=== PATIENT | female | born 1960 | race Caucasian/White ===

== ENCOUNTER 2017-10-20 14:05 | Emergency (ER) | payer MEDICARE, MEDICAID ==
[~2017-10-20] VITALS: Ht 160 cm; Wt 99.8 kg
[~2017-10-20 14:05] MED LIST: ALPR0.5T7 PO; ASPI-808 PO; DIGO125T18 PO; DULO60CA58 PO; DULO60CA6 PO; ENAL10TA PO; FAMO20TA5 PO; FLUT9.9S NS; HYDR4TAB49 PO; IBUP-1780 PO; MORP-34 PO; PROM50TA3 PO; VERA120T6 PO; VERA240C4 PO
--- OUTSIDE RECORDS SUMMARY | 2017-10-20 14:11 | XMS REPORT ---
Author CARLTON Washington [facility], [place] eClinicalWorks Address Unknown Phone Unavailable Care Team Providers Care Outdoor Studies Professor Name Role Phone CARLTON AGUILAR CP Unavailable Allergies, Adverse Reactions, Alerts Substance Reaction Event Type Diclofenac Info Not Available Drug Allergy Sulfamethoxazole Info Not Available Drug Allergy Problems Problem Type Condition Code Onset Dates Condition Status Problem History of drug abuse Z87.898 Active Problem Type 2 diabetes mellitus with hyperglycemia E11.65 Active Problem Essential hypertension I10 Active Problem Neuropathy G62.9 Active Assessment Secondary hypertension I15.9 Active Problem Irritable bowel syndrome with both constipation and diarrhea K58.2 Active Assessment Neuropathy G62.9 Active Problem Secondary hypertension I15.9 Active Problem Chronic hepatitis C without hepatic coma B18.2 Active Problem Chronic pain syndrome G89.4 Active Problem Other allergic rhinitis J30.89 Active Problem Atrial fibrillation I48.91 Active Assessment Episodic mood disorder F39 Active Assessment Posttraumatic stress disorder F43.10 Active Assessment Irritable bowel syndrome with both constipation and diarrhea K58.2 Active Assessment Atrial fibrillation I48.91 Active Problem Posttraumatic stress disorder F43.10 Active Problem Episodic mood disorder F39 Active Assessment Chronic hepatitis C without hepatic coma B18.2 Active Problem Chronic pain G89.29 Active Assessment Type 2 diabetes mellitus with hyperglycemia E11.65 Active Problem Marijuana use F12.10 Active Medications Medication Code System Code Instructions Start Date End Date Status Dosage Gabapentin [facility] [address]-29 300 MG Orally Three times a day Apr 09, 2016 1 capsule Flonase ND 0 50 mcg/actuation July 29, 2014 1 sprays by Nasal route 2 times per day in each nostril Gas Relief [facility] [address]-41 80 mg October 29, 2012 PRN Trulicity [facility] [address]-32 0.75 MG/0.5ML Subcutaneous Apr 09, 2016 Jul 08, 2016 0.5 ml Aspirin [facility] [address]-27 325 MG Orally Once a day 1 tablet Enalapril Maleate [facility] [address]-91 10 mg Orally Once a day October 02, 2015 1 tablet Cymbalta [facility] [address]-20 60 mg Orally Once a day August 30, 2015 1 capsule Actos [facility] [address]-77 15 MG Orally Once a day Apr 09, 2016 1 tablet Verapamil HCl CR [facility] 28845514884 240 MG Orally Once a day 1 tablet dicyclomine ND 0 20 mg October 14, 2012 take 1 tablet (20 mg) by oral route 4 times per day Procedures Procedure Coding System Code Date DRUG SCREEN NON TLC DEVICES CPT-4 87190 Apr 09, 2016 ELECTROCARDIOGRAM, TRACING CPT-4 70142 Apr 09, 2016 MICROALBUMIN, SEMIQUANT CPT-4 11869 Apr 09, 2016 Office Visit, Est Pt., Level 4 CPT-4 21507 Apr 09, 2016 [facility] VISIT ESTABLISHED PATIENT CPT-4 G0467 Apr 09, 2016 URINALYSIS, AUTO, W/O SCOPE CPT-4 59909 Apr 09, 2016 Vital Signs Date/Time: Apr 09, 2016 Cardiac Monitoring Heart Rate 78 bpm Weight 181.3 lbs Height 63 in BMI 32.11 Index Blood Pressure Diastolic 72 mmHg Blood Pressure Systolic 108 mmHg Results Name Result Date Reference Range Unit Abnormality Flag URINE DRUG SCREEN (IN HOUSE) ----BAR Negative 20160409 ----PCP Negative 20160409 ----Control + 20160409 ----COCAINE Negative 20160409 ----AMPH Negative 20160409 ----MDMA Negative 20160409 ----MTD Negative 20160409 ----BUP Negative 20160409 ----THC Negative 20160409 ----TCA Negative 20160409 ----OPIATE Negative 20160409 ----Lot # [id number] 20160409 ----BENZO Negative 20160409 ----MAMP Negative 20160409 ----Exp date 20160409 ----OXY Negative 20160409 UA LONG DIP (IN HOUSE) ----NIT negative 20160409 ----Odor none 20160409 ----Color yellow 20160409 ----URO 0.2 20160409 ----CECILE negative 20160409 ----Protein negative 20160409 ----GLU 3+ 20160409 ----pH 5.5 20160409 ----Lot # [id number] 20160409 ----Clarity Clear 20160409 ----FRANSISCO trace 20160409 ----Exp date 20160409 ----BLO Trace-intact 20160409 ----KET negative 20160409 ----SG 1.015 20160409 A1C (IN HOUSE) ----A1C IN HOUSE >14 20160409 4.3 - 5.6 % ----Previous A1c >14 20160409 ----Lot [id number] 20160409 ----Exp date 20160409 MICROALBUMIN, URINE (IN HOUSE) ----CRE 200mg/dl 20160409 ----ALB 30mg/l 20160409 ----Control + 20160409 ----A:C (IN HOUSE) <30mg/g 20160409 ----Clarity Clear 20160409 ----Color Yellow 20160409 ----Lot # [id number] 20160409 ----Exp date 20160409 ----MICROALBUMIN normal 20160409 Summary Purpose eClinicalWorks Submission
--- OUTSIDE RECORDS SUMMARY | 2017-10-20 14:11 | XMS REPORT ---
Author Author ALIYAH SAMPSON [facility] [place] eClinicalWorks Address Unknown Phone Unavailable Care Team Providers Care Auth Specialist Name Role Phone ALIYAH SAMPSON Unavailable Allergies No Known Allergies Problems Problem Type Condition Code Onset Dates Condition Status Problem History of drug abuse Z87.898 Active Problem Type 2 diabetes mellitus with hyperglycemia E11.65 Active Problem Essential hypertension I10 Active Problem Neuropathy G62.9 Active Problem Irritable bowel syndrome with both constipation and diarrhea K58.2 Active Problem Secondary hypertension I15.9 Active Problem Chronic hepatitis C without hepatic coma B18.2 Active Problem Chronic pain syndrome G89.4 Active Problem Other allergic rhinitis J30.89 Active Problem Atrial fibrillation I48.91 Active Assessment Type 2 diabetes mellitus with hyperglycemia E11.65 Active Assessment Essential hypertension I10 Active Problem Posttraumatic stress disorder F43.10 Active Problem Episodic mood disorder F39 Active Assessment Posttraumatic stress disorder F43.10 Active Problem Chronic pain G89.29 Active Assessment Episodic mood disorder F39 Active Problem Marijuana use F12.10 Active Medications No Known Medications Procedures Procedure Coding System Code Date Psychotherapy, patient &/family, 45 minutes, established patient CPT-4 41467 Apr 11, 2016 [facility] VISIT MENTAL HEALTH ESTAB PT CPT-4 G0470 Apr 11, 2016 Results No Known Results Summary Purpose eClinicalWorks Submission
--- OUTSIDE RECORDS SUMMARY | 2017-10-20 14:11 | XMS REPORT ---
Author Author CARLTON AGUILAR [facility] eClinicalWorks Address Unknown Phone Unavailable Care Team Providers Care Package Car Driver Name Role Phone CARLTON AGUILAR CP Unavailable Allergies No Known Allergies Problems Problem [...] J30.89 Active Problem Atrial fibrillation I48.91 Active Problem Posttraumatic stress disorder F43.10 Active Problem Episodic mood disorder F39 Active Problem Chronic pain G89.29 Active Problem Marijuana use F12.10 Active Medications No Known Medications Results No Known Results Summary Purpose eClinicalWorks Submission
--- OUTSIDE RECORDS SUMMARY | 2017-10-20 14:12 | XMS REPORT ---
Author Author ALIYAH SAMPSON [facility] Address [address] [place] [address] Care Team Providers Care Ski Patrol Director Name Role Phone ALIYAH SAMPSON Unavailable PROBLEMS Type Condition ICD9-CM Code YTG70-QT Code Onset Dates Condition Status SNOMED Code Problem Atrial fibrillation I48.91 Active 66554686 Problem Neuropathy G62.9 Active 800178250 Problem Other allergic rhinitis J30.89 Active 91361543 Problem Paroxysmal atrial fibrillation I48.0 Active 787150095 Problem Type 2 diabetes mellitus without complications E11.9 Active 045694752 Problem Tobacco abuse counseling Z71.6 Active 18223641 Problem Sinusitis chronic, ethmoidal J32.2 Active 94571226 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 304591571 Problem Mixed hyperlipidemia E78.2 Active 705956858 Problem Posttraumatic stress disorder F43.10 Active 32056677 Problem Type 2 diabetes mellitus with hyperglycemia E11.65 Active 715057137 Problem Chronic hepatitis C without hepatic coma B18.2 Active 536565827 Problem Episodic mood disorder F39 Active 13261182 Problem Marijuana use F12.10 Active 81317299 Problem Chronic pain G89.29 Active 30882336 Problem Essential hypertension I10 Active 53252346 ALLERGIES No Information ENCOUNTERS Encounter Location Date Diagnosis [place] [id number] [place] [address] 60450- 9106 Aug, Type 2 diabetes mellitus with hyperglycemia E11.65 [place] [address] [place] [address] 55637- 1307 Aug, Pneumonia of right middle lobe due to infectious organism J18.1 ; Peripheral edema R60.9 ; Right upper quadrant abdominal pain R10.11 ; Type 2 diabetes mellitus without complications E11.9 and BMI 40.0-44.9, adult Z68.41 [place] [id number] [place] [address] 82399- 0124 Aug, [facility] [address] [place] [address] [id number] [place] [address] 73125- 2789 Aug, [facility] [address] [place] [id number] [place] [address] 16428- 3587 Aug, [facility] [address] 39388- 2132 Aug, Type 2 diabetes mellitus without complications E11.9 ; Type 2 diabetes mellitus with hyperglycemia E11.65 ; Peripheral edema R60.9 ; Shortness of breath R06.02 ; Paroxysmal atrial fibrillation I48.0 and Pneumonia of right middle lobe due to infectious organism J18.1 [place] [address] [place] [id number] [place] [address] 83109- 3471 Aug, [facility] [address] [id number] [place] [address] 18115 -4482 Jul, Wheezing R06.2 and Acute non-recurrent pansinusitis J01.40 [place] [address] [place] [id number] [place] [address] 99679- 3857 Jul, [place] [address] [place] [id number] [place] [address] 91621- 2872 Jul, [place] [address] [place] [id number] [place] [address] 48632- 3267 May, Type 2 diabetes mellitus with hyperglycemia E11.65 ; Type 2 diabetes mellitus without complications E11.9 ; [facility]CI (current) use of insulin Z79.4 ; Essential hypertension I10 ; Atrial fibrillation I48.91 ; Chronic hepatitis C without hepatic coma B18.2 ; Mixed hyperlipidemia E78.2 ; Episodic mood disorder F39 ; Neuropathy G62.9 ; Acute non-recurrent maxillary sinusitis J01.00 ; Chronic pain G89.29 and Marijuana use F12.10 [place] [address] [place] [id number] [place] [address] 92680- 7132 Apr, Atrial fibrillation I48.91 [place] [address] 37750- 5808 Mar, [place] [address] [place] [id number] [place] [address] 81444- 4721 Feb, Type 2 diabetes mellitus with hyperglycemia E11.65 ; Essential hypertension I10 ; Mixed hyperlipidemia E78.2 ; Atrial fibrillation I48.91 ; Neuropathy G62.9 ; Other allergic rhinitis J30.89 and Non compliance with medical treatment Z91.19 [place] [id number] [place] [address] 57172- 4215 07 Jan, 2017 Episodic mood disorder F39 and Posttraumatic stress disorder F43.10 [place] [id number] [place] [address] 06831- 1861 Jan, [place] [address] [place] [id number] [place] [address] 41933- 9512 Oct, [place] [id number] [place] [address] 34570- 2661 Oct, [place] [address] [place] [id number] [place] [address] 36614- 6550 Oct, Type 2 diabetes mellitus with hyperglycemia E11.65 ; Essential hypertension I10 ; Atrial fibrillation I48.91 ; Episodic mood disorder F39 ; Chronic pain G89.29 ; Neuropathy G62.9 ; Other allergic rhinitis J30.89 and Tobacco abuse counseling Z71.6 [facility] [address] [place] [address] [address] Aug, Acute non-recurrent pansinusitis J01.40 [place] [id number] [place] [address] 11334- 5569 Jul, [place] [id number] [place] [address] 83873- 0954 Jun, [place] [address] [place] [id number] [place] [address] 13311- 6173 Jun, Type 2 diabetes mellitus with hyperglycemia E11.65 ; Episodic mood disorder F39 ; Posttraumatic stress disorder F43.10 ; Essential hypertension I10 ; Atrial fibrillation I48.91 ; Chronic pain G89.29 ; Acute upper respiratory infection, unspecified J06.9 ; Other viral agents as the cause of diseases classified elsewhere B97.89 ; Acute pain of left shoulder M25.512 and Sinusitis chronic, ethmoidal J32.2 [facility] [address] [place] [address] [id number] [place] [address] 73592- 6812 May, Acute intractable tension-type headache G44.201 ; Chronic pain G89.29 ; Essential hypertension I10 ; Atrial fibrillation I48.91 ; Neuropathy G62.9 ; Posttraumatic stress disorder F43.10 ; Episodic mood disorder F39 ; Type 2 diabetes mellitus with hyperglycemia E11.65 ; Other allergic rhinitis J30.89 and Irritable bowel syndrome with both constipation and diarrhea K58.2 [facility] [address] 40975- 8320 Apr, Episodic mood disorder F39 and Posttraumatic stress disorder F43.10 [place] [address] 90940- 4139 Mar, [facility] [address] 34125- 1458 Mar, [place] [address] 25297- 3053 Mar, Chronic hepatitis C without hepatic coma B18.2 [facility] [address] 47494- 9233 Mar, [facility] [address] 96719- 2875 Mar, Episodic mood disorder F39 ; Type 2 diabetes mellitus with hyperglycemia E11.65 ; Posttraumatic stress disorder F43.10 and Essential hypertension I10 [place] [address] 32669- 8213 Mar, [place] [address] 50807- 9700 Mar, [facility] [address] 59830- 7205 Mar, Type 2 diabetes mellitus with hyperglycemia E11.65 ; Chronic hepatitis C without hepatic coma B18.2 ; Posttraumatic stress disorder F43.10 ; Episodic mood disorder F39 ; Atrial fibrillation I48.91 ; Irritable bowel syndrome with both constipation and diarrhea K58.2 ; Secondary hypertension I15.9 and Neuropathy G62.9 [facility] [address] [place] [id number] [place] [address] 20287- 9788 Feb, Episodic mood disorder F39 and Posttraumatic stress disorder F43.10 [facility] [address] [place] [id number] [place] [address] 42505- 8441 Jan, Episodic mood disorder F39 and Posttraumatic stress disorder F43.10 [facility] [address] [place] [id number] [place] [address] 95728- 2470 Nov, Type 2 diabetes mellitus with hyperglycemia E11.65 ; Atrial fibrillation I48.91 ; Other allergic rhinitis J30.89 ; Episodic mood disorder F39 and Essential hypertension I10 [facility] [address] [place] [id number] [place] [address] 75772- 9026 Nov, [facility] [address] [place] [id number] [place] [address] 87036- 1532 Oct, [facility] [address] [place] [address] [id number] [place] [address] 75418- 8369 Oct, [facility] [address] [place] [id number] [place] [address] 78649- 0355 September, Type 2 diabetes mellitus with hyperglycemia E11.65 ; Atrial fibrillation I48.91 and Chronic pain G89.29 [facility] [address] [place] [address] [id number] [place] [address] 58702- 3233 September, Episodic mood disorder F39 and Posttraumatic stress disorder F43.10 [facility] [address] [place] [address] [id number] [place] [address] 67833- 2612 September, [facility] [address] [place] [address] [id number] [place] [address] 50425- 0494 September, [facility] [address] [address] September, [facility] [address] [place] [address] [id number] [place] [address] 29964- 6776 September, [facility] [address] [place] [address] [id number] [place] [address] 14382- 9237 September, [facility] [address] 33260- 1306 Aug, Type 2 diabetes mellitus with hyperglycemia E11.65 and Essential hypertension I10 [facility] [address] [place] [id number] [place] [address] 96410- 8563 Aug, [facility] [address] [place] [id number] [place] [address] 56601- 7405 Aug, [facility] [address] [place] [id number] [place] [address] 69011- 1548 Aug, Allergic rhinitis J30.9 ; Atrial fibrillation I48.91 ; Shortness of breath R06.02 and Essential hypertension I10 [facility] [address] [place] [id number] [place] [address] 73437- 1252 Jul, [facility] [address] [place] [id number] [place] [address] 28546- 0705 10 Jun, 2015 Episodic mood disorder F39 and Posttraumatic stress disorder F43.10 [facility] [address] [place] [id number] [place] [address] 84622- 7455 Jun, [facility] [address] [place] [address] [id number] [place] [address] 24145- 3361 May, Chronic pain G89.29 ; History of drug abuse Z87.898 and Marijuana use F12.10 [facility] [address] [place] [id number] [place] [address] 52477- 3662 May, Episodic mood disorder F39 and Posttraumatic stress disorder F43.10 [facility] [address] [place] [address] [id number] [place] [address] 14327- 6960 May, [facility] [address] [place] [address]- 0928 Apr, Chronic pain G89.29 [facility] [address]36 Apr, Episodic mood disorder F39 and Posttraumatic stress disorder F43.10 [facility] [address] [place] [address] 08496- 3676 Apr, COPD (chronic obstructive pulmonary disease) with acute bronchitis J44.0 [facility] [address] [place] [address] 498311- 5730 Feb, Episodic mood disorder F39 and Posttraumatic stress disorder F43.10 [facility] [address] [place] [address] 83369- 5329 Feb, [facility] [address] [place] [id number] [place] [address] 19044- 1945 Feb, Episodic mood disorder F39 and Posttraumatic stress disorder F43.10 [facility] [address], [place] [address]- 0428 Jan, Routine adult health maintenance V70.0 [facility] [address], [place] [address]- 9923 Jan, Unspecified episodic mood disorder 296.90 and Posttraumatic stress disorder 309.81 [facility] [address], [place] [address]- 9304 Dec, Unspecified episodic mood disorder 296.90 and Posttraumatic stress disorder 309.81 [facility] [address] [place] [address]- 4701 Dec, Unspecified episodic mood disorder 296.90 and Posttraumatic stress disorder 309.81 [facility] [address], [place] [address]- 4897 Oct, Unspecified episodic mood disorder 296.90 and Posttraumatic stress disorder 309.81 [facility] [address] [address] [address] [address]- 0026 September, Unspecified episodic mood disorder 296.90 ; Posttraumatic stress disorder 309.81 ; No condition on [place] V71.09 ; Diabetes 250.00 ; Hypertension 401.9 ; Hepatitis C 070.70 and Degenerative disc disease 722.6 [facility] [address] [place] [address]- 2222 Aug, [facility] [address] [place] [address] [id number] [place] [address] 08392- 1997 Aug, [facility] [address] [place] [address] [id number] [place] [address] 482506- 7688 Jul, [facility] [address] [place] [address] [id number] [place] [address] 31230- 1000 Jul, [facility] [address] [place] [address] [id number] [place] [address] 64090- 3811 16 Jan, 2014 [facility] [address] [place] [address] [id number] [place] [address] 11055- 8891 16 Jan, 2014 [facility] [address] [place] [address]- 9915 Jan, [facility] [id number] [place] [address] 26545- 4089 Oct, [facility] [address] [place] [address]- 1290 Oct, [facility] [address] [place] [address]- 8850 Oct, [facility] [address] [place] [address]- 9315 Oct, [facility] [address] [address] [address]- 5648 18 Oct, 2012 [facility] [address] [place] [address]- 0523 14 Oct, 2012 [facility] [address] [place] [address] [id number] [place] [address] 57661- 7683 Oct, [facility] [address], [place] [address]- 7081 13 Oct, 2012 [facility] [address], [place] [address]- 7526 Oct, [facility] [address], [place] [address]- 5714 Oct, [facility] [address], [place] [address]- 8268 Oct, [facility] [address], [place] [address]- 4746 Oct, [facility] [address], [place] [address]- 1296 Oct, [facility] [address] [place] [address]- 1264 Oct, [facility] [address], [place] [address]- 0335 Oct, [facility] [address], [place] [address]- 2757 Oct, [facility] [address], [place] [address]- 0834 September, [facility] [address], [place] [address]- 7124 Aug, [facility] [address], [place] [address]- 3011 Aug, [facility] [address], [place] [address]- 3378 Aug, IMMUNIZATIONS No Known Immunizations SOCIAL HISTORY Never Assessed REASON FOR VISIT BH F/U PLAN OF CARE Activity Details Follow Up prn Reason:BH F/U VITAL SIGNS MEDICATIONS Unknown Medications RESULTS No Results PROCEDURES Procedure Date Ordered Result Body Site [facility] VISIT MENTAL HEALTH ESTAB PT Jan 30, 2017 Psychotherapy, patient &/family, 45 minutes, established patient Jan 30, 2017 INSTRUCTIONS MEDICATIONS ADMINISTERED No Known Medications MEDICAL (GENERAL) HISTORY Type Description Date Medical History Hypertension Medical History Hep C Medical History Arthritis Medical History Osteoarthritis Medical History Left wrist and Right leg fractures Medical History Chronic back pain Medical History Depression Medical History Anxiety Medical History Endometrial Cancer s/p surgical resection Medical History Irritable bowel syndrome with both constipation and diarrhea Medical History History of drug abuse Medical History A- Fib Surgical History Hysterectomy Surgical History Surgical resection for endometrial cancer
--- OUTSIDE RECORDS SUMMARY | 2017-10-20 14:12 | XMS REPORT ---
Author Author EDWARD MAHER eClinicalWorks Address Unknown Phone Unavailable Care Team Providers Care Print Graphic Designer Name Role Phone EDWARD MAHER CP Unavailable Allergies, Adverse Reactions, Alerts Substance Reaction Event Type Diclofenac Info Not Available Drug Allergy Sulfamethoxazole Info Not Available Drug Allergy Problems Problem Type Condition Code Onset Dates Condition Status Assessment Chronic pain G89.29 Active Problem Episodic mood disorder F39 Active Problem Posttraumatic stress disorder F43.10 Active Assessment Marijuana use F12.10 Active Assessment History of drug abuse Z87.898 Active Problem Chronic pain syndrome G89.4 Active Problem Type 2 diabetes mellitus with hyperglycemia E11.65 Active Problem Chronic hepatitis C without hepatic coma B18.2 Active Problem Marijuana use F12.10 Active Problem Chronic pain G89.29 Active Problem Essential hypertension I10 Active Problem History of drug abuse Z87.898 Active Medications Medication Code System Code Instructions Start Date End Date Status Dosage Cymbalta [facility] [address]-83 60 mg November 03, 2012 take 1 capsule (60 mg) by oral route once daily verapamil NDC 0 120 mg October 14, 2012 take 1 tablet (120 mg) by oral route every 12 hours with food dicyclomine NDC 0 20 mg October 14, 2012 take 1 tablet (20 mg) by oral route 4 times per day Digoxin [facility] [address]-77 125 MCG Orally Once a day 1 tablet Flonase NDC 0 50 mcg/actuation July 29, 2014 1 sprays by Nasal route 2 times per day in each nostril Claritin-D 12 Hour [facility] [address]-70 5-120 mg October 29, 2012 take 1 tablet by oral route 2 times per day PRN Enalapril Maleate [facility] [address]-40 10 mg November 03, 2012 take 1 tablet (10 mg) by oral route once daily promethazine NDC 0 25 mg October 14, 2012 take 1 tablet (25 mg) by oral route every 4-6 hours as needed Gas Relief [facility] [address]-05 80 mg October 29, 2012 PRN ProAir HFA [facility] [address]-79 108 (90 Base) MCG/ACT Inhalation every 4 hrs May 01, 2015 2 puffs as needed Procedures Procedure Coding System Code Date Office Visit, Est Pt., Level 3 CPT-4 70581 Jun 08, 2015 [facility] VISIT ESTABLISHED PATIENT CPT-4 G0467 Jun 08, 2015 Vital Signs Date/Time: Jun 08, 2015 Temperature 97.8 F Weight 198.8 lbs Height 63 in BMI 35.21 Index Blood Pressure Diastolic 88 mmHg Blood Pressure Systolic 146 mmHg Cardiac Monitoring Heart Rate 98 bpm Results No Known Results Summary Purpose eClinicalWorks Submission
--- OUTSIDE RECORDS SUMMARY | 2017-10-20 14:12 | XMS REPORT ---
Author Author CARLTON AGUILAR Organization [facility] Address [address] [place] [address] Care Team Providers Care Mixing Machine Tender Cork Rod Name Role Phone IRIS AGUIALRNETTE Unavailable PROBLEMS Type Condition ICD9-CM Code EVT10-OP Code Onset Dates Condition Status SNOMED Code Problem Other allergic rhinitis J30.89 Active 69585931 Problem Irritable bowel syndrome with both constipation and diarrhea K58.2 Active 23655827 Problem Neuropathy G62.9 Active 798738364 Problem Tobacco abuse counseling Z71.6 Active 22911881 Problem Acute upper respiratory infection, unspecified J06.9 Active 11464341 Problem Sinusitis chronic, ethmoidal J32.2 Active 53546503 Problem Secondary hypertension I15.9 Active 08158987 Problem Other viral agents as the cause of diseases classified elsewhere B97.89 Active 47647129 Problem Acute pain of left shoulder M25.512 Active 593296165 Problem Chronic pain G89.29 Active 28539779 Problem Essential hypertension I10 Active 74295997 Problem Episodic mood disorder F39 Active 97457475 Problem Posttraumatic stress disorder F43.10 Active 86079859 Problem History of drug abuse Z87.898 Active 736189183 Problem Chronic hepatitis C without hepatic coma B18.2 Active 551114740 Problem Chronic pain syndrome G89.4 Active 337803514 Problem Marijuana use F12.10 Active 69629321 Problem Type 2 diabetes mellitus with hyperglycemia E11.65 Active 932572435 Problem Atrial fibrillation I48.91 Active 10443582 ALLERGIES No Information SOCIAL HISTORY Never Assessed PLAN OF CARE VITAL SIGNS MEDICATIONS Medication Instructions Dosage Frequency Start Date End Date Duration Status Enalapril Maleate 10 mg Orally Once a day 1 tablet 24h 30 days Active RESULTS No Results PROCEDURES No Known procedures IMMUNIZATIONS No Known Immunizations MEDICAL (GENERAL) HISTORY Type Description Date Medical History Hypertension Medical History Hep C Medical History Arthritis Medical History Osteoarthritis Medical History Left wrist and Right leg fractures Medical History Chronic back pain Medical History Depression Medical History Anxiety Medical History Endometrial Cancer s/p surgical resection Surgical History Hysterectomy Surgical History Surgical resection for endometrial cancer
--- OUTSIDE RECORDS SUMMARY | 2017-10-20 14:12 | XMS REPORT ---
Author Author RYAN MICHAEL [facility] eClinicalWorks Address Unknown Phone Unavailable Care Team Providers Care Security Auditor Name Role Phone RYAN MICHAEL CP Unavailable Allergies, Adverse Reactions, Alerts Substance Reaction Event Type Diclofenac Info Not Available Drug Allergy Sulfamethoxazole Info Not Available Drug Allergy Problems Problem Type Condition Code Onset Dates Condition Status Problem Hypertension 401.9 Active Problem Anxiety state, unspecified 300.00 Active Problem Diabetes 250.00 Active Problem Allergic rhinitis due to pollen 477.0 Active Assessment Routine adult health maintenance V70.0 Active Problem Chronic hepatitis C without mention of hepatic coma 070.54 Active Problem Other chronic pain 338.29 Active Medications Medication Code System Code Instructions Start Date End Date Status Dosage Enalapril Maleate [facility] [address]-24 10 mg November 03, 2012 take 1 tablet (10 mg) by oral route once daily Cymbalta [facility] [address]-93 60 mg November 03, 2012 take 1 capsule (60 mg) by oral route once daily Alprazolam [facility] [address]-96 0.5 mg October 29, 2012 take 1 tablet by Oral route 2 times per day PRN anxiety Dilaudid [facility] [address]-55 4 mg October 29, 2012 take 1-2 tablet by Oral route every 4-6 hours as needed PRN promethazine NDC 0 25 mg October 14, 2012 take 1 tablet (25 mg) by oral route every 4-6 hours as needed Fluticasone Propionate [facility] [id number] 50 MCG/ACT USE ONE SPRAY IN EACH NOSTRIL TWICE DAILY verapamil NDC 0 120 mg October 14, 2012 take 1 tablet (120 mg) by oral route every 12 hours with food Claritin-D 12 Hour [facility] [address]-95 5-120 mg October 29, 2012 take 1 tablet by oral route 2 times per day PRN morphine NDC 0 30 mg October 29, 2012 take 1 tablet by Oral route every 12 hours as needed dicyclomine NDC 0 20 mg October 14, 2012 take 1 tablet (20 mg) by oral route 4 times per day Procedures Procedure Coding System Code Date Office Visit, Est Pt., Level 4 CPT-4 38190 Feb 10, 2015 [facility] VISIT ESTABLISHED PATIENT CPT-4 G0467 Feb 10, 2015 Vital Signs Date/Time: Feb 10, 2015 Temperature 98.6 F Weight 205.3 lbs Height 63 in BMI 36.36 Index Blood Pressure Diastolic 70 mmHg Blood Pressure Systolic 122 mmHg Cardiac Monitoring Heart Rate 100 bpm Results No Known Results Summary Purpose eClinicalWorks Submission
--- OUTSIDE RECORDS SUMMARY | 2017-10-20 14:12 | XMS REPORT ---
Author CARLTON Washington [facility] eClinicalWorks Address Unknown Phone Unavailable Care Team Providers Care Debeaker Name Role Phone CARLTON AGUILAR CP Unavailable [...] F39 Active Problem Chronic pain G89.29 Active Assessment Chronic hepatitis C without hepatic coma B18.2 Active Problem Marijuana use F12.10 Active Medications No Known Medications Procedures Procedure Coding System Code Date HEP C AB W/REFLEX ([facility] ONLY) CPT-4 39491 Apr 11, 2016 HEP C GENOTYPE ([facility] ONLY) CPT-4 25110 Apr 11, 2016 LAB NOT BILLED BY [facility] CPT-4 NOBLL Apr 11, 2016 VENIPUNCT, ROUTINE* CPT-4 83647 Apr 11, 2016 Results Name Result Date Reference Range Unit Abnormality Flag CMP ----Calcium, Serum 9.1 35211876 8.7-10.2 mg/dL ----Carbon Dioxide, Total 20 [id number] 18-29 mmol/L ----ALT (SGPT) 43 [id number] 0-32 IU/L H ----Creatinine, Serum 0.78 57179439 0.57-1.00 mg/dL ----AST (SGOT) 28 03550921 0-40 IU/L ----eGFR If NonAfricn Am 85 [id number] >59 mL/min/1.73 ----Alkaline Phosphatase, S 122 98445140 39-117 IU/L H ----eGFR If Africn Am 98 [id number] >59 mL/min/1.73 ----Bilirubin, Total 0.3 92327185 0.0-1.2 mg/dL ----BUN/Creatinine Ratio 17 20160411 9-23 ----A/G Ratio 1.1 61427387 1.1-2.5 ----Sodium, Serum 134 90122512 136-144 mmol/L L ----Globulin, Total 3.4 10770323 1.5-4.5 g/dL ----Potassium, Serum 3.9 01487074 3.5-5.2 mmol/L ----Glucose, Serum 291 87921088 65-99 mg/dL H ----Chloride, Serum 96 47877144 97-106 mmol/L L ----Albumin, Serum 3.7 19283746 3.5-5.5 g/dL ----BUN 13 67032287 6-24 mg/dL ----Protein, Total, Serum 7.1 34599553 6.0-8.5 g/dL LIPID PANEL ----LDL Cholesterol Calc 132 07696459 0-99 mg/dL H ----VLDL Cholesterol Mauricio 51 80899525 5-40 mg/dL H ----Cholesterol, Total 223 74833857 100-199 mg/dL H ----HDL Cholesterol 40 04875568 >39 mg/dL ----Triglycerides 255 64880362 0-149 mg/dL H ROUTINE VENIPUNCTURE CBC ----MCHC 32.6 55337550 31.5-35.7 g/dL ----MCH 27.3 17297153 26.6-33.0 pg ----Platelets 338 58672579 150-379 x10E3/uL ----RDW 13.9 44579161 12.3-15.4 % ----Immature Granulocytes 0 16952302 % ----Immature Grans (Abs) 0.0 91111802 0.0-0.1 x10E3/uL ----Lymphs 32 39212687 % ----Monocytes 7 24900999 % ----Neutrophils 60 48909474 % ----Neutrophils (Absolute) 6.8 60506725 1.4-7.0 x10E3/uL ----Hematocrit 45.7 72903722 34.0-46.6 % ----Lymphs (Absolute) 3.6 49632743 0.7-3.1 x10E3/uL H ----MCV 84 20160411 79-97 fL ----RBC 5.46 67551295 3.77-5.28 x10E6/uL H ----Eos 1 20160411 % ----Basos 0 20160411 % ----Hemoglobin 14.9 20160411 11.1-15.9 g/dL ----Baso (Absolute) 0.0 20160411 0.0-0.2 x10E3/uL ----WBC 11.4 74970348 3.4-10.8 x10E3/uL H ----Monocytes(Absolute) 0.8 68841763 0.1-0.9 x10E3/uL ----Eos (Absolute) 0.2 82767779 0.0-0.4 x10E3/uL HEP C GENOTYPE ([facility] ONLY) HEP C AB W/REFLEX ([facility] ONLY) Summary Purpose eClinicalWorks Submission
--- OUTSIDE RECORDS SUMMARY | 2017-10-20 14:12 | XMS REPORT ---
Author Author JEFF CARLTON Organization [facility] Address [address] [place] [address] Care Team Providers Care Litigation Paralegal Name Role Phone CARLTON AGUILAR Unavailable PROBLEMS Type Condition ICD9-CM Code ZMQ17-LI Code Onset Dates Condition Status SNOMED Code Problem Other allergic rhinitis J30.89 Active 93177080 Problem Irritable bowel syndrome with both constipation and diarrhea K58.2 Active 34453582 Problem Neuropathy G62.9 Active 054017942 Problem Tobacco abuse counseling Z71.6 Active 70640265 Problem Acute upper respiratory infection, unspecified J06.9 Active 95623754 Problem Sinusitis chronic, ethmoidal J32.2 Active 47756423 Problem Secondary hypertension I15.9 Active 71879215 Problem Other viral agents as the cause of diseases classified elsewhere B97.89 Active 01621014 Problem Acute pain of left shoulder M25.512 Active 647840863 Problem Chronic pain G89.29 Active 00783650 Problem Essential hypertension I10 Active 61599110 Problem Episodic mood disorder F39 Active 40639076 Problem Posttraumatic stress disorder F43.10 Active 09895734 Problem History of drug abuse Z87.898 Active 105310500 Problem Chronic hepatitis C without hepatic coma B18.2 Active 010231104 Problem Chronic pain syndrome G89.4 Active 063628739 Problem Marijuana use F12.10 Active 69205642 Problem Type 2 diabetes mellitus with hyperglycemia E11.65 Active 283494523 Problem Atrial fibrillation I48.91 Active 57605587 ALLERGIES Substance Reaction Event Type Date Status Diclofenac Unknown Drug Allergy May, Active Sulfamethoxazole Unknown Drug Allergy May, Active SOCIAL HISTORY No smoking Hx information available PLAN OF CARE Activity Details Follow Up 3 Months, prn Reason: VITAL SIGNS Height 63 in 2016-06-17 Weight 188.5 lbs 2016-06-17 Temperature 97.4 degrees Fahrenheit 2016-06-17 Heart Rate 82 bpm 2016-06-17 Respiratory Rate 22 2016-06-17 BMI 33.39 kg/m2 2016-06-17 Blood pressure systolic 122 mmHg 2016-06-17 Blood pressure diastolic 78 mmHg 2016-06-17 MEDICATIONS Medication Instructions Dosage Frequency Start Date End Date Duration Status Cymbalta 60 mg Orally Once a day 1 capsule 24h Aug, 30 day(s) Active Gas Relief 80 mg PRN Oct, Active Verapamil HCl CR 240 MG TAKE ONE TABLET BY MOUTH ONCE DAILY Active Flonase 50 mcg/actuation 1 sprays by Nasal route 2 times per day in each nostril Jul, Active Aspirin 325 MG Orally Once a day 1 tablet 24h Active Lidoderm 5 % Externally Once a day as directed 24h 30 Active Enalapril Maleate 10 MG TAKE ONE TABLET BY MOUTH ONCE DAILY Active Actos 30 MG Orally Once a day 1 tablet 24h Mar, Active Trulicity 0.75 MG/0.5ML Subcutaneous once weekly 0.5 ml Mar, Active RESULTS No Results PROCEDURES Procedure Date Ordered Related Diagnosis Body Site [facility] EST[facility] PATIENT Jun 17, 2016 Office Visit, Est Pt., Level 4 Jun 17, 2016 THER/PROPH/DIAG INJ, SC/IM Jun 17, 2016 PHENERGAN (IM) 25 MG (25 MG/ML) Jun 17, 2016 TORADOL (IM) 60 MG/2ML (UP TO 15 MG) Jun 17, 2016 IMMUNIZATIONS Vaccine Route Administration Date Status PHENERGAN (IM) 25 MG (25 MG/ML) IM Intramuscular Jun 17, 2016 Administered TORADOL (IM) 60 MG/2ML (UP TO 15 MG) IM Intramuscular Jun 17, 2016 Administered
--- OUTSIDE RECORDS SUMMARY | 2017-10-20 14:12 | XMS REPORT ---
Author Author JEFF CARLTON Organization [facility] Address [address] [place] [address] Care Team Providers Care Resolution Manager Name Role Phone CARLTON AGUILAR Unavailable PROBLEMS Type Condition ICD9-CM Code XAR05-AZ Code Onset Dates Condition Status SNOMED Code Problem Other allergic rhinitis J30.89 Active 03935451 Problem Irritable bowel syndrome with both constipation and diarrhea K58.2 Active 36301255 Problem Neuropathy G62.9 Active 879911774 Problem Tobacco abuse counseling Z71.6 Active 69288890 Problem Acute upper respiratory infection, unspecified J06.9 Active 17885585 Problem Sinusitis chronic, ethmoidal J32.2 Active 70804064 Problem Secondary hypertension I15.9 Active 30712748 Problem Other viral agents as the cause of diseases classified elsewhere B97.89 Active 91541298 Problem Acute pain of left shoulder M25.512 Active 223069632 Problem Chronic pain G89.29 Active 24213645 Problem Essential hypertension I10 Active 27686217 Problem Episodic mood disorder F39 Active 50045162 Problem Posttraumatic stress disorder F43.10 Active 53026439 Problem History of drug abuse Z87.898 Active 780400052 Problem Chronic hepatitis C without hepatic coma B18.2 Active 201683915 Problem Chronic pain syndrome G89.4 Active 820561938 Problem Marijuana use F12.10 Active 25625724 Problem Type 2 diabetes mellitus with hyperglycemia E11.65 Active 466861567 Problem Atrial fibrillation I48.91 Active 11012015 ALLERGIES Substance Reaction Event Type Date Status Diclofenac Unknown Drug Allergy Jun, Active Sulfamethoxazole Unknown Drug Allergy Jun, Active SOCIAL HISTORY Never Assessed PLAN OF CARE Activity Details Follow Up 2 Weeks Reason:left shoulder pain VITAL SIGNS Height 63 in 2016-07-18 Weight 188.8 lbs 2016-07-18 Temperature 98.4 degrees Fahrenheit 2016-07-18 Heart Rate 78 bpm 2016-07-18 Respiratory Rate 20 2016-07-18 BMI 33.44 kg/m2 2016-07-18 Blood pressure systolic 117 mmHg 2016-07-18 Blood pressure diastolic 72 mmHg 2016-07-18 MEDICATIONS Medication Instructions Dosage Frequency Start Date End Date Duration Status Shari-D 12 Hour 5-120 MG Orally every 12 hrs prn 1 tablet as needed Jun, Active Test strips Test Strips shayne track as directed Aug, Active Actos 30 MG Orally Once a day 1 tablet 24h Mar, Active Flonase 50 mcg/actuation 1 sprays by Nasal route 2 times per day in each nostril Jul, Active Lidoderm 5 % Externally Once a day 1 patch to skin remove after 12 hours 24h Jun, 30 days Active Enalapril Maleate 10 MG TAKE ONE TABLET BY MOUTH ONCE DAILY 30 Active Trulicity 0.75 MG/0.5ML Subcutaneous once weekly 0.5 ml 28 Active Verapamil HCl CR 240 MG Orally Once a day TAKE ONE TABLET BY MOUTH ONCE DAILY 24h Active Aspirin 325 MG Orally Once a day 1 tablet 24h Active Baclofen 10 mg Orally Three times a day 1 tablet with food or milk 8h Jun, Jul, 30 day(s) Active Cymbalta 60 mg Orally Once a day 1 capsule 24h Aug, 30 day(s) Active Gas Relief 80 mg PRN Oct, Active RESULTS Name Result Date Reference Range A1C (IN HOUSE) 2016-07-18 A1C IN HOUSE 6.9 4.3 - 5.6 % Previous A1c >14 Lot [id number] Exp date 03/2018 PROCEDURES Procedure Date Ordered Result Body Site GLYCATED HEMOGLOBIN TEST Jul 18, 2016 [facility] VISIT ESTABLISHED PATIENT Jul 18, 2016 IMMUNIZATIONS No Known Immunizations MEDICAL (GENERAL) HISTORY [...]
--- OUTSIDE RECORDS SUMMARY | 2017-10-20 14:13 | XMS REPORT ---
Author Author ALIYAH SAMPSON [facility] eClinicalWorks Address Unknown Phone Unavailable Care Team Providers Care Aviation Safety Inspector Name Role Phone ALIYAH SAMPSON Unavailable Allergies No Known Allergies Problems Problem Type Condition Code Onset Dates Condition Status Problem Allergic rhinitis due to pollen 477.0 Active Problem Posttraumatic stress disorder F43.10 Active Problem Diabetes 250.00 Active Problem Episodic mood disorder F39 Active Problem Chronic hepatitis C without mention of hepatic coma 070.54 Active Problem Other chronic pain 338.29 Active Problem Hypertension 401.9 Active Problem Anxiety state, unspecified 300.00 Active Medications No Known Medications Results No Known Results Summary Purpose eClinicalWorks Submission
--- OUTSIDE RECORDS SUMMARY | 2017-10-20 14:13 | XMS REPORT ---
Author Author RYAN MICHAEL [facility] eClinicalWorks Address Unknown Phone Unavailable Care Team Providers Care Cyber Intel Planner Name Role Phone RYAN MICHAEL CP Unavailable Allergies, Adverse Reactions, Alerts Substance Reaction Event Type Diclofenac Info Not Available Drug Allergy Sulfamethoxazole Info Not Available Drug Allergy Problems Problem Type Condition Code Onset Dates Condition Status Assessment Chronic pain G89.29 Active Problem Other chronic pain 338.29 Active Problem Allergic rhinitis due to pollen 477.0 Active Problem Episodic mood disorder F39 Active Problem Posttraumatic stress disorder F43.10 Active Problem Chronic pain G89.29 Active Problem Anxiety state, unspecified 300.00 Active Problem Chronic hepatitis C without mention of hepatic coma 070.54 Active Problem Diabetes 250.00 Active Problem Hypertension 401.9 Active Medications Medication Code System Code Instructions Start Date End Date Status Dosage Cymbalta [facility] [address]-30 60 mg November 03, 2012 take 1 capsule (60 mg) by oral route once daily morphine NDC 0 30 mg October 29, 2012 take 1 tablet by Oral route every 12 hours as needed dicyclomine NDC 0 20 mg October 14, 2012 take 1 tablet (20 mg) by oral route 4 times per day Enalapril Maleate [facility] [address]-33 10 mg November 03, 2012 take 1 tablet (10 mg) by oral route once daily verapamil NDC 0 120 mg October 14, 2012 take 1 tablet (120 mg) by oral route every 12 hours with food Flonase NDC 0 50 mcg/actuation July 29, 2014 1 sprays by Nasal route 2 times per day in each nostril Alprazolam [facility] [address]-57 0.5 mg October 29, 2012 take 1 tablet by Oral route 2 times per day PRN anxiety ProAir HFA [facility] [address]-03 108 (90 Base) MCG/ACT Inhalation every 4 hrs May 01, 2015 2 puffs as needed promethazine NDC 0 25 mg October 14, 2012 take 1 tablet (25 mg) by oral route every 4-6 hours as needed Claritin-D 12 Hour [facility] [address]-43 5-120 mg October 29, 2012 take 1 tablet by oral route 2 times per day PRN Gas Relief [facility] [address]-20 80 mg October 29, 2012 PRN Procedures Procedure Coding System Code Date Office Visit, Est Pt., Level 4 CPT-4 68830 May 08, 2015 [facility] VISIT ESTABLISHED PATIENT CPT-4 G0467 May 08, 2015 Vital Signs Date/Time: May 08, 2015 Temperature 96.7 F Weight 201.1 lbs Height 63 in BMI 35.62 Index Blood Pressure Diastolic 74 mmHg Blood Pressure Systolic 141 mmHg Cardiac Monitoring Heart Rate 100 bpm Results No Known Results Summary Purpose eClinicalWorks Submission
--- OUTSIDE RECORDS SUMMARY | 2017-10-20 14:13 | XMS REPORT ---
Author Author ALIYAH SAMPSON [facility] Address [address] [place] [address] Care Team Providers Care Frame Feeder Name Role Phone ALIYAH SAMPSON Unavailable PROBLEMS Type Condition ICD9-CM Code YMA94-RW Code Onset Dates Condition Status SNOMED Code Problem Chronic pain G89.29 Active 55251685 Problem History of drug abuse Z87.898 Active 294688418 Problem Marijuana use F12.10 Active 05364200 Assessment Episodic mood disorder F39 Jan, Active 06084745410108 Problem Posttraumatic stress disorder F43.10 Active 11320123 Problem Episodic mood disorder F39 Active 51494104 Problem Other allergic rhinitis J30.89 Active 85900660 Problem Atrial fibrillation I48.91 Active 01600706 Problem Type 2 diabetes mellitus with hyperglycemia E11.65 Active 307377489 Problem Essential hypertension I10 Active 86785616 Problem Chronic hepatitis C without hepatic coma B18.2 Active 849001771 Problem Chronic pain syndrome G89.4 Active 661641960 ALLERGIES Unknown Allergies SOCIAL HISTORY No smoking Hx information available PLAN OF CARE VITAL SIGNS MEDICATIONS Unknown Medications RESULTS No Results PROCEDURES Procedure Date Ordered Related Diagnosis Body Site [facility] VISIT MENTAL HEALTH ESTAB PT Feb 21, 2016 Psychotherapy, patient &/family, 45 minutes, established patient Feb 21, 2016 IMMUNIZATIONS No Known Immunizations
--- OUTSIDE RECORDS SUMMARY | 2017-10-20 14:13 | XMS REPORT ---
Author Author CARLTON Ocampo Organization [facility] Address [address] [place] [address] Care Team Providers Care Avionics Supervisor Name Role Phone CARLTON Ocampo Unavailable PROBLEMS Type Condition ICD9-CM Code IPB77-IM Code Onset Dates Condition Status SNOMED Code Problem Atrial fibrillation I48.91 Active 02810919 Problem Neuropathy G62.9 Active 953368218 Problem Other allergic rhinitis J30.89 Active 31881148 Problem Paroxysmal atrial fibrillation I48.0 Active 222938597 Problem Type 2 diabetes mellitus without complications E11.9 Active 586577947 Problem Tobacco abuse counseling Z71.6 Active 63016358 Problem Sinusitis chronic, ethmoidal J32.2 Active 12568601 Problem 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 499704751 Problem Mixed hyperlipidemia E78.2 Active 452459481 Problem Posttraumatic stress disorder F43.10 Active 34499675 Problem Type 2 diabetes mellitus with hyperglycemia E11.65 Active 849732027 Problem Chronic hepatitis C without hepatic coma B18.2 Active 098088449 Problem Episodic mood disorder F39 Active 56266948 Problem Marijuana use F12.10 Active 90636065 Problem Chronic pain G89.29 Active 56805929 Problem Essential hypertension I10 Active 72853916 ALLERGIES No Information ENCOUNTERS Encounter Location Date Diagnosis [place] [id number] [place] [address] 12305- 2041 Aug, Type 2 diabetes mellitus with hyperglycemia E11.65 [place] [id number] [place] [address] 78248- 2769 Aug, Pneumonia of right middle lobe due to infectious organism J18.1 ; Peripheral edema R60.9 ; Right upper quadrant abdominal pain R10.11 ; Type 2 diabetes mellitus without complications E11.9 and BMI 40.0-44.9, adult Z68.41 [place] [address] [place] [id number] [address] Aug, [facility] [id number] [place] [address] 69703- 5593 Aug, [facility] [id number] [place] [address] 78251- 9265 Aug, [place] [address] [address] [id number] [place] [address] 29287- 2306 Aug, Type 2 diabetes mellitus without complications E11.9 ; Type 2 diabetes mellitus with hyperglycemia E11.65 ; Peripheral edema R60.9 ; Shortness of breath R06.02 ; Paroxysmal atrial fibrillation I48.0 and Pneumonia of right middle lobe due to infectious organism J18.1 [place] [id number] [place] [address] 68371- 8288 Aug, [facility] [id number] [place] [address] 41315 -8244 Jul, Wheezing R06.2 and Acute non-recurrent pansinusitis J01.40 [place] [address] [id number] [place] [address] 16165- 0487 Jul, [place] [address] [address] [id number] [place] [address] 17128- 3686 Jul, [place] [id number] [place] [address] 30819- 4684 May, Type 2 diabetes mellitus with hyperglycemia E11.65 ; Type 2 diabetes mellitus without complications E11.9 ; 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 ; Essential hypertension I10 ; Atrial fibrillation I48.91 ; Chronic hepatitis C without hepatic coma B18.2 ; Mixed hyperlipidemia E78.2 ; Episodic mood disorder F39 ; Neuropathy G62.9 ; Acute non-recurrent maxillary sinusitis J01.00 ; Chronic pain G89.29 and Marijuana use F12.10 [facility] [id number] [place] [address] 20171- 6427 Apr, Atrial fibrillation I48.91 [place] [address] [id number] [place] [address] 62838- 5141 Mar, [place] [id number] [place] [address] 69142- 5316 Feb, Type 2 diabetes mellitus with hyperglycemia E11.65 ; Essential hypertension I10 ; Mixed hyperlipidemia E78.2 ; Atrial fibrillation I48.91 ; Neuropathy G62.9 ; Other allergic rhinitis J30.89 and Non compliance with medical treatment Z91.19 [place] [id number] [place] [address] 42859- 4750 07 Jan, 2017 Episodic mood disorder F39 and Posttraumatic stress disorder F43.[address] 22522- 8994 05 Jan, 2017 [place] [id number] [place] [address] 17629- 1867 12 Oct, 2016 [place] [id number] [place] [address] 02570- 8160 Oct, [place] [id number] [place] [address] 34011- 5189 08 Oct, 2016 Type 2 diabetes mellitus with hyperglycemia E11.65 ; Essential hypertension I10 ; Atrial fibrillation I48.91 ; Episodic mood disorder F39 ; Chronic pain G89.29 ; Neuropathy G62.9 ; Other allergic rhinitis J30.89 and Tobacco abuse counseling Z71.6 [facility] [id number] [place] [address] 28235 -4048 14 Aug, 2016 Acute non-recurrent pansinusitis J01.40 [place] [id number] [place] [address] 00016- 3678 Jul, [place] [id number] [place] [address] 65146- 8847 Jun, [place] [id number] [place] [address] 01072- 1032 Jun, Type 2 diabetes mellitus with hyperglycemia E11.65 ; Episodic mood disorder F39 ; Posttraumatic stress disorder F43.10 ; Essential hypertension I10 ; Atrial fibrillation I48.91 ; Chronic pain G89.29 ; Acute upper respiratory infection, unspecified J06.9 ; Other viral agents as the cause of diseases classified elsewhere B97.89 ; Acute pain of left shoulder M25.512 and Sinusitis chronic, ethmoidal J32.2 [facility] [id number] [place] [address] 54031- 0359 May, Acute intractable tension-type headache G44.201 ; Chronic pain G89.29 ; Essential hypertension I10 ; Atrial fibrillation I48.91 ; Neuropathy G62.9 ; Posttraumatic stress disorder F43.10 ; Episodic mood disorder F39 ; Type 2 diabetes mellitus with hyperglycemia E11.65 ; Other allergic rhinitis J30.89 and Irritable bowel syndrome with both constipation and diarrhea K58.2 [facility] [id number] [place] [address] 31068- 1683 Apr, Episodic mood disorder F39 and Posttraumatic stress disorder F43.10 [place] [id number] 69853- 1308 Mar, [facility] [address] 95565- 6318 Mar, [place] [address] [place] [id number] [place] [address] 44888- 8437 Mar, Chronic hepatitis C without hepatic coma B18.2 [facility] [address] [address] [id number] [place] [address] 24749- 2319 Mar, [facility] [address] 47617- 2726 Mar, Episodic mood disorder F39 ; Type 2 diabetes mellitus with hyperglycemia E11.65 ; Posttraumatic stress disorder F43.10 and Essential hypertension I10 [facility] [address] 37341- 3600 Mar, [facility] [address] 62392- 7300 Mar, [facility] [address] [place] [address] [address] 1522 15 Mar, 2016 Type 2 diabetes mellitus with hyperglycemia E11.65 ; Chronic hepatitis C without hepatic coma B18.2 ; Posttraumatic stress disorder F43.10 ; Episodic mood disorder F39 ; Atrial fibrillation I48.91 ; Irritable bowel syndrome with both constipation and diarrhea K58.2 ; Secondary hypertension I15.9 and Neuropathy G62.9 [facility] [address] [id number] [place] [address] 01476- 3393 Feb, Episodic mood disorder F39 and Posttraumatic stress disorder F43.10 [facility] [address] [id number] [place] [address] 43384- 1577 Jan, Episodic mood disorder F39 and Posttraumatic stress disorder F43.10 [facility] [address] [id number] [place] [address] 17261- 1351 Nov, Type 2 diabetes mellitus with hyperglycemia E11.65 ; Atrial fibrillation I48.91 ; Other allergic rhinitis J30.89 ; Episodic mood disorder F39 and Essential hypertension I10 [facility] [address] [id number] [place] [address] 86234- 9810 Nov, [facility] [id number] [place] [address] 17360- 0895 Oct, [facility] [address] [id number] [place] [address] 42900- 8493 Oct, [facility] [id number] [place] [address] 75974- 5584 September, Type 2 diabetes mellitus with hyperglycemia E11.65 ; Atrial fibrillation I48.91 and Chronic pain G89.29 [facility] [id number] [place] [address] 85216- 2851 September, Episodic mood disorder F39 and Posttraumatic stress disorder F43.10 [facility] [id number] [place] [address] 82547- 1415 September, [facility] [id number] [place] [address] 85994- 4376 September, [facility] [id number] [place] [address] 68392 -3708 September, [facility] [address] [id number] [place] [address] 02478- 9389 September, [facility] [id number] [place] [address] 43383- 4295 September, [facility] [address] 29027- 9421 Aug, Type 2 diabetes mellitus with hyperglycemia E11.65 and Essential hypertension I10 [facility] [address] 85054- 3255 Aug, [facility] [address] [id number] [place] [address] 17529- 8644 Aug, [facility] [address] 03270- 8620 Aug, Allergic rhinitis J30.9 ; Atrial fibrillation I48.91 ; Shortness of breath R06.02 and Essential hypertension I10 [facility] [address] [id number] [place] [address] 43819- 4687 Jul, [facility] [address] [id number] [place] [address] 31977- 4086 10 Jun, 2015 Episodic mood disorder F39 and Posttraumatic stress disorder F43.10 [facility] [address] [id number] [place] [address] 41994- 4203 Jun, [facility] [address] [id number] [place] [address] 24859- 0898 May, Chronic pain G89.29 ; History of drug abuse Z87.898 and Marijuana use F12.10 [facility] [address] [id number] [place] [address] 72963- 9347 May, Episodic mood disorder F39 and Posttraumatic stress disorder F43.10 [facility] [address] [id number] [place] [address] 06030- 7348 May, [facility] [address] [address]- 6855 Apr, Chronic pain G89.29 [facility] [address] 0719 Apr, Episodic mood disorder F39 and Posttraumatic stress disorder F43.10 [facility] [address] [place] [address] 81467- 9726 Apr, COPD (chronic obstructive pulmonary disease) with acute bronchitis J44.0 [facility] [address] [place] [address] 015374- 5152 Feb, Episodic mood disorder F39 and Posttraumatic stress disorder F43.10 [facility] [address] [place] [address] 42150- 5410 Feb, [facility] [address] [id number] [place] [address] 02639- 9072 Feb, Episodic mood disorder F39 and Posttraumatic stress disorder F43.10 [facility] [id number] [place] [address] 89318- 6123 Jan, Routine adult health maintenance V70.0 [facility] [address] [address]- 4445 Jan, Unspecified episodic mood disorder 296.90 and Posttraumatic stress disorder 309.81 [facility] [address] [place] [address] 25170- 4246 Dec, Unspecified episodic mood disorder 296.90 and Posttraumatic stress disorder 309.81 [facility] [address] [place] [address] 38020- 3861 Dec, Unspecified episodic mood disorder 296.90 and Posttraumatic stress disorder 309.81 [facility] [address] [address]- 1900 Oct, Unspecified episodic mood disorder 296.90 and Posttraumatic stress disorder 309.81 [facility] [address] [address]- 3953 September, Unspecified episodic mood disorder 296.90 ; Posttraumatic stress disorder 309.81 ; No condition on Zeigler II V71.09 ; Diabetes 250.00 ; Hypertension 401.9 ; Hepatitis C 070.70 and Degenerative disc disease 722.6 [facility] [address] [address]- 2912 Aug, [facility] [address] [address]- 7933 Aug, [facility] [address] [address]- 3785 Jul, [facility] [address] [address]- 4118 Jul, [facility] [address] [address]- 3091 16 Jan, 2014 [facility] [address] [address]- 3906 16 Jan, 2014 [facility] [address] [address]- 2045 Jan, [facility] [address] [address]- 2749 Oct, [facility] [address] [address]- 4694 Oct, [facility] [address] [address]- 7476 Oct, [facility] [address] [address]- 6313 19 Oct, 2012 [facility] [address] [address]- 7205 18 Oct, 2012 [facility] [address] [address]- 7186 14 Oct, 2012 [facility] [address] [address]- 1985 13 Oct, 2012 [facility] [address] [address]- 3856 13 Oct, 2012 [facility] [address] [address]- 7929 Oct, [facility] [address] [address]- 8298 Oct, [facility] [address] [address]- 7540 Oct, [facility] [address] [place] [address] 61701- 1342 Oct, [facility] [address] [address]- 0869 Oct, [facility] [address] [address]- 0342 Oct, [facility] [address] [address]- 8929 Oct, [facility] [address] [address]- 0088 Oct, [facility] [address] [address]- 0339 September, [facility] [address] [address]- 9561 Aug, [facility] [address] [id number] [address]- 7303 Aug, [facility] [address] [address]- 1808 Aug, IMMUNIZATIONS No Known Immunizations SOCIAL HISTORY Never Assessed REASON FOR VISIT Trulicity refill PLAN OF CARE VITAL SIGNS MEDICATIONS Medication Instructions Dosage Frequency Start Date End Date Duration Status Trulicity 0.75 MG/0.5ML INJECT 0.5 MLS SUBCUTANEOUSLY ONCE WEEKLY 28 Active RESULTS No Results PROCEDURES No Known procedures INSTRUCTIONS MEDICATIONS ADMINISTERED No Known Medications MEDICAL [...]
--- OUTSIDE RECORDS SUMMARY | 2017-10-20 14:13 | XMS REPORT ---
Author Author JEFF CARLTON Organization [facility] Address [address] [place] [address] Care Team Providers Care Multi Purpose Machine Operator Name Role Phone CARLTON AGUILAR Unavailable PROBLEMS Type Condition ICD9-CM Code NRI80-LS Code Onset Dates Condition Status SNOMED Code Problem Other allergic rhinitis J30.89 Active 38676762 Problem Irritable bowel syndrome with both constipation and diarrhea K58.2 Active 68089994 Problem Neuropathy G62.9 Active 690853281 Problem Tobacco abuse counseling Z71.6 Active 66557916 Problem Acute upper respiratory infection, unspecified J06.9 Active 29225422 Problem Sinusitis chronic, ethmoidal J32.2 Active 31116463 Problem Secondary hypertension I15.9 Active 67969572 Problem Other viral agents as the cause of diseases classified elsewhere B97.89 Active 18391411 Problem Acute pain of left shoulder M25.512 Active 417019419 Problem Chronic pain G89.29 Active 38714347 Problem Essential hypertension I10 Active 05586978 Problem Episodic mood disorder F39 Active 86868515 Problem Posttraumatic stress disorder F43.10 Active 25295208 Problem History of drug abuse Z87.898 Active 579082859 Problem Chronic hepatitis C without hepatic coma B18.2 Active 687245391 Problem Chronic pain syndrome G89.4 Active 970714265 Problem Marijuana use F12.10 Active 90208290 Problem Type 2 diabetes mellitus with hyperglycemia E11.65 Active 749889180 Problem Atrial fibrillation I48.91 Active 70649170 ALLERGIES No Information SOCIAL HISTORY Never Assessed PLAN OF CARE VITAL SIGNS MEDICATIONS Unknown Medications RESULTS No Results PROCEDURES No Known procedures [...]
--- OUTSIDE RECORDS SUMMARY | 2017-10-20 14:13 | XMS REPORT ---
Author Author ALIYAH SAMPSON Organization [employer] Address Unknown Phone Unavailable Care Team Providers Care Putty Mixer And Applier Name Role Phone ALIYAH SAMPSON Unavailable Allergies No Known Allergies Problems Problem Type Condition Code Onset Dates Condition Status Problem Other chronic pain 338.29 Active Problem Allergic rhinitis due to pollen 477.0 Active Problem Episodic mood disorder F39 Active Problem Posttraumatic stress disorder F43.10 Active Problem Chronic pain G89.29 Active Problem Anxiety state, unspecified 300.00 Active Problem Chronic hepatitis C without mention of hepatic coma 070.54 Active Problem Diabetes 250.00 Active Problem Hypertension 401.9 Active Medications No Known Medications Results No Known Results Summary Purpose [employer] Submission
--- OUTSIDE RECORDS SUMMARY | 2017-10-20 14:13 | XMS REPORT ---
Author Author CARLTON AGUILAR [facility] [employer] Address Unknown Phone Unavailable Care Team Providers Care Delivery Of Shopping News Name Role Phone CARLTON AGUILAR CP Unavailable [...]
--- OUTSIDE RECORDS SUMMARY | 2017-10-20 14:14 | XMS REPORT ---
Author Author CARLTON AGUILAR [facility] [employer] Address Unknown Phone Unavailable Care Team Providers Care Securities Vault Supervisor Name Role Phone CARLTON AGUILAR CP Unavailable [...] Instructions Start Date End Date Status Dosage Trulicity [facility] [id number] 0.75 MG/0.5ML Subcutaneous once weekly Apr 09, 2016 0.5 ml Results No Known Results Summary Purpose [employer] Submission
--- OUTSIDE RECORDS SUMMARY | 2017-10-20 14:14 | XMS REPORT ---
Author Author ALIYAH SAMPSON [facility] [employer] Address Unknown Phone Unavailable Care Team Providers Care Agriculture Intern Name Role Phone ALIYAH SAMPSON Unavailable Allergies No Known Allergies Problems Problem Type Condition Code Onset Dates Condition Status Problem Episodic mood disorder F39 Active Problem Marijuana use F12.10 Active Problem Chronic pain G89.29 Active Problem Atrial fibrillation I48.91 Active Problem Chronic hepatitis C without hepatic coma B18.2 Active Problem Other allergic rhinitis J30.89 Active Problem Essential hypertension I10 Active Problem History of drug abuse Z87.898 Active Problem Chronic pain syndrome G89.4 Active Problem Type 2 diabetes mellitus with hyperglycemia E11.65 Active Assessment Posttraumatic stress disorder F43.10 Active Assessment Episodic mood disorder F39 Active Problem Posttraumatic stress disorder F43.10 Active Medications No Known Medications Procedures Procedure Coding System Code Date Psychotherapy, patient &/family, 30 minutes, established patient CPT-4 28759 Mar 13, 2016 [facility] VISIT MENTAL HEALTH ESTAB PT CPT-4 G0470 Mar 13, 2016 Results No Known Results Summary Purpose [employer] Submission
--- OUTSIDE RECORDS SUMMARY | 2017-10-20 14:14 | XMS REPORT ---
Author Author ALIYAH SAMPSON [facility] [employer] Address Unknown Phone Unavailable Care Team Providers Care Sanitation Technician Name Role Phone ALIYHA SAMPSON Unavailable Allergies No Known Allergies Problems Problem Type Condition Code Onset Dates Condition Status Assessment Posttraumatic stress disorder F43.10 Active Problem Allergic rhinitis due to pollen 477.0 Active Assessment Episodic mood disorder F39 Active Problem Posttraumatic stress disorder F43.10 Active Problem Diabetes 250.00 Active Problem Episodic mood disorder F39 Active Problem Chronic hepatitis C without mention of hepatic coma 070.54 Active Problem Other chronic pain 338.29 Active Problem Hypertension 401.9 Active Problem Anxiety state, unspecified 300.00 Active Medications No Known Medications Procedures Procedure Coding System Code Date Psychotherapy, patient &/family, 45 minutes, established patient CPT-4 86612 Feb 27, 2015 [facility] VISIT MENTAL HEALTH ESTAB PT CPT-4 G0470 Feb 27, 2015 Results No Known Results Summary Purpose [employer] Submission
--- OUTSIDE RECORDS SUMMARY | 2017-10-20 14:14 | XMS REPORT ---
Author Author EDWARD MAHER [employer] Address Unknown Phone Unavailable Care Team Providers Care Durable Medical Equipment Repairer Name Role Phone EDWARD MAHER Unavailable Allergies No Known Allergies Problems Problem Type Condition Code Onset Dates Condition Status Problem Posttraumatic stress disorder F43.10 Active Problem Chronic pain G89.29 Active Problem Episodic mood disorder F39 Active Problem Chronic hepatitis C without hepatic coma B18.2 Active Problem Chronic pain syndrome G89.4 Active Problem Atrial fibrillation I48.91 Active Problem History of drug abuse Z87.898 Active Problem Marijuana use F12.10 Active Problem Type 2 diabetes mellitus with hyperglycemia E11.65 Active Problem Essential hypertension I10 Active Medications Medication Code System Code Instructions Start Date End Date Status Dosage Cymbalta [facility] [address]-78 60 mg Orally Once a day August 30, 2015 1 capsule Results No Known Results Summary Purpose [employer] Submission
--- OUTSIDE RECORDS SUMMARY | 2017-10-20 14:14 | XMS REPORT ---
Author Author ALIYAH SAMPSON Organization [employer] Address Unknown Phone Unavailable Care Team Providers Care Care Management Specialist Name Role Phone ALIYAH SAMPSON Unavailable Allergies No Known Allergies Problems Problem Type Condition ICD-9 Code Onset Dates Condition Status Assessment Posttraumatic stress disorder 309.81 Active Problem Hypertension 401.9 Active Problem Anxiety state, unspecified 300.00 Active Problem Diabetes 250.00 Active Problem Allergic rhinitis due to pollen 477.0 Active Assessment Unspecified episodic mood disorder 296.90 Active Problem Chronic hepatitis C without mention of hepatic coma 070.54 Active Problem Other chronic pain 338.29 Active Medications No Known Medications Procedures Procedure Coding System Code Date Psychotherapy, patient &/family, 45 minutes, established patient CPT-4 85954 Jan 17, 2015 Results No Known Results Summary Purpose [employer] Submission
--- OUTSIDE RECORDS SUMMARY | 2017-10-20 14:14 | XMS REPORT ---
Author Author ALIYAH SAMPSON Organization [employer] Address Unknown Phone Unavailable Care Team Providers Care Act English Tutor Name Role Phone ALIYAH SAMPSON Unavailable Allergies [...] patient &/family, 45 minutes, established patient CPT-4 31012 Feb 10, 2015 [facility] M[facility] HEALTH ESTAB PT CPT-4 G0470 Feb 10, 2015 Results No Known Results Summary Purpose [employer] Submission
--- OUTSIDE RECORDS SUMMARY | 2017-10-20 14:14 | XMS REPORT ---
Author Author ALIYAH SAMPSON [facility] [place] eClinicalWorks Address Unknown Phone Unavailable Care Team Providers Care Engineer Station Mainline Name Role Phone ALIYAH SAMPSON Unavailable Allergies No Known Allergies Problems Problem Type Condition Code Onset Dates Condition Status Assessment Episodic mood disorder F39 Active Problem Other chronic pain 338.29 Active Problem Allergic rhinitis due to pollen 477.0 Active Assessment Posttraumatic stress disorder F43.10 Active Problem Episodic mood disorder F39 Active Problem Posttraumatic stress disorder F43.10 Active Problem Chronic pain G89.29 Active Problem Anxiety state, unspecified 300.00 Active Problem Chronic hepatitis C without mention of hepatic coma 070.54 Active Problem Diabetes 250.00 Active Problem Hypertension 401.9 Active Medications No Known Medications Procedures Procedure Coding System Code Date Psychotherapy, patient &/family, 30 minutes, established patient CPT-4 62926 May 31, 2015 [facility] VISIT MENTAL HEALTH ESTAB PT CPT-4 G0470 May 31, 2015 Results No Known Results Summary Purpose eClinicalWorks Submission
--- OUTSIDE RECORDS SUMMARY | 2017-10-20 14:14 | XMS REPORT ---
Author EDWARD Frederick eClinicalWorks Address Unknown Phone Unavailable Care Team Providers Care Motorcycle Engine Assembler Name Role Phone EDWARD MAHER Unavailable Allergies [...] Start Date End Date Status Dosage Cymbalta [facility] [address]-72 60 mg Orally Once a day August 30, 2015 1 capsule Xarelto [facility] [address]-88 20 MG Orally Once a day 1 tablet with food Enalapril Maleate [facility] [address]-18 10 mg November 03, 2012 take 1 tablet (10 mg) by oral route once daily promethazine NDC 0 25 mg October 14, 2012 take 1 tablet (25 mg) by oral route every 4-6 hours as needed Test strips NDC 0 Test Strips fasting & 2 hours after each meal August 30, 2015 shayne track as directed Gas Relief [facility] [address]-55 80 mg October 29, 2012 PRN Toprol XL [facility] [address]-15 25 MG Orally Once a day 1 tablet dicyclomine NDC 0 20 mg October 14, 2012 take 1 tablet (20 mg) by oral route 4 times per day Flonase NDC 0 50 mcg/actuation July 29, 2014 1 sprays by Nasal route 2 times per day in each nostril Verapamil HCl CR [facility] [address]-70 240 MG Orally Once a day August 29, 2015 1 tablet ProAir HFA [facility] [address]-38 108 (90 Base) MCG/ACT Inhalation every 4 hrs May 01, 2015 2 puffs as needed Results No Known Results Summary Purpose eClinicalWorks Submission
--- OUTSIDE RECORDS SUMMARY | 2017-10-20 14:14 | XMS REPORT ---
Author Author ALIYAH SAMPSON [facility] eClinicalWorks Address Unknown Phone Unavailable Care Team Providers Care Door Clamper Name Role Phone ALIYAH SMAPSON Unavailable Allergies No Known Allergies Problems Problem [...] patient &/family, 45 minutes, established patient CPT-4 02698 May 02, 2015 [facility] VISIT MENTAL HEALTH ESTAB PT CPT-4 G0470 May 02, 2015 Results No Known Results Summary Purpose eClinicalWorks Submission
--- OUTSIDE RECORDS SUMMARY | 2017-10-20 14:14 | XMS REPORT ---
Author Author EDWARD MAHER eClinicalWorks Address Unknown Phone Unavailable Care Team Providers Care Senior Accountant Name Role Phone EDWARD MAHER CP Unavailable [...] diabetes mellitus with hyperglycemia E11.65 Active Assessment Other allergic rhinitis J30.89 Active Assessment Atrial fibrillation I48.91 Active Assessment Essential hypertension I10 Active Assessment Type 2 diabetes mellitus with hyperglycemia E11.65 Active Assessment Episodic mood disorder F39 Active Problem Posttraumatic stress disorder F43.10 Active Medications Medication Code System Code Instructions Start Date End Date Status Dosage Verapamil HCl CR [facility] 48306088684 240 MG Orally Once a day 1 tablet Enalapril Maleate [facility] [address]-23 10 mg Orally Once a day October 02, 2015 1 tablet Aspirin [facility] [address]-88 325 MG Orally Once a day 1 tablet Cymbalta [facility] [address]-45 60 mg Orally Once a day August 30, 2015 1 capsule Test strips ND 0 Test Strips fasting & 2 hours after each meal August 30, 2015 shayne track as directed Gas Relief [facility] [address]-07 80 mg October 29, 2012 PRN dicyclomine NDC 0 20 mg October 14, 2012 take 1 tablet (20 mg) by oral route 4 times per day Flonase [facility] [address]-27 50 mcg/actuation July 29, 2014 1 sprays by Nasal route 2 times per day in each nostril Procedures Procedure Coding System Code Date Office Visit, Est Pt., Level 3 CPT-4 07403 December 19, 2015 [facility] VISIT ESTABLISHED PATIENT CPT-4 G0467 December 19, 2015 Vital Signs Date/Time: December 19, 2015 Cardiac Monitoring Heart Rate 94 bpm Weight 186.5 lbs Height 63 in Blood Pressure Diastolic 77 mmHg Blood Pressure Systolic 135 mmHg Results No Known Results Summary Purpose eClinicalWorks Submission
--- OUTSIDE RECORDS SUMMARY | 2017-10-20 14:14 | XMS REPORT ---
Author Author ALIYAH SAMPSON [facility] eClinicalWorks Address Unknown Phone Unavailable Care Team Providers Care Instructional Technology Coordinator Name Role Phone ALIYAH SAMPSON Unavailable Allergies [...] patient &/family, 45 minutes, established patient CPT-4 35043 Mar 23, 2015 [facility] VISIT MENTAL HEALTH ESTAB PT CPT-4 G0470 Mar 23, 2015 Results No Known Results Summary Purpose eClinicalWorks Submission
--- OUTSIDE RECORDS SUMMARY | 2017-10-20 14:15 | XMS REPORT ---
Author Author CARLTON AGUILAR [facility] eClinicalWorks Address Unknown Phone Unavailable Care Team Providers Care Graphic Designer Name Role Phone CARLTON AGUILAR CP Unavailable [...] Start Date End Date Status Dosage Gabapentin [facility] [address]-75 300 MG Orally Three times a day Apr 11, 2016 1 capsule Lidoderm [facility] [address]-34 5 % Externally Once a day Apr 11, 2016 as directed Results No Known Results Summary Purpose eClinicalWorks Submission
--- OUTSIDE RECORDS SUMMARY | 2017-10-20 14:15 | XMS REPORT ---
Author Author CARLTON AGUILAR [facility] eClinicalWorks Address Unknown Phone Unavailable Care Team Providers Care Residential Specialist Name Role Phone CARLTON AGUILAR CP Unavailable [...] Instructions Start Date End Date Status Dosage [facility] [address]-98 10 mg Orally Once a day Apr 17, 2016 1 tablet Results No Known Results Summary Purpose eClinicalWorks Submission
--- OUTSIDE RECORDS SUMMARY | 2017-10-20 14:15 | XMS REPORT ---
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 786850700 Problem Sinusitis chronic, ethmoidal J32.2 Active 91930659 Problem Neuropathy G62.9 Active 105092034 Problem Mixed hyperlipidemia E78.2 Active 879840102 Problem Tobacco abuse counseling Z71.6 Active 16245441 Problem Chronic pain G89.29 Active 40947526 Problem Essential hypertension I10 Active 86643505 Problem Episodic mood disorder F39 Active 55362824 Problem Type 2 diabetes mellitus with hyperglycemia E11.65 Active 657032286 Problem Posttraumatic stress disorder F43.10 Active 08171537 Problem Chronic hepatitis C without hepatic coma B18.2 Active 579064005 ALLERGIES No Information ENCOUNTERS Encounter Location Date Diagnosis [facility] [id number] [address] Aug, [facility] [id number], [place] [address] Jul, [facility] [id number] [place] [address]4768- 7433 Jul, [facility] [id number] [place] [address]36- 6168 May, Type 2 diabetes mellitus with hyperglycemia E11.65 ; Type 2 diabetes mellitus without complications E11.9 ; jail (current) use of insulin Z79.4 ; Essential hypertension I10 ; Atrial fibrillation I48.91 ; Chronic hepatitis C without hepatic coma B18.2 ; Mixed hyperlipidemia E78.2 ; Episodic mood disorder F39 ; Neuropathy G62.9 ; Acute non-recurrent maxillary sinusitis J01.00 ; Chronic pain G89.29 and Marijuana use F12.10 [address] [place] [id number] [place] [address]01- 7623 Apr, Atrial fibrillation I48.91 [place] [address] [address] Mar, [address] [address] 13 Feb, 2017 Type 2 diabetes mellitus with hyperglycemia E11.65 ; Essential hypertension I10 ; Mixed hyperlipidemia E78.2 ; Atrial fibrillation I48.91 ; Neuropathy G62.9 ; Other allergic rhinitis J30.89 and Non compliance with medical treatment Z91.19 [place] [address] [address]- [address] 07 Jan, 2017 Episodic mood disorder F39 and Posttraumatic stress disorder F43.[address] [address]- [address] 05 Jan, 2017 [place] [place] [id number] [place] [address] 70307- 5878 12 Oct, [id number] [place] [address] 35487- 9737 08 Oct, 2016 [place] [id number] [place] [address] 66405- 2103 08 Oct, 2016 Type 2 diabetes mellitus with hyperglycemia E11.65 ; Essential hypertension I10 ; Atrial fibrillation I48.91 ; Episodic mood disorder F39 ; Chronic pain G89.29 ; Neuropathy G62.9 ; Other allergic rhinitis J30.89 and Tobacco abuse counseling Z71.6 [facility] [id number] [place] [address]1441 -[address]793 14 Aug, 2016 Acute non-recurrent pansinusitis J01.40 [facility] [address], [place] [address] Jul, [facility] [address] [place] [address] 29154- 7836 Jun, [facility] [address] [place] [address] 62529- 5806 Jun, Type 2 diabetes mellitus with hyperglycemia E11.65 ; Episodic mood disorder F39 ; Posttraumatic stress disorder F43.10 ; Essential hypertension I10 ; Atrial fibrillation I48.91 ; Chronic pain G89.29 ; Acute upper respiratory infection, unspecified J06.9 ; Other viral agents as the cause of diseases classified elsewhere B97.89 ; Acute pain of left shoulder M25.512 and Sinusitis chronic, ethmoidal J32.2 [place] [address] [place] [address] 92191- 9902 May, Acute intractable tension-type headache G44.201 ; Chronic pain G89.29 ; Essential hypertension I10 ; Atrial fibrillation I48.91 ; Neuropathy G62.9 ; Posttraumatic stress disorder F43.10 ; Episodic mood disorder F39 ; Type 2 diabetes mellitus with hyperglycemia E11.65 ; Other allergic rhinitis J30.89 and Irritable bowel syndrome with both constipation and diarrhea K58.2 [facility] [address], [place] [address] Apr, Episodic mood disorder F39 and Posttraumatic stress disorder F43.10 [place] [address] [place] [address]15- 0826 Mar, [place] [id number] [place] [address] 18784- 3944 Mar, [place] [id number] [place] [address] 68880- 8552 Mar, Chronic hepatitis C without hepatic coma B18.2 [facility] [address] [place] [address] 35430- 8314 Mar, [address] [address] [address] Mar, Episodic mood disorder F39 ; Posttraumatic stress disorder F43.10 ; Essential hypertension I10 and Type 2 diabetes mellitus with hyperglycemia E11.65 [facility] [address] [place] [address] 69644- 7677 Mar, [facility] [id number] [place] [address] 92089- 2179 Mar, [facility] [id number] [place] [address] 30919- 9946 Mar, Type 2 diabetes mellitus with hyperglycemia E11.65 ; Chronic hepatitis C without hepatic coma B18.2 ; Posttraumatic stress disorder F43.10 ; Episodic mood disorder F39 ; Atrial fibrillation I48.91 ; Irritable bowel syndrome with both constipation and diarrhea K58.2 ; Secondary hypertension I15.9 and Neuropathy G62.9 [facility] [place] [id number] [place] [address] 69253- 7506 Feb, Episodic mood disorder F39 and Posttraumatic stress disorder F43.10 [place] [address] [place] [address] 47307- 3731 Jan, Episodic mood disorder F39 and Posttraumatic stress disorder F43.10 [facility] [address] [place] [address] 85090- 3356 Nov, Type 2 diabetes mellitus with hyperglycemia E11.65 ; Atrial fibrillation I48.91 ; Other allergic rhinitis J30.89 ; Episodic mood disorder F39 and Essential hypertension I10 [facility] [address], [place] [address] Nov, [facility] [id number] [place] [address] 90470- 2872 Oct, [facility] [id number] [place] [address] 36715- 0553 Oct, [facility] [address] [place] [address] 00595- 9477 September, Type 2 diabetes mellitus with hyperglycemia E11.65 ; Atrial fibrillation I48.91 and Chronic pain G89.29 [facility] [address], [place] [address] September, Episodic mood disorder F39 and Posttraumatic stress disorder F43.10 [facility] [id number], [place] [address] September, [facility] [id number] [place] [address] 92186- 5627 September, [facility] [address], [place] [address] September, [facility] [id number] [place] [address] 80862- 5460 September, [facility] [id number] [place] [address] 41465- 5025 September, [facility] [id number] [place] [address] 03978- 3797 Aug, Type 2 diabetes mellitus with hyperglycemia E11.65 and Essential hypertension I10 [facility] [id number] [place] [address] 07538- 2312 Aug, [facility] [id number] [place] [address] 49740- 9225 Aug, [facility] [id number] [place] [address] 57959- 2186 Aug, Allergic rhinitis J30.9 ; Atrial fibrillation I48.91 ; Shortness of breath R06.02 and Essential hypertension I10 [facility] [address] [place] [address] 59512- 8601 Jul, [facility] [id number] [place] [address] 40599- 8330 Jun, Episodic mood disorder F39 and Posttraumatic stress disorder F43.10 [facility] [id number] [place] [address] 18714- 4021 Jun, [facility] [address], [place] [address]- 8534 May, Chronic pain G89.29 ; History of drug abuse Z87.898 and Marijuana use F12.10 [facility] [address], [place] [address]- 6436 May, Episodic mood disorder F39 and Posttraumatic stress disorder F43.10 [facility] [id number] [place] [address] 58296- 1598 May, [facility] [id number] [place] [address] 27294- 2978 Apr, Chronic pain G89.29 [facility] [id number] [place] [address] 35069- 2246 Apr, Episodic mood disorder F39 and Posttraumatic stress disorder F43.10 [facility] [id number] [place] [address] 74423- 7992 Apr, COPD (chronic obstructive pulmonary disease) with acute bronchitis J44.0 [facility] [id number] [place] [address] 61688- 9959 Feb, Episodic mood disorder F39 and Posttraumatic stress disorder F43.10 [facility] [id number] [place] [address] 58927- 0795 Feb, [facility] [id number] [place] [address] 33577- 4532 Feb, Episodic mood disorder F39 and Posttraumatic stress disorder F43.10 [facility] [address] [place] [address] 89688- 0494 Jan, Routine adult health maintenance V70.0 [facility] [address] [place] [address] 53960- 1432 Jan, Unspecified episodic mood disorder 296.90 and Posttraumatic stress disorder 309.81 [facility] [id number] [place] [address] 91565- 3358 Dec, Unspecified episodic mood disorder 296.90 and Posttraumatic stress disorder 309.81 [facility] [address] [place] [address] 752050- 2047 Dec, Unspecified episodic mood disorder 296.90 and Posttraumatic stress disorder 309.81 [facility] [address] Oct, Unspecified episodic mood disorder 296.90 and Posttraumatic stress disorder 309.81 [facility] [id number] [place] [address] 748693- 0393 September, Unspecified episodic mood disorder 296.90 ; Posttraumatic stress disorder 309.81 ; No condition on [place] II V71.09 ; Diabetes 250.00 ; Hypertension 401.9 ; Hepatitis C 070.70 and Degenerative disc disease 722.6 [facility] [address], [place] [address]- 4540 Aug, [facility] [id number] [place] [address] 88574- 6702 Aug, [facility] [id number] [place] [address] 37663- 4763 Jul, [facility] [id number] [place] [address] 06054- 0743 Jul, [facility] [address], [place] [address]- 2706 Jan, [facility] [id number] [place] [address] 98199- 7300 Jan, [facility] [address] [address] Jan, [facility] [id number] [place] [address] 83616931- 1552 Oct, [facility] [address] 6143 Oct, [facility] [id number] [place] [address]- 1180 21 Oct, 2012 [facility] [place] [facility] [address] [id number] [place] [address]- 8005 19 Oct, 2012 [facility] [place] [facility] [address] [id number] [place] [address]- 3219 18 Oct, 2012 [facility] [place] [facility] [address] [id number] [place] [address]- 1127 14 Oct, 2012 [facility] [place] [facility] [address] [id number] [place] [address]- 9024 13 Oct, 2012 [facility] [place] [facility] [address] [id number] [place] [address]- 6075 13 Oct, 2012 [facility] [place] [facility] [address] [id number] [place] [address]- 7568 12 Oct, 2012 [facility] [place] [facility] [address] [id number] [place] [address]- 4429 12 Oct, 2012 [facility] [place] [facility] [address] [id number] [place] [address]- 8951 11 Oct, 2012 [facility] [place] [facility] [address] [id number] [place] [address]- 9771 11 Oct, 2012 [facility] [place] [facility] [address] [id number] [place] [address]- 2413 Oct, [facility] [place] [facility] [address] [id number] [place] [address]- 6445 11 Oct, 2012 [facility] [place] [facility] [address] [id number] [place] [address]- 0380 2012 [facility] [place] [facility] [address] [id number] [place] [address]- 2898 06 Oct, 2012 [facility] [place] [facility] [address] [id number] [place] [address]- 4720 September, [facility] [place] [facility] [address] [id number] [place] [address]- 3454 Aug, [facility] [address] [facility] [id number] [place] [address]- 4564 Aug, [facility] [address] [facility] [id number] [address]- 6[address] Aug, IMMUNIZATIONS No Known Immunizations SOCIAL HISTORY Never Assessed REASON FOR VISIT Trulicity note PLAN OF CARE VITAL SIGNS MEDICATIONS Unknown [...] diarrhea Medical History History of drug abuse Surgical History Hysterectomy Surgical History Surgical resection for endometrial cancer
--- OUTSIDE RECORDS SUMMARY | 2017-10-20 14:15 | XMS REPORT ---
Author CARLTON Washington [facility], [place] eClinicalWorks Address Unknown Phone Unavailable Care Team Providers Care Environmental Officer Name Role Phone CARLTON AGUILAR CP Unavailable Allergies, Adverse Reactions, Alerts Substance Reaction Event Type Diclofenac Info Not Available Drug Allergy Sulfamethoxazole Info Not Available Drug Allergy Problems Problem Type Condition Code Onset Dates Condition Status Problem Allergic rhinitis due to pollen 477.0 Active Assessment COPD (chronic obstructive pulmonary disease) with acute bronchitis J44.0 Active Problem Posttraumatic stress disorder F43.10 Active Problem Diabetes 250.00 Active Problem Episodic mood disorder F39 Active Problem Chronic hepatitis C without mention of hepatic coma 070.54 Active Problem Other chronic pain 338.29 Active Problem Hypertension 401.9 Active Problem Anxiety state, unspecified 300.00 Active Medications Medication Code System Code Instructions Start Date End Date Status Dosage Diflucan [facility] [address]-69 100 MG Orally May 01, 2015 May 08, 2015 1 tablet Doxycycline Hyclate [facility] [address]-31 100 MG Orally every 12 hrs May 01, 2015 May 11, 2015 1 capsule Enalapril Maleate [facility] [address]-46 10 mg November 03, 2012 take 1 tablet (10 mg) by oral route once daily Claritin-D 12 Hour [facility] [address]-88 5-120 mg October 29, 2012 take 1 tablet by oral route 2 times per day PRN Potassium Chloride [facility] [address]-69 10 mEq October 14, 2012 take 1 capsule by Oral route with food 1 time per day dicyclomine NDC 0 20 mg October 14, 2012 take 1 tablet (20 mg) by oral route 4 times per day ProAir HFA [facility] [address]-33 108 (90 Base) MCG/ACT Inhalation every 4 hrs May 01, 2015 2 puffs as needed Flonase NDC 0 50 mcg/actuation July 29, 2014 1 sprays by Nasal route 2 times per day in each nostril Cymbalta [facility] [address]-58 60 mg November 03, 2012 take 1 capsule (60 mg) by oral route once daily Gas Relief [facility] [address]-40 80 mg October 29, 2012 PRN verapamil NDC 0 120 mg October 14, 2012 take 1 tablet (120 mg) by oral route every 12 hours with food Dilaudid [facility] [address]-62 4 mg October 29, 2012 take 1-2 tablet by Oral route every 4-6 hours as needed PRN Mucinex [facility] [address]-52 600 MG Orally every 12 hrs May 01, 2015 1 tablet as needed Fluticasone Propionate [facility] 25785269079 50 MCG/ACT USE ONE SPRAY IN EACH NOSTRIL TWICE DAILY promethazine NDC 0 25 mg October 14, 2012 take 1 tablet (25 mg) by oral route every 4-6 hours as needed morphine NDC 0 30 mg October 29, 2012 take 1 tablet by Oral route every 12 hours as needed Alprazolam [facility] [address]-15 0.5 mg October 29, 2012 take 1 tablet by Oral route 2 times per day PRN anxiety Procedures Procedure Coding System Code Date Office Visit, New Pt., Level 4 CPT-4 46855 May 01, 2015 DEXAMETHASONE 4MG/ML (PER 1 MG) CPT-4 J1100 May 01, 2015 [facility] VISIT NEW PATIENT CPT-4 G0466 May 01, 2015 DEPO MEDROL 40 MG/ML CPT-4 J1030 May 01, 2015 THER/PROPH/DIAG INJ, SC/IM CPT-4 02761 May 01, 2015 Vital Signs Date/Time: May 01, 2015 Temperature 98.2 F Weight 205.0 lbs Height 63 in BMI 36.31 Index Blood Pressure Diastolic 86 mmHg Blood Pressure Systolic 124 mmHg Cardiac Monitoring Heart Rate 124 bpm Results No Known Results Summary Purpose eClinicalWorks Submission
[2017-10-20] MEDS ORDERED: fentaNYL INJECTION 100 MCG/2 ML AMP IVP ONE (14:30)
[2017-10-20] MEDS ORDERED: ONDANSETRON 4 MG/2 ML (SDV) Z0FRAN IVP ONE (14:30)
--- NOTE | 2017-10-20 14:34 | ED Respiratory ---
General Chief Complaint: Respiratory Problems Stated Complaint: SOB Source: patient, family Exam Limitations: no limitations History of Present Illness Date Seen by Provider: October 20, 2017 Time Seen by Provider: 14:16 Initial Comments The patient presents to the ER by Timothy zamarripa with a chief complaint that she's been having shortness of breath and cough for the past 6 months. She has been to urgent care and her primary care office several times for this and has been diagnosed with bronchitis and pneumonia several weeks ago. She is been on 2 different courses of azithromycin and Keflex. She says after she took the antibiotics and got better but then she started having a lot of swelling a few weeks ago and went to her microwave radio technician Dr. Martel and he ordered an echocardiogram outpatient which she did not go to because she did not feel well and was started on Lasix. She is not having any chest pain but she is having some pain in her right upper quadrant that is intermittent, sharp, radiates to her back and associated with swelling in her abdomen as well as bilateral legs. Her daughter says her right leg was swollen worse than her left leg a couple days ago. She says she's been taking the Lasix and some days it works and some days it does not last day or so it has not produced much urine. She's having nausea, pain but no fevers or chills. She smokes cigarettes but says she has no history of asthma or COPD that she knows of. She has not taken anything today for her pain. She uses Eliquis. She is having orthopnea. No history of obstructive sleep apnea, oxygen or CPAP use. Allergies and Home Medications Allergies Coded Allergies: Sulfa (Sulfonamide Antibiotics) (Verified Allergy, Unknown, 05/12/15) Home Medications Alprazolam 0.5 Mg Tablet, 0.5 MG PO TID PRN for ANXIETY, (Reported) Aspirin 325 Mg Tablet, 325 MG PO DAILY Prescribed by: TIN GUADARRAMA on 05/13/15 1301 Digoxin 125 Mcg Tablet, 0.125 MG PO DAILY Prescribed by: TIN GUADARRAMA on 05/13/15 1301 Duloxetine HCl 60 Mg Capsule., 60 MG PO DAILY, (Reported) Duloxetine HCl 60 Mg Capsule.dr, 60 MG PO DAILY, (Reported) Enalapril Maleate 10 Mg Tablet, 10 MG PO DAILY, (Reported) Famotidine 20 Mg Tablet, 20 MG PO DAILY Prescribed by: TIN GUADARRAMA on 05/13/15 1301 Fluticasone Propionate 9.9 Ml [place].susp, 9.9 ML NS DAILY, (Reported) Ibuprofen 800 Mg Tablet, 800 MG PO Q6H PRN for PAIN, (Reported) Promethazine HCl 50 Mg Tablet, 25 MG PO Q6H, (Reported) patient states she takes this medication PRN Verapamil HCl 240 Mg Cap24h.pel, 240 MG PO DAILY Prescribed by: TIN GUADARRAMA on 05/13/15 1301 Patient Home Medication List Home Medication List Reviewed: Yes Review of Systems Constitutional: No chills, No diaphoresis EENTM: No ear discharge, No hearing loss Respiratory: cough, dyspnea on exertion, phlegm (occasional), short of breath, wheezing Cardiovascular: No chest pain; edema; No palpitations, No syncope Gastrointestinal: abdominal pain (RUQ); No constipation, No diarrhea; nausea; No vomiting Genitourinary: No discharge, No dysuria : No Musculoskeletal: No back pain; joint pain (chronic hip pain) Skin: No pruritus, No rash Past Fkeeayr-Mzcrww-Lpwdrw Hx Patient Social History Alcohol Use: Denies Use Recreational Drug Use: No Smoking Status: Current Everyday Smoker Immunizations Up To Date Tetanus Booster (TDap): Less than 5yrs Past Medical History Surgeries: Yes Hysterectomy, Oophorectomy Respiratory: No Cardiac: Yes Hypertension Neurological: No Reproductive Disorders: No 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 Sexually Transmitted Disease: No HIV/AIDS: No Gastrointestinal: Yes (HEPATITIS C) Musculoskeletal: Yes Chronic Back Pain Endocrine: Yes ("DIET CONTROLLED" ) Diabetes, Non-Insulin dep Cataract Hearing Impairment: Denies Cancer: Yes Cervical, Uterine Psychosocial: Yes Anxiety, PTSD Integumentary: No Blood Disorders: No Adverse Reaction/Blood Tranf: No Family Medical History Other Conditions/Hx Physical Exam Vital Signs Vital Signs - First Documented 10/20/17 14:09 Temp 98.0 Pulse 98 Resp 18 B/P (MAP) 134/90 (105) Pulse Ox 98 O2 Delivery Room Air Capillary Refill : General Appearance: mild distress, obese Eyes: Bilateral Eye Normal Inspection, Bilateral Eye PERRL, Bilateral Eye EOMI HEENT: PERRL/EOMI, normal ENT inspection, pharynx normal Neck: non-tender, full range of motion, supple, normal inspection Respiratory: chest non-tender, no respiratory distress, no accessory muscle use , decreased breath sounds, wheezing (faint bilateral) Cardiovascular: normal peripheral pulses, regular rate, rhythm, no JVD, other ( 1+ pitting edema bilateral lower extremities and mild edema in the abdominal wall) Gastrointestinal: normal bowel sounds, non tender, soft Extremities: non-tender, normal inspection, normal capillary refill Neurologic/Psychiatric: alert, normal mood/affect, oriented x 3, other (Anxious ) Skin: warm/dry, ecchymosis (various states of healing) Progress/Results/Core Measures Suspected Sepsis SIRS Temperature: Pulse: Respiratory Rate: Laboratory Tests 10/20/17 14:39: White Blood Count 8.7 Blood Pressure / Mean: Laboratory Tests 10/20/17 14:39: Creatinine 0.80, Platelet Count 242, Total Bilirubin 0.8 Results/Orders Lab Results Laboratory Tests Test 10/20/17 14:39 10/20/17 14:47 10/20/17 15:44 10/20/17 16:13 Range/Units White Blood Count 8.7 4.3-11.0 10^3/uL Red Blood Count 4.44 4.35-5.85 10^6/uL Hemoglobin 10.9 L 11.5-16.0 G/DL Hematocrit 34 L 35-52 % Mean Corpuscular Volume 76 L 80-99 FL Mean Corpuscular Hemoglobin 25 25-34 PG Mean Corpuscular Hemoglobin Concent 32 32-36 G/DL Red Cell Distribution Width 16.1 H 10.0-14.5 % Platelet Count 242 130-400 10^3/uL Mean Platelet Volume 10.7 H 7.4-10.4 FL Neutrophils (%) (Auto) 71 42-75 % Lymphocytes (%) (Auto) 17 12-44 % Monocytes (%) (Auto) 9 0-12 % Eosinophils (%) (Auto) 2 0-10 % Basophils (%) (Auto) 1 0-10 % Neutrophils # (Auto) 6.2 1.8-7.8 X 10^3 Lymphocytes # (Auto) 1.5 1.0-4.0 X 10^3 Monocytes # (Auto) 0.8 0.0-1.0 X 10^3 Eosinophils # (Auto) 0.2 0.0-0.3 10^3/uL Basophils # (Auto) 0.1 0.0-0.1 10^3/uL Sodium Level 135 135-145 MMOL/L Potassium Level 4.7 3.6-5.0 MMOL/L Chloride Level 104 98-107 MMOL/L Carbon Dioxide Level 18 L 21-32 MMOL/L Anion Gap 13 5-14 MMOL/L Blood Urea Nitrogen 17 7-18 MG/DL Creatinine 0.80 0.60-1.30 MG/DL Estimat Glomerular Filtration Rate > 60 BUN/Creatinine Ratio 21 Glucose Level 200 H 70-105 MG/DL Calcium Level 8.5 8.5-10.1 MG/DL Magnesium Level 2.3 1.8-2.4 MG/DL Total Bilirubin 0.8 0.1-1.0 MG/DL Aspartate Amino Transf (AST/SGOT) 40 H 5-34 U/L Alanine Aminotransferase (ALT/SGPT) 27 0-55 U/L Alkaline Phosphatase 141 H 40-136 U/L Troponin I < 0.30 <0.30 NG/ML C-Reactive Protein High Sensitivity 0.14 0.00-0.50 MG/DL B-Type Natriuretic Peptide 441.1 H <100.0 PG/ML Total Protein 7.6 6.4-8.2 GM/DL Albumin 3.5 3.2-4.5 GM/DL Lipase 11 8-78 U/L Glucometer 200 H 70-110 MG/DL Urine Color YELLOW Urine Clarity SLIGHTLY CLOUDY Urine pH 5 5-9 Urine Specific [place] 1.020 1.016-1.022 Urine Protein 2+ H NEGATIVE Urine Glucose (UA) NEGATIVE NEGATIVE Urine Ketones NEGATIVE NEGATIVE Urine Nitrite NEGATIVE NEGATIVE Urine Bilirubin NEGATIVE NEGATIVE Urine Urobilinogen NORMAL NORMAL MG/DL Urine Leukocyte Esterase 3+ H NEGATIVE Urine RBC (Auto) 2+ H NEGATIVE Urine RBC 5-10 H /HPF Urine WBC 25-50 H /HPF Urine Squamous Epithelial Cells 2-5 /HPF Urine Crystals NONE /LPF Urine Bacteria NEGATIVE /HPF Urine Casts NONE /LPF Urine Mucus NEGATIVE /LPF Urine Trichomonas FEW H /HPF Urine Culture Indicated YES D-Dimer 1.95 H 0.00-0.49 UG/ML My Orders Orders - LUIS CREWS BNP (10/20/17 14:23) Cbc With Automated Diff (10/20/17 14:23) Comprehensive Metabolic Panel (10/20/17 14:23) Hs C Reactive Protein (10/20/17 14:23) Fibrin Degradation Products (10/20/17 14:23) Lipase (10/20/17 14:23) Magnesium (10/20/17 14:23) Troponin I (10/20/17 14:23) Ua Culture If Indicated (10/20/17 14:23) Chest Pa/Lat (2 View) (10/20/17 14:23) Iv Heplock-Insert (Order) (10/20/17 14:23) Fentanyl Injection (Sublimaze Injection (10/20/17 14:30) Ondansetron Injection (Zofran Injectio (10/20/17 14:30) Accucheck Stat ONCE (10/20/17 14:38) Urine Culture (10/20/17 15:44) Metronidazole Tablet (Flagyl Tablet) (10/20/17 16:45) Ceftriaxone Injection (Rocephin Injectio (10/20/17 16:45) General/Regular (10/21/17 Dinner) Medications Given in ED Current Medications Medications Dose Ordered Sig/Gordon Route Start Time Stop Time Status Last Admin Dose Admin Fentanyl Citrate 50 mcg ONCE ONCE IVP 10/20/17 14:30 10/20/17 14:31 DC 10/20/17 14:48 50 MCG Ondansetron HCl 4 mg ONCE ONCE IVP 10/20/17 14:30 10/20/17 14:31 DC 10/20/17 14:47 4 MG Vital Signs/I&O 10/20/17 14:09 Temp 98.0 Pulse 98 Resp 18 B/P (MAP) 134/90 (105) Pulse Ox 98 O2 Delivery Room Air Capillary Refill : Progress Note : Time: 16:56 Progress Note We'll give HER-2 grams of Flagyl to treat her Trichomonas. We'll also give her a gram of Rocephin to start on her UTI and then have her follow-up outpatient with Juany. She is feeling much better. She relates to me now that she actually does not take her Lasix every day and Paxil he takes it when she feels that she needs it but she's not sure what reason it is that she needs it. We have related to her that her shortness of breath, orthopnea, swelling in her belly and legs are all related. She is agreed to take her Lasix when she gets home and call her microwave radio technician to follow up tomorrow. She also has agreed to reschedule her echocardiogram at her earliest convenience. I think she would be reasonable to try an outpatient treatment solution for her symptoms. Departure Impression Primary Impression: UTI (urinary tract infection) Qualified Codes: N30.01 - Acute cystitis with hematuria Additional Impressions: Trichomonal infection Edema Qualified Codes: R60.1 - Generalized edema Disposition: HOME, SELF-CARE Condition: Improved Departure-Patient Inst. Decision time for Depature: 16:59 Referrals: [facility] (PCP) Primary Care Physician JEFF WATKINS APRN (Family) Primary Care Physician Patient Instructions: Acute Cystitis (DC) Add. Discharge Instructions: wet end supervisor your Keflex and start taking one capsule twice a day starting tomorrow until complete. Continue to use your Lasix 40 mg daily in the morning. Tomorrow morning please call Dr. Martel and requests an appointment to reevaluate after you get your echocardiogram rescheduled and done. If you have worsening shortness of breath or chest pain then you should return to the nearest ER. Take a capsule of your potassium chloride every day as well. All discharge instructions reviewed with patient and/or family. Voiced understanding. Scripts Furosemide (Lasix) 40 Mg Tablet 40 MG PO DAILY for 14 Days, #14 TAB 0 Refills Prov: LUIS CREWS 10/20/17 Cephalexin (Cephalexin) 500 Mg Tablet 500 MG PO BID for 7 Days, #14 TAB 0 Refills Prov: LUIS CREWS 10/20/17 Copy Copies To 1: MOUNA CARPENTER DO LUIS CREWS October 20, 2017 14:34
[2017-10-20] MEDS ORDERED: DULA0.75 (14:40)
[2017-10-20] MEDS ORDERED: ALBU18HF2 (14:40)
[2017-10-20] MEDS ORDERED: METO-387 (14:40)
[2017-10-20] MEDS ORDERED: FURO40TA4 (14:40)
[2017-10-20 14:47] LABS: BASOPHILS # (AUTO) 0.1 10^3/uL (0.0-0.1); BASOPHILS % (AUTO) 1 % (0-10); EOSINOPHILS # (AUTO) 0.2 10^3/uL (0.0-0.3); EOSINOPHILS % (AUTO) 2 % (0-10); HEMATOCRIT 34 % (35-52); HEMOGLOBIN 10.9 G/DL (11.5-16.0); LYMPHOCYTES # (AUTO) 1.5 X 10^3 (1.0-4.0); LYMPHOCYTES % (AUTO) 17 % (12-44); MEAN CORPUSCULAR HEMOGLOBIN 25 PG (25-34); MEAN CORPUSCULAR HGB CONC 32 G/DL (32-36); MEAN CORPUSCULAR VOLUME 76 FL (80-99); MEAN PLATELET VOLUME 10.7 FL (7.4-10.4); MONOCYTES # (AUTO) 0.8 X 10^3 (0.0-1.0); MONOCYTES % (AUTO) 9 % (0-12); NEUTROPHILS # (AUTO) 6.2 X 10^3 (1.8-7.8); NEUTROPHILS % (AUTO) 71 % (42-75); PLATELET COUNT 242 10^3/uL (130-400); RED BLOOD COUNT 4.44 10^6/uL (4.35-5.85); RED CELL DISTRIBUTION WIDTH 16.1 % (10.0-14.5); WHITE BLOOD COUNT 8.7 10^3/uL (4.3-11.0)
[2017-10-20 15:12] LABS: ALANINE AMINOTRANSFERASE 27 U/L (0-55); ALBUMIN 3.5 GM/DL (3.2-4.5); ALKALINE PHOSPHATASE 141 U/L (40-136); BILIRUBIN,TOTAL 0.8 MG/DL (0.1-1.0); BUN/CREATININE RATIO 21; CALCIUM 8.5 MG/DL (8.5-10.1); CARBON DIOXIDE 18 MMOL/L (21-32); CHLORIDE 104 MMOL/L (98-107); GFR ESTIMATED > 60; GLUCOSE 200 MG/DL (70-105); LIPASE 11 U/L (8-78); MAGNESIUM 2.3 MG/DL (1.8-2.4); POTASSIUM 4.7 MMOL/L (3.6-5.0); SODIUM 135 MMOL/L (135-145); TOTAL PROTEIN 7.6 GM/DL (6.4-8.2)
--- NOTE | 2017-10-20 15:20 | Diagnostic Imaging Report ---
EXAM: PA and lateral chest at 3:19 p.m. INDICATION: Shortness of breath COMPARISON: There are no prior studies available for comparison. FINDINGS: The heart is enlarged. The lungs are clear. There is no evidence for failure, pneumonia or for a significant sizable pleural effusion. There is slight blunting of the costophrenic angle on the right however. This may be secondary to pleural thickening as opposed to a small effusion. If previous exams are available they would helpful for comparison. The mediastinum is not widened. The osseous structures are intact. IMPRESSION: The blunting of the right costophrenic angle may be secondary to pleural thickening as opposed to a small effusion. If previous studies are available, they would be helpful for comparison. There is cardiomegaly. There is no acute cardiopulmonary abnormality noted otherwise. Dictated by: Dictated on workstation # [id number]
[2017-10-20 15:50] LABS: BILIRUBIN,URINE NEGATIVE (NEGATIVE); CLARITY,URINE SLIGHTLY CLOUDY; COLOR,URINE YELLOW; GLUCOSE, URINE (UA) NEGATIVE (NEGATIVE); KETONES,URINE NEGATIVE (NEGATIVE); LEUKOCYTE ESTERASE ,URINE 3+ (NEGATIVE); NITRITE,URINE NEGATIVE (NEGATIVE); PH,URINE 5 (5-9); PROTEIN,URINE 2+ (NEGATIVE); UROBILINOGEN,URINE NORMAL (NORMAL)
[2017-10-20 16:18] LABS: BACTERIA,URINE NEGATIVE /HPF; TRICHOMONAS,URINE FEW /HPF; WBC,URINE 25-50 /HPF
[2017-10-20] MEDS ORDERED: cefTRIAXone INJECTION 1,000 MG in NS (IVPB) 50 ML IV ONE (16:45)
[2017-10-20] MEDS ORDERED: metroNIDAZOLE 500 MG (FLAGYL) TAB PO ONE (16:45)
[2017-10-20] MEDS ORDERED: CEPH500T PO (17:01)
[2017-10-20] MEDS ORDERED: FURO-124 PO (17:01)
[2017-10-20 17:45] VITALS: BP 120/91
== END 2017-10-20 17:49 | disposition home or self-care (01) ==
LOC: EDUNIT# 14:05 → ER 14:08
DX: N39.0 Urinary tract infection, site not specified (principal); A59.9 Trichomoniasis, unspecified; R60.0 Localized edema; I10 Essential (primary) hypertension; B19.20 Unspecified viral hepatitis C without hepatic coma; E11.9 Type 2 diabetes mellitus without complications; F41.9 Anxiety disorder, unspecified; F43.10 Post-traumatic stress disorder, unspecified; F17.210 Nicotine dependence, cigarettes, uncomplicated; Z79.01 Long term (current) use of anticoagulants; Z85.42 Personal history of malignant neoplasm of other parts of uterus; Z85.41 Personal history of malignant neoplasm of cervix uteri; Z90.710 Acquired absence of both cervix and uterus; Z88.2 Allergy status to sulfonamides; Z79.82 Long term (current) use of aspirin; Z79.51 Long term (current) use of inhaled steroids; Z87.01 Personal history of pneumonia (recurrent)
CPT/HCPCS: 36415; 71046; 80053; 81000; 82962; 83690; 83735; 83880; 84484; 85025; 85379; 86141; 87088; 96365; 96375

== ENCOUNTER 2017-11-03 12:08 | Emergency (ER) | payer MEDICARE, MEDICAID ==
[~2017-11-03] VITALS: Ht 160 cm; Wt 99.8 kg
[~2017-11-03 12:08] MED LIST changes: +ALBU18HF2; +CEPH500T PO; +DULA0.75; +FURO-124 PO; +FURO40TA4; +METO-387
[2017-11-03 13:09] LABS: BILIRUBIN,URINE NEGATIVE (NEGATIVE); CLARITY,URINE CLEAR; COLOR,URINE YELLOW; GLUCOSE, URINE (UA) NEGATIVE (NEGATIVE); KETONES,URINE NEGATIVE (NEGATIVE); LEUKOCYTE ESTERASE ,URINE NEGATIVE (NEGATIVE); NITRITE,URINE NEGATIVE (NEGATIVE); PH,URINE 6.5 (5-9); PROTEIN,URINE NEGATIVE (NEGATIVE); UROBILINOGEN,URINE NORMAL (NORMAL)
[2017-11-03 13:11] LABS: BASOPHILS # (AUTO) 0.1 10^3/uL (0.0-0.1); BASOPHILS % (AUTO) 2 % (0-10); EOSINOPHILS # (AUTO) 0.2 10^3/uL (0.0-0.3); EOSINOPHILS % (AUTO) 3 % (0-10); HEMATOCRIT 37 % (35-52); HEMOGLOBIN 11.7 G/DL (11.5-16.0); LYMPHOCYTES # (AUTO) 1.8 X 10^3 (1.0-4.0); LYMPHOCYTES % (AUTO) 22 % (12-44); MEAN CORPUSCULAR HEMOGLOBIN 24 PG (25-34); MEAN CORPUSCULAR HGB CONC 32 G/DL (32-36); MEAN CORPUSCULAR VOLUME 74 FL (80-99); MEAN PLATELET VOLUME 10.7 FL (7.4-10.4); MONOCYTES # (AUTO) 1.2 X 10^3 (0.0-1.0); MONOCYTES % (AUTO) 14 % (0-12); NEUTROPHILS # (AUTO) 4.9 X 10^3 (1.8-7.8); NEUTROPHILS % (AUTO) 59 % (42-75); PLATELET COUNT 292 10^3/uL (130-400); RED BLOOD COUNT 4.94 10^6/uL (4.35-5.85); RED CELL DISTRIBUTION WIDTH 16.1 % (10.0-14.5); WHITE BLOOD COUNT 8.2 10^3/uL (4.3-11.0)
[2017-11-03 13:16] LABS: BACTERIA,URINE NEGATIVE /HPF; SQUAMOUS EPITHELIAL CELL,UR RARE /HPF
[2017-11-03 13:27] LABS: ALANINE AMINOTRANSFERASE 23 U/L (0-55); ALBUMIN 3.4 GM/DL (3.2-4.5); ALKALINE PHOSPHATASE 167 U/L (40-136); BILIRUBIN,TOTAL 0.5 MG/DL (0.1-1.0); BUN/CREATININE RATIO 31; CALCIUM 8.6 MG/DL (8.5-10.1); CARBON DIOXIDE 20 MMOL/L (21-32); CHLORIDE 103 MMOL/L (98-107); CREATININE SERUM 0.78 MG/DL (0.60-1.30); GFR ESTIMATED > 60; GLUCOSE 172 MG/DL (70-105); POTASSIUM 4.6 MMOL/L (3.6-5.0); SODIUM 133 MMOL/L (135-145); TOTAL PROTEIN 7.4 GM/DL (6.4-8.2)
--- NOTE | 2017-11-03 13:31 | ED Abdominal Pain ---
General Chief Complaint: Abdominal/GI Problems Stated Complaint: ABD SWELLING,PAIN Nursing Triage Note: PT CO OF ABD PAIN AND SWELLING FOR WEEKS, PT ALSO HAS PAIN IN R UPPER ABD. PT HAS SWELLING OF FEET BILATERALLY Sepsis Screen: No Definite Risk Source of Information: Patient Exam Limitations: No Limitations History of Present Illness Date Seen by Provider: Nov 03, 2017 Time Seen by Provider: 13:26 Initial Comments to ER with reports of abdominal pain right sided keeps her from sleeping. She's had swelling in her feet despite the use of Lasix She denies any shortness of breath but states that she cannot take a deep breath due to the pain in the right upper abdomen. She reports that she does have hepatitis C. She had an appointment with her doctor earlier last week but she missed it because the care van could not pick her up and her daughter was unable to drive her to the appointment.. Timing/Duration: 1-2 Days Severity/Quality: Moderate Location: RUQ Radiation: No Radiation Activities at Onset: None Allergies and Home Medications Allergies Coded Allergies: Sulfa (Sulfonamide Antibiotics) (Verified Allergy, Unknown, 05/12/15) Home Medications Alprazolam 0.5 Mg Tablet, 0.5 MG PO TID PRN for ANXIETY, (Reported) Aspirin 325 Mg Tablet, 325 MG PO DAILY Prescribed by: TIN GUADARRAMA on 05/13/15 1301 Cephalexin 500 Mg Tablet, 500 MG PO BID Prescribed by: LUIS CREWS on 10/20/17 170 Cephalexin 500 Mg Capsule, 500 MG PO TID Prescribed by: GI MARTINEZ on 11/03/17 1515 Digoxin 125 Mcg Tablet, 0.125 MG PO DAILY Prescribed by: TIN GUADARRAMA on 05/13/15 130 Duloxetine HCl 60 Mg Capsule.dr, 60 MG PO DAILY, (Reported) Duloxetine HCl 60 Mg Capsule.dr, 60 MG PO DAILY, (Reported) Enalapril Maleate 10 Mg Tablet, 10 MG PO DAILY, (Reported) Famotidine 20 Mg Tablet, 20 MG PO DAILY Prescribed by: TIN GUADARRAMA on 05/13/15 1301 Fluticasone Propionate 9.9 Ml [place].susp, 9.9 ML NS DAILY, (Reported) Furosemide 40 Mg Tablet, 40 MG PO DAILY Prescribed by: LUIS CREWS on 10/20/17 170 Ibuprofen 800 Mg Tablet, 800 MG PO Q6H PRN for PAIN, (Reported) Promethazine HCl 50 Mg Tablet, 25 MG PO Q6H, (Reported) patient states she takes this medication PRN Spironolactone 25 Mg Tablet, 25 MG PO DAILY Prescribed by: GI MARTINEZ on 11/03/17 1455 Verapamil HCl 240 Mg Cap24h.pel, 240 MG PO DAILY Prescribed by: TIN GUADARRAMA on 05/13/15 1301 Patient Home Medication List Home Medication List Reviewed: Yes Review of Systems Constitutional: see HPI EENTM: No Symptoms Reported Respiratory: No Symptoms Reported Cardiovascular: No Symptoms Reported Gastrointestinal: See HPI, Abdominal Pain Genitourinary: No Symptoms Reported Musculoskeletal: no symptoms reported Skin: no symptoms reported Psychiatric/Neurological: No Symptoms Reported Endocrine: No Symptoms Reported Past Ypfxepd-Sewajy-Oclmcl Hx Patient Social History Alcohol Use: Denies Use Recreational Drug Use: No Smoking Status: Current Everyday Smoker Type Used: Cigarettes Recent Foreign Travel: No Contact w/Someone Who Travel: No Recent Infectious Disease Expo: No Recent Hopitalizations: No Physical Abuse: No Sexual Abuse: No Immunizations Up To Date Tetanus Booster (TDap): Less than 5yrs Past Medical History Surgeries: Yes Hysterectomy, Oophorectomy Respiratory: No Cardiac: Yes Hypertension Neurological: No 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 Sexually Transmitted Disease: No HIV/AIDS: No Gastrointestinal: Yes (HEPATITIS C) Musculoskeletal: Yes Chronic Back Pain Endocrine: Yes ("DIET CONTROLLED" ) Diabetes, Non-Insulin dep Cataract Hearing Impairment: Denies Cancer: Yes Cervical, Uterine Psychosocial: Yes Anxiety, PTSD Nursing Suicide Risk Score: 0 Integumentary: No Blood Disorders: No Adverse Reaction/Blood Tranf: No Family Medical History Other Conditions/Hx Physical Exam Vital Signs Vital Signs - First Documented 11/03/17 12:45 Temp 97.5 Pulse 106 Resp 18 B/P (MAP) 147/82 (103) Pulse Ox 95 Capillary Refill : Less Than 3 Seconds General Appearance: WD/WN, no apparent distress HEENT: PERRL/EOMI, normal ENT inspection Neck: non-tender, full range of motion Respiratory: no respiratory distress, no accessory muscle use Cardiovascular: regular rate, rhythm, no murmur Gastrointestinal: normal bowel sounds, soft, hepatomegaly Extremities: normal range of motion, non-tender Neurologic/Psychiatric: alert, normal mood/affect, oriented x 3 Skin: normal color, warm/dry Progress/Results/Core Measures Results/Orders Lab Results Laboratory Tests Test 11/03/17 12:50 Range/Units White Blood Count 8.2 4.3-11.0 10^3/uL Red Blood Count 4.94 4.35-5.85 10^6/uL Hemoglobin 11.7 11.5-16.0 G/DL Hematocrit 37 35-52 % Mean Corpuscular Volume 74 L 80-99 FL Mean Corpuscular Hemoglobin 24 L 25-34 PG Mean Corpuscular Hemoglobin Concent 32 32-36 G/DL Red Cell Distribution Width 16.1 H 10.0-14.5 % Platelet Count 292 130-400 10^3/uL Mean Platelet Volume 10.7 H 7.4-10.4 FL Neutrophils (%) (Auto) 59 42-75 % Lymphocytes (%) (Auto) 22 12-44 % Monocytes (%) (Auto) 14 H 0-12 % Eosinophils (%) (Auto) 3 0-10 % Basophils (%) (Auto) 2 0-10 % Neutrophils # (Auto) 4.9 1.8-7.8 X 10^3 Lymphocytes # (Auto) 1.8 1.0-4.0 X 10^3 Monocytes # (Auto) 1.2 H 0.0-1.0 X 10^3 Eosinophils # (Auto) 0.2 0.0-0.3 10^3/uL Basophils # (Auto) 0.1 0.0-0.1 10^3/uL Prothrombin Time 13.6 12.2-14.7 SEC INR Comment 1.0 0.8-1.4 Activated Partial Thromboplast Time 30 24-35 SEC Urine Color YELLOW Urine Clarity CLEAR Urine pH 6.5 5-9 Urine Specific [place] 1.010 L 1.016-1.022 Urine Protein NEGATIVE NEGATIVE Urine Glucose (UA) NEGATIVE NEGATIVE Urine Ketones NEGATIVE NEGATIVE Urine Nitrite NEGATIVE NEGATIVE Urine Bilirubin NEGATIVE NEGATIVE Urine Urobilinogen NORMAL NORMAL MG/DL Urine Leukocyte Esterase NEGATIVE NEGATIVE Urine RBC (Auto) NEGATIVE NEGATIVE Urine RBC NONE /HPF Urine WBC NONE /HPF Urine Squamous Epithelial Cells RARE /HPF Urine Crystals NONE /LPF Urine Bacteria NEGATIVE /HPF Urine Casts NONE /LPF Urine Mucus NEGATIVE /LPF Urine Culture Indicated NO Sodium Level 133 L 135-145 MMOL/L Potassium Level 4.6 3.6-5.0 MMOL/L Chloride Level 103 98-107 MMOL/L Carbon Dioxide Level 20 L 21-32 MMOL/L Anion Gap 10 5-14 MMOL/L Blood Urea Nitrogen 24 H 7-18 MG/DL Creatinine 0.78 0.60-1.30 MG/DL Estimat Glomerular Filtration Rate > 60 BUN/Creatinine Ratio 31 Glucose Level 172 H 70-105 MG/DL Calcium Level 8.6 8.5-10.1 MG/DL Total Bilirubin 0.5 0.1-1.0 MG/DL Aspartate Amino Transf (AST/SGOT) 33 5-34 U/L Alanine Aminotransferase (ALT/SGPT) 23 0-55 U/L Alkaline Phosphatase 167 H 40-136 U/L Total Protein 7.4 6.4-8.2 GM/DL Albumin 3.4 3.2-4.5 GM/DL My Orders Orders - GI MARTINEZ FITNESS AND WELLNESS COORDINATOR Cbc With Automated Diff (11/03/17 13:04) Comprehensive Metabolic Panel (11/03/17 13:04) Protime With Inr (11/03/17 13:04) Partial Thromboplastin Time (11/03/17 13:04) Ua Culture If Indicated (11/03/17 13:04) Chest Pa/Lat (2 View) (11/03/17 13:04) Ct Abdomen/Pelvis W (11/03/17 13:04) Iohexol Injection (Omnipaque 350 Mg/Ml 1 (11/03/17 14:00) Ns (Ivpb) (Sodium Chloride 0.9%) (11/03/17 14:00) Pharmacy Communication (Pharmacy Communi (11/03/17 13:46) Medications Given in ED Current Medications Medications Dose Ordered Sig/Gordon Route Start Time Stop Time Status Last Admin Dose Admin Iohexol 100 ml ONCE ONCE IV 11/03/17 14:00 11/03/17 14:01 DC 11/03/17 13:55 100 ML Sodium Chloride 250 ml ONCE ONCE IV 11/03/17 14:00 11/03/17 14:01 DC 11/03/17 13:55 80 ML Vital Signs/I&O 11/03/17 12:45 Temp 97.5 Pulse 106 Resp 18 B/P (MAP) 147/82 (103) Pulse Ox 95 Blood Pressure Mean: 103 Diagnostic Imaging Diagonstic Imaging: CT Comments NAME: REYNALDO PRAKASH [facility] REC#: [id number] PT STATUS: REG ER : 1960 PHYSICIAN: GI MARTINEZ APRN ADMIT DATE: 11/03/17/ER Draft Date of Exam:11/03/17 CT ABDOMEN/PELVIS W PROCEDURE: CT abdomen and pelvis with contrast. TECHNIQUE: Multiple contiguous axial images were obtained through the abdomen and pelvis after administration of intravenous contrast. INDICATION: Abdominal pain and swelling. Comparison is made with prior CT from 05/12/2015. Imaging to lung bases does show small right pleural effusion, new since prior CT. No discrete liver mass is identified. Gallbladder is unremarkable. The pancreas and spleen are unremarkable. No adrenal mass is identified. The kidneys are unremarkable. Aorta is calcified but nonaneurysmal. The small and large bowel loops are normal caliber. No obstruction is seen. There is no ascites. There is edema throughout the subcutaneous tissues of the abdominal wall suggestive of anasarca. The bladder is decompressed. Small lymph nodes in the central retroperitoneum as well as the iliac and inguinal regions are noted. No definite pathologically enlarged nodes are seen. IMPRESSION: 1. Right pleural effusion. 2. Diffuse abdominal wall subcutaneous edema suggestive of anasarca. 3. No acute feature in the abdomen or pelvis is identified. Dictated on workstation # [id number] Dict: 11/03/17 1435 Trans: 11/03/17 1445 [facility] [id number] Interpreted by: LEON JUARES MD Electronically signed by: Departure Impression Primary Impression: History of hepatitis C Additional Impressions: Pleural effusion, right Edema Disposition: 01 HOME, SELF-CARE Condition: Stable Departure-Patient Inst. Decision time for Depature: 14:53 Referrals: [facility] (PCP) Primary Care Physician JEFF WATKINS APRN (Family) Primary Care Physician Patient Instructions: No Instuctions Given Add. Discharge Instructions: 1. All of the swelling is likely an effect of your hepatitis C. This will get worse over time if not managed appropriately.All discharge instructions reviewed with patient and/or family. Voiced understanding. Scripts Cephalexin (Keflex) 500 Mg Capsule 500 MG PO TID, #15 CAP . Prov: GI MARTINEZ APRN 11/03/17 Spironolactone (Aldactone) 25 Mg Tablet 25 MG PO DAILY, #7 TAB . Prov: GI MARTINEZ APRN 11/03/17 GI MARTINEZ APRN Nov 03, 2017 13:31
[2017-11-03 13:37] LABS: PROTHROMBIN TIME PATIENT 13.6 SEC (12.2-14.7)
[2017-11-03] MEDS ORDERED: IOHEXOL 350 MG/ML 100 ML (OMNIPAQUE 350) VIAL IV ONE (14:00)
[2017-11-03] MEDS ORDERED: NS 250 ML (IVPB) BAG IV ONE (14:00)
--- NOTE | 2017-11-03 14:41 | Diagnostic Imaging Report ---
INDICATION: Orthopnea. EXAMINATION: PA and lateral chest. FINDINGS: The heart is mildly enlarged. The pulmonary vascularity is at the upper limits of normal. The lungs are clear. There are no effusions or pneumothoraces. IMPRESSION: Cardiomegaly without evidence of pulmonary venous hypertension. Dictated by: Dictated on workstation # [id number]
--- NOTE | 2017-11-03 14:45 | Diagnostic Imaging Report ---
PROCEDURE: CT abdomen and pelvis with contrast. TECHNIQUE: Multiple contiguous axial images were obtained through the abdomen and pelvis after administration of intravenous contrast. INDICATION: Abdominal pain and swelling. Comparison is made with prior CT from 05/12/2015. Imaging to lung bases does show small right pleural effusion, new since prior CT. No discrete liver mass is identified. Gallbladder is unremarkable. The pancreas and spleen are unremarkable. No adrenal mass is identified. The kidneys are unremarkable. Aorta is calcified but nonaneurysmal. The small and large bowel loops are normal caliber. No obstruction is seen. There is no ascites. There is edema throughout the subcutaneous tissues of the abdominal wall suggestive of anasarca. The bladder is decompressed. Small lymph nodes in the central retroperitoneum as well as the iliac and inguinal regions are noted. No definite pathologically enlarged nodes are seen. IMPRESSION: 1. Right pleural effusion. 2. Diffuse abdominal wall subcutaneous edema suggestive of anasarca. 3. No acute feature in the abdomen or pelvis is identified. Dictated by: Dictated on workstation # [id number]
[2017-11-03] MEDS ORDERED: SPIR25TA PO ×2 (14:55→15:16)
[2017-11-03] MEDS ORDERED: CEPH-507 PO ×2 (15:15→15:16)
[2017-11-03 15:37] VITALS: BP 139/82
== END 2017-11-03 15:37 | disposition home or self-care (01) ==
LOC: EDUNIT# 12:08 → ER 12:10
DX: J90 Pleural effusion, not elsewhere classified (principal); R60.0 Localized edema; I10 Essential (primary) hypertension; B19.20 Unspecified viral hepatitis C without hepatic coma; E11.9 Type 2 diabetes mellitus without complications; F41.9 Anxiety disorder, unspecified; F43.10 Post-traumatic stress disorder, unspecified; F17.210 Nicotine dependence, cigarettes, uncomplicated; Z88.2 Allergy status to sulfonamides; Z85.41 Personal history of malignant neoplasm of cervix uteri; Z85.42 Personal history of malignant neoplasm of other parts of uterus; Z90.710 Acquired absence of both cervix and uterus; Z79.82 Long term (current) use of aspirin; Z79.51 Long term (current) use of inhaled steroids
CPT/HCPCS: 36415; 71046; 74177; 80053; 81000; 85025; 85610; 85730

== ENCOUNTER 2018-06-09 12:16 | Emergency (ER) | payer MEDICARE, MEDICAID ==
[~2018-06-09] VITALS: Ht 160 cm; Wt 90.7 kg
[~2018-06-09 12:16] MED LIST changes: +CEPH-507 PO; +SPIR25TA PO
--- NOTE | 2018-06-09 12:29 | ED Neurological Problem ---
General Stated Complaint: POSS STROKE Source: patient, EMS, old records Exam Limitations: clinical condition History of Present Illness Date Seen by Provider: Jun 09, 2018 Time Seen by Provider: 12:13 Initial Comments Patient resists ER by EMS with chief complaint that she has acute loss of ability to talk and respond according to her friend who is with her last known well time at 1040. She has a known history of diabetes, atrial fibrillation not on blood thinners. She does take aspirin. Unknown if she takes her medications. She has hypertension. No recent illness reported. Patient was able to talk her eyes were rolled her left and fixed according to EMS. She does follow some commands and was set up or squeeze hands but her right arm has no movement and her right leg has minimal movement. Allergies and Home Medications Allergies Coded Allergies: Sulfa (Sulfonamide Antibiotics) (Verified Allergy, Unknown, 05/12/15) Home Medications Alprazolam 0.5 Mg Tablet, 0.5 MG PO TID PRN for ANXIETY, (Reported) Aspirin 325 Mg Tablet, 325 MG PO DAILY Prescribed by: TIN GUADARRAMA on 05/13/15 1301 Cephalexin 500 Mg Tablet, 500 MG PO BID Prescribed by: OLIVERIO VINCENT on 10/20/17 1701 Cephalexin 500 Mg Capsule, 500 MG PO TID . Prescribed by: GI MARTINEZ on 11/03/17 151 Digoxin 125 Mcg Tablet, 0.125 MG PO DAILY Prescribed by: TIN GUADARRAMA on 05/13/15 1301 Duloxetine HCl 60 Mg Capsule.dr, 60 MG PO DAILY, (Reported) Duloxetine HCl 60 Mg Capsule.dr, 60 MG PO DAILY, (Reported) Enalapril Maleate 10 Mg Tablet, 10 MG PO DAILY, (Reported) Famotidine 20 Mg Tablet, 20 MG PO DAILY Prescribed by: TIN GUADARRAMA on 05/13/15 1301 Fluticasone Propionate 9.9 Ml Edmond[place].susp, 9.9 ML NS DAILY, (Reported) Furosemide 40 Mg Tablet, 40 MG PO DAILY Prescribed by: OLIVERIO VINCENT on 10/20/17 1701 Ibuprofen 800 Mg Tablet, 800 MG PO Q6H PRN for PAIN, (Reported) Promethazine HCl 50 Mg Tablet, 25 MG PO Q6H, (Reported) patient states she takes this medication PRN Spironolactone 25 Mg Tablet, 25 MG PO DAILY . Prescribed by: GI MARTINEZ on 11/03/17 1516 Verapamil HCl 240 Mg Cap24h.pel, 240 MG PO DAILY Prescribed by: TIN GUADARRAMA on 05/13/15 1301 Patient Home Medication List Home Medication List Reviewed: Yes Review of Systems Review of Systems Constitutional: see HPI (unable to obtain a meaningful review of systems second of the patient's aphasic) Past Nckcokg-Nfxoxt-Nbpube Hx Patient Social History Smoking Status: Current Everyday Smoker Type Used: Cigarettes Recent Hopitalizations: No Immunizations Up To Date Tetanus Booster (TDap): Less than 5yrs Past Medical History Surgeries: Yes Hysterectomy, Oophorectomy Respiratory: No Cardiac: Yes Hypertension Neurological: No Reproductive Disorders: No 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 Sexually Transmitted Disease: No HIV/AIDS: No Gastrointestinal: Yes (HEPATITIS C) Musculoskeletal: Yes Chronic Back Pain Endocrine: Yes ("DIET CONTROLLED" ) Diabetes, Non-Insulin dep Cataract Hearing Impairment: Denies Cancer: Yes Cervical, Uterine Psychosocial: Yes Anxiety, PTSD Integumentary: No Blood Disorders: No Adverse Reaction/Blood Tranf: No Family Medical History Other Conditions/Hx Physical Exam Vital Signs Vital Signs - First Documented 06/09/18 06/09/18 12:16 12:31 Temp 97.9 Pulse 64 Resp 20 B/P (MAP) 115/78 (90) Pulse Ox 96 O2 Delivery Nasal Cannula O2 Flow Rate 2.00 FiO2 98 Capillary Refill : Height, Weight, BMI Height: 5'3.00" Weight: 220lbs. 8.0oz. 99.660028ax; BMI Method:Stated General Appearance: WD/WN, moderate distress HEENT: PERRL/EOMI, normal ENT inspection, TMs normal, pharynx normal Respiratory: chest non-tender, lungs clear, normal breath sounds, no respiratory distress, no accessory muscle use Cardiovascular: normal peripheral pulses, regular rate, rhythm Gastrointestinal: normal bowel sounds, non tender, soft Extremities: normal range of motion, non-tender, normal inspection, normal capillary refill Neurologic/Psychiatric: other (GCS 10 points. Right arm flaccid paralysis with no sensation right legand sensation and only minor movement against gravity.) Crainal Nerves: normal hearing; No normal speech; PERRL, other (leftward gaze deviation.) Coordination/Gait: No normal finger to nose, No normal gait Motor/Sensory: sensory deficit (right upper lower extremity) Skin: normal color, warm/dry Stroke Onset of Symptoms Date of Onset of Symptoms: Jun 09, 2018 Time of Symptom Onset: 10:40 Onset of Symptoms: Yes Symptoms onset unknown: No NIH Stroke Scale Assessment Select: Initial Level of Consciousness: 1=Aroused by mild stimuli (1), Level of Consciousness-Questions: 2=Answer neither question (2), LOC Commands: 2= Performs neither task (2), Gaze: Forced Deviation (2), Visual Morales: 3= Bilateral Hemianopia (3), Facial Movement (Facial Paresis): 3=Complete paralysis (3), Motor Function-Arms Right: 4=No movement (4), Motor Function- Arms Left: 0=No drift (0), Motor Function-Legs Right: 3=No effort/gravity (3), Motor Function-Legs Left: 0=No drift (0), Limb Ataxia: 2=Present in two limbs (2 ), Sensory: 2=Severe to total loss (2), Best Language: 3=Mute (3), Dysarthria: 3 =Intubated/Physical cronin (3), Extinction & Inattention: 2= ProfoundHemiInattention (2), Total: 32 Stroke Thrombolytic Exclusion Age 18 or Over: Yes Acute intenal hemorrhage: No History of CVA: No Uncontrolled Coagulation Defec: No Intracranial Hemorrhage: No Severe Hypertension: No GI or Bleed: No Subarachnoid Hemorrhage: No Intracranial Neoplasm/Aneurysm: No Oral Anticoagulants: No Surgery or Trauma: No Puncture of Non-Compressible V: No Recent CPR: No Diabetic Hemorrhagic Retinopat: No Organ Biopsy: No Recent Obstetric Delivery: No Glucose: No (240) Significant Hepatic Dysfunctio: No NIH Stoke Scale >22: Yes Bacterial Endocarditis: No Pericarditis: No Improving Symptoms: No Platelets: No (303) TPA Contraindication: No IV - TPa Received IV - TPa Procedure Performed?: Yes Progress/Results/Core Measures Results/Orders Lab Results Laboratory Tests Test 06/09/18 12:29 06/09/18 12:32 06/09/18 13:10 Range/Units Glucometer 233 H 70-110 MG/DL White Blood Count 13.0 H 4.3-11.0 10^3/uL Red Blood Count 6.09 H 4.35-5.85 10^6/uL Hemoglobin 15.0 11.5-16.0 G/DL Hematocrit 47 35-52 % Mean Corpuscular Volume 76 L 80-99 FL Mean Corpuscular Hemoglobin 25 25-34 PG Mean Corpuscular Hemoglobin Concent 32 32-36 G/DL Red Cell Distribution Width 17.4 H 10.0-14.5 % Platelet Count 303 130-400 10^3/uL Mean Platelet Volume 10.8 H 7.4-10.4 FL Neutrophils (%) (Auto) 77 H 42-75 % Lymphocytes (%) (Auto) 13 12-44 % Monocytes (%) (Auto) 7 0-12 % Eosinophils (%) (Auto) 2 0-10 % Basophils (%) (Auto) 1 0-10 % Neutrophils # (Auto) 9.9 H 1.8-7.8 X 10^3 Lymphocytes # (Auto) 1.7 1.0-4.0 X 10^3 Monocytes # (Auto) 0.9 0.0-1.0 X 10^3 Eosinophils # (Auto) 0.3 0.0-0.3 10^3/uL Basophils # (Auto) 0.1 0.0-0.1 10^3/uL Prothrombin Time 12.9 12.2-14.7 SEC INR Comment 1.0 0.8-1.4 Activated Partial Thromboplast Time 28 24-35 SEC D-Dimer 0.61 H 0.00-0.49 UG/ML Sodium Level 135 135-145 MMOL/L Potassium Level 4.9 3.6-5.0 MMOL/L Chloride Level 101 98-107 MMOL/L Carbon Dioxide Level 22 21-32 MMOL/L Anion Gap 12 5-14 MMOL/L Blood Urea Nitrogen 28 H 7-18 MG/DL Creatinine 1.10 0.60-1.30 MG/DL Estimat Glomerular Filtration Rate 51 BUN/Creatinine Ratio 25 Glucose Level 226 H 70-105 MG/DL Calcium Level 9.8 8.5-10.1 MG/DL Corrected Calcium 10.0 8.5-10.1 MG/DL Total Bilirubin 0.5 0.1-1.0 MG/DL Aspartate Amino Transf (AST/SGOT) 39 H 5-34 U/L Alanine Aminotransferase (ALT/SGPT) 39 0-55 U/L Alkaline Phosphatase 149 H 40-136 U/L Troponin I < 0.028 <0.028 NG/ML Total Protein 8.4 H 6.4-8.2 GM/DL Albumin 3.7 3.2-4.5 GM/DL Urine Color YELLOW Urine Clarity CLEAR Urine pH 5 5-9 Urine Specific [place] 1.030 H 1.016-1.022 Urine Protein 2+ H NEGATIVE Urine Glucose (UA) 1+ H NEGATIVE Urine Ketones 1+ H NEGATIVE Urine Nitrite NEGATIVE NEGATIVE Urine Bilirubin NEGATIVE NEGATIVE Urine Urobilinogen 1 NORMAL MG/DL Urine Leukocyte Esterase 1+ H NEGATIVE Urine RBC (Auto) NEGATIVE NEGATIVE Urine RBC RARE /HPF Urine WBC 2-5 /HPF Urine Squamous Epithelial Cells 2-5 /HPF Urine Crystals PRESENT H /LPF Urine Amorphous Sediment RARE MARGO URATES H /LPF Urine Bacteria TRACE /HPF Urine Casts PRESENT /LPF Urine Hyaline Casts 5-10 H /LPF Urine Mucus SMALL H /LPF Urine Culture Indicated YES My Orders Orders - OLIVERIO VINCENT Ct Head Wo-R/O Stroke (06/09/18 12:21) Code/Resuscitation (06/09/18 12:30) Cbc With Automated Diff (06/09/18 12:30) Protime With Inr (06/09/18 12:30) Partial Thromboplastin Time (06/09/18 12:30) Comprehensive Metabolic Panel (06/09/18 12:30) Fibrin Degradation Products (06/09/18 12:30) Troponin I (06/09/18 12:30) Ua Culture If Indicated (06/09/18 12:30) Chest 1 View, Ap/Pa Only (06/09/18 12:30) Catheter(Urinary) Insert & Ass 03,15 (06/09/18 12:30) Ekg Tracing (06/09/18 12:30) Accucheck Stat ONCE (06/09/18 12:30) Saline Lock/Iv-Start (06/09/18 12:30) Saline Lock/Iv-Start (06/09/18 12:30) Vital Signs Stroke Patient Q15M (06/09/18 12:30) O2 (06/09/18 12:30) Intake & Output 06,14,22 (06/09/18 12:30) Monitor-Rhythm Ecg Trace Only (06/09/18 12:30) Dysphagia Screening Tool (06/09/18 12:30) Post Thrombolytic Adminstratio (06/09/18 12:30) Alteplase (Activase) (Activase Injection (06/09/18 13:00) Post Thrombolytic Adminstratio (06/09/18 12:56) Alteplase (Activase) (Activase Injection (06/09/18 12:56) Urine Culture (06/09/18 13:10) Medications Given in ED Current Medications Medications Dose Ordered Sig/Gordon Route Start Time Stop Time Status Last Admin Dose Admin Alteplase, Recombinant 81.63 mg ONCE ONCE IV 06/09/18 13:00 06/09/18 13:01 DC 06/09/18 13:13 81.63 MG Vital Signs/I&O 06/09/18 06/09/18 06/09/18 12:16 12:31 15:08 Temp 97.9 Pulse 64 70 Resp 20 20 B/P (MAP) 115/78 (90) 110/70 (83) Pulse Ox 96 98 99 O2 Delivery Nasal Cannula Nasal Cannula Room Air O2 Flow Rate 2.00 2.00 FiO2 98 Progress Progress Note #1: Time: 12:47 Progress Note Spoke to the pharmacy [facility] for the patient has her meds filled and patient did fill a 90 day supply of Eliquis in November of nothing since. They are no blood thinners including the medicines that were brought from her home by EMS. Her current list of medications on the computer do not include a blood thinner, just aspirin. Progress Note #2: Time: 14:03 Progress Note Patient is still a phasic however she opens her eyes a little better and is able to move her right leg a little better has good sensation now. She still cannot move or feel her right upper extremity. She has a little less facial droop on the right and does not have a leftward gaze deviation anymore. Following commands. NIH 18 points. Initial ECG Impression Date: Jun 09, 2018 Initial ECG Impression Time: 12:31 Initial ECG Rate: 70 Initial ECG Rhythm: A Fib/Flutter Initial ECG Intervals: QT (475) Initial ECG Impression: Atrial Fibrillation Comment Atrial fibrillation without ST elevation or depression. Diagnostic Imaging Diagonstic Imaging: CT (noncontrast) Plain Films/CT/US/NM/MRI: head Comments No acute intracranial hemorrhage, mass effect, tumor, fracture. [facility] [place] [place] NAME: REYNALDO PRAKASH [facility] REC#: [id number] PT STATUS: REG ER : 1960 PHYSICIAN: OLIVERIO VINCENT MD ADMIT DATE: 06/09/18/ER Draft Date of Exam:06/09/18 CT HEAD WO-R/O STROKE CLINICAL INDICATION: Concern for stroke. Patient unresponsive. EXAMINATION: Axial CT scan of the brain performed without IV contrast. COMPARISON: None. FINDINGS: There is a grossly 10 mm area of low-attenuation involving the right frontal lobe centrum semiovale region seen on series 2, image 23 which is of unknown age. There is small area of chronic cerebral infarct involving the right parietal lobe. There is focal area of low-attenuation involving the right frontal lobe which appears chronic and may be related to chronic ischemic infarcts. There are small areas of low-attenuation involving the left frontal lobe periventricular region also suspected to be related to chronic ischemic changes. The brain parenchymal volume appears appropriate for patient's age. There is no intracranial hemorrhage, brain herniation, or midline shift. There is no hydrocephalus. Basal cisterns are unremarkable. The extracranial soft tissue, skull, and orbits are unremarkable. Paranasal sinuses and mastoid air cells are unremarkable. IMPRESSION: 1: There is a 10 mm area of low attenuation involving the right frontal lobe centrum semiovale region. This may represent a small area of infarct of unknown age. MRI of the brain is suggested for further evaluation. 2: Small areas of chronic cerebral infarct involving the right parietal lobe, right frontal lobe, and left frontal lobe periventricular regions. 3: The remainder of the brain parenchyma shows no other significant abnormality. Results of this report are discussed with Dr. Oliverio Vincent via the telephone on 06/09/2018 at 1300 hrs. Dictated on workstation # [id number] Dict: 06/09/18 1247 Trans: 06/09/18 1315 [facility] [id number] Interpreted by: HEATHER KAPADIA MD Electronically signed by: Reviewed: Reviewed by Me Diagonstic Imaging: Xray Plain Films/CT/US/NM/MRI: chest (1v) Comments [facility] [place] [place] NAME: REYNALDO PRAKASH [facility] REC#: [id number] PT STATUS: REG ER : 1960 PHYSICIAN: OLIVERIO VINCENT MD ADMIT DATE: 06/09/18/ER Draft Date of Exam:06/09/18 CHEST 1 VIEW, AP/PA ONLY INDICATION: Right-sided weakness and confusion. Frontal chest obtained at 1:16 p.m. is compared to 11/03/2017. FINDINGS: There is cardiomegaly. There is mild central vascular prominence. There is no focal infiltrate, pneumothorax, or pleural fluid. IMPRESSION: Cardiomegaly with no acute process in the chest. Dictated on workstation # [id number] Dict: 06/09/18 1322 Trans: 06/09/18 1325 [id number] Interpreted by: ALON CALDERON MD Electronically signed by: Reviewed: Reviewed by Me Consults : Consults Notes Dr Springer: Stroke neurologist at [facility] recommends we give TPA and then send immediately to [facility]. Departure Impression Primary Impression: Cerebrovascular accident due to cerebral artery occlusion Disposition: XFER SHT-TRM HOSP Condition: Critical Transfer Time Spoke to Accepting Phy: 12:45 Transfer Progress Notes Discussed the case with Dr. Springer, [facility] stroke neurologist on-call. She recommended TPA and then send the patient directly to and gave us ED [place] Stroke [facility] if we send by ground or [facility] 2nd Floor, [place] elevator if we send by air. [employer] has declined to fly to [place] because of weather. [employer] helicopter has declined to fly to [place] because of weather. Fixed wing from [place] will take the patient to . Transfer Time: 15:08 Transfer Facility: [facility] Departure-Patient Inst. Referrals: [facility] (PCP/Family) Primary Care Physician Copy Copies To 1: MOUNA CRAPENTER TITUS J Jun 09, 2018 12:29
[2018-06-09 12:38] LABS: BASOPHILS # (AUTO) 0.1 10^3/uL (0.0-0.1); BASOPHILS % (AUTO) 1 % (0-10); EOSINOPHILS # (AUTO) 0.3 10^3/uL (0.0-0.3); EOSINOPHILS % (AUTO) 2 % (0-10); HEMATOCRIT 47 % (35-52); LYMPHOCYTES # (AUTO) 1.7 X 10^3 (1.0-4.0); LYMPHOCYTES % (AUTO) 13 % (12-44); MEAN CORPUSCULAR HEMOGLOBIN 25 PG (25-34); MEAN CORPUSCULAR HGB CONC 32 G/DL (32-36); MEAN CORPUSCULAR VOLUME 76 FL (80-99); MEAN PLATELET VOLUME 10.8 FL (7.4-10.4); MONOCYTES # (AUTO) 0.9 X 10^3 (0.0-1.0); MONOCYTES % (AUTO) 7 % (0-12); NEUTROPHILS # (AUTO) 9.9 X 10^3 (1.8-7.8); NEUTROPHILS % (AUTO) 77 % (42-75); PLATELET COUNT 303 10^3/uL (130-400); RED BLOOD COUNT 6.09 10^6/uL (4.35-5.85); RED CELL DISTRIBUTION WIDTH 17.4 % (10.0-14.5)
[2018-06-09 12:53] LABS: FIBRIN DEGRADATION PRODUCTS 0.61 UG/ML (0.00-0.49); PROTHROMBIN TIME PATIENT 12.9 SEC (12.2-14.7)
[2018-06-09] MEDS ORDERED: ALTEPLASE 100 MG/VIAL (ACTIVASE) IV ONE ×2 (12:56→13:00)
[2018-06-09 12:58] LABS: ALANINE AMINOTRANSFERASE 39 U/L (0-55); ALBUMIN 3.7 GM/DL (3.2-4.5); ALKALINE PHOSPHATASE 149 U/L (40-136); BILIRUBIN,TOTAL 0.5 MG/DL (0.1-1.0); BUN/CREATININE RATIO 25; CALCIUM 9.8 MG/DL (8.5-10.1); CARBON DIOXIDE 22 MMOL/L (21-32); CHLORIDE 101 MMOL/L (98-107); GFR ESTIMATED 51; GLUCOSE 226 MG/DL (70-105); POTASSIUM 4.9 MMOL/L (3.6-5.0); SODIUM 135 MMOL/L (135-145); TOTAL PROTEIN 8.4 GM/DL (6.4-8.2)
--- NOTE | 2018-06-09 13:15 | Diagnostic Imaging Report ---
CLINICAL INDICATION: Concern for stroke. Patient unresponsive. EXAMINATION: Axial CT scan of the brain performed without IV contrast. COMPARISON: None. FINDINGS: There is a grossly 10 mm area of low-attenuation involving the right frontal lobe centrum semiovale region seen on series 2, image 23 which is of unknown age. There is small area of chronic cerebral infarct involving the right parietal lobe. There is focal area of low-attenuation involving the right frontal lobe which appears chronic and may be related to chronic ischemic infarcts. There are small areas of low-attenuation involving the left frontal lobe periventricular region also suspected to be related to chronic ischemic changes. The brain parenchymal volume appears appropriate for patient's age. There is no intracranial hemorrhage, brain herniation, or midline shift. There is no hydrocephalus. Basal cisterns are unremarkable. The extracranial soft tissue, skull, and orbits are unremarkable. Paranasal sinuses and mastoid air cells are unremarkable. IMPRESSION: 1: There is a 10 mm area of low attenuation involving the right frontal lobe centrum semiovale region. This may represent a small area of infarct of unknown age. MRI of the brain is suggested for further evaluation. 2: Small areas of chronic cerebral infarct involving the right parietal lobe, right frontal lobe, and left frontal lobe periventricular regions. 3: The remainder of the brain parenchyma shows no other significant abnormality. Results of this report are discussed with Dr. Oliverio Vincent via the telephone on 06/09/2018 at 1300 hrs. Dictated by: Dictated on workstation # [id number]
[2018-06-09 13:18] LABS: BILIRUBIN,URINE NEGATIVE (NEGATIVE); CLARITY,URINE CLEAR; COLOR,URINE YELLOW; GLUCOSE, URINE (UA) 1+ (NEGATIVE); KETONES,URINE 1+ (NEGATIVE); LEUKOCYTE ESTERASE ,URINE 1+ (NEGATIVE); NITRITE,URINE NEGATIVE (NEGATIVE); PH,URINE 5 (5-9); PROTEIN,URINE 2+ (NEGATIVE); UROBILINOGEN,URINE 1 MG/DL (NORMAL)
--- OUTSIDE RECORDS SUMMARY | 2018-06-09 13:21 | XMS REPORT ---
Author Author KANDICE GRAMAJO [facility] Address [address] [place] [address] Care Team Providers Care Statistical Financial Analyst Name Role Phone KANDICE GRAMAJO Unavailable PROBLEMS Type Condition ICD9-CM Code GMM13-CQ Code Onset Dates Condition Status SNOMED Code Problem Sinusitis chronic, ethmoidal J32.2 Active 61118572 Problem Mixed hyperlipidemia E78.2 Active 632637419 Problem Tobacco abuse counseling Z71.6 Active 77051569 Problem Bladder spasms N32.89 Active 354383342 Problem Abnormal CBC R79.89 Active 508014633 Problem Other ascites R18.8 Active 555740854 Problem Type 2 diabetes mellitus without complications E11.9 Active 187334357 Problem long-term (current) use of insulin Z79.4 Active 669364420 Problem Chronic obstructive pulmonary disease with acute exacerbation J44.1 Active 783930538 Problem Paroxysmal atrial fibrillation I48.0 Active 909115442 Problem Chronic pain G89.29 Active 81882976 Problem Essential hypertension I10 Active 58406365 Problem Posttraumatic stress disorder F43.10 Active 82671571 Problem Episodic mood disorder F39 Active 25790894 Problem Type 2 diabetes mellitus with hyperglycemia E11.65 Active 277981853 Problem Atrial fibrillation I48.91 Active 48410976 Problem Chronic hepatitis C without hepatic coma B18.2 Active 213659085 Problem Other allergic rhinitis J30.89 Active 04382795 Problem Marijuana use F12.10 Active 49882217 Problem Neuropathy G62.9 Active 852348102 ALLERGIES Substance Reaction Event Type Date Status Diclofenac Unknown Drug Allergy Apr, Active MetFORMIN HCl ER diarrhea Drug Allergy Apr, Active Sulfamethoxazole-Trimethoprim Unknown Drug Allergy Apr, Active statins- patient declines to take Unknown Non Drug Allergy Apr, Active ENCOUNTERS Encounter Location Date Diagnosis [facility] [address] [place] [address] Apr, Wheezing R06.2 [facility] [id number] [place] [address] 86625- 7144 Apr, [facility] [id number] [place] [address] 50628 -1701 Apr, Acute recurrent frontal sinusitis J01.11 ; Upper respiratory tract infection, unspecified type J06.9 ; Wheezing R06.2 and Chronic obstructive pulmonary disease with acute exacerbation J44.1 [place] [address] 8[address]36- 1107 Mar, [place] [id number] [place] [address] 61638- 0329 Mar, [place] [address] 96912- 7942 Mar, [place] [address] 16356- 3340 Mar, Other allergic rhinitis J30.89 [facility] [id number] [place] [address] 77073- 3593 Mar, [place] [address] 75251- 3926 Feb, [facility] [id number] [place] [address] 65481- 1178 Dec, Essential hypertension I10 ; BMI 40.0-44.9, adult Z68.41 ; Bladder spasms N32.89 ; Right flank pain R10.9 and Chronic pain G89.29 [facility] [id number] [place] [address] 40490 -2931 Dec, Acute frontal sinusitis, recurrence not specified J01.10 and Headache above the eye region R51 [place] [id number] [place] [address] 17926- 1554 Nov, Abnormal CBC R79.89 [place] [id number] [place] [address] 94000- 5049 Nov, Type 2 diabetes mellitus with hyperglycemia E11.65 and Chronic hepatitis C without hepatic coma B18.2 [facility] [id number] [place] [address] 20015- 2570 27 Oct, 2017 Type 2 diabetes mellitus with hyperglycemia E11.65 [facility] [id number] [place] [address] 18556- 2666 15 Oct, 2017 Type 2 diabetes mellitus with hyperglycemia E11.65 ; Decreased breath sounds at right lung base R09.89 ; Essential hypertension I10 ; Atrial fibrillation I48.91 ; Chronic hepatitis C without hepatic coma B18.2 ; Peripheral edema R60.9 ; Other ascites R18.8 and Chronic obstructive pulmonary disease with acute exacerbation J44.1 [place] [id number] [place] [address] 03986- 2466 14 Oct, 2017 [place] [id number] [place] [address] 31597- 4058 Oct, [place] [id number] [place] [address] 44257- 5243 September, [place] [id number] [place] [address] 25117- 4350 Aug, Type 2 diabetes mellitus without complications E11.9 [place] [id number] [place] [address] 56415- 8816 Aug, Type 2 diabetes mellitus with hyperglycemia E11.65 [place] [id number] [place] [address] 06045- 0403 16 Aug, 2017 Pneumonia of right middle lobe due to infectious organism J18.1 ; Peripheral edema R60.9 ; Right upper quadrant abdominal pain R10.11 ; Type 2 diabetes mellitus without complications E11.9 and BMI 40.0-44.9, adult Z68.41 [place] [id number] [place] [address] 71634- 9099 Aug, [place] [id number] [place] [address] 42481- 5781 Aug, [place] [address] [place] [address] [place] [address] 82[address] Aug, [facility] [id number] [place] [address] 34439- 3797 Aug, Type 2 diabetes mellitus without complications E11.9 ; Type 2 diabetes mellitus with hyperglycemia E11.65 ; Peripheral edema R60.9 ; Shortness of breath R06.02 ; Paroxysmal atrial fibrillation I48.0 and Pneumonia of right middle lobe due to infectious organism J18.1 [place] [id number] [place] [address] 88461- 7006 Aug, [facility] [id number] [place] [address] 83660 -2279 Jul, Wheezing R06.2 and Acute non-recurrent pansinusitis J01.40 [place] [id number] [place] [address] 92193- 1221 Jul, [place] [id number] [place] [address] 73606- 3040 Jul, [place] [id number] [place] [address] 80685- 9894 May, Type 2 diabetes mellitus with hyperglycemia E11.65 ; Type 2 diabetes mellitus without complications E11.9 ; long-term (current) use of insulin Z79.4 ; Essential hypertension I10 ; Atrial fibrillation I48.91 ; Chronic hepatitis C without hepatic coma B18.2 ; Mixed hyperlipidemia E78.2 ; Episodic mood disorder F39 ; Neuropathy G62.9 ; Acute non-recurrent maxillary sinusitis J01.00 ; Chronic pain G89.29 and Marijuana use F12.10 [place] [id number] [place] [address] 59722- 2133 Apr, Atrial fibrillation I48.91 [place] [address] 47741- 3590 Mar, [place] [id number] [place] [address] 57998- 7293 Feb, Type 2 diabetes mellitus with hyperglycemia E11.65 ; Essential hypertension I10 ; Mixed hyperlipidemia E78.2 ; Atrial fibrillation I48.91 ; Neuropathy G62.9 ; Other allergic rhinitis J30.89 and Non compliance with medical treatment Z91.19 [place] [id number] [place] [address] 48795- 7209 Jan, Episodic mood disorder F39 and Posttraumatic stress disorder F43.[address] 17956- 4472 Jan, [place] [address] 89056- 1801 Oct, [address] 80069- 5442 Oct, [address] 35243- 6876 Oct, Type 2 diabetes mellitus with hyperglycemia E11.65 ; Essential hypertension I10 ; Atrial fibrillation I48.91 ; Episodic mood disorder F39 ; Chronic pain G89.29 ; Neuropathy G62.9 ; Other allergic rhinitis J30.89 and Tobacco abuse counseling Z71.6 [facility] [address] [place] [id number] [place] [address] 10667 -4453 Aug, Acute non-recurrent pansinusitis J01.40 [place] [id number] [place] [address] 49701- 7113 Jul, [place] [id number] [place] [address] 76904- 5769 Jun, [place] [id number] [place] [address] 79054- 2788 Jun, Type 2 diabetes mellitus with hyperglycemia E11.65 ; Episodic mood disorder F39 ; Posttraumatic stress disorder F43.10 ; Essential hypertension I10 ; Atrial fibrillation I48.91 ; Chronic pain G89.29 ; Acute upper respiratory infection, unspecified J06.9 ; Other viral agents as the cause of diseases classified elsewhere B97.89 ; Acute pain of left shoulder M25.512 and Sinusitis chronic, ethmoidal J32.2 [facility] [address] [address] 4914 May, Acute intractable tension-type headache G44.201 ; Chronic pain G89.29 ; Essential hypertension I10 ; Atrial fibrillation I48.91 ; Neuropathy G62.9 ; Posttraumatic stress disorder F43.10 ; Episodic mood disorder F39 ; Type 2 diabetes mellitus with hyperglycemia E11.65 ; Other allergic rhinitis J30.89 and Irritable bowel syndrome with both constipation and diarrhea K58.2 [facility] [id number] [place] [address] 98405- 8920 Apr, Episodic mood disorder F39 and Posttraumatic stress disorder F43.10 [facility] [id number] [place] [address] 60374- 0129 Mar, [facility] [id number] [place] [address] 73586- 6156 Mar, [facility] [id number] [place] [address] 40376- 1254 Mar, Chronic hepatitis C without hepatic coma B18.2 [facility] [id number] [place] [address] 28355- 8592 Mar, [facility] [id number] [place] [address] 31182- 6886 Mar, Episodic mood disorder F39 ; Posttraumatic stress disorder F43.10 ; Essential hypertension I10 and Type 2 diabetes mellitus with hyperglycemia E11.65 [facility] [id number] [place] [address] 45958- 1120 Mar, [facility] [id number] [place] [address] 90323- 2827 Mar, [facility] [id number] [place] [address] 94219- 0343 Mar, Type 2 diabetes mellitus with hyperglycemia E11.65 ; Chronic hepatitis C without hepatic coma B18.2 ; Posttraumatic stress disorder F43.10 ; Episodic mood disorder F39 ; Atrial fibrillation I48.91 ; Irritable bowel syndrome with both constipation and diarrhea K58.2 ; Secondary hypertension I15.9 and Neuropathy G62.9 [facility] [id number] [place] [address] 82465- 0005 Feb, Episodic mood disorder F39 and Posttraumatic stress disorder F43.10 [facility] [id number] [place] [address] 14400- 8250 Jan, Episodic mood disorder F39 and Posttraumatic stress disorder F43.10 [facility] [id number] [place] [address] 94823- 6394 Nov, Type 2 diabetes mellitus with hyperglycemia E11.65 ; Atrial fibrillation I48.91 ; Other allergic rhinitis J30.89 ; Episodic mood disorder F39 and Essential hypertension I10 [facility] [id number] [place] [address] 67448- 6374 Nov, [facility] [id number] [place] [address] 36250- 8855 Oct, [facility] [id number] [place] [address] 31406- 0550 Oct, [facility] [id number] [place] [address] 97674- 7863 September, Type 2 diabetes mellitus with hyperglycemia E11.65 ; Atrial fibrillation I48.91 and Chronic pain G89.29 [facility] [id number] [place] [address] 90144- 2807 September, Episodic mood disorder F39 and Posttraumatic stress disorder F43.10 [facility] [id number] [place] [address] 74329- 1726 September, [facility] [id number] [place] [address] 29004- 7178 September, [facility] [address] [address]686 September, [facility] [id number] [place] [address] 38664- 5398 September, [facility] [id number] [place] [address] 38015- 5177 September, [facility] [id number] [place] [address] 56505- 1595 Aug, Type 2 diabetes mellitus with hyperglycemia E11.65 and Essential hypertension I10 [facility] [id number] [place] [address] 97919- 4550 Aug, [facility] [id number] [place] [address] 19804- 7614 Aug, [facility] [id number] [place] [address] 46967- 4938 Aug, Allergic rhinitis J30.9 ; Atrial fibrillation I48.91 ; Shortness of breath R06.02 and Essential hypertension I10 [place] [id number] [place] [address] 58007- 4374 Jul, [facility] [id number] [place] [address] 96320- 4633 Jun, Episodic mood disorder F39 and Posttraumatic stress disorder F43.10 [place] [id number] [place] [address] 02484- 5987 Jun, [facility] [id number] [place] [address] 86719- 4189 May, Chronic pain G89.29 ; History of drug abuse Z87.898 and Marijuana use F12.10 [facility] [id number] [place] [address] 72351- 6039 May, Episodic mood disorder F39 and Posttraumatic stress disorder F43.10 [facility] [id number] [place] [address] 05764- 7629 May, [facility] [id number] [place] [address] 80339- 1826 Apr, Chronic pain G89.29 [place] [address] [place] [address]- 9943 Apr, Episodic mood disorder F39 and Posttraumatic stress disorder F43.10 [facility] [address] [place] [address] 320067- 3072 Apr, COPD (chronic obstructive pulmonary disease) with acute bronchitis J44.0 [facility] [address] [place] [address] 13872- 4846 Feb, Episodic mood disorder F39 and Posttraumatic stress disorder F43.10 [facility] [id number] [place] [address] 437960- 8912 Feb, [place] [id number] [place] [address] 886116- 9112 Feb, Episodic mood disorder F39 and Posttraumatic stress disorder F43.10 [facility] [address] [place] [address]- 2498 Jan, Routine adult health maintenance V70.0 [facility] [id number] [place] [address] 10003- 1854 Jan, Unspecified episodic mood disorder 296.90 and Posttraumatic stress disorder 309.81 [facility] [address] [place] [address] 78989- 1203 Dec, Unspecified episodic mood disorder 296.90 and Posttraumatic stress disorder 309.81 [place] [address] [place] [address] 66526- 2684 Dec, Unspecified episodic mood disorder 296.90 and Posttraumatic stress disorder 309.81 [facility] [address] [place] [address] 89996- 5904 Oct, Unspecified episodic mood disorder 296.90 and Posttraumatic stress disorder 309.81 [facility] [address] 2754 September, Unspecified episodic mood disorder 296.90 ; Posttraumatic stress disorder 309.81 ; No condition on Christiana II V71.09 ; Diabetes 250.00 ; Hypertension 401.9 ; Hepatitis C 070.70 and Degenerative disc disease 722.6 [facility] [address] [id number] [place] [address]- 3793 14 Aug, 2014 [facility] [address] [id number], [place] [address]- 6343 13 Aug, 2014 [facility] [address] [facility] [id number], [place] [address]- 7980 Jul, 2014 [facility] [address] [id number], [place] [address]- 3525 Jul, 2014 [facility] [address] [id number] [place] [address]- 2958 16 Jan, 2014 [facility] [address] [facility] [id number], [place] [address]- 6415 16 Jan, 2014 [facility] [address] [facility] [id number], [place] [address]- 5307 03 Jan, 2013 [facility] [address] [id number], [place] [address]- 0970 27 Oct, 2012 [facility] [address] [facility] [id number], [place] [address]- 7945 25 Oct, 2012 [facility] [address] [facility] [id number], [place] [address]- 4735 21 Oct, 2012 [facility] [id number] [address]- 0098 19 Oct, 2012 [facility] [place] [facility] [address] [facility] [id number], [place] [address]- 3880 18 Oct, 2012 [facility] [place] [facility] [address] [facility] [id number], [place] [address]- 0236 14 Oct, 2012 [facility] [place] [facility] [address] [facility] [id number], [place] [address]- 2827 13 Oct, 2012 [facility] [place] [facility] [address] [facility] [id number], [place] [address]- 7625 13 Oct, 2012 [facility] [address], [place] [address]- 2922 Oct, [facility] [address], [place] [address]- 8245 Oct, [facility] [address], [place] [address]- 8294 Oct, [facility] [address], [place] [address]- 8457 Oct, [facility] [address], [place] [address]- 1164 Oct, [facility] [address], [place] [address]- 4851 Oct, [facility] [address], [place] [address]- 1893 Oct, [facility] [address], [place] [address]- 6646 Oct, [facility] [address] [place] [address]- 8091 September, [facility] [address], [place] [address]- 9691 Aug, [facility] [address], [place] [address]- 4575 Aug, [facility] [id number] [address]- 2084 Aug, IMMUNIZATIONS No Known Immunizations SOCIAL HISTORY Never Assessed REASON FOR VISIT Congestion, cough, sinus c/o started 4-5 days ago [facility] PLAN OF CARE Activity Details Follow Up as needed or reg fu with pcp Reason: VITAL SIGNS Height 63 in 2018-05-10 Weight 225.0 lbs 2018-05-10 Temperature 97.8 degrees Fahrenheit 2018-05-10 Heart Rate 80 bpm 2018-05-10 Respiratory Rate 22 2018-05-10 Oximetry 94 % 2018-05-10 BMI 39.85 kg/m2 2018-05-10 Blood pressure systolic 120 mmHg 2018-05-10 Blood pressure diastolic 66 mmHg 2018-05-10 MEDICATIONS Medication Instructions Dosage Frequency Start Date End Date Duration Status Guaifenesin 400 mg Orally every 4 hrs 0.5 tablet as needed 4h Apr, 10 days Active Verapamil HCl ER 240 MG TAKE ONE TABLET BY MOUTH ONCE DAILY 30 days Active Ventolin HFA 108 (90 Base) MCG/ACT Inhalation every 6 hrs 2 puffs as needed 6h Jul, 30 days Active Eliquis 5 MG 90 Active Flonase 50 mcg/act Nasally 2 times a day 1 sprays by Nasal route 2 times per day in each nostril 12h Jul, Active Cymbalta 60 MG TAKE ONE CAPSULE BY MOUTH ONCE DAILY 30 days Active Lidocaine 5 % APPLY ONE (1) PATCH TOPICALLY TO SKIN ONCE DAILY DIRECTED 22 Active Gas Relief 80 mg PRN Oct, Active Trulicity 0.75 MG/0.5ML INJECT 0.5 MLS SUBCUTANEOUSLY EVERY WEEK 28 Active Pioglitazone HCl 30 MG TAKE ONE (1) TABLET BY MOUTH ONCE DAILY 30 days Active ProAir HFA 108 (90 Base) MCG/ACT Inhalation every 4 hrs 2 puffs as needed 4h Apr, 7 days Active Ibuprofen 800 MG Orally Three times a day 1 tablet with food or milk as needed 8h Active Glucocard Expression Test - In Vitro 2 times a day as directed 12h Aug, 50 days Active Albuterol Sulfate (2.5 MG/3ML) 0.083% Inhalation every 4 hours as needed 3 ml as needed Apr, 10 days Active Enalapril Maleate 10 MG TAKE ONE (1) TABLET BY MOUTH ONCE DAILY 30 days Active Augmentin 875-125 MG Orally every 12 hrs 1 tablet 12h Apr, 10 day(s) Active Metoprolol Succinate ER 25 MG 1 tablet 24h 30 days Active RESULTS No Results PROCEDURES Procedure Date Ordered Result Body Site [facility] VISIT ESTABLISHED PATIENT May 10, 2018 INSTRUCTIONS MEDICATIONS ADMINISTERED No Known Medications MEDICAL [...]
--- OUTSIDE RECORDS SUMMARY | 2018-06-09 13:23 | XMS REPORT ---
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 Role Phone KANDICE GRAMAJO Unavailable PROBLEMS Type Condition ICD9-CM Code CNV37-RK Code Onset Dates Condition Status SNOMED Code Problem Sinusitis chronic, ethmoidal J32.2 Active 63540673 Problem Mixed hyperlipidemia E78.2 Active 791172811 Problem Tobacco abuse counseling Z71.6 Active 85425843 Problem Bladder spasms N32.89 Active 359951462 Problem Abnormal CBC R79.89 Active 036156357 Problem Other ascites R18.8 Active 989704860 Problem Type 2 diabetes mellitus without complications E11.9 Active 196737711 Problem [facility] (current) use of insulin Z79.4 Active 474740414 Problem Chronic obstructive pulmonary disease with acute exacerbation J44.1 Active 850281310 Problem Paroxysmal atrial fibrillation I48.0 Active 333838434 Problem Chronic pain G89.29 Active 25838108 Problem Essential hypertension I10 Active 00296347 Problem Posttraumatic stress disorder F43.10 Active 20002615 Problem Episodic mood disorder F39 Active 07503329 Problem Type 2 diabetes mellitus with hyperglycemia E11.65 Active 493224261 Problem Atrial fibrillation I48.91 Active 63253895 Problem Chronic hepatitis C without hepatic coma B18.2 Active 675665521 Problem Other allergic rhinitis J30.89 Active 35875986 Problem Marijuana use F12.10 Active 69328476 Problem Neuropathy G62.9 Active [id number] ALLERGIES No Information ENCOUNTERS Encounter Location Date Diagnosis [facility] [address] [facility] [id number] [address] Apr, [facility] [address] [place] [address] Apr, Wheezing R06.2 [facility] [address] [facility] [id number] [address] Apr, [facility] [address] [place] [id number] [place] [address]37 Apr, Acute recurrent frontal sinusitis J01.11 ; Upper respiratory tract infection, unspecified type J06.9 ; Wheezing R06.2 and Chronic obstructive pulmonary disease with acute exacerbation J44.1 [facility] [address] [address] Mar, [facility] [address] [address] Mar, [place] [address] [address] 8[address] Mar, [facility] [address] [address]- 4723 Mar, Other allergic rhinitis J30.89 [place] [address] [address]- 9556 Mar, [facility] [address] [place] [id number] [place] [address] 29134- 7518 Feb, [facility] [address] [address] Dec, Essential hypertension I10 ; BMI 40.0-44.9, adult Z68.41 ; Bladder spasms N32.89 ; Right flank pain R10.9 and Chronic pain G89.29 [facility] [id number] [place] [address]114 [address]2070 Dec, Acute frontal sinusitis, recurrence not specified J01.10 and Headache above the eye region R51 [place] [address] [address]- 8[address] Nov, Abnormal CBC R79.89 [place] [address] [place] [id number] [place] [address] 34847- 5249 Nov, Type 2 diabetes mellitus with hyperglycemia E11.65 and Chronic hepatitis C without hepatic coma B18.2 [place] [address] [address] 27 Oct, 2017 Type 2 diabetes mellitus with hyperglycemia E11.65 [place] [address] [place] [id number] [place] [address] 73773- 9553 15 Oct, 2017 Type 2 diabetes mellitus with hyperglycemia E11.65 ; Decreased breath sounds at right lung base R09.89 ; Essential hypertension I10 ; Atrial fibrillation I48.91 ; Chronic hepatitis C without hepatic coma B18.2 ; Peripheral edema R60.9 ; Other ascites R18.8 and Chronic obstructive pulmonary disease with acute exacerbation J44.1 [place] [address] [place] [id number] [place] [address] 53727- 9402 14 Oct, 2017 [place] [address] [place] [id number] [place] [address] 08181- 6179 Oct, [place] [address] [place] [id number] [place] [address] 09096- 5843 September, [place] [address] [place] [id number] [place] [address] 10510- 4373 Aug, Type 2 diabetes mellitus without complications E11.9 [place] [address] [place] [id number] [place] [address] 08798- 4560 Aug, Type 2 diabetes mellitus with hyperglycemia E11.65 [place] [address] [address] 6[address] 16 Aug, 2017 Pneumonia of right middle lobe due to infectious organism J18.1 ; Peripheral edema R60.9 ; Right upper quadrant abdominal pain R10.11 ; Type 2 diabetes mellitus without complications E11.9 and BMI 40.0-44.9, adult Z68.41 [place] [address] [place] [id number] [place] [address] 75690- 6765 Aug, [place] [address] [place] [id number] [place] [address] 08119- 1747 Aug, [place] [address] [place] [id number] [place] [address] 73502- 8233 Aug, [place] [address] [place] [address] 43912- 1357 Aug, Type 2 diabetes mellitus without complications E11.9 ; Type 2 diabetes mellitus with hyperglycemia E11.65 ; Peripheral edema R60.9 ; Shortness of breath R06.02 ; Paroxysmal atrial fibrillation I48.0 and Pneumonia of right middle lobe due to infectious organism J18.1 [place] [address] [place] [id number] [place] [address] 66366- 0003 Aug, [facility] [id number] [place] [address] 96331 -8006 Jul, Wheezing R06.2 and Acute non-recurrent pansinusitis J01.40 [place] [address] [place] [id number] [place] [address] 20502- 4371 Jul, [place] [address] 68538- 7519 Jul, [place] [address] [place] [id number] [place] [address] 81177- 2727 May, Type 2 diabetes mellitus with hyperglycemia E11.65 ; Type 2 diabetes mellitus without complications E11.9 ; [facility] (current) use of insulin Z79.4 ; Essential hypertension I10 ; Atrial fibrillation I48.91 ; Chronic hepatitis C without hepatic coma B18.2 ; Mixed hyperlipidemia E78.2 ; Episodic mood disorder F39 ; Neuropathy G62.9 ; Acute non-recurrent maxillary sinusitis J01.00 ; Chronic pain G89.29 and Marijuana use F12.10 [place] [address] [place] [id number] [place] [address] 65900- 6120 Apr, Atrial fibrillation I48.[address] [address]50- 8466 Mar, [place] [address] [place] [id number] [place] [address] 38730- 6956 Feb, Type 2 diabetes mellitus with hyperglycemia E11.65 ; Essential hypertension I10 ; Mixed hyperlipidemia E78.2 ; Atrial fibrillation I48.91 ; Neuropathy G62.9 ; Other allergic rhinitis J30.89 and Non compliance with medical treatment Z91.19 [address] [place] [address] 30498- 6976 07 Jan, 2017 Episodic mood disorder F39 and Posttraumatic stress disorder F43.10 [place] [address] [place] [id number] [place] [address] 01893- 3734 05 Jan, [address] [place] [id number] [place] [address] 19479- 3443 Oct, [place] [id number] [place] [address] 35182- 0782 Oct, [place] [id number] [place] [address] 15163- 1738 Oct, Type 2 diabetes mellitus with hyperglycemia E11.65 ; Essential hypertension I10 ; Atrial fibrillation I48.91 ; Episodic mood disorder F39 ; Chronic pain G89.29 ; Neuropathy G62.9 ; Other allergic rhinitis J30.89 and Tobacco abuse counseling Z71.6 [facility] [address] [place], [place] [id number] [place] [address] 45630 -8975 Aug, Acute non-recurrent pansinusitis J01.40 [place] [id number] [place] [address] 93191- 3953 Jul, [place] [id number] [place] [address] 52798- 1914 Jun, [place] [id number] [place] [address] 42643- 3423 Jun, Type 2 diabetes mellitus with hyperglycemia E11.65 ; Episodic mood disorder F39 ; Posttraumatic stress disorder F43.10 ; Essential hypertension I10 ; Atrial fibrillation I48.91 ; Chronic pain G89.29 ; Acute upper respiratory infection, unspecified J06.9 ; Other viral agents as the cause of diseases classified elsewhere B97.89 ; Acute pain of left shoulder M25.512 and Sinusitis chronic, ethmoidal J32.2 [place] [id number] [place] [address] 37534- 2872 May, Acute intractable tension-type headache G44.201 ; Chronic pain G89.29 ; Essential hypertension I10 ; Atrial fibrillation I48.91 ; Neuropathy G62.9 ; Posttraumatic stress disorder F43.10 ; Episodic mood disorder F39 ; Type 2 diabetes mellitus with hyperglycemia E11.65 ; Other allergic rhinitis J30.89 and Irritable bowel syndrome with both constipation and diarrhea K58.2 [facility] [address] [address] [id number] [place] [address] 65722- 3670 Apr, Episodic mood disorder F39 and Posttraumatic stress disorder F43.10 [facility] [address] [place] [id number] [place] [address] 03065- 7217 Mar, [facility] [id number] [place] [address] 91464- 3875 Mar, [facility] [address] [id number] [place] [address] 92326- 6236 Mar, Chronic hepatitis C without hepatic coma B18.2 [facility] [address] [id number] [place] [address] 15047- 2386 Mar, [facility] [address] [place] [address] [id number] [place] [address] 33160- 0147 Mar, Episodic mood disorder F39 ; Posttraumatic stress disorder F43.10 ; Essential hypertension I10 and Type 2 diabetes mellitus with hyperglycemia E11.65 [facility] [address] [place] [address] 79937- 6158 Mar, [facility] [address] [place] [address] 22331- 2989 Mar, [facility] [address] [place] [address] 91397- 3571 Mar, Type 2 diabetes mellitus with hyperglycemia E11.65 ; Chronic hepatitis C without hepatic coma B18.2 ; Posttraumatic stress disorder F43.10 ; Episodic mood disorder F39 ; Atrial fibrillation I48.91 ; Irritable bowel syndrome with both constipation and diarrhea K58.2 ; Secondary hypertension I15.9 and Neuropathy G62.9 [facility] [address] [place] [id number] [address]- 7490 Feb, Episodic mood disorder F39 and Posttraumatic stress disorder F43.10 [facility] [address] [place] [id number] [place] [address] 28221- 7829 Jan, Episodic mood disorder F39 and Posttraumatic stress disorder F43.10 [facility] [address] [place] [id number] [place] [address] 88315- 6065 Nov, Type 2 diabetes mellitus with hyperglycemia E11.65 ; Atrial fibrillation I48.91 ; Other allergic rhinitis J30.89 ; Episodic mood disorder F39 and Essential hypertension I10 [facility] [address] [place] [id number] [place] [address] 00713- 5157 Nov, [facility] [address] [place] [id number] [place] [address] 26565- 3983 Oct, [facility] [address] [place] [id number] [place] [address] 50912- 3140 Oct, [facility] [address] [place] [id number] [place] [address] 94106- 8767 September, Type 2 diabetes mellitus with hyperglycemia E11.65 ; Atrial fibrillation I48.91 and Chronic pain G89.29 [facility] [address] [place] [id number] [place] [address] 01809- 6478 September, Episodic mood disorder F39 and Posttraumatic stress disorder F43.10 [facility] [address] [place] [id number] [place] [address] 13058- 5722 September, [facility] [address] [place] [id number] [place] [address] 33869- 3873 September, [facility] [address] [address] [id number] [place] [address] 33781 -6303 September, [facility] [address] [place] [address] [id number] [place] [address] 87236- 7140 September, [facility] [address] [address] [id number] [place] [address] 16699- 9920 September, [facility] [address] [place] [address] [id number] [place] [address] 23592- 5767 Aug, Type 2 diabetes mellitus with hyperglycemia E11.65 and Essential hypertension I10 [facility] [address] [place] [id number] [place] [address] 78205- 3728 Aug, [facility] [address] 25195- 6459 Aug, [facility] [address] [place] [id number] [place] [address] 03040- 2952 Aug, Allergic rhinitis J30.9 ; Atrial fibrillation I48.91 ; Shortness of breath R06.02 and Essential hypertension I10 [place] [address] [place] [id number] [place] [address] 12327- 4870 Jul, [place] [address] 51722- 6635 Jun, Episodic mood disorder F39 and Posttraumatic stress disorder F43.10 [place] [address] [place] [id number] [place] [address] 15525- 5322 Jun, [place] [address] [place] [id number] [place] [address] 67782- 5773 May, Chronic pain G89.29 ; History of drug abuse Z87.898 and Marijuana use F12.10 [place] [address] [place] [id number] [place] [address] 59885- 3889 May, Episodic mood disorder F39 and Posttraumatic stress disorder F43.10 [place] [address] [place] [id number] [place] [address] 10386- 8909 May, [place] [address] [place] [id number] [place] [address] 28516- 5021 Apr, Chronic pain G89.29 [place] [address] [place] [id number] [place] [address] 31358- 3267 Apr, Episodic mood disorder F39 and Posttraumatic stress disorder F43.10 [facility] [address] [address]- 2242 Apr, COPD (chronic obstructive pulmonary disease) with acute bronchitis J44.0 [facility] [address] [place] [address] 19549647- 3828 Feb, Episodic mood disorder F39 and Posttraumatic stress disorder F43.10 [facility] [address] [place] [id number] [place] [address] 55018- 3015 Feb, [place] [address] [place] [id number] [place] [address] 77348- 9459 Feb, Episodic mood disorder F39 and Posttraumatic stress disorder F43.10 [place] [address] [place] [id number] [place] [address] 08743- 5758 Jan, Routine adult health maintenance V70.0 [place] [address] [place] [id number] [place] [address] 68099- 4884 Jan, Unspecified episodic mood disorder 296.90 and Posttraumatic stress disorder 309.81 [place] [address] [place] [id number] [place] [address] 29111- 7535 Dec, Unspecified episodic mood disorder 296.90 and Posttraumatic stress disorder 309.81 [place] [address] [place] [id number] [place] [address] 09226- 5707 Dec, Unspecified episodic mood disorder 296.90 and Posttraumatic stress disorder 309.81 [facility] [address] [place] [address] 17918- 6573 Oct, Unspecified episodic mood disorder 296.90 and Posttraumatic stress disorder 309.81 [place] [address] [place] [id number] [place] [address] 62687418- 3031 September, Unspecified episodic mood disorder 296.90 ; Posttraumatic stress disorder 309.81 ; No condition on [place] II V71.09 ; Diabetes 250.00 ; Hypertension 401.9 ; Hepatitis C 070.70 and Degenerative disc disease 722.6 [place] [address] [place] [id number] [place] [address]- 6670 14 Aug, 2014 [facility] [place] [facility] [address] [id number] [place] [address]- 8393 13 Aug, 2014 [facility] [place] [facility] [address] [id number] [place] [address]- 8154 06 Jul, 2014 [facility] [place] [facility] [address] [id number] [place] [address]- 4121 06 Jul, 2014 [facility] [place] [facility] [address] [id number] [place] [address]- 1313 16 Jan, 2014 [facility] [place] [facility] [address] [id number] [place] [address]- 2910 16 Jan, 2014 [facility] [place] [facility] [address] [id number] [place] [address]- 2898 03 Jan, 2013 [facility] [place] [facility] [address] [id number] [place] [address]- 0600 27 Oct, 2012 [facility] [place] [facility] [address] [id number] [place] [address]- 9896 25 Oct, 2012 [facility] [place] [facility] [address] [id number] [place] [address]- 8405 21 Oct, 2012 [facility] [place] [facility] [address] [facility] [id number] [place] [address]- 2967 19 Oct, 2012 [facility] [place] [facility] [address] [id number] [place] [address]- 1824 18 Oct, 2012 [facility] [place] [facility] [address] [id number] [place] [address]- 3846 14 Oct, 2012 [facility] [place] [facility] [address] [id number] [place] [address]- 3622 13 Oct, 2012 [facility] [place] [facility] [address] [id number] [place] [address]- 7443 13 Oct, 2012 [facility] [place] [facility] [address] [id number] [place] [address]- 1772 Oct, [facility] [address] [place] [id number] [address]- 5805 Oct, [facility] [address] [address]- 1019 Oct, [facility] [address] [address]- 1594 Oct, [facility] [address] [place] [address] 69407- 1278 Oct, [facility] [address] [address]- 8113 Oct, [facility] [address] [place] [address] 69850- 9914 Oct, [facility] [address] [place] [address] 98011- 1855 Oct, [facility] [address] [place] [address] 27978- 7988 September, [facility] [address] [address]- 5705 Aug, [facility] [address] [address]- 9789 Aug, [facility] [address] [address]- 6385 Aug, IMMUNIZATIONS No Known Immunizations SOCIAL HISTORY Never Assessed REASON FOR VISIT Medication refill request PLAN OF CARE VITAL SIGNS MEDICATIONS Medication Instructions Dosage Frequency Start Date End Date Duration Status Full Kit Nebulizer Set & Tubing by inhalation route every 4-6 hours as needed as directed Apr, lifetime Active Albuterol Sulfate (2.5 MG/3ML) 0.083% Inhalation every 4 hrs 3 ml as needed 4h Apr, 10 days Active ProAir HFA 108 (90 Base) MCG/ACT Inhalation every 4 hrs 2 puffs as needed 4h Apr, 7 days Active RESULTS No Results PROCEDURES No [...]
--- OUTSIDE RECORDS SUMMARY | 2018-06-09 13:23 | XMS REPORT ---
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 Name Role Phone PAULINE MOUNA Unavailable PROBLEMS Type Condition ICD9-CM Code WNN43-QT Code Onset Dates Condition Status SNOMED Code Problem Sinusitis chronic, ethmoidal J32.2 Active 52197100 Problem Mixed hyperlipidemia E78.2 Active 466322197 Problem Tobacco abuse counseling Z71.6 Active 11959845 Problem Bladder spasms N32.89 Active 731654270 Problem Abnormal CBC R79.89 Active 949321359 Problem Other ascites R18.8 Active 660742012 Problem Type 2 diabetes mellitus without complications E11.9 Active 285397615 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 Active 269281620 Problem Chronic obstructive pulmonary disease with acute exacerbation J44.1 Active 114503384 Problem Paroxysmal atrial fibrillation I48.0 Active 464544595 Problem Chronic pain G89.29 Active 56484275 Problem Essential hypertension I10 Active 06004220 Problem Posttraumatic stress disorder F43.10 Active 57678002 Problem Episodic mood disorder F39 Active 64337501 Problem Type 2 diabetes mellitus with hyperglycemia E11.65 Active 688810570 Problem Atrial fibrillation I48.91 Active 35674817 Problem Chronic hepatitis C without hepatic coma B18.2 Active 794037994 Problem Other allergic rhinitis J30.89 Active 59944314 Problem Marijuana use F12.10 Active 80126582 Problem Neuropathy G62.9 Active 086244277 ALLERGIES No Information ENCOUNTERS Encounter Location Date Diagnosis [facility] [address] [facility] [id number] [address] Apr, [facility] [address] [place] [address] Apr, Wheezing R06.2 [facility] [address] [facility] [id number], [place] [address] Apr, [facility] [id number] [place] [address] 29346 -7787 Apr, Acute recurrent frontal sinusitis J01.11 ; Upper respiratory tract infection, unspecified type J06.9 ; Wheezing R06.2 and Chronic obstructive pulmonary disease with acute exacerbation J44.1 [facility] [id number] [place] [address] 12050- 4406 Mar, [facility] [id number] [place] [address] 51699- 8645 Mar, [facility] [id number] [place] [address] 55950- 8756 Mar, [facility] [id number] [place] [address] 14320- 0195 Mar, Other allergic rhinitis J30.89 [place] [address] 34897- 0441 Mar, [facility] [id number] [place] [address] 20045- 4141 Feb, [facility] [id number] [place] [address] 84932- 4555 Dec, Essential hypertension I10 ; BMI 40.0-44.9, adult Z68.41 ; Bladder spasms N32.89 ; Right flank pain R10.9 and Chronic pain G89.29 [facility] [id number] [place] [address] 60731 -6491 Dec, Acute frontal sinusitis, recurrence not specified J01.10 and Headache above the eye region R51 [place] [id number] [place] [address] 51330- 1582 Nov, Abnormal CBC R79.89 [facility] [id number] [place] [address] 60556- 7133 Nov, Type 2 diabetes mellitus with hyperglycemia E11.65 and Chronic hepatitis C without hepatic coma B18.2 [place] [id number] [place] [address] 31852- 6410 27 Oct, 2017 Type 2 diabetes mellitus with hyperglycemia E11.65 [place] [address] 02504- 3274 15 Oct, 2017 Type 2 diabetes mellitus with hyperglycemia E11.65 ; Decreased breath sounds at right lung base R09.89 ; Essential hypertension I10 ; Atrial fibrillation I48.91 ; Chronic hepatitis C without hepatic coma B18.2 ; Peripheral edema R60.9 ; Other ascites R18.8 and Chronic obstructive pulmonary disease with acute exacerbation J44.1 [place] [id number] [place] [address] 44099- 9054 Oct, [place] [address] 40689- 4069 Oct, [place] [address] 26875- 8851 September, [place] [address] 11750- 4641 Aug, Type 2 diabetes mellitus without complications E11.9 [place] [id number] [place] [address] 44258- 6325 Aug, Type 2 diabetes mellitus with hyperglycemia E11.65 [place] [id number] [place] [address] 63686- 5495 16 Aug, 2017 Pneumonia of right middle lobe due to infectious organism J18.1 ; Peripheral edema R60.9 ; Right upper quadrant abdominal pain R10.11 ; Type 2 diabetes mellitus without complications E11.9 and BMI 40.0-44.9, adult Z68.41 [place] [id number] [place] [address] 02186- 7996 Aug, [place] [address] 90743- 2970 Aug, [place] [id number] [place] [address] 61223- 1816 Aug, [place] [id number] [place] [address] 27916- 6976 Aug, Type 2 diabetes mellitus without complications E11.9 ; Type 2 diabetes mellitus with hyperglycemia E11.65 ; Peripheral edema R60.9 ; Shortness of breath R06.02 ; Paroxysmal atrial fibrillation I48.0 and Pneumonia of right middle lobe due to infectious organism J18.1 [place] [id number] [place] [address] 96638- 4366 Aug, [facility] [id number] [place] [address] 86731 -3989 Jul, Wheezing R06.2 and Acute non-recurrent pansinusitis J01.[address] 91194- 3723 Jul, [place] [address] 02398- 1586 Jul, [place] [id number] [place] [address] 62317- 8861 May, Type 2 diabetes mellitus with hyperglycemia E11.65 ; Type 2 diabetes mellitus without complications E11.9 ; 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 ; Essential hypertension I10 ; Atrial fibrillation I48.91 ; Chronic hepatitis C without hepatic coma B18.2 ; Mixed hyperlipidemia E78.2 ; Episodic mood disorder F39 ; Neuropathy G62.9 ; Acute non-recurrent maxillary sinusitis J01.00 ; Chronic pain G89.29 and Marijuana use F12.10 [place] [id number] [place] [address] 08038- 5688 Apr, Atrial fibrillation I48.[address] 58466- 2053 Mar, [address] 43876- 9169 Feb, Type 2 diabetes mellitus with hyperglycemia E11.65 ; Essential hypertension I10 ; Mixed hyperlipidemia E78.2 ; Atrial fibrillation I48.91 ; Neuropathy G62.9 ; Other allergic rhinitis J30.89 and Non compliance with medical treatment Z91.19 [address] [place] [address] 17703- 7726 07 Jan, 2017 Episodic mood disorder F39 and Posttraumatic stress disorder F43.10 [place] [id number] [place] [address] 59903- 0097 05 Jan, 2017 [place] [id number] [place] [address] 29758- 4135 Oct, [place] [id number] [place] [address] 38204- 2928 Oct, [address] 35084- 1305 Oct, Type 2 diabetes mellitus with hyperglycemia E11.65 ; Essential hypertension I10 ; Atrial fibrillation I48.91 ; Episodic mood disorder F39 ; Chronic pain G89.29 ; Neuropathy G62.9 ; Other allergic rhinitis J30.89 and Tobacco abuse counseling Z71.6 [facility] [address] [place] [id number] [place] [address] 11604 -7997 Aug, Acute non-recurrent pansinusitis J01.40 [place] [id number] [place] [address] 06840- 1826 Jul, [place] [id number] [place] [address] 37251- 2857 Jun, [place] [id number] [place] [address] 59240- 6824 Jun, Type 2 diabetes mellitus with hyperglycemia E11.65 ; Episodic mood disorder F39 ; Posttraumatic stress disorder F43.10 ; Essential hypertension I10 ; Atrial fibrillation I48.91 ; Chronic pain G89.29 ; Acute upper respiratory infection, unspecified J06.9 ; Other viral agents as the cause of diseases classified elsewhere B97.89 ; Acute pain of left shoulder M25.512 and Sinusitis chronic, ethmoidal J32.2 [place] [id number] [place] [address] 46131- 9037 May, Acute intractable tension-type headache G44.201 ; Chronic pain G89.29 ; Essential hypertension I10 ; Atrial fibrillation I48.91 ; Neuropathy G62.9 ; Posttraumatic stress disorder F43.10 ; Episodic mood disorder F39 ; Type 2 diabetes mellitus with hyperglycemia E11.65 ; Other allergic rhinitis J30.89 and Irritable bowel syndrome with both constipation and diarrhea K58.2 [facility] [id number] [place] [address] 23097- 4979 Apr, Episodic mood disorder F39 and Posttraumatic stress disorder F43.10 [facility] [id number] [place] [address] 63390- 9786 Mar, [facility] [id number] [place] [address] 22266- 0517 Mar, [facility] [id number] [place] [address] 92578- 1978 Mar, Chronic hepatitis C without hepatic coma B18.2 [facility] [id number] [place] [address] 16752- 3507 Mar, [facility] [id number] [place] [address] 49874- 7828 Mar, Episodic mood disorder F39 ; Posttraumatic stress disorder F43.10 ; Essential hypertension I10 and Type 2 diabetes mellitus with hyperglycemia E11.65 [facility] [id number] [place] [address] 24068- 3531 Mar, [facility] [id number] [place] [address] 97485- 3782 Mar, [facility] [id number] [place] [address] 49441- 7904 Mar, Type 2 diabetes mellitus with hyperglycemia E11.65 ; Chronic hepatitis C without hepatic coma B18.2 ; Posttraumatic stress disorder F43.10 ; Episodic mood disorder F39 ; Atrial fibrillation I48.91 ; Irritable bowel syndrome with both constipation and diarrhea K58.2 ; Secondary hypertension I15.9 and Neuropathy G62.9 [place] [address] [address]- 6371 Feb, Episodic mood disorder F39 and Posttraumatic stress disorder F43.10 [facility] [id number] [place] [address] 31911- 6942 Jan, Episodic mood disorder F39 and Posttraumatic stress disorder F43.10 [facility] [id number] [place] [address] 54587- 3468 Nov, Type 2 diabetes mellitus with hyperglycemia E11.65 ; Atrial fibrillation I48.91 ; Other allergic rhinitis J30.89 ; Episodic mood disorder F39 and Essential hypertension I10 [facility] [id number] [place] [address] 46862- 2355 Nov, [facility] [id number] [place] [address] 85738- 1059 Oct, [facility] [id number] [place] [address] 15135- 7292 Oct, [facility] [id number] [place] [address] 65432- 3753 September, Type 2 diabetes mellitus with hyperglycemia E11.65 ; Atrial fibrillation I48.91 and Chronic pain G89.29 [facility] [id number] [place] [address] 93852- 1247 September, Episodic mood disorder F39 and Posttraumatic stress disorder F43.10 [facility] [id number] [place] [address] 60820- 0895 September, [facility] [id number] [place] [address] 21040- 5283 September, [facility] [id number] [place] [address] 90612 -9439 September, [facility] [id number] [place] [address] 59387- 7344 September, [facility] [id number] [place] [address] 69469- 2508 September, [facility] [id number] [place] [address] 17492- 2104 Aug, Type 2 diabetes mellitus with hyperglycemia E11.65 and Essential hypertension I10 [facility] [id number] [place] [address] 96185- 5667 Aug, [facility] [address] 25970- 8369 Aug, [facility] [id number] [place] [address] 98253- 6641 Aug, Allergic rhinitis J30.9 ; Atrial fibrillation I48.91 ; Shortness of breath R06.02 and Essential hypertension I10 [place] [id number] [place] [address] 04312- 9564 Jul, [place] [address] 25498- 4862 Jun, Episodic mood disorder F39 and Posttraumatic stress disorder F43.10 [place] [id number] [place] [address] 99005- 9609 Jun, [place] [id number] [place] [address] 65455- 9864 May, Chronic pain G89.29 ; History of drug abuse Z87.898 and Marijuana use F12.10 [place] [id number] [place] [address] 27257- 7359 May, Episodic mood disorder F39 and Posttraumatic stress disorder F43.10 [place] [id number] [place] [address] 93744- 5594 May, [place] [id number] [place] [address] 88721- 8709 Apr, Chronic pain G89.29 [facility] [id number] [place] [address] 75936- 2465 Apr, Episodic mood disorder F39 and Posttraumatic stress disorder F43.10 [facility] [address] [place] [address] 51287- 3372 Apr, COPD (chronic obstructive pulmonary disease) with acute bronchitis J44.0 [facility] [address] [place] [address] 56400- 7802 Feb, Episodic mood disorder F39 and Posttraumatic stress disorder F43.10 [facility] [id number] [place] [address] 36769- 2301 Feb, [facility] [id number] [place] [address] 34761- 6141 Feb, Episodic mood disorder F39 and Posttraumatic stress disorder F43.10 [place] [id number] [place] [address] 20429- 8412 Jan, Routine adult health maintenance V70.0 [facility] [id number] [place] [address] 07524- 4015 Jan, Unspecified episodic mood disorder 296.90 and Posttraumatic stress disorder 309.81 [facility] [id number] [place] [address] 41372- 3153 Dec, Unspecified episodic mood disorder 296.90 and Posttraumatic stress disorder 309.81 [place] [address] [place] [address] 21693- 6823 Dec, Unspecified episodic mood disorder 296.90 and Posttraumatic stress disorder 309.81 [facility] [id number] [place] [address] 19835- 3668 Oct, Unspecified episodic mood disorder 296.90 and Posttraumatic stress disorder 309.81 [place] [id number] [place] [address] 77355- 6161 September, Unspecified episodic mood disorder 296.90 ; Posttraumatic stress disorder 309.81 ; No condition on Jasper II V71.09 ; Diabetes 250.00 ; Hypertension 401.9 ; Hepatitis C 070.70 and Degenerative disc disease 722.6 [place] [id number] [place] [address] 93060- 8291 14 Aug, 2014 [facility] [place] [facility] [address] [id number] [place] [address]- 7047 13 Aug, 2014 [facility] [place] [facility] [address] [id number] [place] [address]- 8654 06 Jul, 2014 [facility] [place] [facility] [address] [facility] [id number] [place] [address]- 1863 06 Jul, 2014 [facility] [place] [facility] [address] [id number] [place] [address]- 4473 16 Jan, 2014 [facility] [place] [facility] [address] [id number] [place] [address]- 0252 16 Jan, 2014 [facility] [place] [facility] [address] [id number] [place] [address]- 2290 03 Jan, 2013 [facility] [place] [facility] [address] [facility] [id number] [place] [address]- 2787 27 Oct, 2012 [facility] [place] [facility] [address] [id number] [place] [address]- 1889 25 Oct, 2012 [facility] [place] [facility] [address] [id number] [place] [address]- 8440 21 Oct, 2012 [facility] [place] [facility] [address] [facility] [id number] [place] [address]- 1576 19 Oct, 2012 [facility] [place] [facility] [address] [id number][place] [address]- 9651 18 Oct, 2012 [facility] [place] [facility] [address] [id number], [place] [address]- 0393 14 Oct, 2012 [facility] [place] [facility] [address] [id number] [place] [address]- 9977 13 Oct, 2012 [facility] [place] [facility] [address] [id number] [place] [address]- 4353 13 Oct, 2012 [facility] [place] [facility] [address] [facility] [id number] [place] [address]- 7609 12 Oct, 2012 [facility] [place] [facility] [address] [facility] [id number], [place] [address]- 3292 Oct, [facility] [address] [facility] [id number], [place] [address]- 3002 Oct, [facility] [address] [facility] [id number][place] [address]- 2918 Oct, [facility] [address] [facility] [id number], [place] [address]- 9117 Oct, [facility] [address] [facility] [id number], [place] [address]- 9744 Oct, [facility] [address], [place] [address]- 8804 Oct, [facility] [address], [place] [address]- 2542 Oct, [facility] [address], [place] [address]- 9728 September, [facility] [id number] [address]- 5467 Aug, [facility] [id number] [address]- 3671 Aug, [facility] [id number], [place] [address]- 0001 Aug, IMMUNIZATIONS No Known Immunizations SOCIAL HISTORY Never Assessed REASON FOR VISIT PLAN OF CARE VITAL SIGNS MEDICATIONS Unknown [...]
--- OUTSIDE RECORDS SUMMARY | 2018-06-09 13:24 | XMS REPORT ---
Author Author GULSHAN ROY [facility] Address [address] [place] [address] Care Team Providers Care Gift Basket Packer Name Role Phone GULSHAN ROY Unavailable PROBLEMS Type Condition ICD9-CM Code BFT02-TI Code Onset Dates Condition Status SNOMED Code Problem Sinusitis chronic, ethmoidal J32.2 Active 70368530 Problem Mixed hyperlipidemia E78.2 Active 310668000 Problem Tobacco abuse counseling Z71.6 Active 61221422 Problem Bladder spasms N32.89 Active 198220902 Problem Abnormal CBC R79.89 Active 993287175 Problem Other ascites R18.8 Active 204706335 Problem Type 2 diabetes mellitus without complications E11.9 Active 211928739 Problem USP (current) use of insulin Z79.4 Active 004329011 Problem Chronic obstructive pulmonary disease with acute exacerbation J44.1 Active 534584585 Problem Paroxysmal atrial fibrillation I48.0 Active 574813809 Problem Chronic pain G89.29 Active 57210873 Problem Essential hypertension I10 Active 98781176 Problem Posttraumatic stress disorder F43.10 Active 05469827 Problem Episodic mood disorder F39 Active 76742443 Problem Type 2 diabetes mellitus with hyperglycemia E11.65 Active 599388496 Problem Atrial fibrillation I48.91 Active 04524583 Problem Chronic hepatitis C without hepatic coma B18.2 Active 986973792 Problem Other allergic rhinitis J30.89 Active 68070873 Problem Marijuana use F12.10 Active 66174856 Problem Neuropathy G62.9 Active 894747736 ALLERGIES No Information ENCOUNTERS Encounter Location Date Diagnosis [facility] [id number] [address] Apr, [facility] [id number] [address] 2028 Mar, [facility] [id number] [address] 9445 Mar, [facility] [id number] [place] [address] 64241- 4958 Mar, [facility] [address] [address]- [address] Mar, Other allergic rhinitis J30.89 [place] [address] [address]- [address] Mar, [place] [address] 267[address]- 37[address] Feb, [facility] [id number] [place] [address] 30512- 1845 Dec, Essential hypertension I10 ; BMI 40.0-44.9, adult Z68.41 ; Bladder spasms N32.89 ; Right flank pain R10.9 and Chronic pain G89.29 [facility] [id number] [place] [address] 06121 -2385 Dec, Acute frontal sinusitis, recurrence not specified J01.10 and Headache above the eye region R51 [place] [id number] [place] [address] 10067- 6540 Nov, Abnormal CBC R79.89 [place] [id number] [place] [address] 75170- 9021 Nov, Type 2 diabetes mellitus with hyperglycemia E11.65 and Chronic hepatitis C without hepatic coma B18.2 [place] [id number] [place] [address] 75376- 4341 Oct, Type 2 diabetes mellitus with hyperglycemia E11.65 [place] [id number] [place] [address] 25907- 9810 15 Oct, 2017 Type 2 diabetes mellitus with hyperglycemia E11.65 ; Decreased breath sounds at right lung base R09.89 ; Essential hypertension I10 ; Atrial fibrillation I48.91 ; Chronic hepatitis C without hepatic coma B18.2 ; Peripheral edema R60.9 ; Other ascites R18.8 and Chronic obstructive pulmonary disease with acute exacerbation J44.1 [facility] [address] [address] 14 Oct, 2017 [facility] [address] [address] 7476 Oct, [facility] [address] [address] September, [facility] [address] [address] 6314 Aug, Type 2 diabetes mellitus without complications E11.9 [facility] [address] [address] 6459 Aug, Type 2 diabetes mellitus with hyperglycemia E11.65 [facility] [address] [address] 59[address] 16 Aug, 2017 Pneumonia of right middle lobe due to infectious organism J18.1 ; Peripheral edema R60.9 ; Right upper quadrant abdominal pain R10.11 ; Type 2 diabetes mellitus without complications E11.9 and BMI 40.0-44.9, adult Z68.41 [facility] [address] [address] 4717 Aug, [facility] [address] [address] 9046 Aug, [facility] [address] [address] 1628 Aug, [facility] [address] [address] 6253 Aug, Type 2 diabetes mellitus without complications E11.9 ; Type 2 diabetes mellitus with hyperglycemia E11.65 ; Peripheral edema R60.9 ; Shortness of breath R06.02 ; Paroxysmal atrial fibrillation I48.0 and Pneumonia of right middle lobe due to infectious organism J18.1 [facility] [address] [address] 3428 Aug, [facility] [id number] [place] [address] 57977 -2178 Jul, Wheezing R06.2 and Acute non-recurrent pansinusitis J01.40 [place] [id number] [place] [address] 91104- 4621 Jul, [place] [id number] [place] [address] 31858- 0637 Jul, [place] [id number] [place] [address] 50897- 9894 May, Type 2 diabetes mellitus with hyperglycemia E11.65 ; Type 2 diabetes mellitus without complications E11.9 ; USP (current) use of insulin Z79.4 ; Essential hypertension I10 ; Atrial fibrillation I48.91 ; Chronic hepatitis C without hepatic coma B18.2 ; Mixed hyperlipidemia E78.2 ; Episodic mood disorder F39 ; Neuropathy G62.9 ; Acute non-recurrent maxillary sinusitis J01.00 ; Chronic pain G89.29 and Marijuana use F12.10 [place] [id number] [place] [address] 41551- 3879 Apr, Atrial fibrillation I48.91 [place] [id number] [place] [address] 68185- 9575 Mar, [place] [id number] [place] [address] 68352- 8776 Feb, Type 2 diabetes mellitus with hyperglycemia E11.65 ; Essential hypertension I10 ; Mixed hyperlipidemia E78.2 ; Atrial fibrillation I48.91 ; Neuropathy G62.9 ; Other allergic rhinitis J30.89 and Non compliance with medical treatment Z91.19 [place] [id number] [place] [address] 19968- 5256 Jan, Episodic mood disorder F39 and Posttraumatic stress disorder F43.10 [place] [id number] [place] [address] 36501- 0194 05 Jan, 2017 [place] [id number] [place] [address] 87926- 3659 Oct, [place] [id number] [place] [address] 03677- 3272 Oct, [place] [id number] [place] [address] 93051- 6793 Oct, Type 2 diabetes mellitus with hyperglycemia E11.65 ; Essential hypertension I10 ; Atrial fibrillation I48.91 ; Episodic mood disorder F39 ; Chronic pain G89.29 ; Neuropathy G62.9 ; Other allergic rhinitis J30.89 and Tobacco abuse counseling Z71.6 [facility] [id number] [place] [address] 91799 -6862 Aug, Acute non-recurrent pansinusitis J01.[address] [address]28- 2120 Jul, [place] [id number] [place] [address] 20995- 6953 Jun, [place] [id number] [place] [address] 69154- 5051 Jun, Type 2 diabetes mellitus with hyperglycemia E11.65 ; Episodic mood disorder F39 ; Posttraumatic stress disorder F43.10 ; Essential hypertension I10 ; Atrial fibrillation I48.91 ; Chronic pain G89.29 ; Acute upper respiratory infection, unspecified J06.9 ; Other viral agents as the cause of diseases classified elsewhere B97.89 ; Acute pain of left shoulder M25.512 and Sinusitis chronic, ethmoidal J32.2 [place] [id number] [place] [address] 08873- 8180 May, Acute intractable tension-type headache G44.201 ; Chronic pain G89.29 ; Essential hypertension I10 ; Atrial fibrillation I48.91 ; Neuropathy G62.9 ; Posttraumatic stress disorder F43.10 ; Episodic mood disorder F39 ; Type 2 diabetes mellitus with hyperglycemia E11.65 ; Other allergic rhinitis J30.89 and Irritable bowel syndrome with both constipation and diarrhea K58.[address] [place] [address] 80905- 1476 Apr, Episodic mood disorder F39 and Posttraumatic stress disorder F43.10 [facility] [address] [address]- 9570 Mar, [facility] [id number] [place] [address] 47732- 2233 Mar, [facility] [id number] [place] [address] 34103- 9381 Mar, Chronic hepatitis C without hepatic coma B18.2 [facility] [id number] [place] [address] 02103- 0046 Mar, [facility] [id number] [place] [address] 43636- 9812 Mar, Episodic mood disorder F39 ; Posttraumatic stress disorder F43.10 ; Essential hypertension I10 and Type 2 diabetes mellitus with hyperglycemia E11.65 [facility] [id number] [place] [address] 86914- 5321 Mar, [facility] [id number] [place] [address] 49149- 6806 Mar, [facility] [id number] [place] [address] 72142- 5329 Mar, Type 2 diabetes mellitus with hyperglycemia E11.65 ; Chronic hepatitis C without hepatic coma B18.2 ; Posttraumatic stress disorder F43.10 ; Episodic mood disorder F39 ; Atrial fibrillation I48.91 ; Irritable bowel syndrome with both constipation and diarrhea K58.2 ; Secondary hypertension I15.9 and Neuropathy G62.9 [facility] [address] [address]- 9076 Feb, Episodic mood disorder F39 and Posttraumatic stress disorder F43.10 [facility] [id number] [place] [address] 60596- 0682 Jan, Episodic mood disorder F39 and Posttraumatic stress disorder F43.10 [facility] [id number] [place] [address] 60299- 2678 Nov, Type 2 diabetes mellitus with hyperglycemia E11.65 ; Atrial fibrillation I48.91 ; Other allergic rhinitis J30.89 ; Episodic mood disorder F39 and Essential hypertension I10 [facility] [id number] [place] [address] 91860- 7726 Nov, [facility] [id number] [place] [address] 91832- 6533 Oct, [facility] [id number] [place] [address] 32963- 4206 Oct, [facility] [id number] [place] [address] 78172- 0142 September, Type 2 diabetes mellitus with hyperglycemia E11.65 ; Atrial fibrillation I48.91 and Chronic pain G89.29 [facility] [id number] [place] [address] 10693- 4381 September, Episodic mood disorder F39 and Posttraumatic stress disorder F43.10 [facility] [id number] [place] [address] 65877- 0666 September, [facility] [id number] [place] [address] 83709- 8303 September, [facility] [id number] [place] [address] 57374 -7264 September, [facility] [address] [address]- 0961 September, [facility] [id number] [place] [address] 80022- 0746 September, [facility] [id number] [place] [address] 60063- 4181 Aug, Type 2 diabetes mellitus with hyperglycemia E11.65 and Essential hypertension I10 [facility] [id number] [place] [address] 76768- 7213 Aug, [facility] [address] [address]- 0538 Aug, [facility] [id number] [place] [address]- 1673 05 Aug, 2015 Allergic rhinitis J30.9 ; Atrial fibrillation I48.91 ; Shortness of breath R06.02 and Essential hypertension I10 [place] [id number] [place] [address] 26799- 8035 15 Jul, 2015 [place] [address] 47147- 0836 Jun, Episodic mood disorder F39 and Posttraumatic stress disorder F43.10 [place] [address] 29055- 5681 09 Jun, [address] 73407- 5179 May, Chronic pain G89.29 ; History of drug abuse Z87.898 and Marijuana use F12.[address] 33523- 5843 May, Episodic mood disorder F39 and Posttraumatic stress disorder F43.10 [place] [id number] [place] [address] 30600- 5462 May, [place] [id number] [place] [address] 77100- 0608 Apr, Chronic pain G89.29 [place] [id number] [place] [address] 60498- 1824 08 Apr, 2015 Episodic mood disorder F39 and Posttraumatic stress disorder F43.10 [place] [id number] [place] [address] 37707- 0215 07 Apr, 2015 COPD (chronic obstructive pulmonary disease) with acute bronchitis J44.0 [place] [id number] [place] [address] 21400- 7463 Feb, Episodic mood disorder F39 and Posttraumatic stress disorder F43.10 [place] [place] [id number] [place] [address] 01993- 0615 16 Feb, 2015 [place] [address] [address]- 8043 Feb, Episodic mood disorder F39 and Posttraumatic stress disorder F43.10 [facility] [id number] [place] [address] 36764- 3398 Jan, Routine adult health maintenance V70.0 [facility] [id number] [place] [address] 78301- 4498 Jan, Unspecified episodic mood disorder 296.90 and Posttraumatic stress disorder 309.81 [facility] [id number] [place] [address] 09704- 9520 Dec, Unspecified episodic mood disorder 296.90 and Posttraumatic stress disorder 309.81 [facility] [id number] [place] [address] 22199- 9895 Dec, Unspecified episodic mood disorder 296.90 and Posttraumatic stress disorder 309.81 [facility] [id number] [place] [address] 29339- 9078 Oct, Unspecified episodic mood disorder 296.90 and Posttraumatic stress disorder 309.81 [facility] [id number] [place] [address] 64601- 1143 September, Unspecified episodic mood disorder 296.90 ; Posttraumatic stress disorder 309.81 ; No condition on [place] V71.09 ; Diabetes 250.00 ; Hypertension 401.9 ; Hepatitis C 070.70 and Degenerative disc disease 722.6 [facility] [address] [place] [address] 04724- 9163 Aug, [facility] [address] [place] [address] 30995- 1228 Aug, [facility] [id number] [place] [address] 73346- 2796 Jul, [facility] [id number] [place] [address] 08539- 9799 Jul, [facility] [id number] [place] [address] 65012- 6613 16 Jan, 2014 [facility] [place] [facility] [address] [id number] [place] [address]- 2400 16 Jan, 2014 [facility] [place] [facility] [address] [id number] [place] [address]- 8306 03 Jan, 2013 [facility] [place] [facility] [address] [id number] [place] [address]- 7169 27 Oct, 2012 [facility] [place] [facility] [address] [id number] [place] [address]- 9136 25 Oct, 2012 [facility] [place] [facility] [address] [id number] [place] [address]- 4841 21 Oct, 2012 [facility] [place] [facility] [address] [id number] [place] [address]- 5835 19 Oct, 2012 [facility] [place] [facility] [address] [id number] [place] [address]- 1259 18 Oct, 2012 [facility] [place] [facility] [address] [id number] [place] [address]- 7918 14 Oct, 2012 [facility] [place] [facility] [address] [id number] [place] [address]- 2948 13 Oct, 2012 [facility] [place] [facility] [address] [id number] [place] [address]- 6247 13 Oct, 2012 [facility] [place] [facility] [address] [id number] [address]- 6810 12 Oct, 2012 [facility] [place] [facility] [address] [id number] [address]- 8686 12 Oct, 2012 [facility] [place] [facility] [address] [id number] [place] [address]- 8226 11 Oct, 2012 [facility] [place] [facility] [address] [id number] [place] [address]- 5000 11 Oct, 2012 [facility] [place] [facility] [address] [id number] [place] [address]- 5029 11 Oct, 2012 [facility] [place] [facility] [address] [facility] [id number] [address]- 6243 Oct, [facility] [id number] [address]- 1490 Oct, [facility] [id number] 3057 Oct, [facility] [id number] [address]- 6318 September, [facility] [address] [address]- 9246 Aug, [facility] [address] [address]- 3593 Aug, [facility] [id number] [address]- 3340 Aug, IMMUNIZATIONS No Known Immunizations SOCIAL HISTORY Never Assessed REASON FOR VISIT Refill request PLAN OF CARE VITAL SIGNS MEDICATIONS Medication Instructions Dosage Frequency Start Date End Date Duration Status Lidocaine 5 % APPLY ONE (1) PATCH TOPICALLY TO SKIN ONCE DAILY DIRECTED 30 days Active RESULTS No Results PROCEDURES [...]
--- OUTSIDE RECORDS SUMMARY | 2018-06-09 13:25 | XMS REPORT ---
Author Author GULSHAN ROY [facility] Address [address] [place] [address] Care Team Providers Care Venetian Blind Maker Name Role Phone GULSHAN ROY Unavailable PROBLEMS Type Condition ICD9-CM Code [id number] Code Onset Dates Condition Status SNOMED Code Problem Sinusitis chronic, ethmoidal J32.2 Active 49171119 Problem Mixed hyperlipidemia E78.2 Active 082696936 Problem Tobacco abuse counseling Z71.6 Active 15262292 Problem Bladder spasms N32.89 Active 617730062 Problem Abnormal CBC R79.89 Active 366100904 Problem Other ascites R18.8 Active 621415118 Problem Type 2 diabetes mellitus without complications E11.9 Active 127992295 Problem 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.4 Active 127550392 Problem Chronic obstructive pulmonary disease with acute exacerbation J44.1 Active 917628730 Problem Paroxysmal atrial fibrillation I48.0 Active 971980412 Problem Chronic pain G89.29 Active 29591725 Problem Essential hypertension I10 Active 42578763 Problem Posttraumatic stress disorder F43.10 Active 37683353 Problem Episodic mood disorder F39 Active 28121975 Problem Type 2 diabetes mellitus with hyperglycemia E11.65 Active 187139992 Problem Atrial fibrillation I48.91 Active 16196021 Problem Chronic hepatitis C without hepatic coma B18.2 Active 334185550 Problem Other allergic rhinitis J30.89 Active 90938510 Problem Marijuana use F12.10 Active 59659109 Problem Neuropathy G62.9 Active 467249747 ALLERGIES No Information ENCOUNTERS Encounter Location Date Diagnosis [facility] [id number] [address] Apr, [facility] [id number] [address] Mar, [facility] [id number] [address] 3[address] Mar, [facility] [id number] [place] [address]7556- 5259 Mar, Other allergic rhinitis J30.89 [address] [address] [address]- [address] Mar, [address] [address] [address]- [address] Feb, [place] [address] [address]- [address] Dec, Essential hypertension I10 ; BMI 40.0-44.9, adult Z68.41 ; Bladder spasms N32.89 ; Right flank pain R10.9 and Chronic pain G89.29 [facility] [id number] [place] [address]8786 -[address]372 Dec, Acute frontal sinusitis, recurrence not specified J01.10 and Headache above the eye region R51 [place] [address] [address]- [address]31 Nov, Abnormal CBC R79.[address] [address]- 8[address] Nov, Type 2 diabetes mellitus with hyperglycemia E11.65 and Chronic hepatitis C without hepatic coma B18.2 [place] [address] [address]- 0006 Oct, Type 2 diabetes mellitus with hyperglycemia E11.65 [place] [id number] [place] [address] 40056- 3502 Oct, Type 2 diabetes mellitus with hyperglycemia E11.65 ; Decreased breath sounds at right lung base R09.89 ; Essential hypertension I10 ; Atrial fibrillation I48.91 ; Chronic hepatitis C without hepatic coma B18.2 ; Peripheral edema R60.9 ; Other ascites R18.8 and Chronic obstructive pulmonary disease with acute exacerbation J44.[address] [address]- [address]87 14 Oct, 2017 [facility] [address] [address]86 Oct, [facility] [address] [place] [address] 00271- 3106 September, [facility] [address] [address] 3778 Aug, Type 2 diabetes mellitus without complications E11.9 [facility] [id number] [place] [address] 17305- 2072 Aug, Type 2 diabetes mellitus with hyperglycemia E11.65 [address] [address] [place] [address] 03418- 1185 Aug, Pneumonia of right middle lobe due to infectious organism J18.1 ; Peripheral edema R60.9 ; Right upper quadrant abdominal pain R10.11 ; Type 2 diabetes mellitus without complications E11.9 and BMI 40.0-44.9, adult Z68.41 [facility] [address] [address] Aug, [facility] [address] [place] [address] 53636- 2519 Aug, [facility] [address] [address] 1737 Aug, [place] [address] [address] Aug, Type 2 diabetes mellitus without complications E11.9 ; Type 2 diabetes mellitus with hyperglycemia E11.65 ; Peripheral edema R60.9 ; Shortness of breath R06.02 ; Paroxysmal atrial fibrillation I48.0 and Pneumonia of right middle lobe due to infectious organism J18.1 [facility] [address] [address]- [address] Aug, [facility] [address] [address] Jul, Wheezing R06.2 and Acute non-recurrent pansinusitis J01.40 [place] [id number] [place] [address] 49524- 8480 Jul, [address] [address] 9[address]12- 5363 Jul, [place] [id number] [place] [address] 69003- 7088 May, Type 2 diabetes mellitus with hyperglycemia E11.65 ; Type 2 diabetes mellitus without complications E11.9 ; 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 ; Essential hypertension I10 ; Atrial fibrillation I48.91 ; Chronic hepatitis C without hepatic coma B18.2 ; Mixed hyperlipidemia E78.2 ; Episodic mood disorder F39 ; Neuropathy G62.9 ; Acute non-recurrent maxillary sinusitis J01.00 ; Chronic pain G89.29 and Marijuana use F12.10 [id number] [place] [address] 54545- 2768 Apr, Atrial fibrillation I48.[address] [address]- 3128 Mar, [place] [id number] [place] [address] 23136- 1742 Feb, Type 2 diabetes mellitus with hyperglycemia E11.65 ; Essential hypertension I10 ; Mixed hyperlipidemia E78.2 ; Atrial fibrillation I48.91 ; Neuropathy G62.9 ; Other allergic rhinitis J30.89 and Non compliance with medical treatment Z91.19 [id number] [place] [address] 27953- 1685 Jan, Episodic mood disorder F39 and Posttraumatic stress disorder F43.10 [place] [id number] [place] [address] 34306- 2410 Jan, [id number] [place] [address] 81976- 7640 Oct, [place] [id number] [place] [address] 09877- 1734 Oct, [address] [place] [address] 55344- 7441 Oct, Type 2 diabetes mellitus with hyperglycemia E11.65 ; Essential hypertension I10 ; Atrial fibrillation I48.91 ; Episodic mood disorder F39 ; Chronic pain G89.29 ; Neuropathy G62.9 ; Other allergic rhinitis J30.89 and Tobacco abuse counseling Z71.6 [facility] [id number] [place] [address] 95882 -3488 Aug, Acute non-recurrent pansinusitis J01.40 [id number] [place] [address] 96541- 0383 Jul, [address] [address]65- 7345 Jun, [id number] [place] [address] 65653- 9070 Jun, Type 2 diabetes mellitus with hyperglycemia E11.65 ; Episodic mood disorder F39 ; Posttraumatic stress disorder F43.10 ; Essential hypertension I10 ; Atrial fibrillation I48.91 ; Chronic pain G89.29 ; Acute upper respiratory infection, unspecified J06.9 ; Other viral agents as the cause of diseases classified elsewhere B97.89 ; Acute pain of left shoulder M25.512 and Sinusitis chronic, ethmoidal J32.2 [id number] [place] [address] 82264- 6137 May, Acute intractable tension-type headache G44.201 ; Chronic pain G89.29 ; Essential hypertension I10 ; Atrial fibrillation I48.91 ; Neuropathy G62.9 ; Posttraumatic stress disorder F43.10 ; Episodic mood disorder F39 ; Type 2 diabetes mellitus with hyperglycemia E11.65 ; Other allergic rhinitis J30.89 and Irritable bowel syndrome with both constipation and diarrhea K58.2 [id number] [place] [address] 70608- 2346 Apr, Episodic mood disorder F39 and Posttraumatic stress disorder F43.10 [id number] [place] [address] 63337- 0191 Mar, [facility] [address] [address]- 7644 Mar, [facility] [id number] [place] [address] 98618- 3210 Mar, Chronic hepatitis C without hepatic coma B18.2 [facility] [address] [place] [address] 05524- 2127 Mar, [facility] [id number] [place] [address] 87883- 5701 Mar, Episodic mood disorder F39 ; Posttraumatic stress disorder F43.10 ; Essential hypertension I10 and Type 2 diabetes mellitus with hyperglycemia E11.65 [place] [id number] [place] [address] 44515- 8286 Mar, [place] [id number] [place] [address] 26175- 4380 Mar, [facility] [id number] [place] [address] 39086- 5363 Mar, Type 2 diabetes mellitus with hyperglycemia E11.65 ; Chronic hepatitis C without hepatic coma B18.2 ; Posttraumatic stress disorder F43.10 ; Episodic mood disorder F39 ; Atrial fibrillation I48.91 ; Irritable bowel syndrome with both constipation and diarrhea K58.2 ; Secondary hypertension I15.9 and Neuropathy G62.9 [place] [address] [address]- 9493 Feb, Episodic mood disorder F39 and Posttraumatic stress disorder F43.10 [facility] [address] [place] [address] 69969- 3650 Jan, Episodic mood disorder F39 and Posttraumatic stress disorder F43.10 [address] [address] [place] [address] 24992- 6198 Nov, Type 2 diabetes mellitus with hyperglycemia E11.65 ; Atrial fibrillation I48.91 ; Other allergic rhinitis J30.89 ; Episodic mood disorder F39 and Essential hypertension I10 [place] [id number] [address]- 8868 Nov, [facility] [address] [place] [address] 74538- 5283 Oct, [facility] [id number] [address]- 3363 Oct, [facility] [id number] [place] [address] 97206- 7215 September, Type 2 diabetes mellitus with hyperglycemia E11.65 ; Atrial fibrillation I48.91 and Chronic pain G89.29 [facility] [id number] [place] [address] 75372- 1905 September, Episodic mood disorder F39 and Posttraumatic stress disorder F43.10 [facility] [id number] [place] [address] 65703- 6758 September, [facility] [id number] [place] [address] 91753- 4535 September, [facility] [address] [address] September, [facility] [address] [place] [address] 09967- 3793 September, [facility] [address] [address]- 6098 September, [facility] [address] [address]- 2089 Aug, Type 2 diabetes mellitus with hyperglycemia E11.65 and Essential hypertension I10 [facility] [address] [address]- 8165 Aug, [facility] [address] [place] [address] 18905- 3208 Aug, [facility] [address] [address]- 1867 Aug, Allergic rhinitis J30.9 ; Atrial fibrillation I48.91 ; Shortness of breath R06.02 and Essential hypertension I10 [address] [id number] [place] [address] 92628- 1750 Jul, [address] [id number] [place] [address] 01964- 2283 10 Jun, 2015 Episodic mood disorder F39 and Posttraumatic stress disorder F43.10 [address] [address] 72759- 9524 09 Jun, 2015 [place] [id number] [place] [address] 19885- 1114 May, Chronic pain G89.29 ; History of drug abuse Z87.898 and Marijuana use F12.10 [address] [id number] [place] [address] 34458- 1490 May, Episodic mood disorder F39 and Posttraumatic stress disorder F43.10 [place] [id number] [place] [address] 85934- 2423 May, [address] [id number] [place] [address] 42871- 9474 Apr, Chronic pain G89.29 [address] [id number] [place] [address] 24011- 8310 08 Apr, 2015 Episodic mood disorder F39 and Posttraumatic stress disorder F43.10 [id number] [place] [address] 01901- 9942 Apr, COPD (chronic obstructive pulmonary disease) with acute bronchitis J44.0 [id number] [place] [address] 72727- 3030 Feb, Episodic mood disorder F39 and Posttraumatic stress disorder F43.10 [address] [id number] [place] [address] 33743- 7210 16 Feb, 2015 [address] [id number] [place] [address] 50166- 1742 Feb, Episodic mood disorder F39 and Posttraumatic stress disorder F43.10 [facility] [address] [address]- 4089 Jan, Routine adult health maintenance V70.0 [facility] [address] [place] [address] 006059- 2382 Jan, Unspecified episodic mood disorder 296.90 and Posttraumatic stress disorder 309.81 [facility] [id number] [place] [address] 46955- 1353 Dec, Unspecified episodic mood disorder 296.90 and Posttraumatic stress disorder 309.81 [facility] [id number] [place] [address] 46795- 8234 Dec, Unspecified episodic mood disorder 296.90 and Posttraumatic stress disorder 309.81 [facility] [id number] [place] [address] 92371- 4256 Oct, Unspecified episodic mood disorder 296.90 and Posttraumatic stress disorder 309.81 [facility] [id number] [place] [address] 55321- 2642 September, Unspecified episodic mood disorder 296.90 ; Posttraumatic stress disorder 309.81 ; No condition on Barre II V71.09 ; Diabetes 250.00 ; Hypertension 401.9 ; Hepatitis C 070.70 and Degenerative disc disease 722.6 [facility] [address] [address]- 3486 Aug, [facility] [id number] [place] [address] 79877- 4915 Aug, [facility] [address] [place] [address] 83789- 2019 Jul, [facility] [id number] [place] [address] 54373- 3500 Jul, [facility] [id number] [place] [address] 87658- 2864 16 Jan, 2014 [facility] [id number] [place] [address] 58370- 2309 16 Jan, 2014 [facility] [place] [facility] [address] [id number] [place] [address]- 9826 03 Jan, 2013 [facility] [place] [facility] [address] [id number] [place] [address]- 9684 27 Oct, 2012 [facility] [place] [facility] [address] [id number] [place] [address]- 8016 25 Oct, 2012 [facility] [place] [facility] [address] [id number] [place] [address]- 5424 21 Oct, 2012 [facility] [place] [facility] [address] [id number] [place] [address]- 1804 19 Oct, 2012 [facility] [place] [facility] [address] [id number] [place] [address]- 1929 18 Oct, 2012 [facility] [place] [facility] [address] [id number] [place] [address]- 2597 14 Oct, 2012 [facility] [place] [facility] [address] [id number] [place] [address]- 8202 13 Oct, 2012 [facility] [place] [facility] [address] [id number] [place] [address]- 5551 13 Oct, 2012 [facility] [place] [facility] [address] [id number] [place] [address]- 5291 12 Oct, 2012 [facility] [place] [facility] [address] [id number] [address]- 4000 12 Oct, 2012 [facility] [place] [facility] [address] [id number] [address]- 2506 11 Oct, 2012 [facility] [place] [facility] [address] [id number] [place] [address]- 4787 Oct, [facility] [place] [facility] [address] [id number] [place] [address]- 5786 11 Oct, 2012 [facility] [place] [facility] [address] [id number] [address]- 7421 11 Oct, 2012 [facility] [place] [facility] [address] [facility] [id number] [address]- 0316 Oct, [facility] [address] [facility] [id number] [address]- 7602 Oct, [facility] [address] [facility] [id number] [address]- 4886 September, [facility] [address] [facility] [id number] [address]- 1821 Aug, [facility] [address] [facility] [id number] [address]- 2004 Aug, [facility] [address] [facility] [id number] [address]- 7129 Aug, IMMUNIZATIONS No Known Immunizations SOCIAL HISTORY Never Assessed REASON FOR VISIT medication PLAN OF CARE VITAL SIGNS MEDICATIONS Medication Instructions Dosage Frequency Start Date End Date Duration Status Cymbalta 60 MG TAKE ONE CAPSULE BY MOUTH ONCE DAILY 30 days Active Trulicity 0.75 MG/0.5ML INJECT 0.5 MLS SUBCUTANEOUSLY EVERY WEEK 28 Active Enalapril Maleate 10 MG TAKE ONE (1) TABLET BY MOUTH ONCE DAILY 30 days Active Verapamil HCl ER 240 MG TAKE ONE TABLET BY MOUTH ONCE DAILY 30 days Active Pioglitazone HCl 30 MG TAKE ONE (1) TABLET BY MOUTH ONCE DAILY 30 days Active Metoprolol Succinate ER 25 MG 1 [...]
--- NOTE | 2018-06-09 13:26 | Diagnostic Imaging Report ---
INDICATION: Right-sided weakness and confusion. Frontal chest obtained at 1:16 p.m. is compared to 11/03/2017. FINDINGS: There is cardiomegaly. There is mild central vascular prominence. There is no focal infiltrate, pneumothorax, or pleural fluid. IMPRESSION: Cardiomegaly with no acute process in the chest. Dictated by: Dictated on workstation # [id number]
--- OUTSIDE RECORDS SUMMARY | 2018-06-09 13:26 | XMS REPORT ---
Author Author NINOSKA CABRAL [facility] Address [address] [place] [address] Care Team Providers Care Fur Matcher Name Role Phone NINOSKA CABRAL Unavailable PROBLEMS Type Condition ICD9-CM Code JCT71-DP Code Onset Dates Condition Status SNOMED Code Problem Sinusitis chronic, ethmoidal J32.2 Active 48619889 Problem Mixed hyperlipidemia E78.2 Active 162239447 Problem Tobacco abuse counseling Z71.6 Active 96250252 Problem Bladder spasms N32.89 Active 328988500 Problem Abnormal CBC R79.89 Active 231639280 Problem Other ascites R18.8 Active 304916858 Problem Type 2 diabetes mellitus without complications E11.9 Active 348650462 Problem manager intermediate (current) use of insulin Z79.4 Active 405148112 Problem Chronic obstructive pulmonary disease with acute exacerbation J44.1 Active 782728733 Problem Paroxysmal atrial fibrillation I48.0 Active 494044983 Problem Chronic pain G89.29 Active 13320713 Problem Essential hypertension I10 Active 58258851 Problem Posttraumatic stress disorder F43.10 Active 47998999 Problem Episodic mood disorder F39 Active 10634496 Problem Type 2 diabetes mellitus with hyperglycemia E11.65 Active 733753316 Problem Atrial fibrillation I48.91 Active 40309775 Problem Chronic hepatitis C without hepatic coma B18.2 Active 292347725 Problem Other allergic rhinitis J30.89 Active 13442193 Problem Marijuana use F12.10 Active 21552134 Problem Neuropathy G62.9 Active 506500618 ALLERGIES No Information ENCOUNTERS Encounter Location Date Diagnosis [facility] [id number] [address] Mar, [facility] [id number] [address] Mar, [facility] [id number] [address] Mar, Other allergic rhinitis J30.89 [facility] [id number] [place] [address]- 3065 Mar, [place] [address] [address] Feb, [facility] [address] [address]- [address] Dec, Essential hypertension I10 ; BMI 40.0-44.9, adult Z68.41 ; Bladder spasms N32.89 ; Right flank pain R10.9 and Chronic pain G89.29 [facility] [address] [address] Dec, Acute frontal sinusitis, recurrence not specified J01.10 and Headache above the eye region R51 [address] [address]- [address] Nov, Abnormal CBC R79.89 [place] [address] [address]- 69[address] Nov, Type 2 diabetes mellitus with hyperglycemia E11.65 and Chronic hepatitis C without hepatic coma B18.2 [place] [id number] [place] [address] 15974- 3934 Oct, Type 2 diabetes mellitus with hyperglycemia E11.65 [place] [address] [address]- [address]14 15 Oct, 2017 Type 2 diabetes mellitus with hyperglycemia E11.65 ; Decreased breath sounds at right lung base R09.89 ; Essential hypertension I10 ; Atrial fibrillation I48.91 ; Chronic hepatitis C without hepatic coma B18.2 ; Peripheral edema R60.9 ; Other ascites R18.8 and Chronic obstructive pulmonary disease with acute exacerbation J44.1 [place] [id number] [place] [address]- 4104 14 Oct, 2017 [place] [address] [address] Oct, [facility] [address] [address] September, [facility] [id number] [place] [address] 26868- 2289 Aug, Type 2 diabetes mellitus without complications E11.9 [facility] [address] [address] 47[address] Aug, Type 2 diabetes mellitus with hyperglycemia E11.65 [facility] [id number] [place] [address] 15024- 8537 Aug, Pneumonia of right middle lobe due to infectious organism J18.1 ; Peripheral edema R60.9 ; Right upper quadrant abdominal pain R10.11 ; Type 2 diabetes mellitus without complications E11.9 and BMI 40.0-44.9, adult Z68.41 [place] [id number] [place] [address] 14662- 3160 Aug, [facility] [address] [address] Aug, [place] [id number] [place] [address] 21482- 1107 Aug, [facility] [address] [address] Aug, Type 2 diabetes mellitus without complications E11.9 ; Type 2 diabetes mellitus with hyperglycemia E11.65 ; Peripheral edema R60.9 ; Shortness of breath R06.02 ; Paroxysmal atrial fibrillation I48.0 and Pneumonia of right middle lobe due to infectious organism J18.1 [facility] [address] [address] Aug, [facility] [address] [address] Jul, Wheezing R06.2 and Acute non-recurrent pansinusitis J01.40 [place] [address] [address] Jul, [place] [id number] [place] [address] 17815- 9220 Jul, [place] [address] [address]- 7[address] May, Type 2 diabetes mellitus with hyperglycemia E11.65 ; Type 2 diabetes mellitus without complications E11.9 ; manager intermediate (current) use of insulin Z79.4 ; Essential hypertension I10 ; Atrial fibrillation I48.91 ; Chronic hepatitis C without hepatic coma B18.2 ; Mixed hyperlipidemia E78.2 ; Episodic mood disorder F39 ; Neuropathy G62.9 ; Acute non-recurrent maxillary sinusitis J01.00 ; Chronic pain G89.29 and Marijuana use F12.[address] [address]- [address] Apr, Atrial fibrillation I48.[address] [address]- 8085 Mar, [address] [address]- 2559 Feb, Type 2 diabetes mellitus with hyperglycemia E11.65 ; Essential hypertension I10 ; Mixed hyperlipidemia E78.2 ; Atrial fibrillation I48.91 ; Neuropathy G62.9 ; Other allergic rhinitis J30.89 and Non compliance with medical treatment Z91.19 [place] [id number] [place] [address]9865- 8[address] Jan, Episodic mood disorder F39 and Posttraumatic stress disorder F43.10 [place] [id number] [place] [address] 14718- 1537 Jan, [address] [address]- 8357 Oct, [address] [address]- [address] Oct, [place] [id number] [place] [address] 16047- 9860 Oct, Type 2 diabetes mellitus with hyperglycemia E11.65 ; Essential hypertension I10 ; Atrial fibrillation I48.91 ; Episodic mood disorder F39 ; Chronic pain G89.29 ; Neuropathy G62.9 ; Other allergic rhinitis J30.89 and Tobacco abuse counseling Z71.6 [facility] [address] [place] [address] -[address]406 Aug, Acute non-recurrent pansinusitis J01.40 [facility] [address] [place] [address] 88628- 1803 Jul, [place] [id number] [place] [address] 77951- 0819 Jun, [address] [address]- 130[address] Jun, Type 2 diabetes mellitus with hyperglycemia E11.65 ; Episodic mood disorder F39 ; Posttraumatic stress disorder F43.10 ; Essential hypertension I10 ; Atrial fibrillation I48.91 ; Chronic pain G89.29 ; Acute upper respiratory infection, unspecified J06.9 ; Other viral agents as the cause of diseases classified elsewhere B97.89 ; Acute pain of left shoulder M25.512 and Sinusitis chronic, ethmoidal J32.2 [place] [id number] [place] [address] 58335- 6095 May, Acute intractable tension-type headache G44.201 ; Chronic pain G89.29 ; Essential hypertension I10 ; Atrial fibrillation I48.91 ; Neuropathy G62.9 ; Posttraumatic stress disorder F43.10 ; Episodic mood disorder F39 ; Type 2 diabetes mellitus with hyperglycemia E11.65 ; Other allergic rhinitis J30.89 and Irritable bowel syndrome with both constipation and diarrhea K58.2 [facility] [address] [place] [id number] [place] [address] 00044- 5753 Apr, Episodic mood disorder F39 and Posttraumatic stress disorder F43.10 [place] [id number] [place] [address] 56237- 8112 Mar, [address] [address] Mar, [facility] [address] [address] Mar, Chronic hepatitis C without hepatic coma B18.2 [facility] [address] [address] Mar, [facility] [address] [address]- [address]761 Mar, Episodic mood disorder F39 ; Posttraumatic stress disorder F43.10 ; Essential hypertension I10 and Type 2 diabetes mellitus with hyperglycemia E11.65 [facility] [address] [address] Mar, [facility] [address] [place] [address] 17287- 4648 Mar, [facility] [address] [place] [address] 94094- 7085 Mar, Type 2 diabetes mellitus with hyperglycemia E11.65 ; Chronic hepatitis C without hepatic coma B18.2 ; Posttraumatic stress disorder F43.10 ; Episodic mood disorder F39 ; Atrial fibrillation I48.91 ; Irritable bowel syndrome with both constipation and diarrhea K58.2 ; Secondary hypertension I15.[address] [facility] [address] [address] 3318 Feb, Episodic mood disorder F39 and Posttraumatic stress disorder F43.10 [facility] [address] [address]- 9642 Jan, Episodic mood disorder F39 and Posttraumatic stress disorder F43.10 [facility] [address] [address]- 2728 Nov, Type 2 diabetes mellitus with hyperglycemia E11.65 ; Atrial fibrillation I48.91 ; Other allergic rhinitis J30.89 ; Episodic mood disorder F39 and Essential hypertension I10 [facility] [address] [address] Nov, [facility] [address] [address]67 Oct, [facility] [id number] [place] [address]85- 1841 Oct, [facility] [id number] [place] [address] 31835- 8121 September, Type 2 diabetes mellitus with hyperglycemia E11.65 ; Atrial fibrillation I48.91 and Chronic pain G89.29 [facility] [id number] [place] [address] 62040- 8089 September, Episodic mood disorder F39 and Posttraumatic stress disorder F43.10 [facility] [id number] [place] [address] 38962- 5126 September, [facility] [id number] [place] [address] 39562- 6613 September, [facility] [address] [place] [address]11 -[address] September, [facility] [address] [place] [address] 03376- 9164 September, [facility] [id number] [place] [address] 51923- 4927 September, [facility] [id number] [place] [address] 54088- 3880 Aug, Type 2 diabetes mellitus with hyperglycemia E11.65 and Essential hypertension I10 [facility] [address] [address]- 4301 Aug, [facility] [address] [place] [address] 62276- 3541 Aug, [facility] [address] [place] [address] 42102- 4207 Aug, Allergic rhinitis J30.9 ; Atrial fibrillation I48.91 ; Shortness of breath R06.02 and Essential hypertension I10 [facility] [id number] [place] [address] 16668- 6255 Jul, [facility] [id number] [place] [address] 73504- 6125 Jun, Episodic mood disorder F39 and Posttraumatic stress disorder F43.10 [facility] [id number] [place] [address] 25622- 6237 09 Jun, 2015 [facility] [id number] [place] [address] 20249- 7556 May, Chronic pain G89.29 ; History of drug abuse Z87.898 and Marijuana use F12.10 [place] [id number] [place] [address] 43851- 3468 May, Episodic mood disorder F39 and Posttraumatic stress disorder F43.10 [place] [id number] [place] [address] 72444- 8000 May, [facility] [id number] [place] [address] 16274- 5864 Apr, Chronic pain G89.29 [facility] [id number] [place] [address] 36980- 1370 Apr, Episodic mood disorder F39 and Posttraumatic stress disorder F43.10 [place] [id number] [place] [address] 77940- 9380 Apr, COPD (chronic obstructive pulmonary disease) with acute bronchitis J44.0 [facility] [id number] [place] [address] 67878- 0969 Feb, Episodic mood disorder F39 and Posttraumatic stress disorder F43.10 [facility] [id number] [place] [address] 65447- 0222 Feb, [facility] [id number] [place] [address] 39346- 9997 Feb, Episodic mood disorder F39 and Posttraumatic stress disorder F43.10 [facility] [id number] [place] [address] 72478- 6897 Jan, Routine adult health maintenance V70.0 [facility] [id number] [place] [address] 20220- 2702 Jan, Unspecified episodic mood disorder 296.90 and Posttraumatic stress disorder 309.81 [facility] [id number] [place] [address] 82422- 6340 Dec, Unspecified episodic mood disorder 296.90 and Posttraumatic stress disorder 309.81 [facility] [id number] [place] [address] 80335- 2108 Dec, Unspecified episodic mood disorder 296.90 and Posttraumatic stress disorder 309.81 [facility] [id number] [place] [address] 24113- 1513 Oct, Unspecified episodic mood disorder 296.90 and Posttraumatic stress disorder 309.81 [facility] [id number] [place] [address] 98248- 8203 September, Unspecified episodic mood disorder 296.90 ; Posttraumatic stress disorder 309.81 ; No condition on Olar II V71.09 ; Diabetes 250.00 ; Hypertension 401.9 ; Hepatitis C 070.70 and Degenerative disc disease 722.6 [facility] [id number] [place] [address] 28583- 8528 Aug, [facility] [id number] [place] [address] 21969- 5177 Aug, [facility] [id number] [place] [address] 35257- 9241 Jul, [facility] [id number] [place] [address] 19760- 4931 Jul, [facility] [id number] [place] [address] 55094- 6106 Jan, [facility] [id number] [place] [address] 28708- 5209 Jan, [facility] [id number] [place] [address] 73687- 8452 03 Jan, 2013 [facility] [place] [facility] [address] [id number] [place] [address]- 8583 27 Oct, 2012 [facility] [place] [facility] [address] [id number] [place] [address]- 5788 25 Oct, 2012 [facility] [place] [facility] [address] [id number] [place] [address]- 7073 21 Oct, 2012 [facility] [place] [facility] [address] [id number] [place] [address]- 9583 19 Oct, 2012 [facility] [place] [facility] [address] [id number] [place] [address]- 4533 18 Oct, 2012 [facility] [place] [facility] [address] [id number] [place] [address]- 7958 14 Oct, 2012 [facility] [place] [facility] [address] [id number] [place] [address]- 7286 13 Oct, 2012 [facility] [place] [facility] [address] [id number] [place] [address]- 9193 13 Oct, 2012 [facility] [place] [facility] [address] [id number] [place] [address]- 7705 12 Oct, 2012 [facility] [place] [facility] [address] [id number] [place] [address]- 0826 12 Oct, 2012 [facility] [place] [facility] [address] [id number] [address]- 6708 11 Oct, 2012 [facility] [place] [facility] [address] [id number] [address]- 4496 11 Oct, 2012 [facility] [place] [facility] [address] [id number] [place] [address]- 8433 11 Oct, 2012 [facility] [place] [facility] [address] [id number] [place] [address]- 0267 11 Oct, 2012 [facility] [place] [facility] [address] [id number] [place] [address]- 4833 2012 [facility] [place] [facility] [address] [facility] [id number] [place] [address] 7677 Oct, [facility] [address] [facility] [id number]134 September, [facility] [address] [address] Aug, [facility] [id number] [address]- 2077 Aug, [facility] [id number] [address]- 3102 Aug, IMMUNIZATIONS No Known Immunizations SOCIAL HISTORY Never Assessed REASON FOR VISIT MTM (Medication Therapy Management) PLAN OF CARE VITAL SIGNS MEDICATIONS Unknown [...]
--- OUTSIDE RECORDS SUMMARY | 2018-06-09 13:27 | XMS REPORT ---
Author Author GULSHAN ROY [facility] Address [address] [place] [address] Care Team Providers Care Engineering And Development Director Name Role Phone GULSHAN ROY Unavailable PROBLEMS Type Condition ICD9-CM Code TKO11-EY Code Onset Dates Condition Status SNOMED Code Problem Sinusitis chronic, ethmoidal J32.2 Active 99827128 Problem Mixed hyperlipidemia E78.2 Active 411324257 Problem Tobacco abuse counseling Z71.6 Active 79460827 Problem Bladder spasms N32.89 Active 957400786 Problem Abnormal CBC R79.89 Active 334526995 Problem Other ascites R18.8 Active 924684757 Problem Type 2 diabetes mellitus without complications E11.9 Active 961120640 Problem 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.4 Active 775678766 Problem Chronic obstructive pulmonary disease with acute exacerbation J44.1 Active 495290434 Problem Paroxysmal atrial fibrillation I48.0 Active 407900112 Problem Chronic pain G89.29 Active 81268083 Problem Essential hypertension I10 Active 42011640 Problem Posttraumatic stress disorder F43.10 Active 97114380 Problem Episodic mood disorder F39 Active 87715504 Problem Type 2 diabetes mellitus with hyperglycemia E11.65 Active 799901033 Problem Atrial fibrillation I48.91 Active 29435216 Problem Chronic hepatitis C without hepatic coma B18.2 Active 447214819 Problem Other allergic rhinitis J30.89 Active 19302660 Problem Marijuana use F12.10 Active 07102242 Problem Neuropathy G62.9 Active 162437912 ALLERGIES No Information ENCOUNTERS Encounter Location Date Diagnosis [facility] [id number] [address] Mar, [facility] [id number] [address] Mar, [facility] [id number] [address] Mar, Other allergic rhinitis J30.89 [facility] [id number] [place] [address] 26667- 9693 Mar, [place] [address] [address] Feb, [facility] [address] [address]- [address] Dec, Essential hypertension I10 ; BMI 40.0-44.9, adult Z68.41 ; Bladder spasms N32.89 ; Right flank pain R10.9 and Chronic pain G89.29 [facility] [address] [address] Dec, Acute frontal sinusitis, recurrence not specified J01.10 and Headache above the eye region R51 [place] [address] [address]- [address] Nov, Abnormal CBC R79.89 [place] [address] 495[address]- 8440 Nov, Type 2 diabetes mellitus with hyperglycemia E11.65 and Chronic hepatitis C without hepatic coma B18.2 [place] [id number] [place] [address] 37549- 4936 Oct, Type 2 diabetes mellitus with hyperglycemia E11.65 [place] [address] 64[address]- 3742 Oct, Type 2 diabetes mellitus with hyperglycemia E11.65 ; Decreased breath sounds at right lung base R09.89 ; Essential hypertension I10 ; Atrial fibrillation I48.91 ; Chronic hepatitis C without hepatic coma B18.2 ; Peripheral edema R60.9 ; Other ascites R18.8 and Chronic obstructive pulmonary disease with acute exacerbation J44.1 [place] [id number] [place] [address]57- 5205 14 Oct, 2017 [place] [address] [address]- [address] Oct, [facility] [address] [address] September, [facility] [id number] [place] [address] 59794- 2597 Aug, Type 2 diabetes mellitus without complications E11.9 [facility] [address] [address] 6[address] Aug, Type 2 diabetes mellitus with hyperglycemia E11.65 [facility] [id number] [place] [address] 95588- 0770 Aug, Pneumonia of right middle lobe due to infectious organism J18.1 ; Peripheral edema R60.9 ; Right upper quadrant abdominal pain R10.11 ; Type 2 diabetes mellitus without complications E11.9 and BMI 40.0-44.9, adult Z68.41 [place] [id number] [place] [address] 73919- 9299 Aug, [place] [id number] [place] [address] 50003- 8714 Aug, [place] [id number] [place] [address] 75715- 2504 Aug, [facility] [address] [address] Aug, Type 2 diabetes mellitus without complications E11.9 ; Type 2 diabetes mellitus with hyperglycemia E11.65 ; Peripheral edema R60.9 ; Shortness of breath R06.02 ; Paroxysmal atrial fibrillation I48.0 and Pneumonia of right middle lobe due to infectious organism J18.1 [facility] [address] [address] Aug, [facility] [address] [address] Jul, Wheezing R06.2 and Acute non-recurrent pansinusitis J01.40 [facility] [address] [address] Jul, [place] [id number] [place] [address] 69580- 8369 Jul, [place] [address] [address]12- 4[address] May, Type 2 diabetes mellitus with hyperglycemia E11.65 ; Type 2 diabetes mellitus without complications E11.9 ; 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 ; Essential hypertension I10 ; Atrial fibrillation I48.91 ; Chronic hepatitis C without hepatic coma B18.2 ; Mixed hyperlipidemia E78.2 ; Episodic mood disorder F39 ; Neuropathy G62.9 ; Acute non-recurrent maxillary sinusitis J01.00 ; Chronic pain G89.29 and Marijuana use F12.[address] [address]- [address] Apr, Atrial fibrillation I48.[address] [address]- 9762 Mar, [address] [address]- 30[address] Feb, Type 2 diabetes mellitus with hyperglycemia E11.65 ; Essential hypertension I10 ; Mixed hyperlipidemia E78.2 ; Atrial fibrillation I48.91 ; Neuropathy G62.9 ; Other allergic rhinitis J30.89 and Non compliance with medical treatment Z91.19 [place] [id number] [place] [address] 62712- 1775 Jan, Episodic mood disorder F39 and Posttraumatic stress disorder F43.10 [place] [id number] [place] [address] 59658- 5927 Jan, [address] [address]643- 0908 Oct, [address] [address]- 5478 Oct, [place] [id number] [place] [address] 13326- 7374 Oct, Type 2 diabetes mellitus with hyperglycemia E11.65 ; Essential hypertension I10 ; Atrial fibrillation I48.91 ; Episodic mood disorder F39 ; Chronic pain G89.29 ; Neuropathy G62.9 ; Other allergic rhinitis J30.89 and Tobacco abuse counseling Z71.6 [facility] [id number] [place] [address] 92543 -2319 Aug, Acute non-recurrent pansinusitis J01.40 [place] [id number] [place] [address] 81154- 9752 Jul, [place] [id number] [place] [address] 55103- 5152 Jun, [address] 30047- 2748 Jun, Type 2 diabetes mellitus with hyperglycemia E11.65 ; Episodic mood disorder F39 ; Posttraumatic stress disorder F43.10 ; Essential hypertension I10 ; Atrial fibrillation I48.91 ; Chronic pain G89.29 ; Acute upper respiratory infection, unspecified J06.9 ; Other viral agents as the cause of diseases classified elsewhere B97.89 ; Acute pain of left shoulder M25.512 and Sinusitis chronic, ethmoidal J32.2 [place] [id number] [place] [address] 78834- 9792 May, Acute intractable tension-type headache G44.201 ; Chronic pain G89.29 ; Essential hypertension I10 ; Atrial fibrillation I48.91 ; Neuropathy G62.9 ; Posttraumatic stress disorder F43.10 ; Episodic mood disorder F39 ; Type 2 diabetes mellitus with hyperglycemia E11.65 ; Other allergic rhinitis J30.89 and Irritable bowel syndrome with both constipation and diarrhea K58.2 [facility] [address] [place] [id number] [place] [address] 03105- 9935 Apr, Episodic mood disorder F39 and Posttraumatic stress disorder F43.10 [place] [id number] [place] [address] 17817- 0743 Mar, [place] [id number] [place] [address] 26423- 4394 Mar, [facility] [address] [address] Mar, Chronic hepatitis C without hepatic coma B18.2 [facility] [address] [address] 2610 Mar, [facility] [address] [address] 1507 Mar, Episodic mood disorder F39 ; Posttraumatic stress disorder F43.10 ; Essential hypertension I10 and Type 2 diabetes mellitus with hyperglycemia E11.65 [facility] [address] [address] 9[address] Mar, [facility] [id number] [place] [address] 47513- 2654 Mar, [facility] [id number] [place] [address] 70741- 4022 Mar, Type 2 diabetes mellitus with hyperglycemia E11.65 ; Chronic hepatitis C without hepatic coma B18.2 ; Posttraumatic stress disorder F43.10 ; Episodic mood disorder F39 ; Atrial fibrillation I48.91 ; Irritable bowel syndrome with both constipation and diarrhea K58.2 ; Secondary hypertension I15.9 and Neuropathy G62.9 [facility] [address] [address] 10[address] Feb, Episodic mood disorder F39 and Posttraumatic stress disorder F43.10 [facility] [address] [address]- [address]89 Jan, Episodic mood disorder F39 and Posttraumatic stress disorder F43.10 [facility] [address] [address]- 1529 Nov, Type 2 diabetes mellitus with hyperglycemia E11.65 ; Atrial fibrillation I48.91 ; Other allergic rhinitis J30.89 ; Episodic mood disorder F39 and Essential hypertension I10 [facility] [address] [address]- 6498 Nov, [facility] [id number] [address]- 1193 Oct, [facility] [id number] [place] [address] 94973- 3099 Oct, [facility] [id number] [place] [address] 45696- 5841 September, Type 2 diabetes mellitus with hyperglycemia E11.65 ; Atrial fibrillation I48.91 and Chronic pain G89.29 [facility] [id number] [place] [address] 83551- 9607 September, Episodic mood disorder F39 and Posttraumatic stress disorder F43.10 [facility] [id number] [place] [address] 90791- 8522 September, [facility] [id number] [place] [address] 07262- 4539 September, [facility] [id number] [place] [address] 60673 -3650 September, [facility] [id number] [place] [address] 99421- 9138 September, [facility] [id number] [place] [address] 04366- 6782 September, [facility] [id number] [place] [address] 34570- 9668 Aug, Type 2 diabetes mellitus with hyperglycemia E11.65 and Essential hypertension I10 [facility] [address] [address]- 3093 Aug, [facility] [id number] [place] [address] 34890- 6976 Aug, [facility] [id number] [place] [address] 43942- 5538 Aug, Allergic rhinitis J30.9 ; Atrial fibrillation I48.91 ; Shortness of breath R06.02 and Essential hypertension I10 [facility] [id number] [place] [address] 57597- 1947 Jul, [facility] [id number] [place] [address] 57780- 0672 Jun, Episodic mood disorder F39 and Posttraumatic stress disorder F43.10 [facility] [id number] [place] [address] 08241- 5643 09 Jun, 2015 [facility] [id number] [place] [address] 38485- 5657 May, Chronic pain G89.29 ; History of drug abuse Z87.898 and Marijuana use F12.10 [facility] [id number] [place] [address] 94922- 3482 May, Episodic mood disorder F39 and Posttraumatic stress disorder F43.10 [place] [id number] [place] [address] 34169- 5395 May, [facility] [id number] [place] [address] 59334- 2239 Apr, Chronic pain G89.29 [facility] [id number] [place] [address] 34784- 2423 Apr, Episodic mood disorder F39 and Posttraumatic stress disorder F43.10 [place] [address] [place] [address] 86632- 5931 Apr, COPD (chronic obstructive pulmonary disease) with acute bronchitis J44.0 [facility] [address] [place] [address] 24525- 5692 Feb, Episodic mood disorder F39 and Posttraumatic stress disorder F43.10 [facility] [address] [place] [address] 68405- 9914 16 Feb, 2015 [facility] [id number] [place] [address] 45141- 1996 05 Feb, 2015 Episodic mood disorder F39 and Posttraumatic stress disorder F43.10 [facility] [id number] [place] [address] 38294- 7716 Jan, Routine adult health maintenance V70.0 [facility] [id number] [place] [address] 67162- 4956 Jan, Unspecified episodic mood disorder 296.90 and Posttraumatic stress disorder 309.81 [facility] [id number] [place] [address] 00956- 9464 Dec, Unspecified episodic mood disorder 296.90 and Posttraumatic stress disorder 309.81 [facility] [id number] [place] [address] 92274- 1256 Dec, Unspecified episodic mood disorder 296.90 and Posttraumatic stress disorder 309.81 [facility] [id number] [place] [address] 76138- 1136 Oct, Unspecified episodic mood disorder 296.90 and Posttraumatic stress disorder 309.81 [facility] [id number] [place] [address] 15394- 2233 September, Unspecified episodic mood disorder 296.90 ; Posttraumatic stress disorder 309.81 ; No condition on Urania II V71.09 ; Diabetes 250.00 ; Hypertension 401.9 ; Hepatitis C 070.70 and Degenerative disc disease 722.6 [facility] [id number] [place] [address] 84165- 4933 Aug, [facility] [id number] [place] [address] 34080- 1377 Aug, [facility] [id number] [place] [address] 36266- 6065 Jul, [facility] [id number] [place] [address] 57065- 7375 Jul, [facility] [id number] [place] [address] 02475- 0987 Jan, [facility] [id number] [place] [address] 49160- 6656 Jan, [facility] [id number] [place] [address] 24722- 1534 03 Jan, 2013 [facility] [place] [facility] [address] [id number] [place] [address]- 3762 27 Oct, 2012 [facility] [place] [facility] [address] [id number] [place] [address]- 2738 25 Oct, 2012 [facility] [place] [facility] [address] [id number] [place] [address]- 6739 21 Oct, 2012 [facility] [place] [facility] [address] [id number] [place] [address]- 0094 19 Oct, 2012 [facility] [place] [facility] [address] [id number] [place] [address]- 8466 18 Oct, 2012 [facility] [place] [facility] [address] [id number] [place] [address]- 2823 14 Oct, 2012 [facility] [place] [facility] [address] [id number] [place] [address]- 8260 13 Oct, 2012 [facility] [place] [facility] [address] [id number] [place] [address]- 1367 13 Oct, 2012 [facility] [place] [facility] [address] [id number] [address]- 8009 12 Oct, 2012 [facility] [place] [facility] [address] [id number] [place] [address]- 5462 12 Oct, 2012 [facility] [place] [facility] [address] [id number] [place] [address]- 0104 11 Oct, 2012 [facility] [place] [facility] [address] [id number] [place] [address]- 2567 11 Oct, 2012 [facility] [place] [facility] [address] [id number] [place] [address]- 3145 11 Oct, 2012 [facility] [place] [facility] [address] [id number] [place] [address]- 0233 11 Oct, 2012 [facility] [place] [facility] [address] [id number] [place] [address]- 4150 2012 [facility] [place] [facility] [address] [facility] [id number] [place] [address]- 2546 Oct, [facility] [address] [facility] [id number] [place] [address]- 5305 September, [facility] [id number] [address]- 8973 Aug, [facility] [address] [facility] [id number] [place] [address]- 7306 Aug, [facility] [address] [facility] [id number] [place] [address] [address]861 Aug, IMMUNIZATIONS No Known Immunizations SOCIAL HISTORY Never Assessed REASON FOR VISIT PLAN OF CARE VITAL SIGNS MEDICATIONS Medication Instructions Dosage Frequency Start Date End Date Duration Status Metoprolol Succinate ER 25 MG 1 tablet 24h 17 days Active RESULTS No Results PROCEDURES No [...]
--- OUTSIDE RECORDS SUMMARY | 2018-06-09 13:28 | XMS REPORT ---
Author Author GULSHAN ROY [facility] Address [address] [place] [address] Care Team Providers Care Captain Waiter Name Role Phone GULSHAN ROY Unavailable PROBLEMS Type Condition ICD9-CM Code MTT82-GR Code Onset Dates Condition Status SNOMED Code Problem Sinusitis chronic, ethmoidal J32.2 Active 02042750 Problem Mixed hyperlipidemia E78.2 Active 970695684 Problem Tobacco abuse counseling Z71.6 Active 69538621 Problem Bladder spasms N32.89 Active 942138463 Problem Abnormal CBC R79.89 Active 539649574 Problem Other ascites R18.8 Active 782241755 Problem Type 2 diabetes mellitus without complications E11.9 Active 717971997 Problem senior care (current) use of insulin Z79.4 Active 853656914 Problem Chronic obstructive pulmonary disease with acute exacerbation J44.1 Active 056881102 Problem Paroxysmal atrial fibrillation I48.0 Active 006350837 Problem Chronic pain G89.29 Active 07242285 Problem Essential hypertension I10 Active 11867730 Problem Posttraumatic stress disorder F43.10 Active 16898782 Problem Episodic mood disorder F39 Active 31049776 Problem Type 2 diabetes mellitus with hyperglycemia E11.65 Active 480158683 Problem Atrial fibrillation I48.91 Active 68180747 Problem Chronic hepatitis C without hepatic coma B18.2 Active 876357191 Problem Other allergic rhinitis J30.89 Active 62944781 Problem Marijuana use F12.10 Active 54364528 Problem Neuropathy G62.9 Active 397856535 ALLERGIES No Information ENCOUNTERS Encounter Location Date Diagnosis [facility] [id number], [place] [address] Mar, [facility] [id number], [place] [address] Mar, [facility] [id number], [place] [address] Mar, Other allergic rhinitis J30.89 [facility] [id number] [place] [address]294- 9674 Mar, [place] [address] [address] Feb, [facility] [address] [address] Dec, Essential hypertension I10 ; BMI 40.0-44.9, adult Z68.41 ; Bladder spasms N32.89 ; Right flank pain R10.9 and Chronic pain G89.29 [facility] [address] [address] Dec, Acute frontal sinusitis, recurrence not specified J01.10 and Headache above the eye region R51 [place] [address] [address] Nov, Abnormal CBC R79.89 [place] [address] [address]- 1789 Nov, Type 2 diabetes mellitus with hyperglycemia E11.65 and Chronic hepatitis C without hepatic coma B18.2 [place] [id number] [place] [address] 04118- 0191 Oct, Type 2 diabetes mellitus with hyperglycemia E11.65 [place] [address] [address]- [address] Oct, Type 2 diabetes mellitus with hyperglycemia E11.65 ; Decreased breath sounds at right lung base R09.89 ; Essential hypertension I10 ; Atrial fibrillation I48.91 ; Chronic hepatitis C without hepatic coma B18.2 ; Peripheral edema R60.9 ; Other ascites R18.8 and Chronic obstructive pulmonary disease with acute exacerbation J44.1 [place] [id number] [place] [address]10- 9714 14 Oct, 2017 [place] [address] [address]- [address] Oct, [facility] [address], [place] [address] September, [facility] [id number] [place] [address]18- 5687 Aug, Type 2 diabetes mellitus without complications E11.9 [facility] [address], [place] [address] Aug, Type 2 diabetes mellitus with hyperglycemia E11.65 [facility] [id number] [place] [address]56- 3425 Aug, Pneumonia of right middle lobe due to infectious organism J18.1 ; Peripheral edema R60.9 ; Right upper quadrant abdominal pain R10.11 ; Type 2 diabetes mellitus without complications E11.9 and BMI 40.0-44.9, adult Z68.41 [place] [id number] [place] [address] 00953- 3728 Aug, [place] [address] [place] [address] 37813- 9328 Aug, [place] [address] [place] [address] 87366- 7432 Aug, [facility] [address], [place] [address] Aug, Type 2 diabetes mellitus without complications E11.9 ; Type 2 diabetes mellitus with hyperglycemia E11.65 ; Peripheral edema R60.9 ; Shortness of breath R06.02 ; Paroxysmal atrial fibrillation I48.0 and Pneumonia of right middle lobe due to infectious organism J18.1 [facility] [address], [place] [address] Aug, [facility] [address], [place] [address] Jul, Wheezing R06.2 and Acute non-recurrent pansinusitis J01.40 [facility] [address], [place] [address] Jul, [place] [id number] [place] [address]25- 9412 Jul, [place] [address] 47[address]- [address] May, Type 2 diabetes mellitus with hyperglycemia E11.65 ; Type 2 diabetes mellitus without complications E11.9 ; 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.4 ; Essential hypertension I10 ; Atrial fibrillation I48.91 ; Chronic hepatitis C without hepatic coma B18.2 ; Mixed hyperlipidemia E78.2 ; Episodic mood disorder F39 ; Neuropathy G62.9 ; Acute non-recurrent maxillary sinusitis J01.00 ; Chronic pain G89.29 and Marijuana use F12.[address] [address]- [address] Apr, Atrial fibrillation I48.[address] [address]- 6089 Mar, [address] [address]- 9647 Feb, Type 2 diabetes mellitus with hyperglycemia E11.65 ; Essential hypertension I10 ; Mixed hyperlipidemia E78.2 ; Atrial fibrillation I48.91 ; Neuropathy G62.9 ; Other allergic rhinitis J30.89 and Non compliance with medical treatment Z91.19 [address] [id number] [place] [address]- [address] Jan, Episodic mood disorder F39 and Posttraumatic stress disorder F43.10 [address] [place] [id number] [place] [address] 64849- 2868 Jan, [address] [address]- 9039 Oct, [address] [address]- 2965 Oct, [address] [id number] [place] [address] 41598- 4626 Oct, Type 2 diabetes mellitus with hyperglycemia E11.65 ; Essential hypertension I10 ; Atrial fibrillation I48.91 ; Episodic mood disorder F39 ; Chronic pain G89.29 ; Neuropathy G62.9 ; Other allergic rhinitis J30.89 and Tobacco abuse counseling Z71.6 [facility] [address] [place] [address] Aug, Acute non-recurrent pansinusitis J01.40 [id number] [place] [address] 26014- 0432 Jul, [address] [place] [id number] [place] [address] 86904- 5493 Jun, [address] [address]- [address] Jun, Type 2 diabetes mellitus with hyperglycemia E11.65 ; Episodic mood disorder F39 ; Posttraumatic stress disorder F43.10 ; Essential hypertension I10 ; Atrial fibrillation I48.91 ; Chronic pain G89.29 ; Acute upper respiratory infection, unspecified J06.9 ; Other viral agents as the cause of diseases classified elsewhere B97.89 ; Acute pain of left shoulder M25.512 and Sinusitis chronic, ethmoidal J32.2 [address] [place] [id number] [place] [address]41- 58[address] May, Acute intractable tension-type headache G44.201 ; Chronic pain G89.29 ; Essential hypertension I10 ; Atrial fibrillation I48.91 ; Neuropathy G62.9 ; Posttraumatic stress disorder F43.10 ; Episodic mood disorder F39 ; Type 2 diabetes mellitus with hyperglycemia E11.65 ; Other allergic rhinitis J30.89 and Irritable bowel syndrome with both constipation and diarrhea K58.2 [facility] [address] [place] [id number] [place] [address] 47715- 3523 Apr, Episodic mood disorder F39 and Posttraumatic stress disorder F43.10 [address] [place] [id number] [place] [address] 58112- 9727 Mar, [place] [id number] [place] [address]12- 0844 Mar, [facility] [address], [place] [address] 9[address] Mar, Chronic hepatitis C without hepatic coma B18.2 [facility] [address], [place] [address] Mar, [facility] [address], [place] [address] 9[address] Mar, Episodic mood disorder F39 ; Posttraumatic stress disorder F43.10 ; Essential hypertension I10 and Type 2 diabetes mellitus with hyperglycemia E11.65 [facility] [address], [place] [address] Mar, [facility] [id number] [place] [address] 35870- 2840 Mar, [facility] [address] [place] [address] 04805- 6887 Mar, Type 2 diabetes mellitus with hyperglycemia E11.65 ; Chronic hepatitis C without hepatic coma B18.2 ; Posttraumatic stress disorder F43.10 ; Episodic mood disorder F39 ; Atrial fibrillation I48.91 ; Irritable bowel syndrome with both constipation and diarrhea K58.2 ; Secondary hypertension I15.9 and Neuropathy G62.9 [facility] [address], [place] [address]- [address] Feb, Episodic mood disorder F39 and Posttraumatic stress disorder F43.10 [facility] [address], [place] [address]- 3[address] Jan, Episodic mood disorder F39 and Posttraumatic stress disorder F43.10 [facility] [address], [place] [address]- 5[address] Nov, Type 2 diabetes mellitus with hyperglycemia E11.65 ; Atrial fibrillation I48.91 ; Other allergic rhinitis J30.89 ; Episodic mood disorder F39 and Essential hypertension I10 [facility] [address], [place] [address]- 134[address] Nov, [facility] [id number], [place] [address] Oct, [facility] [address] [place] [address] 13207- 4290 Oct, [facility] [id number] [place] [address] 88023- 0671 September, Type 2 diabetes mellitus with hyperglycemia E11.65 ; Atrial fibrillation I48.91 and Chronic pain G89.29 [facility] [id number] [place] [address] 99849- 3420 September, Episodic mood disorder F39 and Posttraumatic stress disorder F43.10 [facility] [id number] [place] [address] 66391- 0999 September, [facility] [id number] [place] [address] 86678- 4012 September, [facility] [address] [place] [address] 02557 -8801 September, [facility] [address] [place] [address] 71658- 4113 September, [facility] [id number] [place] [address] 45324- 1488 September, [facility] [address] [place] [address] 62171- 7805 Aug, Type 2 diabetes mellitus with hyperglycemia E11.65 and Essential hypertension I10 [facility] [address], [place] [address]- 4104 Aug, [facility] [address] [place] [address] 61146- 4667 Aug, [facility] [id number] [place] [address] 80975- 2476 Aug, Allergic rhinitis J30.9 ; Atrial fibrillation I48.91 ; Shortness of breath R06.02 and Essential hypertension I10 [facility] [id number] [place] [address] 70104- 6665 Jul, [facility] [address] [place] [address] 02260- 0529 Jun, Episodic mood disorder F39 and Posttraumatic stress disorder F43.10 [facility] [address] [place] [address] 86961- 2377 09 Jun, 2015 [facility] [id number] [place] [address] 44214- 3906 May, Chronic pain G89.29 ; History of drug abuse Z87.898 and Marijuana use F12.10 [facility] [id number] [place] [address] 29679- 8941 May, Episodic mood disorder F39 and Posttraumatic stress disorder F43.10 [place] [id number] [place] [address] 31373- 9877 May, [facility] [id number] [place] [address] 76869- 4998 Apr, Chronic pain G89.29 [facility] [id number] [place] [address] 08658- 0813 Apr, Episodic mood disorder F39 and Posttraumatic stress disorder F43.10 [place] [address] [place] [address] 18532- 0431 Apr, COPD (chronic obstructive pulmonary disease) with acute bronchitis J44.0 [facility] [address] [place] [address] 03993- 1324 Feb, Episodic mood disorder F39 and Posttraumatic stress disorder F43.10 [facility] [address] [place] [address] 74687- 3494 16 Feb, 2015 [facility] [id number] [place] [address] 61573- 1826 05 Feb, 2015 Episodic mood disorder F39 and Posttraumatic stress disorder F43.10 [facility] [id number] [place] [address] 78372- 7489 Jan, Routine adult health maintenance V70.0 [facility] [id number] [place] [address] 88119- 9631 Jan, Unspecified episodic mood disorder 296.90 and Posttraumatic stress disorder 309.81 [facility] [id number] [place] [address] 44753- 1718 Dec, Unspecified episodic mood disorder 296.90 and Posttraumatic stress disorder 309.81 [facility] [id number] [place] [address] 82478- 1775 Dec, Unspecified episodic mood disorder 296.90 and Posttraumatic stress disorder 309.81 [facility] [id number] [place] [address] 46681- 0946 Oct, Unspecified episodic mood disorder 296.90 and Posttraumatic stress disorder 309.81 [facility] [id number] [place] [address] 66871- 0090 September, Unspecified episodic mood disorder 296.90 ; Posttraumatic stress disorder 309.81 ; No condition on Chidester II V71.09 ; Diabetes 250.00 ; Hypertension 401.9 ; Hepatitis C 070.70 and Degenerative disc disease 722.6 [facility] [id number] [place] [address] 28786- 2633 Aug, [facility] [id number] [place] [address] 12704- 6711 Aug, [facility] [id number] [place] [address] 52601- 7054 Jul, [facility] [id number] [place] [address] 92681- 1846 Jul, [facility] [id number] [place] [address] 39986- 7305 Jan, [facility] [id number] [place] [address] 64694- 8129 Jan, [facility] [id number] [place] [address] 28383- 4468 03 Jan, 2013 [facility] [place] [facility] [address] [id number] [place] [address]- 9467 27 Oct, 2012 [facility] [place] [facility] [address] [id number] [place] [address]- 5170 25 Oct, 2012 [facility] [place] [facility] [address] [id number] [place] [address]- 2099 21 Oct, 2012 [facility] [place] [facility] [address] [id number] [place] [address]- 6619 19 Oct, 2012 [facility] [place] [facility] [address] [id number] [place] [address]- 7334 18 Oct, 2012 [facility] [place] [facility] [address] [id number] [place] [address]- 7389 14 Oct, 2012 [facility] [place] [facility] [address] [id number] [place] [address]- 9051 13 Oct, 2012 [facility] [place] [facility] [address] [id number] [place] [address]- 5660 13 Oct, 2012 [facility] [place] [facility] [address] [id number], [place] [address]- 4805 12 Oct, 2012 [facility] [place] [facility] [address] [id number] [place] [address]- 8894 12 Oct, 2012 [facility] [place] [facility] [address] [id number], [place] [address]- 5936 11 Oct, 2012 [facility] [place] [facility] [address] [id number], [place] [address]- 5556 11 Oct, 2012 [facility] [place] [facility] [address] [id number] [place] [address]- 8539 11 Oct, 2012 [facility] [place] [facility] [address] [id number], [place] [address]- 6476 11 Oct, 2012 [facility] [place] [facility] [address] [id number], [place] [address]- 4415 2012 [facility] [place] [facility] [address] [facility] [id number] [place] [address]- 2546 Oct, [facility] [address] [facility] [id number], [place] [address]- 3588 September, [facility] [address] [facility] [id number], [place] [address]- 4716 Aug, [facility] [address] [facility] [id number], [place] [address]- 2728 Aug, [facility] [address] [facility] [id number], [place] [address]- 5396 Aug, IMMUNIZATIONS No Known Immunizations SOCIAL HISTORY Never Assessed REASON FOR VISIT New appt and partial refills PLAN OF CARE VITAL SIGNS MEDICATIONS Medication Instructions Dosage Frequency Start Date End Date Duration Status Enalapril Maleate 10 MG TAKE ONE (1) TABLET BY MOUTH ONCE DAILY 17 days Active Metoprolol Succinate ER 25 MG 1 tablet 17 days Active Cymbalta 60 MG TAKE ONE CAPSULE BY MOUTH ONCE DAILY 17 days Active Verapamil HCl ER 240 MG TAKE ONE TABLET BY MOUTH ONCE DAILY 17 days Active Flonase 50 mcg/act Nasally 2 times a day 1 sprays by Nasal route 2 times per day in each nostril 12h Jul, Active Trulicity 0.75 MG/0.5ML INJECT 0.5 MLS SUBCUTANEOUSLY EVERY WEEK 28 Active Pioglitazone HCl 30 MG TAKE ONE (1) TABLET BY MOUTH ONCE DAILY 17 days Active RESULTS No Results PROCEDURES [...]
[2018-06-09 13:33] LABS: RBC,URINE RARE /HPF
[2018-06-09 13:34] LABS: AMORPHOUS SEDIMENT,UR RARE AMOR URATES /LPF; BACTERIA,URINE TRACE /HPF
--- OUTSIDE RECORDS SUMMARY | 2018-06-09 13:36 | XMS REPORT ---
Author Author WATKINSJEFF Barrios Organization [facility] Address [address] [place] [address] Care Team Providers [employer] Person Name Role Phone WATKINSJEFF Barrios Unavailable PROBLEMS Type Condition ICD9-CM Code VCJ24-NP Code Onset Dates Condition Status SNOMED Code Problem Sinusitis chronic, ethmoidal J32.2 Active 22166020 Problem Mixed hyperlipidemia E78.2 Active 873879913 Problem Tobacco abuse counseling Z71.6 Active 84103275 Problem Bladder spasms N32.89 Active 764261670 Problem Abnormal CBC R79.89 Active 378556717 Problem Other ascites R18.8 Active 013565001 Problem Type 2 diabetes mellitus without complications E11.9 Active 444227896 Problem [facility] (current) use of insulin Z79.4 Active 248074005 Problem Chronic obstructive pulmonary disease with acute exacerbation J44.1 Active 186513551 Problem Paroxysmal atrial fibrillation I48.0 Active 533857002 Problem Chronic pain G89.29 Active 35993135 Problem Essential hypertension I10 Active 96312762 Problem Posttraumatic stress disorder F43.10 Active 74869268 Problem Episodic mood disorder F39 Active 48190209 Problem Type 2 diabetes mellitus with hyperglycemia E11.65 Active 723207311 Problem Atrial fibrillation I48.91 Active 26126598 Problem Chronic hepatitis C without hepatic coma B18.2 Active 217826629 Problem Other allergic rhinitis J30.89 Active 19639882 Problem Marijuana use F12.10 Active 61859169 Problem Neuropathy G62.9 Active 692753309 ALLERGIES No Information ENCOUNTERS Encounter Location Date Diagnosis [facility] [id number] [place] [address] 40960- 6833 Dec, Essential hypertension I10 ; BMI 40.0-44.9, adult Z68.41 ; Bladder spasms N32.89 ; Right flank pain R10.9 and Chronic pain G89.29 [facility] [id number] [place] [address] 15701 -4082 Dec, Acute frontal sinusitis, recurrence not specified J01.10 and Headache above the eye region R51 [facility] [id number] [place] [address] 17201- 6653 Nov, Abnormal CBC R79.89 [facility] [id number] [place] [address] 40748- 5335 Nov, Type 2 diabetes mellitus with hyperglycemia E11.65 and Chronic hepatitis C without hepatic coma B18.2 [facility] [id number] [place] [address] 45059- 8147 Oct, Type 2 diabetes mellitus with hyperglycemia E11.65 [facility] [id number] [place] [address] 76331- 2246 Oct, Type 2 diabetes mellitus with hyperglycemia E11.65 ; Decreased breath sounds at right lung base R09.89 ; Essential hypertension I10 ; Atrial fibrillation I48.91 ; Chronic hepatitis C without hepatic coma B18.2 ; Peripheral edema R60.9 ; Other ascites R18.8 and Chronic obstructive pulmonary disease with acute exacerbation J44.1 [facility] [id number] [place] [address] 86444- 3389 Oct, [facility] [id number] [place] [address] 90716- 2695 Oct, [facility] [id number] [place] [address] 25956- 3014 September, [facility] [id number] [place] [address] 73093- 5832 Aug, Type 2 diabetes mellitus without complications E11.9 [facility] [id number] [place] [address] 61733- 0855 Aug, Type 2 diabetes mellitus with hyperglycemia E11.65 [facility] [id number] [place] [address] 52336- 2439 Aug, Pneumonia of right middle lobe due to infectious organism J18.1 ; Peripheral edema R60.9 ; Right upper quadrant abdominal pain R10.11 ; Type 2 diabetes mellitus without complications E11.9 and BMI 40.0-44.9, adult Z68.41 [place] [id number] [place] [address] 08721- 3560 13 Aug, 2017 [facility] [id number] [place] [address] 35026- 8272 Aug, [address] 96963- 3592 Aug, [address] 51922- 6619 Aug, Type 2 diabetes mellitus without complications E11.9 ; Type 2 diabetes mellitus with hyperglycemia E11.65 ; Peripheral edema R60.9 ; Shortness of breath R06.02 ; Paroxysmal atrial fibrillation I48.0 and Pneumonia of right middle lobe due to infectious organism J18.1 [place] [id number] [place] [address] 53487- 0017 Aug, [facility] [id number] [place] [address] 18441 -8737 Jul, Wheezing R06.2 and Acute non-recurrent pansinusitis J01.40 [place] [id number] [place] [address] 85182- 5064 Jul, [place] [id number] [place] [address] 94619- 7194 Jul, [place] [id number] [place] [address] 69527- 0306 May, Type 2 diabetes mellitus with hyperglycemia E11.65 ; Type 2 diabetes mellitus without complications E11.9 ; 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 ; Essential hypertension I10 ; Atrial fibrillation I48.91 ; Chronic hepatitis C without hepatic coma B18.2 ; Mixed hyperlipidemia E78.2 ; Episodic mood disorder F39 ; Neuropathy G62.9 ; Acute non-recurrent maxillary sinusitis J01.00 ; Chronic pain G89.29 and Marijuana use F12.[id number] [place] [address] 17985- 1751 Apr, Atrial fibrillation I48.91 [facility] [address] 48861- 3776 Mar, [facility] [id number] [place] [address] 01798- 2786 13 Feb, 2017 Type 2 diabetes mellitus with hyperglycemia E11.65 ; Essential hypertension I10 ; Mixed hyperlipidemia E78.2 ; Atrial fibrillation I48.91 ; Neuropathy G62.9 ; Other allergic rhinitis J30.89 and Non compliance with medical treatment Z91.[address] 23812- 9401 07 Jan, 2017 Episodic mood disorder F39 and Posttraumatic stress disorder F43.10 [facility] [id number] [place] [address] 51867- 2846 05 Jan, 2017 [place] [id number] [place] [address] 10758- 5207 12 Oct, 2016 [facility] [id number] [place] [address] 81048- 0985 Oct, [place] [id number] [place] [address] 51063- 7263 08 Oct, 2016 Type 2 diabetes mellitus with hyperglycemia E11.65 ; Essential hypertension I10 ; Atrial fibrillation I48.91 ; Episodic mood disorder F39 ; Chronic pain G89.29 ; Neuropathy G62.9 ; Other allergic rhinitis J30.89 and Tobacco abuse counseling Z71.6 [facility] [id number] [place] [address] 63383 -2209 Aug, Acute non-recurrent pansinusitis J01.40 [place] [id number] [place] [address] 51767- 3253 Jul, [facility] [id number] [place] [address] 21274- 9478 Jun, [address] [place] [address]- 9144 Jun, Type 2 diabetes mellitus with hyperglycemia E11.65 ; Episodic mood disorder F39 ; Posttraumatic stress disorder F43.10 ; Essential hypertension I10 ; Atrial fibrillation I48.91 ; Chronic pain G89.29 ; Acute upper respiratory infection, unspecified J06.9 ; Other viral agents as the cause of diseases classified elsewhere B97.89 ; Acute pain of left shoulder M25.512 and Sinusitis chronic, ethmoidal J32.2 [facility] [address] 92215- 9133 May, Acute intractable tension-type headache G44.201 ; Chronic pain G89.29 ; Essential hypertension I10 ; Atrial fibrillation I48.91 ; Neuropathy G62.9 ; Posttraumatic stress disorder F43.10 ; Episodic mood disorder F39 ; Type 2 diabetes mellitus with hyperglycemia E11.65 ; Other allergic rhinitis J30.89 and Irritable bowel syndrome with both constipation and diarrhea K58.2 [facility] [address] 04091- 3043 Apr, Episodic mood disorder F39 and Posttraumatic stress disorder F43.10 [facility] [address] 66396- 4999 Mar, [facility] [address] 87998- 0734 Mar, [facility] [id number] [place] [address] 92231- 2659 Mar, Chronic hepatitis C without hepatic coma B18.2 [facility] [id number] [place] [address] 95529- 4134 Mar, [facility] [address] 73845- 6276 Mar, Episodic mood disorder F39 ; Posttraumatic stress disorder F43.10 ; Essential hypertension I10 and Type 2 diabetes mellitus with hyperglycemia E11.65 [facility] [address] 51725- 1226 Mar, [place] [address] [address]- 2863 Mar, [facility] [id number] [place] [address] 37190- 8130 Mar, Type 2 diabetes mellitus with hyperglycemia E11.65 ; Chronic hepatitis C without hepatic coma B18.2 ; Posttraumatic stress disorder F43.10 ; Episodic mood disorder F39 ; Atrial fibrillation I48.91 ; Irritable bowel syndrome with both constipation and diarrhea K58.2 ; Secondary hypertension I15.9 and Neuropathy G62.9 [facility] [id number] [place] [address] 37400- 1383 Feb, Episodic mood disorder F39 and Posttraumatic stress disorder F43.10 [facility] [id number] [place] [address] 25082- 5583 Jan, Episodic mood disorder F39 and Posttraumatic stress disorder F43.10 [facility] [id number] [place] [address] 54727- 6655 Nov, Type 2 diabetes mellitus with hyperglycemia E11.65 ; Atrial fibrillation I48.91 ; Other allergic rhinitis J30.89 ; Episodic mood disorder F39 and Essential hypertension I10 [facility] [id number] [place] [address] 51293- 6911 Nov, [facility] [id number] [place] [address] 10866- 1631 Oct, [facility] [id number] [place] [address] 94661- 3264 Oct, [facility] [id number] [place] [address] 63263- 4430 September, Type 2 diabetes mellitus with hyperglycemia E11.65 ; Atrial fibrillation I48.91 and Chronic pain G89.29 [facility] [id number] [place] [address] 92941- 0015 September, Episodic mood disorder F39 and Posttraumatic stress disorder F43.10 [facility] [id number] [place] [address] 82487- 2012 September, [facility] [id number] [place] [address] 93027- 8150 September, [facility] [id number] [place] [address] 99985 -7777 September, [facility] [id number] [place] [address] 32053- 0247 September, [facility] [address] 27687- 5635 September, [facility] [address] 91950- 4385 Aug, Type 2 diabetes mellitus with hyperglycemia E11.65 and Essential hypertension I10 [facility] [address] 69811- 6596 Aug, [facility] [address] 02461- 1975 Aug, [facility] [id number] [place] [address] 37241- 8530 Aug, Allergic rhinitis J30.9 ; Atrial fibrillation I48.91 ; Shortness of breath R06.02 and Essential hypertension I10 [facility] [id number] [place] [address] 76280- 8648 Jul, [facility] [id number] [place] [address] 15396- 7088 10 Jun, 2015 Episodic mood disorder F39 and Posttraumatic stress disorder F43.10 [facility] [id number] [place] [address] 65338- 6616 Jun, [facility] [address] 10587- 5092 May, Chronic pain G89.29 ; History of drug abuse Z87.898 and Marijuana use F12.10 [facility] [address] 58312- 1065 May, Episodic mood disorder F39 and Posttraumatic stress disorder F43.10 [facility] [address] [address]- 7744 May, [facility] [address] [address]- 4437 Apr, Chronic pain G89.29 [facility] [id number] [place] [address] 58743- 0146 Apr, Episodic mood disorder F39 and Posttraumatic stress disorder F43.10 [facility] [address] [place] [address] 12190- 8698 Apr, COPD (chronic obstructive pulmonary disease) with acute bronchitis J44.0 [facility] [id number] [place] [address] 42102- 8777 Feb, Episodic mood disorder F39 and Posttraumatic stress disorder F43.10 [facility] [id number] [place] [address] 34203- 9232 Feb, [facility] [id number] [place] [address] 49591- 0524 Feb, Episodic mood disorder F39 and Posttraumatic stress disorder F43.10 [facility] [address] [address]- 1620 Jan, Routine adult health maintenance V70.0 [facility] [address] [address]- 0541 Jan, Unspecified episodic mood disorder 296.90 and Posttraumatic stress disorder 309.81 [facility] [address] [address]- 4900 Dec, Unspecified episodic mood disorder 296.90 and Posttraumatic stress disorder 309.81 [facility] [address] [address]- 7891 Dec, Unspecified episodic mood disorder 296.90 and Posttraumatic stress disorder 309.81 [facility] [id number] [address]- 4055 Oct, Unspecified episodic mood disorder 296.90 and Posttraumatic stress disorder 309.81 [facility] [id number] [place] [address] 51708- 2827 September, Unspecified episodic mood disorder 296.90 ; Posttraumatic stress disorder 309.81 ; No condition on [place] II V71.09 ; Diabetes 250.00 ; Hypertension 401.9 ; Hepatitis C 070.70 and Degenerative disc disease 722.6 [facility] [id number] [address]- 5237 Aug, [facility] [id number] [place] [address] 30149- 5333 Aug, [facility] [id number] [address]- 3479 Jul, [facility] [id number] [place] [address] 60671- 4285 Jul, [facility] [address] [address]- 3056 Jan, [facility] [id number] [address]- 0886 Jan, [facility] [address] [address]- 0220 Jan, [facility] [address] [address]- 1466 Oct, [facility] [address] [address]- 9223 Oct, [facility] [address] [address]- 7298 Oct, [facility] [address] [address]- 0825 Oct, [facility] [address] [address]- 8999 Oct, [facility] [address] [facility] [id number] [address]- 9593 14 Oct, 2012 [facility] [address] [facility] [id number], [place] [address]- 5694 13 Oct, 2012 [facility] [address] [facility] [id number] [address]- 3713 13 Oct, 2012 [facility] [address] [facility] [id number], [place] [address]- 6968 12 Oct, 2012 [facility] [address] [facility] [id number], [place] [address]- 2569 12 Oct, 2012 [facility] [address] [facility] [id number], [place] [address]- 4371 Oct, [facility] [address] [address]- 3072 Oct, [facility] [address], [place] [address]- 6474 Oct, [facility] [address] [place] [id number] [address]- 0084 Oct, [facility] [address], [place] [address]- 3501 Oct, [facility] [id number] [address]- 9830 Oct, [facility] [address] [address]- 8736 September, [facility] [id number] [address]- 9210 Aug, [facility] [address] [address]- 3410 Aug, [facility] [id number], [place] [address]- 6587 Aug, IMMUNIZATIONS No Known Immunizations SOCIAL HISTORY Never Assessed REASON FOR VISIT Requests return call PLAN OF CARE VITAL SIGNS MEDICATIONS Medication Instructions Dosage Frequency Start Date End Date Duration Status Zaroxolyn 5 mg Orally Once a day 1 tablet 24h Oct, 30 day(s) Active RESULTS No Results PROCEDURES No Known [...]
--- OUTSIDE RECORDS SUMMARY | 2018-06-09 13:36 | XMS REPORT ---
Author Author WATKINSJEFF Barrios Organization [facility] Address [address] [place] [address] Care Team Providers Care Commanding Officer Garage Name Role Phone WATKINSJEFF Barrios Unavailable PROBLEMS Type Condition ICD9-CM Code IRZ57-XN Code Onset Dates Condition Status SNOMED Code Problem Sinusitis chronic, ethmoidal J32.2 Active 19432308 Problem Mixed hyperlipidemia E78.2 Active 274381657 Problem Tobacco abuse counseling Z71.6 Active 52464292 Problem Bladder spasms N32.89 Active 201752725 Problem Abnormal CBC R79.89 Active 648976176 Problem Other ascites R18.8 Active 240361356 Problem Type 2 diabetes mellitus without complications E11.9 Active 410897484 Problem USP (current) use of insulin Z79.4 Active 178574908 Problem Chronic obstructive pulmonary disease with acute exacerbation J44.1 Active 710391325 Problem Paroxysmal atrial fibrillation I48.0 Active 598699787 Problem Chronic pain G89.29 Active 83317323 Problem Essential hypertension I10 Active 33457725 Problem Posttraumatic stress disorder F43.10 Active 61592254 Problem Episodic mood disorder F39 Active 10808125 Problem Type 2 diabetes mellitus with hyperglycemia E11.65 Active 780627690 Problem Atrial fibrillation I48.91 Active 94055803 Problem Chronic hepatitis C without hepatic coma B18.2 Active 782454898 Problem Other allergic rhinitis J30.89 Active 02200922 Problem Marijuana use F12.10 Active 14797016 Problem Neuropathy G62.9 Active 299481566 ALLERGIES Substance Reaction Event Type Date Status Diclofenac Unknown Drug Allergy Oct, Active MetFORMIN HCl ER diarrhea Drug Allergy Oct, Active Sulfamethoxazole-Trimethoprim Unknown Drug Allergy Oct, Active statins- patient declines to take Unknown Non Drug Allergy Oct, Active ENCOUNTERS Encounter Location Date Diagnosis [facility] [address] [id number] [address] Dec, Essential hypertension I10 ; BMI 40.0-44.9, adult Z68.41 ; Bladder spasms N32.89 ; Right flank pain R10.9 and Chronic pain G89.29 [facility] [id number] [place] [address] Dec, Acute frontal sinusitis, recurrence not specified J01.10 and Headache above the eye region R51 [place] [address] [address] Nov, Abnormal CBC R79.89 [place] [address] 58963- 1627 Nov, Type 2 diabetes mellitus with hyperglycemia E11.65 and Chronic hepatitis C without hepatic coma B18.2 [place] [address] [address]- 7811 Oct, Type 2 diabetes mellitus with hyperglycemia E11.65 [place] [address] 58937- 1290 Oct, Type 2 diabetes mellitus with hyperglycemia E11.65 ; Decreased breath sounds at right lung base R09.89 ; Essential hypertension I10 ; Atrial fibrillation I48.91 ; Chronic hepatitis C without hepatic coma B18.2 ; Peripheral edema R60.9 ; Other ascites R18.8 and Chronic obstructive pulmonary disease with acute exacerbation J44.1 [facility] [id number] [place] [address] 63831- 0013 Oct, [place] [id number] [place] [address] 85013- 4479 Oct, [place] [id number] [place] [address] 71768- 8436 September, [place] [address] [address]666- 2542 Aug, Type 2 diabetes mellitus without complications E11.9 [facility] [id number] [place] [address] 44561- 9622 Aug, Type 2 diabetes mellitus with hyperglycemia E11.65 [place] [address] [address] Aug, Pneumonia of right middle lobe due to infectious organism J18.1 ; Peripheral edema R60.9 ; Right upper quadrant abdominal pain R10.11 ; Type 2 diabetes mellitus without complications E11.9 and BMI 40.0-44.9, adult Z68.41 [place] [id number] [place] [address] 40345- 7290 Aug, [facility] [id number] [place] [address] 79605- 3457 Aug, [place] [id number] [place] [address] 45025- 2578 Aug, [place] [id number] [place] [address] 69475- 2742 Aug, Type 2 diabetes mellitus without complications E11.9 ; Type 2 diabetes mellitus with hyperglycemia E11.65 ; Peripheral edema R60.9 ; Shortness of breath R06.02 ; Paroxysmal atrial fibrillation I48.0 and Pneumonia of right middle lobe due to infectious organism J18.1 [place] [id number] [place] [address] 97123- 5628 Aug, [facility] [id number] [place] [address]23 [address]137 Jul, Wheezing R06.2 and Acute non-recurrent pansinusitis J01.40 [place] [id number] [place] [address] 59081- 1641 Jul, [facility] [id number] [place] [address] 24875- 8749 Jul, [place] [id number] [place] [address] 08875- 7945 May, Type 2 diabetes mellitus with hyperglycemia [...] Chronic pain G89.29 and Marijuana use F12.10 [place] [id number] [place] [address] 34153- 4814 Apr, Atrial fibrillation I48.[address] [address]- 7747 Mar, [place] [address] [address]14- 8204 13 Feb, 2017 Type 2 diabetes mellitus with hyperglycemia E11.65 ; Essential hypertension I10 ; Mixed hyperlipidemia E78.2 ; Atrial fibrillation I48.91 ; Neuropathy G62.9 ; Other allergic rhinitis J30.89 and Non compliance with medical treatment Z91.[address] [address]47- [address] 07 Jan, 2017 Episodic mood disorder F39 and Posttraumatic stress disorder F43.10 [place] [address] 46333- 3093 05 Jan, [address] 91002- 7832 12 Oct, 2016 [place] [id number] [place] [address] 99355- 1673 08 Oct, 2016 [place] [id number] [place] [address] 46679- 5586 08 Oct, 2016 Type 2 diabetes mellitus with hyperglycemia E11.65 ; Essential hypertension I10 ; Atrial fibrillation I48.91 ; Episodic mood disorder F39 ; Chronic pain G89.29 ; Neuropathy G62.9 ; Other allergic rhinitis J30.89 and Tobacco abuse counseling Z71.6 [facility] [id number] [place] [address] 59897 -1759 14 Aug, 2016 Acute non-recurrent pansinusitis J01.[address] 06687- 2746 Jul, [facility] [address] [address] Jun, [place] [id number] [place] [address] 36814- 4729 Jun, Type 2 diabetes mellitus with hyperglycemia E11.65 ; Episodic mood disorder F39 ; Posttraumatic stress disorder F43.10 ; Essential hypertension I10 ; Atrial fibrillation I48.91 ; Chronic pain G89.29 ; Acute upper respiratory infection, unspecified J06.9 ; Other viral agents as the cause of diseases classified elsewhere B97.89 ; Acute pain of left shoulder M25.512 and Sinusitis chronic, ethmoidal J32.2 [place] [id number] [place] [address] 49653- 0872 May, Acute intractable tension-type headache G44.201 ; Chronic pain G89.29 ; Essential hypertension I10 ; Atrial fibrillation I48.91 ; Neuropathy G62.9 ; Posttraumatic stress disorder F43.10 ; Episodic mood disorder F39 ; Type 2 diabetes mellitus with hyperglycemia E11.65 ; Other allergic rhinitis J30.89 and Irritable bowel syndrome with both constipation and diarrhea K58.2 [place] [id number] [place] [address] 90267- 0818 Apr, Episodic mood disorder F39 and Posttraumatic stress disorder F43.10 [place] [id number] [place] [address] 86139- 8757 Mar, [place] [id number] [place] [address] 25581- 1863 Mar, [place] [id number] [place] [address] 76099- 1170 Mar, Chronic hepatitis C without hepatic coma B18.2 [place] [id number] [place] [address] 78705- 4156 Mar, [place] [address] [place] [address] 99097- 2271 Mar, Episodic mood disorder F39 ; Type 2 diabetes mellitus with hyperglycemia E11.65 ; Posttraumatic stress disorder F43.10 and Essential hypertension I10 [facility] [address] [place] [address] 40001- 8415 Mar, [facility] [id number] [place] [address] 84050- 4831 Mar, [facility] [id number] [place] [address] 83098- 1574 Mar, Type 2 diabetes mellitus with hyperglycemia E11.65 ; Chronic hepatitis C without hepatic coma B18.2 ; Posttraumatic stress disorder F43.10 ; Episodic mood disorder F39 ; Atrial fibrillation I48.91 ; Irritable bowel syndrome with both constipation and diarrhea K58.2 ; Secondary hypertension I15.9 and Neuropathy G62.9 [place] [id number] [place] [address] 59351- 7328 Feb, Episodic mood disorder F39 and Posttraumatic stress disorder F43.10 [place] [id number] [place] [address] 58031- 7979 Jan, Episodic mood disorder F39 and Posttraumatic stress disorder F43.10 [place] [id number] [place] [address] 90771- 8437 Nov, Type 2 diabetes mellitus with hyperglycemia E11.65 ; Atrial fibrillation I48.91 ; Other allergic rhinitis J30.89 ; Episodic mood disorder F39 and Essential hypertension I10 [place] [address] [address] Nov, [facility] [id number] [place] [address] 13812- 4169 Oct, [facility] [id number] [place] [address] 65652- 6082 Oct, [facility] [id number] [place] [address] 12037- 9294 September, Type 2 diabetes mellitus with hyperglycemia E11.65 ; Atrial fibrillation I48.91 and Chronic pain G89.29 [place] [address] [address] September, Episodic mood disorder F39 and Posttraumatic stress disorder F43.10 [facility] [address] [address] 76[address] September, [facility] [address] [address]- 5[address] September, [facility] [address] [address] September, [facility] [address] [address]- 5139 September, [facility] [address] [place] [address] 23319- 7214 September, [facility] [id number] [place] [address] 12110- 3943 Aug, Type 2 diabetes mellitus with hyperglycemia E11.65 and Essential hypertension I10 [facility] [address] [address]- 5990 Aug, [facility] [id number] [place] [address] 10770- 5292 Aug, [facility] [address] [address]- 8776 Aug, Allergic rhinitis J30.9 ; Atrial fibrillation I48.91 ; Shortness of breath R06.02 and Essential hypertension I10 [facility] [address] [address]- 0928 Jul, [facility] [address] [place] [address] 39305- 6275 Jun, Episodic mood disorder F39 and Posttraumatic stress disorder F43.10 [facility] [address] [address]- 6392 Jun, [facility] [address] [place] [address] 55839- 5545 May, Chronic pain G89.29 ; History of drug abuse Z87.898 and Marijuana use F12.10 [facility] [id number] [place] [address] 85766- 9302 May, Episodic mood disorder F39 and Posttraumatic stress disorder F43.10 [facility] [id number] [place] [address] 59161- 6912 May, [facility] [id number] [place] [address] 43787- 8345 Apr, Chronic pain G89.29 [facility] [id number] [place] [address] 529708- 5182 Apr, Episodic mood disorder F39 and Posttraumatic stress disorder F43.10 [place] [id number] [place] [address] 98731- 0394 Apr, COPD (chronic obstructive pulmonary disease) with acute bronchitis J44.0 [facility] [id number] [place] [address] 01352- 4504 Feb, Episodic mood disorder F39 and Posttraumatic stress disorder F43.10 [facility] [id number] [place] [address] 78172- 1224 Feb, [facility] [id number] [place] [address] 51763- 6025 Feb, Episodic mood disorder F39 and Posttraumatic stress disorder F43.10 [facility] [id number] [place] [address] 35795- 8265 Jan, Routine adult health maintenance V70.0 [facility] [id number] [place] [address] 03285- 4371 Jan, Unspecified episodic mood disorder 296.90 and Posttraumatic stress disorder 309.81 [facility] [address] [place] [address] 50860- 6145 Dec, Unspecified episodic mood disorder 296.90 and Posttraumatic stress disorder 309.81 [facility] [address] Dec, Unspecified episodic mood disorder 296.90 and Posttraumatic stress disorder 309.81 [facility] [id number] [place] [address] 457527- 5680 Oct, Unspecified episodic mood disorder 296.90 and Posttraumatic stress disorder 309.81 [facility] [id number] [place] [address] 89213- 3825 September, Unspecified episodic mood disorder 296.90 ; Posttraumatic stress disorder 309.81 ; No condition on [place] II V71.09 ; Diabetes 250.00 ; Hypertension 401.9 ; Hepatitis C 070.70 and Degenerative disc disease 722.6 [facility] [id number] [place] [address] 77838- 1177 Aug, [facility] [id number] [address]- 9669 Aug, [facility] [id number] [place] [address] 49032- 1155 Jul, [facility] [id number] [address]- 8362 Jul, [facility] [address] [address]- 5960 Jan, [facility] [address] [address]- 6878 Jan, [facility] [address] [address] 9393 Jan, [facility] [address] [address]- 4973 Oct, [facility] [id number] [place] [address] 029024- 7287 Oct, [facility] [address] [address]- 9341 Oct, [facility] [id number] [place] [address]- 1775 19 Oct, 2012 [facility] [place] [facility] [address] [id number] [place] [address]- 6408 18 Oct, 2012 [facility] [place] [facility] [address] [id number] [place] [address]- 9071 14 Oct, 2012 [facility] [place] [facility] [address] [id number] [place] [address]- 0408 13 Oct, 2012 [facility] [place] [facility] [address] [id number] [place] [address]- 4423 13 Oct, 2012 [facility] [place] [facility] [address] [id number] [place] [address]- 6385 12 Oct, 2012 [facility] [place] [facility] [address] [id number] [place] [address]- 7620 12 Oct, 2012 [facility] [place] [facility] [address] [id number] [place] [address]- 6822 11 Oct, 2012 [facility] [place] [facility] [address] [id number] [place] [address]- 1293 11 Oct, 2012 [facility] [place] [facility] [address] [id number] [place] [address]- 7522 Oct, [facility] [place] [facility] [address] [id number] [place] [address]- 6349 Oct, [facility] [place] [facility] [address] [id number] [place] [address]- 5448 2012 [facility] [place] [facility] [address] [id number] [place] [address]- 2385 06 Oct, 2012 [facility] [place] [facility] [address] [id number] [place] [address]- 4169 September, [facility] [place] [facility] [address] [id number] [place] [address]- 9121 25 Aug, 2012 [facility] [place] [facility] [address] [id number] [place] [address]- 7437 Aug, [facility] [place] [facility] [address] [id number] [place] [address]- 0182 Aug, IMMUNIZATIONS No Known Immunizations SOCIAL HISTORY Never Assessed REASON FOR VISIT f/u dm -- jamal bowden PLAN OF CARE Activity Details Follow Up 3 Months, prn Reason:CHM/DM VITAL SIGNS Height 63 in 2017-11-07 Weight 244.0 lbs 2017-11-07 Temperature 98.0 degrees Fahrenheit 2017-11-07 Heart Rate 100 bpm 2017-11-07 Respiratory Rate 22 2017-11-07 BMI 43.22 kg/m2 2017-11-07 Blood pressure systolic 140 mmHg 2017-11-07 Blood pressure diastolic 78 mmHg 2017-11-07 MEDICATIONS Medication Instructions Dosage Frequency Start Date End Date Duration Status Cymbalta 60 MG TAKE ONE CAPSULE BY MOUTH ONCE DAILY 30 Active Lidocaine 5 % APPLY ONE (1) PATCH TOPICALLY TO SKIN ONCE DAILY DIRECTED 30 Active Furosemide 40 mg Orally Once a day 1 tablet 24h 30 days Active Levemir Flexpen 100 UNIT/ML Subcutaneous 2 times a day 20 units bid 12h Aug, 12 months Active Verapamil HCl ER 240 MG TAKE ONE TABLET BY MOUTH ONCE DAILY 30 Active Zetia 10 mg Orally Once a day 1 tablet 24h Mar, 30 day(s) Not- Taking PredniSONE 20 mg Orally Once a day 2 tabs daily 24h Oct, Oct, 05 days Active Enalapril Maleate 10 MG TAKE ONE (1) TABLET BY MOUTH ONCE DAILY 30 Active Aspirin 325 MG TAKE ONE TABLET BY MOUTH ONCE DAILY 30 Active Januvia 100 mg Orally Once a day 1 tablet 24h Aug, 30 day(s) Active Spironolactone 100 mg Orally Once a day 1 tablet with food 24h Oct, Jan, 30 day(s) Active Ventolin HFA 108 (90 Base) MCG/ACT Inhalation every 6 hrs 2 puffs as needed 6h Jul, 30 days Active Glucocard Expression Test - In Vitro 2 times a day as directed 12Aug, 50 days Active Gas Relief 80 mg PRN Oct, Active Pioglitazone HCl 30 MG TAKE ONE (1) TABLET BY MOUTH ONCE DAILY 30 Active Flonase 50 mcg/actuation Nasally 2 times a day 1 sprays by Nasal route 2 times per day in each nostril 12h Jul, 12 months Active Trulicity 0.75 MG/0.5ML INJECT 0.5 MLS SUBCUTANEOUSLY EVERY WEEK 28 Active RESULTS Name Result Date Reference Range A1C (IN HOUSE) 2017-11-07 A1C IN HOUSE 8.1 4.3 - 5.6 % Previous A1c 6.5 Lot [id number] Exp date 06/2019 Xray : Chest 2 View (IN HOUSE) 2017-11-07 PROCEDURES Procedure Date Ordered Result Body Site GLYCATED HEMOGLOBIN TEST November 07, 2017 X-RAY EXAM CHEST 2 VIEWS November 07, 2017 [facility] VISIT ESTABLISHED PATIENT November 07, 2017 INSTRUCTIONS MEDICATIONS ADMINISTERED No Known Medications [...]
--- OUTSIDE RECORDS SUMMARY | 2018-06-09 13:37 | XMS REPORT ---
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 Name Role Phone WATKINSJEFF Barrios Unavailable PROBLEMS Type Condition ICD9-CM Code PBE22-PE Code Onset Dates Condition Status SNOMED Code Problem Sinusitis chronic, ethmoidal J32.2 Active 20258884 Problem Mixed hyperlipidemia E78.2 Active 008429627 Problem Tobacco abuse counseling Z71.6 Active 69905767 Problem Bladder spasms N32.89 Active 980653023 Problem Abnormal CBC R79.89 Active 815860610 Problem Other ascites R18.8 Active 926761324 Problem Type 2 diabetes mellitus without complications E11.9 Active 589920602 Problem retirement (current) use of insulin Z79.4 Active 394215882 Problem Chronic obstructive pulmonary disease with acute exacerbation J44.1 Active 512357131 Problem Paroxysmal atrial fibrillation I48.0 Active 874225056 Problem Chronic pain G89.29 Active 43766492 Problem Essential hypertension I10 Active 79845053 Problem Posttraumatic stress disorder F43.10 Active 65506409 Problem Episodic mood disorder F39 Active 35632171 Problem Type 2 diabetes mellitus with hyperglycemia E11.65 Active 885538376 Problem Atrial fibrillation I48.91 Active 58913693 Problem Chronic hepatitis C without hepatic coma B18.2 Active 358862227 Problem Other allergic rhinitis J30.89 Active 63321294 Problem Marijuana use F12.10 Active 70137093 Problem Neuropathy G62.9 Active 584070946 ALLERGIES Substance Reaction Event Type Date Status Diclofenac Unknown Drug Allergy Dec, Active MetFORMIN HCl ER diarrhea Drug Allergy Dec, Active Sulfamethoxazole-Trimethoprim Unknown Drug Allergy Dec, Active statins- patient declines to take Unknown Non Drug Allergy Dec, Active ENCOUNTERS Encounter Location Date Diagnosis [facility] [address] [facility] [id number] [address] Dec, Essential hypertension I10 ; BMI 40.0-44.9, adult Z68.41 ; Bladder spasms N32.89 ; Right flank pain R10.9 and Chronic pain G89.29 [facility] [id number] [place] [address]840 -1189 Dec, Acute frontal sinusitis, recurrence not specified J01.10 and Headache above the eye region R51 [place] [address] [address]- [address]71 Nov, Abnormal CBC R79.89 [place] [address] 48479- 4920 Nov, Type 2 diabetes mellitus with hyperglycemia E11.65 and Chronic hepatitis C without hepatic coma B18.2 [place] [address] 94369- 4382 Oct, Type 2 diabetes mellitus with hyperglycemia E11.65 [place] [address] 83926- 1184 Oct, Type 2 diabetes mellitus with hyperglycemia E11.65 ; Decreased breath sounds at right lung base R09.89 ; Essential hypertension I10 ; Atrial fibrillation I48.91 ; Chronic hepatitis C without hepatic coma B18.2 ; Peripheral edema R60.9 ; Other ascites R18.8 and Chronic obstructive pulmonary disease with acute exacerbation J44.1 [facility] [id number] [place] [address] 81601- 6387 Oct, [place] [id number] [place] [address] 39657- 3414 Oct, [place] [id number] [place] [address] 31165- 1634 September, [place] [address] 56252- 0790 Aug, Type 2 diabetes mellitus without complications E11.9 [facility] [id number] [place] [address] 65891- 4459 Aug, Type 2 diabetes mellitus with hyperglycemia E11.65 [place] [address] [address] 267[address] Aug, Pneumonia of right middle lobe due to infectious organism J18.1 ; Peripheral edema R60.9 ; Right upper quadrant abdominal pain R10.11 ; Type 2 diabetes mellitus without complications E11.9 and BMI 40.0-44.9, adult Z68.41 [place] [id number] [place] [address] 95600- 4011 Aug, [facility] [id number] [place] [address] 94195- 3334 Aug, [place] [id number] [place] [address] 93908- 7542 Aug, [place] [id number] [place] [address] 68116- 0052 Aug, Type 2 diabetes mellitus without complications E11.9 ; Type 2 diabetes mellitus with hyperglycemia E11.65 ; Peripheral edema R60.9 ; Shortness of breath R06.02 ; Paroxysmal atrial fibrillation I48.0 and Pneumonia of right middle lobe due to infectious organism J18.1 [place] [id number] [place] [address] 09562- 8189 Aug, [facility] [id number] [place] [address] 86506 -9187 Jul, Wheezing R06.2 and Acute non-recurrent pansinusitis J01.40 [place] [id number] [place] [address] 24271- 9633 Jul, [facility] [id number] [place] [address] 80063- 6348 Jul, [place] [id number] [place] [address] 35607- 4244 May, Type 2 diabetes mellitus with hyperglycemia E11.65 ; Type 2 diabetes mellitus without complications E11.9 ; retirement (current) use of insulin Z79.4 ; Essential hypertension I10 ; Atrial fibrillation I48.91 ; Chronic hepatitis C without hepatic coma B18.2 ; Mixed hyperlipidemia E78.2 ; Episodic mood disorder F39 ; Neuropathy G62.9 ; Acute non-recurrent maxillary sinusitis J01.00 ; Chronic pain G89.29 and Marijuana use F12.10 [place] [id number] [place] [address] 91498- 1762 Apr, Atrial fibrillation I48.[address] 01227- 7259 Mar, [place] [address] 53489- 9848 13 Feb, 2017 Type 2 diabetes mellitus with hyperglycemia E11.65 ; Essential hypertension I10 ; Mixed hyperlipidemia E78.2 ; Atrial fibrillation I48.91 ; Neuropathy G62.9 ; Other allergic rhinitis J30.89 and Non compliance with medical treatment Z91.[address] 17564- 9870 07 Jan, 2017 Episodic mood disorder F39 and Posttraumatic stress disorder F43.10 [place] [address] 39222- 8489 05 Jan, [address] 44811- 4339 12 Oct, 2016 [place] [address] [id number] [place] [address] 46811- 6053 08 Oct, 2016 [place] [id number] [place] [address] 57750- 9332 08 Oct, 2016 Type 2 diabetes mellitus with hyperglycemia E11.65 ; Essential hypertension I10 ; Atrial fibrillation I48.91 ; Episodic mood disorder F39 ; Chronic pain G89.29 ; Neuropathy G62.9 ; Other allergic rhinitis J30.89 and Tobacco abuse counseling Z71.6 [facility] [id number] [place] [address] 39352 -7886 14 Aug, 2016 Acute non-recurrent pansinusitis J01.[address] 14186- 3314 Jul, [facility] [address] [address] 1006 Jun, [place] [id number] [place] [address] 80359- 9692 Jun, Type 2 diabetes mellitus with hyperglycemia E11.65 ; Episodic mood disorder F39 ; Posttraumatic stress disorder F43.10 ; Essential hypertension I10 ; Atrial fibrillation I48.91 ; Chronic pain G89.29 ; Acute upper respiratory infection, unspecified J06.9 ; Other viral agents as the cause of diseases classified elsewhere B97.89 ; Acute pain of left shoulder M25.512 and Sinusitis chronic, ethmoidal J32.2 [place] [id number] [place] [address] 80531- 0559 May, Acute intractable tension-type headache G44.201 ; Chronic pain G89.29 ; Essential hypertension I10 ; Atrial fibrillation I48.91 ; Neuropathy G62.9 ; Posttraumatic stress disorder F43.10 ; Episodic mood disorder F39 ; Type 2 diabetes mellitus with hyperglycemia E11.65 ; Other allergic rhinitis J30.89 and Irritable bowel syndrome with both constipation and diarrhea K58.2 [place] [id number] [place] [address] 96723- 9734 Apr, Episodic mood disorder F39 and Posttraumatic stress disorder F43.10 [place] [id number] [place] [address] 42298- 8313 Mar, [place] [id number] [place] [address] 46420- 2359 Mar, [place] [address] [id number] [place] [address] 04859- 8375 Mar, Chronic hepatitis C without hepatic coma B18.2 [place] [id number] [place] [address] 39452- 2705 Mar, [place] [id number] [place] [address] 67540- 1543 Mar, Episodic mood disorder F39 ; Posttraumatic stress disorder F43.10 ; Essential hypertension I10 and Type 2 diabetes mellitus with hyperglycemia E11.65 [facility] [address] [address] 9215 Mar, [facility] [id number] [place] [address] 92527- 2972 Mar, [facility] [id number] [place] [address] 76629- 8996 Mar, Type 2 diabetes mellitus with hyperglycemia E11.65 ; Chronic hepatitis C without hepatic coma B18.2 ; Posttraumatic stress disorder F43.10 ; Episodic mood disorder F39 ; Atrial fibrillation I48.91 ; Irritable bowel syndrome with both constipation and diarrhea K58.2 ; Secondary hypertension I15.9 and Neuropathy G62.9 [place] [id number] [place] [address] 19102- 1879 Feb, Episodic mood disorder F39 and Posttraumatic stress disorder F43.10 [place] [id number] [place] [address] 06060- 8528 Jan, Episodic mood disorder F39 and Posttraumatic stress disorder F43.10 [place] [id number] [place] [address] 64475- 8503 Nov, Type 2 diabetes mellitus with hyperglycemia E11.65 ; Atrial fibrillation I48.91 ; Other allergic rhinitis J30.89 ; Episodic mood disorder F39 and Essential hypertension I10 [place] [address] [address]- 4673 Nov, [facility] [id number] [place] [address] 66995- 6290 Oct, [facility] [id number] [place] [address] 48309- 4118 Oct, [facility] [id number] [place] [address] 88102- 0658 September, Type 2 diabetes mellitus with hyperglycemia E11.65 ; Atrial fibrillation I48.91 and Chronic pain G89.29 [place] [address] [place] [address] [id number] [address] 3648 September, Episodic mood disorder F39 and Posttraumatic stress disorder F43.10 [facility] [address] [address]- 1358 September, [facility] [address] [address]- 0360 September, [facility] [address] [address] September, [facility] [address] [address]- 1374 September, [facility] [id number] [place] [address] 16862- 3644 September, [facility] [id number] [place] [address] 98131- 1030 Aug, Type 2 diabetes mellitus with hyperglycemia E11.65 and Essential hypertension I10 [facility] [address] [address]- 9842 Aug, [facility] [id number] [place] [address] 44918- 6518 Aug, [facility] [address] [address]- 3792 Aug, Allergic rhinitis J30.9 ; Atrial fibrillation I48.91 ; Shortness of breath R06.02 and Essential hypertension I10 [facility] [address] [address]- 0753 Jul, [facility] [id number] [place] [address] 14480- 3809 Jun, Episodic mood disorder F39 and Posttraumatic stress disorder F43.10 [facility] [address] [address]- 2198 Jun, [facility] [id number] [place] [address] 35217- 3693 May, Chronic pain G89.29 ; History of drug abuse Z87.898 and Marijuana use F12.10 [facility] [id number] [place] [address] 23101- 9957 May, Episodic mood disorder F39 and Posttraumatic stress disorder F43.10 [facility] [id number] [place] [address] 45405- 0569 May, [facility] [id number] [place] [address] 89641- 5587 Apr, Chronic pain G89.29 [facility] [id number] [place] [address] 036941- 0974 Apr, Episodic mood disorder F39 and Posttraumatic stress disorder F43.10 [place] [id number] [place] [address] 01600- 3788 Apr, COPD (chronic obstructive pulmonary disease) with acute bronchitis J44.0 [facility] [id number] [place] [address] 15969- 5619 Feb, Episodic mood disorder F39 and Posttraumatic stress disorder F43.10 [facility] [id number] [place] [address] 78829- 1279 Feb, [facility] [id number] [place] [address] 62721- 8053 Feb, Episodic mood disorder F39 and Posttraumatic stress disorder F43.10 [facility] [id number] [place] [address] 30873- 9198 Jan, Routine adult health maintenance V70.0 [facility] [id number] [place] [address] 57978- 9620 Jan, Unspecified episodic mood disorder 296.90 and Posttraumatic stress disorder 309.81 [facility] [address] [place] [address] 37008- 3931 Dec, Unspecified episodic mood disorder 296.90 and Posttraumatic stress disorder 309.81 [facility] [address] 0489 Dec, Unspecified episodic mood disorder 296.90 and Posttraumatic stress disorder 309.81 [facility] [id number] [place] [address] 712461- 4983 Oct, Unspecified episodic mood disorder 296.90 and Posttraumatic stress disorder 309.81 [facility] [id number] [place] [address] 03668- 6726 September, Unspecified episodic mood disorder 296.90 ; Posttraumatic stress disorder 309.81 ; No condition on [place] V71.09 ; Diabetes 250.00 ; Hypertension 401.9 ; Hepatitis C 070.70 and Degenerative disc disease 722.6 [facility] [id number] [place] [address] 08395- 7858 Aug, [facility] [id number] [address]- 2707 Aug, [facility] [id number] [place] [address] 65940- 4374 Jul, [facility] [id number] [address]- 8419 Jul, [facility] [id number] [address]- 2629 Jan, [facility] [address] [address]- 3254 Jan, [facility] [address] [address] 3592 Jan, [facility] [address] [address]- 2074 Oct, [facility] [id number] [place] [address] 296264- 8580 Oct, [facility] [address] 1909 Oct, [facility] [id number] [address]- 2450 19 Oct, 2012 [facility] [place] [facility] [address] [id number] [place] [address]- 7302 18 Oct, 2012 [facility] [place] [facility] [address] [id number] [place] [address]- 8676 14 Oct, 2012 [facility] [place] [facility] [address] [id number] [place] [address]- 2089 13 Oct, 2012 [facility] [place] [facility] [address] [id number] [place] [address]- 7631 13 Oct, 2012 [facility] [place] [facility] [address] [id number] [place] [address]- 1606 12 Oct, 2012 [facility] [place] [facility] [address] [id number] [place] [address]- 0989 12 Oct, 2012 [facility] [place] [facility] [address] [id number] [place] [address]- 6155 11 Oct, 2012 [facility] [place] [facility] [address] [id number] [place] [address]- 9568 11 Oct, 2012 [facility] [place] [facility] [address] [id number] [place] [address]- 4738 Oct, [facility] [place] [facility] [address] [facility] [id number] [place] [address]- 3471 Oct, [facility] [place] [facility] [address] [id number] [place] [address]- 7424 2012 [facility] [place] [facility] [address] [id number] [place] [address]- 2126 06 Oct, 2012 [facility] [place] [facility] [address] [id number] [place] [address]- 3340 September, [facility] [place] [facility] [address] [id number] [place] [address]- 9438 25 Aug, 2012 [facility] [place] [facility] [address] [id number] [place] [address]- 4889 Aug, [facility] [address] [facility] [id number] [place] [address]- 1574 Aug, IMMUNIZATIONS No Known Immunizations SOCIAL HISTORY Never Assessed REASON FOR VISIT Lab f/u-Spenser Moise states she had a in the family and has not went to get her labs PLAN OF CARE Activity Details Follow Up 2 Months Reason:CHM/DM VITAL SIGNS Height 63 in 2018-01-16 Weight 228 lbs 2018-01-16 Temperature 96.5 degrees Fahrenheit 2018-01-16 Heart Rate 124 bpm 2018-01-16 Respiratory Rate 22 2018-01-16 BMI 40.38 kg/m2 2018-01-16 Blood pressure systolic 144 mmHg 2018-01-16 Blood pressure diastolic 102 mmHg 2018-01-16 MEDICATIONS Medication Instructions Dosage Frequency Start Date End Date Duration Status Amoxicillin-Pot Clavulanate 875-125 MG Orally every 12 hrs 1 tablet 12h 17 Dec, 2017 Dec, 07 days Active Verapamil HCl ER 240 MG TAKE ONE TABLET BY MOUTH ONCE DAILY 30 Active Enalapril Maleate 10 MG TAKE ONE (1) TABLET BY MOUTH ONCE DAILY 30 Active Flonase 50 mcg/actuation Nasally 2 times a day 1 sprays by Nasal route 2 times per day in each nostril 12h Jul, 12 months Active Trulicity 0.75 MG/0.5ML INJECT 0.5 MLS SUBCUTANEOUSLY EVERY WEEK 28 Active Metoprolol Succinate ER 25 MG 30 Active Pioglitazone HCl 30 MG TAKE ONE (1) TABLET BY MOUTH ONCE DAILY 30 Active Gas Relief 80 mg PRN Oct, Active Ventolin HFA 108 (90 Base) MCG/ACT Inhalation every 6 hrs 2 puffs as needed 6h Jul, 30 days Active Cymbalta 60 MG TAKE ONE CAPSULE BY MOUTH ONCE DAILY 30 Active Eliquis 5 MG 90 Active Ciprofloxacin HCl 500 mg Orally twice a day 1 tablet 12h Dec, Dec, 05 days Active Aspirin 325 MG TAKE ONE TABLET BY MOUTH ONCE DAILY 30 Active Glucocard Expression Test - In Vitro 2 times a day as directed 12h Aug, 50 days Active Lidocaine 5 % APPLY ONE (1) PATCH TOPICALLY TO SKIN ONCE DAILY DIRECTED 30 Active RESULTS No Results PROCEDURES Procedure Date Ordered Result Body Site [facility] VISIT ESTABLISHED PATIENT Jan 16, 2018 INSTRUCTIONS MEDICATIONS ADMINISTERED No Known Medications [...]
--- OUTSIDE RECORDS SUMMARY | 2018-06-09 13:38 | XMS REPORT ---
Author Author WATKINSJEFF Barrios Organization [facility] Address [address] [place] [address] Care Team Providers Care Paraprofessional Aide Teacher Name Role Phone WATKINSJEFF Barrios Unavailable PROBLEMS Type Condition ICD9-CM Code UGR36-MK Code Onset Dates Condition Status SNOMED Code Problem Sinusitis chronic, ethmoidal J32.2 Active 54413444 Problem Mixed hyperlipidemia E78.2 Active 108332343 Problem Tobacco abuse counseling Z71.6 Active 16526042 Problem Bladder spasms N32.89 Active 744573305 Problem Abnormal CBC R79.89 Active 603364689 Problem Other ascites R18.8 Active 056664818 Problem Type 2 diabetes mellitus without complications E11.9 Active 995868749 Problem 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.4 Active 403643085 Problem Chronic obstructive pulmonary disease with acute exacerbation J44.1 Active 939540618 Problem Paroxysmal atrial fibrillation I48.0 Active 965384861 Problem Chronic pain G89.29 Active 39389822 Problem Essential hypertension I10 Active 43659428 Problem Posttraumatic stress disorder F43.10 Active 42900318 Problem Episodic mood disorder F39 Active 55246724 Problem Type 2 diabetes mellitus with hyperglycemia E11.65 Active 721021653 Problem Atrial fibrillation I48.91 Active 71887435 Problem Chronic hepatitis C without hepatic coma B18.2 Active 365272290 Problem Other allergic rhinitis J30.89 Active 58191832 Problem Marijuana use F12.10 Active 48922148 Problem Neuropathy G62.9 Active 985929214 ALLERGIES No Information ENCOUNTERS Encounter Location Date Diagnosis [facility] [id number] [place] [address] 22428- 0138 Dec, Essential hypertension I10 ; BMI 40.0-44.9, adult Z68.41 ; Bladder spasms N32.89 ; Right flank pain R10.9 and Chronic pain G89.29 [facility] [id number] [place] [address] 79114 -7264 Dec, Acute frontal sinusitis, recurrence not specified J01.10 and Headache above the eye region R51 [facility] [id number] [place] [address] 88615- 9904 Nov, Abnormal CBC R79.89 [facility] [id number] [place] [address] 59348- 7270 Nov, Type 2 diabetes mellitus with hyperglycemia E11.65 and Chronic hepatitis C without hepatic coma B18.2 [facility] [id number] [place] [address] 75612- 8782 Oct, Type 2 diabetes mellitus with hyperglycemia E11.65 [facility] [id number] [place] [address] 24270- 0622 Oct, Type 2 diabetes mellitus with hyperglycemia E11.65 ; Decreased breath sounds at right lung base R09.89 ; Essential hypertension I10 ; Atrial fibrillation I48.91 ; Chronic hepatitis C without hepatic coma B18.2 ; Peripheral edema R60.9 ; Other ascites R18.8 and Chronic obstructive pulmonary disease with acute exacerbation J44.1 [facility] [id number] [place] [address] 58839- 0903 Oct, [facility] [id number] [place] [address] 00482- 6016 Oct, [facility] [id number] [place] [address] 84627- 3252 September, [facility] [id number] [place] [address] 19107- 0664 Aug, Type 2 diabetes mellitus without complications E11.9 [facility] [address] [place] [address] 23592- 8356 Aug, Type 2 diabetes mellitus with hyperglycemia E11.65 [facility] [address] [place] [address] 74190- 3620 Aug, Pneumonia of right middle lobe due to infectious organism J18.1 ; Peripheral edema R60.9 ; Right upper quadrant abdominal pain R10.11 ; Type 2 diabetes mellitus without complications E11.9 and BMI 40.0-44.9, adult Z68.41 [place] [id number] [place] [address] 99770- 4893 13 Aug, 2017 [facility] [id number] [place] [address] 56926- 8509 Aug, [address] 81682- 4749 Aug, [address] 21515- 9972 Aug, Type 2 diabetes mellitus without complications E11.9 ; Type 2 diabetes mellitus with hyperglycemia E11.65 ; Peripheral edema R60.9 ; Shortness of breath R06.02 ; Paroxysmal atrial fibrillation I48.0 and Pneumonia of right middle lobe due to infectious organism J18.1 [place] [id number] [place] [address] 45310- 0696 Aug, [facility] [id number] [place] [address] 89672 -1715 Jul, Wheezing R06.2 and Acute non-recurrent pansinusitis J01.40 [place] [id number] [place] [address] 62953- 7914 Jul, [place] [id number] [place] [address] 32756- 6300 Jul, [place] [id number] [place] [address] 34128- 9310 May, Type 2 diabetes mellitus with hyperglycemia E11.65 ; Type 2 diabetes mellitus without complications E11.9 ; 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 ; Essential hypertension I10 ; Atrial fibrillation I48.91 ; Chronic hepatitis C without hepatic coma B18.2 ; Mixed hyperlipidemia E78.2 ; Episodic mood disorder F39 ; Neuropathy G62.9 ; Acute non-recurrent maxillary sinusitis J01.00 ; Chronic pain G89.29 and Marijuana use F12.[id number] [place] [address] 77088- 7544 Apr, Atrial fibrillation I48.91 [facility] [address] 90525- 4648 Mar, [facility] [id number] [place] [address] 58806- 9096 13 Feb, 2017 Type 2 diabetes mellitus with hyperglycemia E11.65 ; Essential hypertension I10 ; Mixed hyperlipidemia E78.2 ; Atrial fibrillation I48.91 ; Neuropathy G62.9 ; Other allergic rhinitis J30.89 and Non compliance with medical treatment Z91.[address] 43938- 8588 07 Jan, 2017 Episodic mood disorder F39 and Posttraumatic stress disorder F43.10 [facility] [id number] [place] [address] 46980- 4433 05 Jan, 2017 [place] [id number] [place] [address] 61517- 7394 12 Oct, 2016 [facility] [id number] [place] [address] 18252- 4336 Oct, [place] [id number] [place] [address] 89280- 2609 08 Oct, 2016 Type 2 diabetes mellitus with hyperglycemia E11.65 ; Essential hypertension I10 ; Atrial fibrillation I48.91 ; Episodic mood disorder F39 ; Chronic pain G89.29 ; Neuropathy G62.9 ; Other allergic rhinitis J30.89 and Tobacco abuse counseling Z71.6 [facility] [address] [place] [address] 70733 -1904 Aug, Acute non-recurrent pansinusitis J01.40 [place] [id number] [place] [address] 77630- 9950 Jul, [facility] [id number] [place] [address] 24462- 4731 Jun, [address] [place] [address]- 9404 Jun, Type 2 diabetes mellitus with hyperglycemia E11.65 ; Episodic mood disorder F39 ; Posttraumatic stress disorder F43.10 ; Essential hypertension I10 ; Atrial fibrillation I48.91 ; Chronic pain G89.29 ; Acute upper respiratory infection, unspecified J06.9 ; Other viral agents as the cause of diseases classified elsewhere B97.89 ; Acute pain of left shoulder M25.512 and Sinusitis chronic, ethmoidal J32.2 [facility] [address] 44792- 8120 May, Acute intractable tension-type headache G44.201 ; Chronic pain G89.29 ; Essential hypertension I10 ; Atrial fibrillation I48.91 ; Neuropathy G62.9 ; Posttraumatic stress disorder F43.10 ; Episodic mood disorder F39 ; Type 2 diabetes mellitus with hyperglycemia E11.65 ; Other allergic rhinitis J30.89 and Irritable bowel syndrome with both constipation and diarrhea K58.2 [facility] [address] 51134- 5285 Apr, Episodic mood disorder F39 and Posttraumatic stress disorder F43.10 [facility] [address] 89014- 6968 Mar, [facility] [address] 68953- 1896 Mar, [facility] [id number] [place] [address] 83236- 2967 Mar, Chronic hepatitis C without hepatic coma B18.2 [facility] [id number] [place] [address] 91727- 4911 Mar, [facility] [address] 95668- 9144 Mar, Episodic mood disorder F39 ; Posttraumatic stress disorder F43.10 ; Essential hypertension I10 and Type 2 diabetes mellitus with hyperglycemia E11.65 [facility] [address] 24516- 5722 Mar, [facility] [facility] [address] [address]- 2245 Mar, [facility] [id number] [place] [address] 42501- 4371 Mar, Type 2 diabetes mellitus with hyperglycemia E11.65 ; Chronic hepatitis C without hepatic coma B18.2 ; Posttraumatic stress disorder F43.10 ; Episodic mood disorder F39 ; Atrial fibrillation I48.91 ; Irritable bowel syndrome with both constipation and diarrhea K58.2 ; Secondary hypertension I15.9 and Neuropathy G62.9 [facility] [id number] [place] [address] 37932- 8424 Feb, Episodic mood disorder F39 and Posttraumatic stress disorder F43.10 [facility] [id number] [place] [address] 32754- 2855 Jan, Episodic mood disorder F39 and Posttraumatic stress disorder F43.10 [facility] [id number] [place] [address] 57560- 1167 Nov, Type 2 diabetes mellitus with hyperglycemia E11.65 ; Atrial fibrillation I48.91 ; Other allergic rhinitis J30.89 ; Episodic mood disorder F39 and Essential hypertension I10 [facility] [id number] [place] [address] 84772- 2404 Nov, [facility] [id number] [place] [address] 45793- 4889 Oct, [facility] [id number] [place] [address] 41653- 9217 Oct, [facility] [id number] [place] [address] 66988- 2150 September, Type 2 diabetes mellitus with hyperglycemia E11.65 ; Atrial fibrillation I48.91 and Chronic pain G89.29 [facility] [id number] [place] [address] 50499- 2198 September, Episodic mood disorder F39 and Posttraumatic stress disorder F43.10 [facility] [id number] [place] [address] 74498- 4227 September, [facility] [id number] [place] [address] 99370- 6587 September, [facility] [id number] [place] [address] 76784 -7548 September, [facility] [id number] [place] [address] 53880- 2109 September, [facility] [address] 01208- 9704 September, [facility] [address] 62139- 2933 Aug, Type 2 diabetes mellitus with hyperglycemia E11.65 and Essential hypertension I10 [facility] [address] 58922- 9169 Aug, [facility] [address] 64509- 8734 Aug, [facility] [id number] [place] [address] 00973- 6033 Aug, Allergic rhinitis J30.9 ; Atrial fibrillation I48.91 ; Shortness of breath R06.02 and Essential hypertension I10 [facility] [id number] [place] [address] 43268- 2872 Jul, [facility] [id number] [place] [address] 09403- 8044 10 Jun, 2015 Episodic mood disorder F39 and Posttraumatic stress disorder F43.10 [facility] [id number] [place] [address] 12955- 1083 Jun, [facility] [address] 48053- 2263 May, Chronic pain G89.29 ; History of drug abuse Z87.898 and Marijuana use F12.10 [facility] [address] 56679- 8998 May, Episodic mood disorder F39 and Posttraumatic stress disorder F43.10 [facility] [address] [address]- 5183 May, [facility] [address] [address]- 2059 Apr, Chronic pain G89.29 [facility] [address] [place] [address] 44195- 4058 Apr, Episodic mood disorder F39 and Posttraumatic stress disorder F43.10 [facility] [address] [place] [address] 15291- 0178 Apr, COPD (chronic obstructive pulmonary disease) with acute bronchitis J44.0 [facility] [address] [place] [address] 74327- 3646 Feb, Episodic mood disorder F39 and Posttraumatic stress disorder F43.10 [facility] [id number] [place] [address] 79152- 8815 Feb, [facility] [address] [place] [address] 49550- 9163 Feb, Episodic mood disorder F39 and Posttraumatic stress disorder F43.10 [facility] [address] [address]- 4894 Jan, Routine adult health maintenance V70.0 [facility] [address] [address]- 7540 Jan, Unspecified episodic mood disorder 296.90 and Posttraumatic stress disorder 309.81 [facility] [address] [address]- 1464 Dec, Unspecified episodic mood disorder 296.90 and Posttraumatic stress disorder 309.81 [facility] [address] [address]- 8076 Dec, Unspecified episodic mood disorder 296.90 and Posttraumatic stress disorder 309.81 [facility] [id number] [address]- 6619 Oct, Unspecified episodic mood disorder 296.90 and Posttraumatic stress disorder 309.81 [facility] [id number] [place] [address] 87567- 1658 September, Unspecified episodic mood disorder 296.90 ; Posttraumatic stress disorder 309.81 ; No condition on [place] II V71.09 ; Diabetes 250.00 ; Hypertension 401.9 ; Hepatitis C 070.70 and Degenerative disc disease 722.6 [facility] [id number] [address]- 5475 Aug, [facility] [id number] [place] [address] 56188- 0654 Aug, [facility] [id number] [address]- 8422 Jul, [facility] [id number] [place] [address] 33560- 4704 Jul, [facility] [address] [address]- 3790 Jan, [facility] [id number] [address]- 0777 Jan, [facility] [address] [address]- 3361 Jan, [facility] [address] [address]- 2328 Oct, [facility] [address] [address]- 2247 Oct, [facility] [address] [address]- 2805 Oct, [facility] [address] [address]- 9764 Oct, [facility] [address] [address]- 7986 Oct, [facility] [address] [id number] [address]- 3581 14 Oct, 2012 [facility] [address] [facility] [id number] [address]- 7966 13 Oct, 2012 [facility] [address] [facility] [id number] [address]- 7222 13 Oct, 2012 [facility] [address] [facility] [id number] [place] [address]- 6947 12 Oct, 2012 [facility] [address] [id number] [address]- 3880 12 Oct, 2012 [facility] [address] [facility] [id number] [address]- 5209 Oct, [facility] [id number] [address]- 7957 Oct, [facility] [address] [address]- 8825 Oct, [facility] [address] [address]- 2559 Oct, [facility] [address] [address]- 1548 Oct, [facility] [id number] [address]- 7283 Oct, [facility] [address] [facility] [id number] [place] [address]- 4128 September, [facility] [address] [facility] [id number] [address]- 5134 Aug, [facility] [address] [facility] [id number] [address]- 9528 Aug, [facility] [id number] [address]- 7043 Aug, IMMUNIZATIONS No Known Immunizations SOCIAL HISTORY Never Assessed REASON FOR VISIT New orders PLAN OF CARE VITAL SIGNS MEDICATIONS No Known Medications RESULTS No Results PROCEDURES No Known [...]
--- OUTSIDE RECORDS SUMMARY | 2018-06-09 13:38 | XMS REPORT ---
Author Author SEBASTIÁN LUIS [facility] IN [facility] Address [address] [place] [address] Care Team Providers Care Bed Teacher Name Role Phone SEBASTIÁN LUIS Unavailable PROBLEMS Type Condition ICD9-CM Code CNY28-JT Code Onset Dates Condition Status SNOMED Code Problem Sinusitis chronic, ethmoidal J32.2 Active 56337220 Problem Mixed hyperlipidemia E78.2 Active 121915978 Problem Tobacco abuse counseling Z71.6 Active 45100270 Problem Bladder spasms N32.89 Active 584622678 Problem Abnormal CBC R79.89 Active 869409817 Problem Other ascites R18.8 Active 960317688 Problem Type 2 diabetes mellitus without complications E11.9 Active 380772208 Problem penitentiary (current) use of insulin Z79.4 Active 613981353 Problem Chronic obstructive pulmonary disease with acute exacerbation J44.1 Active 759621653 Problem Paroxysmal atrial fibrillation I48.0 Active 783998055 Problem Chronic pain G89.29 Active 38854211 Problem Essential hypertension I10 Active 05872137 Problem Posttraumatic stress disorder F43.10 Active 43296714 Problem Episodic mood disorder F39 Active 60337173 Problem Type 2 diabetes mellitus with hyperglycemia E11.65 Active 852588441 Problem Atrial fibrillation I48.91 Active 37495394 Problem Chronic hepatitis C without hepatic coma B18.2 Active 290215465 Problem Other allergic rhinitis J30.89 Active 68219685 Problem Marijuana use F12.10 Active 10460050 Problem Neuropathy G62.9 Active 954642796 ALLERGIES Substance Reaction Event Type Date Status Diclofenac Unknown Drug Allergy Dec, Active MetFORMIN HCl ER diarrhea Drug Allergy Dec, Active Sulfamethoxazole-Trimethoprim Unknown Drug Allergy Dec, Active statins- patient declines to take Unknown Non Drug Allergy Dec, Active ENCOUNTERS Encounter Location Date Diagnosis [facility] [address] [facility] [id number] [address] Dec, Essential hypertension I10 ; BMI 40.0-44.9, adult Z68.41 ; Bladder spasms N32.89 ; Right flank pain R10.9 and Chronic pain G89.29 [facility] [id number] [place] [address] Dec, Acute frontal sinusitis, recurrence not specified J01.10 and Headache above the eye region R51 [facility] [address] [address] Nov, Abnormal CBC R79.89 [facility] [address] [address]- [address] Nov, Type 2 diabetes mellitus with hyperglycemia E11.65 and Chronic hepatitis C without hepatic coma B18.2 [facility] [id number] [place] [address] 86305- 9209 Oct, Type 2 diabetes mellitus with hyperglycemia E11.65 [facility] [address] [address] Oct, Type 2 diabetes mellitus with hyperglycemia E11.65 ; Decreased breath sounds at right lung base R09.89 ; Essential hypertension I10 ; Atrial fibrillation I48.91 ; Chronic hepatitis C without hepatic coma B18.2 ; Peripheral edema R60.9 ; Other ascites R18.8 and Chronic obstructive pulmonary disease with acute exacerbation J44.1 [facility] [id number] [place] [address] 05198- 3203 Oct, [facility] [address] [address]- 2332 Oct, [facility] [id number] [place] [address] 85350- 5862 September, [place] [address] [address]- [address] Aug, Type 2 diabetes mellitus without complications E11.9 [facility] [id number] [place] [address] 72129- 7975 Aug, Type 2 diabetes mellitus with hyperglycemia E11.65 [facility] [id number] [place] [address] 26449- 3375 Aug, Pneumonia of right middle lobe due to infectious organism J18.1 ; Peripheral edema R60.9 ; Right upper quadrant abdominal pain R10.11 ; Type 2 diabetes mellitus without complications E11.9 and BMI 40.0-44.9, adult Z68.41 [place] [id number] [place] [address] 84378- 2238 Aug, [facility] [id number] [place] [address] 03236- 1824 Aug, [place] [id number] [place] [address] 92969- 8212 Aug, [place] [id number] [place] [address] 32894- 4821 Aug, Type 2 diabetes mellitus without complications E11.9 ; Type 2 diabetes mellitus with hyperglycemia E11.65 ; Peripheral edema R60.9 ; Shortness of breath R06.02 ; Paroxysmal atrial fibrillation I48.0 and Pneumonia of right middle lobe due to infectious organism J18.1 [place] [id number] [place] [address] 39587- 2014 Aug, [facility] [id number] [place] [address] 14462 -1245 Jul, Wheezing R06.2 and Acute non-recurrent pansinusitis J01.40 [facility] [id number] [place] [address] 95534- 9575 Jul, [facility] [id number] [place] [address] 52517- 1447 Jul, [place] [id number] [place] [address] 88136- 5797 May, Type 2 diabetes mellitus with hyperglycemia E11.65 ; Type 2 diabetes mellitus without complications E11.9 ; penitentiary (current) use of insulin Z79.4 ; Essential hypertension I10 ; Atrial fibrillation I48.91 ; Chronic hepatitis C without hepatic coma B18.2 ; Mixed hyperlipidemia E78.2 ; Episodic mood disorder F39 ; Neuropathy G62.9 ; Acute non-recurrent maxillary sinusitis J01.00 ; Chronic pain G89.29 and Marijuana use F12.10 [place] [address] 15100- 5192 Apr, Atrial fibrillation I48.91 [place] [address] 69050- 4571 Mar, [place] [address] 01721- 9171 13 Feb, 2017 Type 2 diabetes mellitus with hyperglycemia E11.65 ; Essential hypertension I10 ; Mixed hyperlipidemia E78.2 ; Atrial fibrillation I48.91 ; Neuropathy G62.9 ; Other allergic rhinitis J30.89 and Non compliance with medical treatment Z91.19 [place] [address] 34042- 4082 07 Jan, 2017 Episodic mood disorder F39 and Posttraumatic stress disorder F43.10 [place] [address] 87149- 2902 05 Jan, 2017 [place] [address] 42567- 8731 12 Oct, 2016 [place] [address] 57325- 0093 08 Oct, 2016 [place] [address] 34653- 9116 08 Oct, 2016 Type 2 diabetes mellitus with hyperglycemia E11.65 ; Essential hypertension I10 ; Atrial fibrillation I48.91 ; Episodic mood disorder F39 ; Chronic pain G89.29 ; Neuropathy G62.9 ; Other allergic rhinitis J30.89 and Tobacco abuse counseling Z71.6 [facility] [address] 61696 -6740 14 Aug, 2016 Acute non-recurrent pansinusitis J01.40 [place] [address] 82121- 1665 Jul, [facility] [address] [address] Jun, [place] [id number] [place] [address] 51703- 0214 Jun, Type 2 diabetes mellitus with hyperglycemia E11.65 ; Episodic mood disorder F39 ; Posttraumatic stress disorder F43.10 ; Essential hypertension I10 ; Atrial fibrillation I48.91 ; Chronic pain G89.29 ; Acute upper respiratory infection, unspecified J06.9 ; Other viral agents as the cause of diseases classified elsewhere B97.89 ; Acute pain of left shoulder M25.512 and Sinusitis chronic, ethmoidal J32.2 [place] [id number] [place] [address] 38187- 3106 May, Acute intractable tension-type headache G44.201 ; Chronic pain G89.29 ; Essential hypertension I10 ; Atrial fibrillation I48.91 ; Neuropathy G62.9 ; Posttraumatic stress disorder F43.10 ; Episodic mood disorder F39 ; Type 2 diabetes mellitus with hyperglycemia E11.65 ; Other allergic rhinitis J30.89 and Irritable bowel syndrome with both constipation and diarrhea K58.2 [place] [id number] [place] [address] 16966- 6530 Apr, Episodic mood disorder F39 and Posttraumatic stress disorder F43.[address] [place] [address] 93257- 7812 Mar, [place] [id number] [place] [address] 56327- 4803 Mar, [place] [id number] [place] [address] 76797- 3914 Mar, Chronic hepatitis C without hepatic coma B18.2 [place] [id number] [place] [address] 82536- 8428 Mar, [place] [id number] [place] [address] 45100- 6379 Mar, Episodic mood disorder F39 ; Posttraumatic stress disorder F43.10 ; Essential hypertension I10 and Type 2 diabetes mellitus with hyperglycemia E11.65 [facility] [address] [address] Mar, [facility] [address] [address] 4[address] Mar, [facility] [id number] [place] [address] 45223- 8057 Mar, Type 2 diabetes mellitus with hyperglycemia E11.65 ; Chronic hepatitis C without hepatic coma B18.2 ; Posttraumatic stress disorder F43.10 ; Episodic mood disorder F39 ; Atrial fibrillation I48.91 ; Irritable bowel syndrome with both constipation and diarrhea K58.2 ; Secondary hypertension I15.9 and Neuropathy G62.9 [place] [address] [place] [address] 60194- 0304 Feb, Episodic mood disorder F39 and Posttraumatic stress disorder F43.10 [place] [id number] [place] [address] 71486- 3669 Jan, Episodic mood disorder F39 and Posttraumatic stress disorder F43.10 [place] [id number] [place] [address] 32326- 3370 Nov, Type 2 diabetes mellitus with hyperglycemia E11.65 ; Atrial fibrillation I48.91 ; Other allergic rhinitis J30.89 ; Episodic mood disorder F39 and Essential hypertension I10 [facility] [address] [address] Nov, [facility] [id number] [place] [address] 87248- 3118 Oct, [facility] [id number] [place] [address] 11691- 8907 Oct, [facility] [address] [place] [address] 71380- 9499 September, Type 2 diabetes mellitus with hyperglycemia E11.65 ; Atrial fibrillation I48.91 and Chronic pain G89.29 [place] [address] [address]- 8782 September, Episodic mood disorder F39 and Posttraumatic stress disorder F43.10 [facility] [id number] [address] 9742 September, [facility] [address] [place] [address]- 1574 September, [facility] [id number] [place] [address] 30894 -3533 September, [facility] [id number] [place] [address] 49580- 7966 September, [facility] [id number] [place] [address] 13557- 5073 September, [facility] [id number] [place] [address] 92442- 7743 Aug, Type 2 diabetes mellitus with hyperglycemia E11.65 and Essential hypertension I10 [facility] [address] [address]- 9898 Aug, [facility] [id number] [place] [address] 98475- 6968 Aug, [facility] [address] [address]- 0693 Aug, Allergic rhinitis J30.9 ; Atrial fibrillation I48.91 ; Shortness of breath R06.02 and Essential hypertension I10 [facility] [address] [address]- 9917 Jul, [facility] [id number] [place] [address] 84970- 7797 Jun, Episodic mood disorder F39 and Posttraumatic stress disorder F43.10 [facility] [address] [address]- 1387 Jun, [facility] [id number] [place] [address] 79861- 2063 May, Chronic pain G89.29 ; History of drug abuse Z87.898 and Marijuana use F12.10 [facility] [id number] [place] [address] 49212- 0456 May, Episodic mood disorder F39 and Posttraumatic stress disorder F43.10 [facility] [id number] [place] [address] 49881- 5690 May, [facility] [id number] [place] [address] 28420- 0070 Apr, Chronic pain G89.29 [place] [id number] [place] [address] 74803- 8847 Apr, Episodic mood disorder F39 and Posttraumatic stress disorder F43.10 [place] [id number] [place] [address] 18049- 2167 Apr, COPD (chronic obstructive pulmonary disease) with acute bronchitis J44.0 [facility] [id number] [place] [address] 75473- 4574 Feb, Episodic mood disorder F39 and Posttraumatic stress disorder F43.10 [place] [id number] [place] [address] 07442- 0823 Feb, [place] [id number] [place] [address] 48791- 8929 Feb, Episodic mood disorder F39 and Posttraumatic stress disorder F43.10 [facility] [address] [place] [address] 60195- 2372 Jan, Routine adult health maintenance V70.0 [facility] [id number] [place] [address] 19070- 4652 Jan, Unspecified episodic mood disorder 296.90 and Posttraumatic stress disorder 309.81 [place] [id number] [place] [address] 96265- 2297 Dec, Unspecified episodic mood disorder 296.90 and Posttraumatic stress disorder 309.81 [facility] [address] [address] Dec, Unspecified episodic mood disorder 296.90 and Posttraumatic stress disorder 309.81 [facility] [id number] [address] Oct, Unspecified episodic mood disorder 296.90 and Posttraumatic stress disorder 309.81 [facility] [id number] [place] [address] 15076- 6495 September, Unspecified episodic mood disorder 296.90 ; Posttraumatic stress disorder 309.81 ; No condition on [place] II V71.09 ; Diabetes 250.00 ; Hypertension 401.9 ; Hepatitis C 070.70 and Degenerative disc disease 722.6 [facility] [address] [address]- [address] Aug, [facility] [address] [address]- 3948 Aug, [facility] [address] [address]- 9463 Jul, [facility] [address], [place] [address]- 3963 Jul, [facility] [address] [place] [address]- 2329 Jan, [facility] [address] [address]- 7587 Jan, [facility] [address] 5[address] Jan, [facility] [address], [place] [address]- 1886 Oct, [facility] [address]- 1822 Oct, [facility] [address] 2909 Oct, [facility] [id number] [place] [address]- 1832 19 Oct, 2012 [facility] [address] [id number] [place] [address]- 9015 18 Oct, 2012 [facility] [place] [facility] [address] [id number] [place] [address]- 9627 14 Oct, 2012 [facility] [address] [id number] [place] [address]- 4657 13 Oct, 2012 [facility] [place] [facility] [address] [id number] [place] [address]- 6218 13 Oct, 2012 [facility] [address] [id number] [place] [address]- 6019 12 Oct, 2012 [facility] [place] [facility] [address] [id number] [place] [address]- 9896 12 Oct, 2012 [facility] [address] [id number] [place] [address]- 7284 11 Oct, 2012 [facility] [address] [id number] [place] [address]- 5054 11 Oct, 2012 [facility] [place] [facility] [address] [id number] [place] [address]- 6558 Oct, [facility] [address] [id number] [place] [address]- 7593 11 Oct, 2012 [facility] [place] [facility] [address] [id number] [place] [address]- 0044 Oct, [facility] [place] [facility] [address] [id number] [place] [address]- 2826 06 Oct, 2012 [facility] [place] [facility] [address] [id number] [place] [address]- 0601 September, [facility] [place] [facility] [address] [id number] [place] [address]- 1580 Aug, [facility] [place] [facility] [address] [id number] [place] [address]- 0100 Aug, [facility] [address] [facility] [id number] [place] [address]14 Aug, IMMUNIZATIONS No Known Immunizations SOCIAL HISTORY Never Assessed REASON FOR VISIT Sinus Infection- constant headache, blowing green snot from nose and ear pressure/pain x 2 weeks.--FARA Rea PLAN OF CARE Activity Details Follow Up 1 Week, prn Reason:if symptoms worsen VITAL SIGNS Height 63 in 2018-01-09 Weight 224 lbs 2018-01-09 Temperature 97.3 degrees Fahrenheit 2018-01-09 Heart Rate 104 bpm 2018-01-09 Respiratory Rate 22 2018-01-09 BMI 39.68 kg/m2 2018-01-09 Blood pressure systolic 142 mmHg 2018-01-09 Blood pressure diastolic 88 mmHg 2018-01-09 MEDICATIONS Medication Instructions Dosage Frequency Start Date End Date Duration Status Januvia 100 mg Orally Once a day 1 tablet 24h Aug, 30 day(s) Active Pioglitazone HCl 30 MG TAKE ONE (1) TABLET BY MOUTH ONCE DAILY 30 Active Trulicity 0.75 MG/0.5ML INJECT 0.5 MLS SUBCUTANEOUSLY EVERY WEEK 28 Active Verapamil HCl ER 240 MG TAKE ONE TABLET BY MOUTH ONCE DAILY 30 Active Enalapril Maleate 10 MG TAKE ONE (1) TABLET BY MOUTH ONCE DAILY 30 Active Flonase 50 mcg/actuation Nasally 2 times a day 1 sprays by Nasal route 2 times per day in each nostril 12h Jul, 12 months Active Cymbalta 60 MG TAKE ONE CAPSULE BY MOUTH ONCE DAILY 30 Active Ventolin HFA 108 (90 Base) MCG/ACT Inhalation every 6 hrs 2 puffs as needed 6h Jul, 30 days Active Aspirin 325 MG TAKE ONE TABLET BY MOUTH ONCE DAILY 30 Active Lidocaine 5 % APPLY ONE (1) PATCH TOPICALLY TO SKIN ONCE DAILY DIRECTED 30 Active Levemir Flexpen 100 UNIT/ML Subcutaneous 2 times a day 20 units bid 12h Aug, 12 months Active Amoxicillin-Pot Clavulanate 875-125 MG Orally every 12 hrs 1 tablet 12h Dec, Dec, 07 days Active Zaroxolyn 5 mg Orally Once a day 1 tablet 24h 28 Oct, 2017 30 day(s) Active Glucocard Expression Test - In Vitro 2 times a day as directed 12h Aug, 50 days Active Gas Relief 80 mg PRN Oct, Active Furosemide 40 mg Orally Once a day 1 tablet 24h 30 days Active Ibuprofen 800 MG Orally Three times a day 1 tablet with food or milk as needed 8h Dec, Dec, 05 days Active RESULTS No Results PROCEDURES Procedure Date Ordered Result Body Site [facility] VISIT ESTABLISHED PATIENT Jan 09, 2018 INSTRUCTIONS MEDICATIONS ADMINISTERED No Known Medications [...]
--- OUTSIDE RECORDS SUMMARY | 2018-06-09 13:39 | XMS REPORT ---
Author Author WATKINSJEFF Barrios Organization [facility] Address [address] [place] [address] Care Team Providers Care Assembler Wire Mesh Gate Name Role Phone JEFF WATKINS Unavailable PROBLEMS Type Condition ICD9-CM Code [id number] Code Onset Dates Condition Status SNOMED Code Problem Neuropathy G62.9 Active 596504324 Problem Tobacco abuse counseling Z71.6 Active 83729019 Problem Sinusitis chronic, ethmoidal J32.2 Active 32959581 Problem Other ascites R18.8 Active 148429936 Problem Chronic obstructive pulmonary disease with acute exacerbation J44.1 Active 841651467 Problem [facility] (current) use of insulin Z79.4 Active 230279265 Problem Mixed hyperlipidemia E78.2 Active 352833634 Problem Paroxysmal atrial fibrillation I48.0 Active 755086238 Problem Type 2 diabetes mellitus without complications E11.9 Active 560884678 Problem Episodic mood disorder F39 Active 07383319 Problem Chronic pain G89.29 Active 97415231 Problem Abnormal CBC R79.89 Active 828838820 Problem Posttraumatic stress disorder F43.10 Active 88876282 Problem Marijuana use F12.10 Active 24442397 Problem Type 2 diabetes mellitus with hyperglycemia E11.65 Active 768502917 Problem Essential hypertension I10 Active 02230617 Problem Atrial fibrillation I48.91 Active 44411714 Problem Chronic hepatitis C without hepatic coma B18.2 Active 849513275 Problem Other allergic rhinitis J30.89 Active 97637114 ALLERGIES No Information ENCOUNTERS Encounter Location Date Diagnosis [facility] [id number], [place] [address] Dec, [facility] [address], [place] [address] Dec, Acute frontal sinusitis, recurrence not specified J01.10 and Headache above the eye region R51 [facility] [id number] [place] [address] 01580- 7107 Nov, Abnormal CBC R79.89 [facility] [facility] [id number] [place] [address] 14303- 8828 Nov, Type 2 diabetes mellitus with hyperglycemia E11.65 and Chronic hepatitis C without hepatic coma B18.2 [facility] [id number] [place] [address] 31294- 9615 Oct, Type 2 diabetes mellitus with hyperglycemia E11.65 [facility] [address] [address]- 1730 Oct, Type 2 diabetes mellitus with hyperglycemia E11.65 ; Decreased breath sounds at right lung base R09.89 ; Essential hypertension I10 ; Atrial fibrillation I48.91 ; Chronic hepatitis C without hepatic coma B18.2 ; Peripheral edema R60.9 ; Other ascites R18.8 and Chronic obstructive pulmonary disease with acute exacerbation J44.1 [facility] [address] [address] Oct, [facility] [facility] [id number] [place] [address] 67564- 1473 Oct, [facility] [facility] [id number] [place] [address] 10815- 7125 September, [facility] [facility] [id number] [place] [address] 79485- 3671 Aug, Type 2 diabetes mellitus without complications E11.9 [facility] [id number] [place] [address] 65013- 8364 Aug, Type 2 diabetes mellitus with hyperglycemia E11.65 [facility] [id number] [place] [address] 42611- 4482 16 Aug, 2017 Pneumonia of right middle lobe due to infectious organism J18.1 ; Peripheral edema R60.9 ; Right upper quadrant abdominal pain R10.11 ; Type 2 diabetes mellitus without complications E11.9 and BMI 40.0-44.9, adult Z68.41 [facility] [id number] [place] [address] 40715- 5497 Aug, [facility] [id number] [place] [address] 38998- 3462 Aug, [facility] [id number] [place] [address] 27632- 0673 Aug, [facility] [id number] [place] [address] 94905- 4135 Aug, Type 2 diabetes mellitus without complications E11.9 ; Type 2 diabetes mellitus with hyperglycemia E11.65 ; Peripheral edema R60.9 ; Shortness of breath R06.02 ; Paroxysmal atrial fibrillation I48.0 and Pneumonia of right middle lobe due to infectious organism J18.1 [facility] [id number] [place] [address] 49594- 5987 Aug, [facility] [id number] [place] [address]6515 -7888 Jul, Wheezing R06.2 and Acute non-recurrent pansinusitis J01.40 [facility] [id number] [place] [address] 20654- 6334 Jul, [facility] [id number] [place] [address] 97398- 9153 Jul, [facility] [id number] [place] [address] 96907- 2555 May, Type 2 diabetes mellitus with hyperglycemia E11.65 ; Type 2 diabetes mellitus without complications E11.9 ; 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 ; Essential hypertension I10 ; Atrial fibrillation I48.91 ; Chronic hepatitis C without hepatic coma B18.2 ; Mixed hyperlipidemia E78.2 ; Episodic mood disorder F39 ; Neuropathy G62.9 ; Acute non-recurrent maxillary sinusitis J01.00 ; Chronic pain G89.29 and Marijuana use F12.10 [facility] [id number] [place] [address] 30414- 6496 Apr, Atrial fibrillation I48.91 [place] [address] 57597- 5716 Mar, [place] [id number] [place] [address] 82825- 7991 Feb, Type 2 diabetes mellitus with hyperglycemia E11.65 ; Essential hypertension I10 ; Mixed hyperlipidemia E78.2 ; Atrial fibrillation I48.91 ; Neuropathy G62.9 ; Other allergic rhinitis J30.89 and Non compliance with medical treatment Z91.19 [id number] [place] [address] 58732- 9714 07 Jan, 2017 Episodic mood disorder F39 and Posttraumatic stress disorder F43.10 [facility] [id number] [place] [address] 43963- 1472 Jan, [address] [id number] [place] [address] 52827- 2494 Oct, [id number] [place] [address] 60063- 4846 Oct, [facility] [id number] [place] [address] 61634- 3038 Oct, Type 2 diabetes mellitus with hyperglycemia E11.65 ; Essential hypertension I10 ; Atrial fibrillation I48.91 ; Episodic mood disorder F39 ; Chronic pain G89.29 ; Neuropathy G62.9 ; Other allergic rhinitis J30.89 and Tobacco abuse counseling Z71.6 [facility] [id number] [place] [address] 62248 -1873 Aug, Acute non-recurrent pansinusitis J01.40 [facility] [facility] [id number] [place] [address] 49150- 8557 Jul, [address] [id number] [place] [address] 35691- 2281 Jun, [facility] [id number] [place] [address] 52764- 2136 Jun, Type 2 diabetes mellitus with hyperglycemia E11.65 ; Episodic mood disorder F39 ; Posttraumatic stress disorder F43.10 ; Essential hypertension I10 ; Atrial fibrillation I48.91 ; Chronic pain G89.29 ; Acute upper respiratory infection, unspecified J06.9 ; Other viral agents as the cause of diseases classified elsewhere B97.89 ; Acute pain of left shoulder M25.512 and Sinusitis chronic, ethmoidal J32.2 [facility] [id number] [place] [address] 34685- 5740 May, Acute intractable tension-type headache G44.201 ; Chronic pain G89.29 ; Essential hypertension I10 ; Atrial fibrillation I48.91 ; Neuropathy G62.9 ; Posttraumatic stress disorder F43.10 ; Episodic mood disorder F39 ; Type 2 diabetes mellitus with hyperglycemia E11.65 ; Other allergic rhinitis J30.89 and Irritable bowel syndrome with both constipation and diarrhea K58.2 [facility] [address] 01798- 8680 Apr, Episodic mood disorder F39 and Posttraumatic stress disorder F43.10 [facility] [address] 87877- 2101 Mar, [facility] [address] 97515- 6505 Mar, [place] [address] 18794- 6210 Mar, Chronic hepatitis C without hepatic coma B18.2 [facility] [address] 92403- 7711 Mar, [address] 59871- 9543 Mar, Episodic mood disorder F39 ; Type 2 diabetes mellitus with hyperglycemia E11.65 ; Posttraumatic stress disorder F43.10 and Essential hypertension I10 [place] [address] 26975- 3237 Mar, [place] [address] 73305- 1813 Mar, [place] [address] 29943- 3785 Mar, Type 2 diabetes mellitus with hyperglycemia E11.65 ; Chronic hepatitis C without hepatic coma B18.2 ; Posttraumatic stress disorder F43.10 ; Episodic mood disorder F39 ; Atrial fibrillation I48.91 ; Irritable bowel syndrome with both constipation and diarrhea K58.2 ; Secondary hypertension I15.9 and Neuropathy G62.9 [facility] [address] [address] Feb, Episodic mood disorder F39 and Posttraumatic stress disorder F43.10 [facility] [id number] [place] [address] 82628- 4007 Jan, Episodic mood disorder F39 and Posttraumatic stress disorder F43.10 [facility] [id number] [place] [address] 29185- 6410 Nov, Type 2 diabetes mellitus with hyperglycemia E11.65 ; Atrial fibrillation I48.91 ; Other allergic rhinitis J30.89 ; Episodic mood disorder F39 and Essential hypertension I10 [facility] [id number] [place] [address] 72659- 7358 Nov, [facility] [id number] [place] [address] 20051- 5061 Oct, [facility] [id number] [place] [address] 29995- 4348 Oct, [facility] [id number] [place] [address] 74401- 7622 September, Type 2 diabetes mellitus with hyperglycemia E11.65 ; Atrial fibrillation I48.91 and Chronic pain G89.29 [facility] [address], [place] [address] 117[address] September, Episodic mood disorder F39 and Posttraumatic stress disorder F43.10 [facility] [id number] [place] [address] 30505- 7555 September, [facility] [address], [place] [address] 386[address] September, [facility] [address], [place] [address] September, [facility] [id number] [place] [address] 09518- 9685 September, [facility] [id number] [place] [address] 97397- 3516 September, [facility] [id number] [place] [address] 39428- 7655 Aug, Type 2 diabetes mellitus with hyperglycemia E11.65 and Essential hypertension I10 [facility] [id number] [place] [address] 36852- 4643 Aug, [facility] [address] 27174- 7969 Aug, [facility] [id number] [place] [address] 29193- 9391 Aug, Allergic rhinitis J30.9 ; Atrial fibrillation I48.91 ; Shortness of breath R06.02 and Essential hypertension I10 [facility] [id number] [place] [address] 09190- 0691 Jul, [facility] [id number] [place] [address] 68404- 3347 Jun, Episodic mood disorder F39 and Posttraumatic stress disorder F43.10 [facility] [id number] [place] [address] 00235- 5436 Jun, [facility] [id number] [place] [address] 26227- 2932 May, Chronic pain G89.29 ; History of drug abuse Z87.898 and Marijuana use F12.10 [facility] [id number] [place] [address] 56586- 3268 May, Episodic mood disorder F39 and Posttraumatic stress disorder F43.10 [facility] [id number] [place] [address] 84595- 7685 May, [facility] [address], [place] [address]- 6909 Apr, Chronic pain G89.29 [facility] [id number] [place] [address] 57993- 9810 Apr, Episodic mood disorder F39 and Posttraumatic stress disorder F43.10 [facility] [address] [place] [address] 02341- 1935 Apr, COPD (chronic obstructive pulmonary disease) with acute bronchitis J44.0 [facility] [address] [place] [address] 58717- 9493 Feb, Episodic mood disorder F39 and Posttraumatic stress disorder F43.10 [facility] [address] [place] [address] 81213- 4567 Feb, [facility] [id number] [place] [address] 88011- 5393 Feb, Episodic mood disorder F39 and Posttraumatic stress disorder F43.10 [facility] [id number] [place] [address] 86969- 0873 Jan, Routine adult health maintenance V70.0 [facility] [address] [place] [address] 02046- 6303 Jan, Unspecified episodic mood disorder 296.90 and Posttraumatic stress disorder 309.81 [facility] [address], [place] [address]- 5[address] Dec, Unspecified episodic mood disorder 296.90 and Posttraumatic stress disorder 309.81 [facility] [address], [place] [address]- 1470 Dec, Unspecified episodic mood disorder 296.90 and Posttraumatic stress disorder 309.81 [facility] [address] [place] [address] 69241- 3361 Oct, Unspecified episodic mood disorder 296.90 and Posttraumatic stress disorder 309.81 [facility] [address] [place] [address] 89829- 0647 September, Unspecified episodic mood disorder 296.90 ; Posttraumatic stress disorder 309.81 ; No condition on [place] II V71.09 ; Diabetes 250.00 ; Hypertension 401.9 ; Hepatitis C 070.70 and Degenerative disc disease 722.6 [facility] [address], [place] [address]- 0731 14 Aug, 2014 [facility] [id number] [place] [address] 06495- 4240 Aug, [facility] [id number] [place] [address] 786685- 7394 Jul, [facility] [id number] [place] [address] 38575- 8107 Jul, [facility] [id number] [place] [address] 48640- 5966 16 Jan, 2014 [facility] [id number] [place] [address] 72125- 4351 16 Jan, 2014 [facility] [address] [place] [address] 63795- 1347 Jan, [facility] [id number] [place] [address] 92753- 7050 Oct, [facility] [address] [address]- 2626 Oct, [facility] [address] [place] [address]- 9503 Oct, [facility] [address], [place] [address]- 0160 Oct, [facility] [id number] [place] [address] 57369- 4835 18 Oct, 2012 [facility] [address] [address]- 1449 14 Oct, 2012 [facility] [id number] [place] [address] 68994- 7783 Oct, [facility] [id number], [place] [address]- 6862 Oct, [facility] [address], [place] [address]- 5148 Oct, [facility] [id number] [address]- 7669 Oct, [facility] [address] [address]- 9191 Oct, [facility] [id number] [address]- 1695 Oct, [facility] [address] [place] [address]- 8286 Oct, [facility] [address] [place] [address]- 9506 Oct, [facility] [address] [place] [address]- 3188 Oct, [facility] [id number] [address]- 6522 Oct, [facility] [address] [place] [address]- 6805 September, [facility] [id number] [address]- 0873 Aug, [facility] [id number] [address]- 4314 Aug, [facility] [id number] [address]- 7869 Aug, IMMUNIZATIONS No Known Immunizations SOCIAL HISTORY Never Assessed REASON FOR VISIT FYI only PLAN OF CARE VITAL SIGNS MEDICATIONS Unknown [...]
--- OUTSIDE RECORDS SUMMARY | 2018-06-09 13:39 | XMS REPORT ---
Author Author WATKINSJEFF Barrios Organization [facility] [place] Address [address] [place] [address] Care Team Providers Care Mold Maker Name Role Phone WATKINSJEFF Barrios Unavailable PROBLEMS Type Condition ICD9-CM Code GQN20-UR Code Onset Dates Condition Status SNOMED Code Problem Sinusitis chronic, ethmoidal J32.2 Active 14061775 Problem Mixed hyperlipidemia E78.2 Active 563595412 Problem Tobacco abuse counseling Z71.6 Active 36416139 Problem Bladder spasms N32.89 Active 089496980 Problem Abnormal CBC R79.89 Active 922892708 Problem Other ascites R18.8 Active 334163830 Problem Type 2 diabetes mellitus without complications E11.9 Active 432693957 Problem senior living (current) use of insulin Z79.4 Active 817008785 Problem Chronic obstructive pulmonary disease with acute exacerbation J44.1 Active 920060640 Problem Paroxysmal atrial fibrillation I48.0 Active 845070011 Problem Chronic pain G89.29 Active 37600168 Problem Essential hypertension I10 Active 76254184 Problem Posttraumatic stress disorder F43.10 Active 41090420 Problem Episodic mood disorder F39 Active 35446283 Problem Type 2 diabetes mellitus with hyperglycemia E11.65 Active 409918436 Problem Atrial fibrillation I48.91 Active 03820641 Problem Chronic hepatitis C without hepatic coma B18.2 Active 753638869 Problem Other allergic rhinitis J30.89 Active 14559347 Problem Marijuana use F12.10 Active 23877546 Problem Neuropathy G62.9 Active 474104619 ALLERGIES No Information ENCOUNTERS Encounter Location Date Diagnosis [facility] [place] [id number] [place] [address] 02438- 7271 Dec, Essential hypertension I10 ; BMI 40.0-44.9, adult Z68.41 ; Bladder spasms N32.89 ; Right flank pain R10.9 and Chronic pain G89.29 [facility] [address] [place] [address] 62774 -8995 Dec, Acute frontal sinusitis, recurrence not specified J01.10 and Headache above the eye region R51 [facility] [place] [id number] [place] [address] 78177- 1499 Nov, Abnormal CBC R79.89 [place] [id number] [place] [address] 50098- 2232 Nov, Type 2 diabetes mellitus with hyperglycemia E11.65 and Chronic hepatitis C without hepatic coma B18.2 [facility] [id number] [place] [address] 96737- 2252 Oct, Type 2 diabetes mellitus with hyperglycemia E11.65 [facility] [id number] [place] [address] 90623- 3231 Oct, Type 2 diabetes mellitus with hyperglycemia E11.65 ; Decreased breath sounds at right lung base R09.89 ; Essential hypertension I10 ; Atrial fibrillation I48.91 ; Chronic hepatitis C without hepatic coma B18.2 ; Peripheral edema R60.9 ; Other ascites R18.8 and Chronic obstructive pulmonary disease with acute exacerbation J44.1 [facility] [id number] [place] [address] 17015- 4210 Oct, [place] [id number] [place] [address] 68289- 7900 Oct, [place] [id number] [place] [address] 10508- 4783 September, [place] [id number] [place] [address] 82738- 1870 Aug, Type 2 diabetes mellitus without complications E11.9 [facility] [address] [place] [address] 53566- 7344 Aug, Type 2 diabetes mellitus with hyperglycemia E11.65 [facility] [address] [place] [address] 72321- 0057 Aug, Pneumonia of right middle lobe due to infectious organism J18.1 ; Peripheral edema R60.9 ; Right upper quadrant abdominal pain R10.11 ; Type 2 diabetes mellitus without complications E11.9 and BMI 40.0-44.9, adult Z68.41 [place] [id number] [place] [address] 01899- 0250 13 Aug, 2017 [place] [id number] [place] [address] 96735- 7455 Aug, [address] 08954- 1907 Aug, [address] 84352- 7224 Aug, Type 2 diabetes mellitus without complications E11.9 ; Type 2 diabetes mellitus with hyperglycemia E11.65 ; Peripheral edema R60.9 ; Shortness of breath R06.02 ; Paroxysmal atrial fibrillation I48.0 and Pneumonia of right middle lobe due to infectious organism J18.1 [place] [id number] [place] [address] 65716- 3458 Aug, [facility] [id number] [place] [address] 02780 -9966 Jul, Wheezing R06.2 and Acute non-recurrent pansinusitis J01.40 [place] [id number] [place] [address] 29341- 0104 Jul, [place] [id number] [place] [address] 74709- 9099 Jul, [place] [id number] [place] [address] 04675- 8486 May, Type 2 diabetes mellitus with hyperglycemia E11.65 ; Type 2 diabetes mellitus without complications E11.9 ; 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.4 ; Essential hypertension I10 ; Atrial fibrillation I48.91 ; Chronic hepatitis C without hepatic coma B18.2 ; Mixed hyperlipidemia E78.2 ; Episodic mood disorder F39 ; Neuropathy G62.9 ; Acute non-recurrent maxillary sinusitis J01.00 ; Chronic pain G89.29 and Marijuana use F12.[id number] [place] [address] 73695- 3403 Apr, Atrial fibrillation I48.91 [facility] [address] 77804- 3813 Mar, [facility] [id number] [place] [address] 84071- 1121 13 Feb, 2017 Type 2 diabetes mellitus with hyperglycemia E11.65 ; Essential hypertension I10 ; Mixed hyperlipidemia E78.2 ; Atrial fibrillation I48.91 ; Neuropathy G62.9 ; Other allergic rhinitis J30.89 and Non compliance with medical treatment Z91.[address] 69008- 4791 07 Jan, 2017 Episodic mood disorder F39 and Posttraumatic stress disorder F43.10 [place] [id number] [place] [address] 17182- 7177 05 Jan, 2017 [place] [id number] [place] [address] 52449- 4599 12 Oct, 2016 [place] [id number] [place] [address] 49948- 5416 Oct, [place] [id number] [place] [address] 68093- 7577 08 Oct, 2016 Type 2 diabetes mellitus with hyperglycemia E11.65 ; Essential hypertension I10 ; Atrial fibrillation I48.91 ; Episodic mood disorder F39 ; Chronic pain G89.29 ; Neuropathy G62.9 ; Other allergic rhinitis J30.89 and Tobacco abuse counseling Z71.6 [facility] [address] [place] [address] 29808 -8929 Aug, Acute non-recurrent pansinusitis J01.40 [place] [id number] [place] [address] 30789- 4525 Jul, [facility] [id number] [place] [address] 98197- 1430 Jun, [address] [place] [address]- 3222 Jun, Type 2 diabetes mellitus with hyperglycemia E11.65 ; Episodic mood disorder F39 ; Posttraumatic stress disorder F43.10 ; Essential hypertension I10 ; Atrial fibrillation I48.91 ; Chronic pain G89.29 ; Acute upper respiratory infection, unspecified J06.9 ; Other viral agents as the cause of diseases classified elsewhere B97.89 ; Acute pain of left shoulder M25.512 and Sinusitis chronic, ethmoidal J32.2 [place] [address] 75093- 5371 May, Acute intractable tension-type headache G44.201 ; Chronic pain G89.29 ; Essential hypertension I10 ; Atrial fibrillation I48.91 ; Neuropathy G62.9 ; Posttraumatic stress disorder F43.10 ; Episodic mood disorder F39 ; Type 2 diabetes mellitus with hyperglycemia E11.65 ; Other allergic rhinitis J30.89 and Irritable bowel syndrome with both constipation and diarrhea K58.2 [place] [address] 36702- 4925 Apr, Episodic mood disorder F39 and Posttraumatic stress disorder F43.10 [place] [address] 73202- 1620 Mar, [place] [address] 77067- 2712 Mar, [place] [id number] [place] [address] 15093- 2557 Mar, Chronic hepatitis C without hepatic coma B18.2 [facility] [place] [id number] [place] [address] 13315- 0660 Mar, [place] [address] 07934- 7807 Mar, Episodic mood disorder F39 ; Type 2 diabetes mellitus with hyperglycemia E11.65 ; Posttraumatic stress disorder F43.10 and Essential hypertension I10 [place] [address] 05854- 9955 Mar, [place] [address] [address]- 8795 Mar, [place] [id number] [place] [address] 87659- 1737 Mar, Type 2 diabetes mellitus with hyperglycemia E11.65 ; Chronic hepatitis C without hepatic coma B18.2 ; Posttraumatic stress disorder F43.10 ; Episodic mood disorder F39 ; Atrial fibrillation I48.91 ; Irritable bowel syndrome with both constipation and diarrhea K58.2 ; Secondary hypertension I15.9 and Neuropathy G62.9 [place] [id number] [place] [address] 46010- 0509 Feb, Episodic mood disorder F39 and Posttraumatic stress disorder F43.10 [place] [id number] [place] [address] 79652- 3528 Jan, Episodic mood disorder F39 and Posttraumatic stress disorder F43.10 [facility] [id number] [place] [address] 94534- 1441 Nov, Type 2 diabetes mellitus with hyperglycemia E11.65 ; Atrial fibrillation I48.91 ; Other allergic rhinitis J30.89 ; Episodic mood disorder F39 and Essential hypertension I10 [place] [id number] [place] [address] 28123- 2849 Nov, [place] [id number] [place] [address] 90144- 1594 Oct, [place] [id number] [place] [address] 49116- 4714 Oct, [place] [id number] [place] [address] 70198- 8075 September, Type 2 diabetes mellitus with hyperglycemia E11.65 ; Atrial fibrillation I48.91 and Chronic pain G89.29 [place] [id number] [place] [address] 50214- 6633 September, Episodic mood disorder F39 and Posttraumatic stress disorder F43.10 [place] [id number] [place] [address] 28957- 1554 September, [facility] [place] [id number] [place] [address] 29899- 8015 September, [facility] [id number] [place] [address] 68129 -8425 September, [facility] [place] [id number] [place] [address] 48203- 6212 September, [facility] [place] [address] 73017- 0318 September, [facility] [place] [address] 42474- 9722 Aug, Type 2 diabetes mellitus with hyperglycemia E11.65 and Essential hypertension I10 [facility] [place] [address] 03141- 5995 Aug, [facility] [place] [address] 05451- 5915 Aug, [facility] [place] [id number] [place] [address] 18256- 3300 Aug, Allergic rhinitis J30.9 ; Atrial fibrillation I48.91 ; Shortness of breath R06.02 and Essential hypertension I10 [facility] [place] [id number] [place] [address] 73586- 7549 Jul, [facility] [place] [id number] [place] [address] 64989- 8915 10 Jun, 2015 Episodic mood disorder F39 and Posttraumatic stress disorder F43.10 [facility] [place] [id number] [place] [address] 11850- 7511 Jun, [facility] [place] [address] 53745- 1519 May, Chronic pain G89.29 ; History of drug abuse Z87.898 and Marijuana use F12.10 [facility] [place] [address] 52909- 8602 May, Episodic mood disorder F39 and Posttraumatic stress disorder F43.10 [facility] [place] [address] [address]- 0222 May, [facility] [place] [address] [address]- 7535 Apr, Chronic pain G89.29 [facility] [place] [address] [place] [address] 33975- 9465 Apr, Episodic mood disorder F39 and Posttraumatic stress disorder F43.10 [facility] [place] [address] [place] [address] 42987- 7094 Apr, COPD (chronic obstructive pulmonary disease) with acute bronchitis J44.0 [facility] [place] [address] [place] [address] 14329- 5053 Feb, Episodic mood disorder F39 and Posttraumatic stress disorder F43.10 [facility] [place] [id number] [place] [address] 77570- 1652 Feb, [facility] [place] [address] [place] [address] 78924- 0299 Feb, Episodic mood disorder F39 and Posttraumatic stress disorder F43.10 [facility] [place] [address] [address]- 5602 Jan, Routine adult health maintenance V70.0 [facility] [place] [address] [address]- 1932 Jan, Unspecified episodic mood disorder 296.90 and Posttraumatic stress disorder 309.81 [facility] [place] [address] [address]- 8916 Dec, Unspecified episodic mood disorder 296.90 and Posttraumatic stress disorder 309.81 [facility] [place] [address] [address]- 7335 Dec, Unspecified episodic mood disorder 296.90 and Posttraumatic stress disorder 309.81 [facility] [place] [address] [address]- 2425 Oct, Unspecified episodic mood disorder 296.90 and Posttraumatic stress disorder 309.81 [facility] [place] [id number] [place] [address] 13363- 2904 September, Unspecified episodic mood disorder 296.90 ; Posttraumatic stress disorder 309.81 ; No condition on [place] II V71.09 ; Diabetes 250.00 ; Hypertension 401.9 ; Hepatitis C 070.70 and Degenerative disc disease 722.6 [facility] [place] [id number] [address]- 6156 Aug, [facility] [place] [id number] [place] [address] 91990- 5961 Aug, [facility] [place] [id number] [address]- 6335 Jul, [facility] [place] [id number] [place] [address] 92184- 3655 Jul, [facility] [place] [address] [address]- 7206 Jan, [facility] [place] [id number] [address]- 3608 Jan, [facility] [place] [address] [address]- 3303 Jan, [facility] [place] [address] [address]- 7807 Oct, [facility] [place] [address], [place] [address]- 4544 Oct, [facility] [place] [address] [address]- 6835 Oct, [facility] [place] [address] [address]- 8044 Oct, [facility] [place] [address] [address]- 8765 Oct, [facility] [place] [address] [id number] [address]- 5133 14 Oct, 2012 [facility] [place] [address] [facility] [place] [id number] [address]- 0690 13 Oct, 2012 [facility] [place] [address] [facility] [place] [id number], [place] [address]- 3911 13 Oct, 2012 [facility] [place] [address] [facility] [place] [id number] [address]- 5806 12 Oct, 2012 [facility] [place] [address] [id number] [address]- 4636 12 Oct, 2012 [facility] [place] [address] [facility] [place] [id number], [place] [address]- 1337 Oct, [facility] [place] [id number] [address]- 8771 Oct, [facility] [place] [address], [place] [address]- 6044 Oct, [facility] [place] [address], [place] [address]- 1797 Oct, [facility] [place] [address], [place] [address]- 8141 Oct, [facility] [place] [id number] [address]- 7913 Oct, [facility] [place] [address] [facility] [place] [id number], [place] [address]- 8213 September, [facility] [place] [address] [facility] [place] [id number], [place] [address]- 6897 Aug, [facility] [place] [address] [facility] [place] [id number], [place] [address]- 4451 Aug, [facility] [place] [id number] [address]- 7710 Aug, IMMUNIZATIONS No Known Immunizations SOCIAL HISTORY Never Assessed REASON FOR VISIT referral PLAN OF CARE VITAL SIGNS MEDICATIONS No [...]
--- OUTSIDE RECORDS SUMMARY | 2018-06-09 13:39 | XMS REPORT ---
Author Author WATKINSJEFF Barrios Organization [facility] Address [address] [place] [address] Care Team Providers Care Manager Maintenance Name Role Phone WATKINSJEFF Barrios Unavailable PROBLEMS Type Condition ICD9-CM Code UEZ63-KV Code Onset Dates Condition Status SNOMED Code Problem Sinusitis chronic, ethmoidal J32.2 Active 08996535 Problem Mixed hyperlipidemia E78.2 Active 469615979 Problem Tobacco abuse counseling Z71.6 Active 87577492 Problem Bladder spasms N32.89 Active 902609050 Problem Abnormal CBC R79.89 Active 558742913 Problem Other ascites R18.8 Active 220039990 Problem Type 2 diabetes mellitus without complications E11.9 Active 263806804 Problem custodial (current) use of insulin Z79.4 Active 529605131 Problem Chronic obstructive pulmonary disease with acute exacerbation J44.1 Active 947129152 Problem Paroxysmal atrial fibrillation I48.0 Active 579167515 Problem Chronic pain G89.29 Active 47133488 Problem Essential hypertension I10 Active 35769505 Problem Posttraumatic stress disorder F43.10 Active 67303013 Problem Episodic mood disorder F39 Active 82127715 Problem Type 2 diabetes mellitus with hyperglycemia E11.65 Active 920571190 Problem Atrial fibrillation I48.91 Active 80851220 Problem Chronic hepatitis C without hepatic coma B18.2 Active 342631689 Problem Other allergic rhinitis J30.89 Active 97245020 Problem Marijuana use F12.10 Active 92219943 Problem Neuropathy G62.9 Active 667536505 ALLERGIES No Information ENCOUNTERS Encounter Location Date Diagnosis [facility] [id number] [place] [address] 37647- 7296 Dec, Essential hypertension I10 ; BMI 40.0-44.9, adult Z68.41 ; Bladder spasms N32.89 ; Right flank pain R10.9 and Chronic pain G89.29 [facility] [id number] [place] [address] 88645 -8016 Dec, Acute frontal sinusitis, recurrence not specified J01.10 and Headache above the eye region R51 [facility] [id number] [place] [address] 39830- 7377 Nov, Abnormal CBC R79.89 [facility] [id number] [place] [address] 97568- 4137 Nov, Type 2 diabetes mellitus with hyperglycemia E11.65 and Chronic hepatitis C without hepatic coma B18.2 [facility] [id number] [place] [address] 52075- 0058 Oct, Type 2 diabetes mellitus with hyperglycemia E11.65 [facility] [address] [id number] [place] [address] 67562- 1773 Oct, Type 2 diabetes mellitus with hyperglycemia E11.65 ; Decreased breath sounds at right lung base R09.89 ; Essential hypertension I10 ; Atrial fibrillation I48.91 ; Chronic hepatitis C without hepatic coma B18.2 ; Peripheral edema R60.9 ; Other ascites R18.8 and Chronic obstructive pulmonary disease with acute exacerbation J44.1 [facility] [id number] [place] [address] 56033- 7876 Oct, [facility] [address] [address] [id number] [place] [address] 61513- 8088 Oct, [facility] [address] [id number] [place] [address] 34073- 0229 September, [facility] [address] [id number] [place] [address] 13492- 3714 Aug, Type 2 diabetes mellitus without complications E11.9 [facility] [address] [place] [address] 30237- 3486 Aug, Type 2 diabetes mellitus with hyperglycemia E11.65 [facility] [facility] [id number] [place] [address] 91474- 3723 Aug, Pneumonia of right middle lobe due to infectious organism J18.1 ; Peripheral edema R60.9 ; Right upper quadrant abdominal pain R10.11 ; Type 2 diabetes mellitus without complications E11.9 and BMI 40.0-44.9, adult Z68.41 [place] [id number] [place] [address] 21277- 2434 13 Aug, 2017 [place] [address] [id number] [place] [address] 84198- 5134 Aug, [address] 93265- 0633 Aug, [address] 62332- 1604 Aug, Type 2 diabetes mellitus without complications E11.9 ; Type 2 diabetes mellitus with hyperglycemia E11.65 ; Peripheral edema R60.9 ; Shortness of breath R06.02 ; Paroxysmal atrial fibrillation I48.0 and Pneumonia of right middle lobe due to infectious organism J18.1 [place] [id number] [place] [address] 06394- 8542 Aug, [facility] [id number] [place] [address] 06367 -1126 Jul, Wheezing R06.2 and Acute non-recurrent pansinusitis J01.40 [place] [id number] [place] [address] 16074- 0446 Jul, [place] [id number] [place] [address] 98056- 3276 Jul, [place] [id number] [place] [address] 21211- 2796 May, Type 2 diabetes mellitus with hyperglycemia E11.65 ; Type 2 diabetes mellitus without complications E11.9 ; 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65 ; Essential hypertension I10 ; Mixed hyperlipidemia E78.2 ; Atrial fibrillation I48.91 ; Neuropathy G62.9 ; Other allergic rhinitis J30.89 and Non compliance with medical treatment Z91.[address] 56933- 7867 07 Jan, 2017 Episodic mood disorder F39 and Posttraumatic stress disorder F43.10 [facility] [id number] [place] [address] 58459- 7084 05 Jan, 2017 [place] [id number] [place] [address] 71863- 8201 12 Oct, 2016 [place] [address] [id number] [place] [address] 25200- 9565 Oct, [place] [id number] [place] [address] 21445- 6189 08 Oct, 2016 Type 2 diabetes mellitus with hyperglycemia E11.65 ; Essential hypertension I10 ; Atrial fibrillation I48.91 ; Episodic mood disorder F39 ; Chronic pain G89.29 ; Neuropathy G62.9 ; Other allergic rhinitis J30.89 and Tobacco abuse counseling Z71.6 [facility] [address] [place] [address] 34863 -5096 Aug, Acute non-recurrent pansinusitis J01.40 [place] [id number] [place] [address] 51358- 8815 Jul, [facility] [address] [id number] [place] [address] 62665- 3900 Jun, [address] [place] [address]- 9179 Jun, Type 2 diabetes mellitus with hyperglycemia E11.65 ; Episodic mood disorder F39 ; Posttraumatic stress disorder F43.10 ; Essential hypertension I10 ; Atrial fibrillation I48.91 ; Chronic pain G89.29 ; Acute upper respiratory infection, unspecified J06.9 ; Other viral agents as the cause of diseases classified elsewhere B97.89 ; Acute pain of left shoulder M25.512 and Sinusitis chronic, ethmoidal J32.2 [place] [address] 05823- 2631 May, Acute intractable tension-type headache G44.201 ; Chronic pain G89.29 ; Essential hypertension I10 ; Atrial fibrillation I48.91 ; Neuropathy G62.9 ; Posttraumatic stress disorder F43.10 ; Episodic mood disorder F39 ; Type 2 diabetes mellitus with hyperglycemia E11.65 ; Other allergic rhinitis J30.89 and Irritable bowel syndrome with both constipation and diarrhea K58.2 [place] [address] 40010- 5037 Apr, Episodic mood disorder F39 and Posttraumatic stress disorder F43.10 [place] [address] 44297- 2233 Mar, [place] [address] 23125- 1205 Mar, [place] [address] [address] [id number] [place] [address] 67049- 0400 Mar, Chronic hepatitis C without hepatic coma B18.2 [facility] [address] [id number] [place] [address] 31008- 9833 Mar, [place] [address] 27423- 1545 Mar, Episodic mood disorder F39 ; Posttraumatic stress disorder F43.10 ; Essential hypertension I10 and Type 2 diabetes mellitus with hyperglycemia E11.65 [facility] [address] 33468- 7621 Mar, [place] [address] [address]- 0057 Mar, [facility] [address] [address] [id number] [place] [address] 29756- 0985 Mar, Type 2 diabetes mellitus with hyperglycemia E11.65 ; Chronic hepatitis C without hepatic coma B18.2 ; Posttraumatic stress disorder F43.10 ; Episodic mood disorder F39 ; Atrial fibrillation I48.91 ; Irritable bowel syndrome with both constipation and diarrhea K58.2 ; Secondary hypertension I15.9 and Neuropathy G62.9 [place] [id number] [place] [address] 02895- 6029 Feb, Episodic mood disorder F39 and Posttraumatic stress disorder F43.10 [facility] [address] [id number] [place] [address] 60728- 9192 Jan, Episodic mood disorder F39 and Posttraumatic stress disorder F43.10 [facility] [address] [id number] [place] [address] 95700- 3957 Nov, Type 2 diabetes mellitus with hyperglycemia E11.65 ; Atrial fibrillation I48.91 ; Other allergic rhinitis J30.89 ; Episodic mood disorder F39 and Essential hypertension I10 [place] [address] [id number] [place] [address] 81578- 8514 Nov, [place] [address] [place] [address] [id number] [place] [address] 25569- 8343 Oct, [place] [address] [address] [id number] [place] [address] 33616- 8043 Oct, [place] [address] [address] [id number] [place] [address] 68445- 3611 September, Type 2 diabetes mellitus with hyperglycemia E11.65 ; Atrial fibrillation I48.91 and Chronic pain G89.29 [place] [address] [address] [id number] [place] [address] 51895- 0675 September, Episodic mood disorder F39 and Posttraumatic stress disorder F43.10 [place] [address] [place] [address] [id number] [place] [address] 18514- 8489 September, [facility] [id number] [place] [address] 53746- 4961 September, [facility] [id number] [place] [address] 43025 -5472 September, [facility] [address] [id number] [place] [address] 73642- 3358 September, [facility] [address] 36633- 5299 September, [facility] [address] 28957- 4345 Aug, Type 2 diabetes mellitus with hyperglycemia E11.65 and Essential hypertension I10 [facility] [address] 19407- 8875 Aug, [facility] [address] 26345- 5283 Aug, [facility] [address] [address] [id number] [place] [address] 19927- 5737 Aug, Allergic rhinitis J30.9 ; Atrial fibrillation I48.91 ; Shortness of breath R06.02 and Essential hypertension I10 [facility] [address] [address] [id number] [place] [address] 48373- 0037 Jul, [facility] [address] [id number] [place] [address] 78422- 7919 10 Jun, 2015 Episodic mood disorder F39 and Posttraumatic stress disorder F43.10 [facility] [address] [address] [id number] [place] [address] 81151- 8439 Jun, [facility] [address] 90488- 9250 May, Chronic pain G89.29 ; History of drug abuse Z87.898 and Marijuana use F12.10 [facility] [address] 05158- 7768 May, Episodic mood disorder F39 and Posttraumatic stress disorder F43.10 [facility] [address] [address]- 2793 May, [facility] [address] [address]- 0331 Apr, Chronic pain G89.29 [facility] [address] [place] [address] 20250- 5085 Apr, Episodic mood disorder F39 and Posttraumatic stress disorder F43.10 [facility] [address] [place] [address] 13869- 1857 Apr, COPD (chronic obstructive pulmonary disease) with acute bronchitis J44.0 [facility] [address] [place] [address] 28389- 5613 Feb, Episodic mood disorder F39 and Posttraumatic stress disorder F43.10 [facility] [address] [id number] [place] [address] 04158- 9961 Feb, [facility] [address] [place] [address] 22464- 2099 Feb, Episodic mood disorder F39 and Posttraumatic stress disorder F43.10 [facility] [address] [address]- 2743 Jan, Routine adult health maintenance V70.0 [facility] [address] [address]- 2874 Jan, Unspecified episodic mood disorder 296.90 and Posttraumatic stress disorder 309.81 [facility] [address] [address]- 8956 Dec, Unspecified episodic mood disorder 296.90 and Posttraumatic stress disorder 309.81 [facility] [address] [address]- 0867 Dec, Unspecified episodic mood disorder 296.90 and Posttraumatic stress disorder 309.81 [facility] [address] [address] [address]- 7581 Oct, Unspecified episodic mood disorder 296.90 and Posttraumatic stress disorder 309.81 [facility] [address] [id number] [place] [address] 69175- 2311 September, Unspecified episodic mood disorder 296.90 ; Posttraumatic stress disorder 309.81 ; No condition on [place] II V71.09 ; Diabetes 250.00 ; Hypertension 401.9 ; Hepatitis C 070.70 and Degenerative disc disease 722.6 [facility] [address] [address] [address]- 3231 Aug, [facility] [address] [id number] [place] [address] 65284- 6468 Aug, [facility] [address] [address]- 1285 Jul, [facility] [id number] [place] [address] 59168- 2624 Jul, [facility] [address] [address]- 2773 Jan, [facility] [id number] [address]- 2903 Jan, [facility] [address] [address]- 4722 Jan, [facility] [address] [place] [address]- 7266 Oct, [facility] [address] [address]- 0907 Oct, [facility] [address] [address]- 3297 Oct, [facility] [address] [address]- 2012 Oct, [facility] [address] [address]- 9095 Oct, [facility] [address] [id number], [place] [address]- 6418 14 Oct, 2012 [facility] [address] [facility] [id number], [place] [address]- 0365 13 Oct, 2012 [facility] [address] [facility] [id number], [place] [address]- 0252 13 Oct, 2012 [facility] [address] [facility] [id number], [place] [address]- 6403 12 Oct, 2012 [facility] [address] [id number], [place] [address]- 6659 Oct, [facility] [address] [facility] [id number] [place] [address]- 0549 Oct, [facility] [address] [place] [id number] [address]- 1321 Oct, [facility] [address] [address]- 9559 Oct, [facility] [address] [id number], [place] [address]- 4455 Oct, [facility] [address] [place] [address]- 4146 Oct, [facility] [address] [place] [id number] [address]- 1613 Oct, [facility] [address] [facility] [id number] [address]- 5431 September, [facility] [address] [facility] [id number], [place] [address]- 1223 Aug, [facility] [address] [facility] [id number] [address]- 1903 Aug, [facility] [address] [facility] [id number], [place] [address]- 0806 Aug, IMMUNIZATIONS No Known Immunizations SOCIAL HISTORY Never Assessed REASON FOR VISIT Lab (walk-in) PLAN OF CARE VITAL SIGNS MEDICATIONS No Known Medications RESULTS No Results PROCEDURES Procedure Date Ordered Result Body Site LAB [facility] December 11, 2017 INSTRUCTIONS MEDICATIONS ADMINISTERED No Known Medications [...]
--- OUTSIDE RECORDS SUMMARY | 2018-06-09 13:40 | XMS REPORT ---
Author Author JEFF WATKINS Organization [facility] Address [address] [place] [address] Care Team Providers Care Pet Stylist Name Role Phone JEFF WATKINS Unavailable PROBLEMS Type Condition ICD9-CM Code BVS78-RA Code Onset Dates Condition Status SNOMED Code Problem Neuropathy G62.9 Active 872938667 Problem Tobacco abuse counseling Z71.6 Active 65885692 Problem Sinusitis chronic, ethmoidal J32.2 Active 88705178 Problem Other ascites R18.8 Active 590603930 Problem Chronic obstructive pulmonary disease with acute exacerbation J44.1 Active 027253769 Problem FCI (current) use of insulin Z79.4 Active 350325350 Problem Mixed hyperlipidemia E78.2 Active 978451993 Problem Paroxysmal atrial fibrillation I48.0 Active 010132274 Problem Type 2 diabetes mellitus without complications E11.9 Active 444467409 Problem Episodic mood disorder F39 Active 99799797 Problem Chronic pain G89.29 Active 92992695 Problem Abnormal CBC R79.89 Active 840478409 Problem Posttraumatic stress disorder F43.10 Active 01188096 Problem Marijuana use F12.10 Active 37801322 Problem Type 2 diabetes mellitus with hyperglycemia E11.65 Active 616406493 Problem Essential hypertension I10 Active 02940856 Problem Atrial fibrillation I48.91 Active 13121333 Problem Chronic hepatitis C without hepatic coma B18.2 Active 699016195 Problem Other allergic rhinitis J30.89 Active 53176350 ALLERGIES No Information ENCOUNTERS Encounter Location Date Diagnosis [facility] [address] [facility] [id number] [address] Dec, [facility] [id number] [address] Nov, Abnormal CBC R79.89 [facility] [address] [id number] [address] 1339 Nov, Type 2 diabetes mellitus with hyperglycemia E11.65 and Chronic hepatitis C without hepatic coma B18.2 [facility] [id number] [place] [address] 83630- 7123 27 Oct, 2017 Type 2 diabetes mellitus with hyperglycemia E11.65 [facility] [id number] [place] [address] 44809- 8735 15 Oct, 2017 Type 2 diabetes mellitus with hyperglycemia E11.65 ; Decreased breath sounds at right lung base R09.89 ; Essential hypertension I10 ; Atrial fibrillation I48.91 ; Chronic hepatitis C without hepatic coma B18.2 ; Peripheral edema R60.9 ; Other ascites R18.8 and Chronic obstructive pulmonary disease with acute exacerbation J44.1 [place] [address] [address]- [address] Oct, [place] [id number] [place] [address] 32346- 7982 Oct, [place] [address] 53632- 1466 September, [place] [address] [id number] [place] [address] 09466- 0841 Aug, Type 2 diabetes mellitus without complications E11.9 [place] [id number] [place] [address] 22903- 3415 Aug, Type 2 diabetes mellitus with hyperglycemia E11.65 [place] [id number] [place] [address] 28186- 0879 16 Aug, 2017 Pneumonia of right middle lobe due to infectious organism J18.1 ; Peripheral edema R60.9 ; Right upper quadrant abdominal pain R10.11 ; Type 2 diabetes mellitus without complications E11.9 and BMI 40.0-44.9, adult Z68.41 [place] [id number] [place] [address] 68209- 0191 Aug, [place] [address] [id number] [place] [address] 30002- 2235 Aug, [place] [address] [place] [address]- 5448 Aug, [facility] [id number] [place] [address] 46869- 9875 Aug, Type 2 diabetes mellitus without complications E11.9 ; Type 2 diabetes mellitus with hyperglycemia E11.65 ; Peripheral edema R60.9 ; Shortness of breath R06.02 ; Paroxysmal atrial fibrillation I48.0 and Pneumonia of right middle lobe due to infectious organism J18.1 [place] [id number] [place] [address] 14973- 6249 Aug, [facility] [address] [address] -[address]81 Jul, Wheezing R06.2 and Acute non-recurrent pansinusitis J01.40 [place] [address] 80416- 3939 Jul, [place] [address] 79148- 8297 Jul, [place] [address] [id number] [place] [address] 53945- 6653 May, Type 2 diabetes mellitus with hyperglycemia E11.65 ; Type 2 diabetes mellitus without complications E11.9 ; 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.4 ; Essential hypertension I10 ; Atrial fibrillation I48.91 ; Chronic hepatitis C without hepatic coma B18.2 ; Mixed hyperlipidemia E78.2 ; Episodic mood disorder F39 ; Neuropathy G62.9 ; Acute non-recurrent maxillary sinusitis J01.00 ; Chronic pain G89.29 and Marijuana use F12.10 [place] [id number] [place] [address] 55410- 1920 Apr, Atrial fibrillation I48.91 [place] [address] 84909- 8588 Mar, [place] [id number] [place] [address] 13546- 9506 Feb, Type 2 diabetes mellitus with hyperglycemia E11.65 ; Essential hypertension I10 ; Mixed hyperlipidemia E78.2 ; Atrial fibrillation I48.91 ; Neuropathy G62.9 ; Other allergic rhinitis J30.89 and Non compliance with medical treatment Z91.19 [place] [id number] [place] [address] 80635- 6406 Jan, Episodic mood disorder F39 and Posttraumatic stress disorder F43.10 [place] [id number] [place] [address] 81363- 8673 Jan, [place] [address] [id number] [place] [address] 17416- 0613 Oct, [address] 02[address]- 2195 Oct, [place] [address] [id number] [place] [address] 28600- 5625 Oct, Type 2 diabetes mellitus with hyperglycemia E11.65 ; Essential hypertension I10 ; Atrial fibrillation I48.91 ; Episodic mood disorder F39 ; Chronic pain G89.29 ; Neuropathy G62.9 ; Other allergic rhinitis J30.89 and Tobacco abuse counseling Z71.6 [facility] [id number] [place] [address] 75900 -3497 Aug, Acute non-recurrent pansinusitis J01.40 [place] [id number] [place] [address] 74822- 1995 Jul, [place] [address] [id number] [place] [address] 87215- 7795 Jun, [place] [id number] [place] [address] 85130- 7222 Jun, Type 2 diabetes mellitus with hyperglycemia E11.65 ; Episodic mood disorder F39 ; Posttraumatic stress disorder F43.10 ; Essential hypertension I10 ; Atrial fibrillation I48.91 ; Chronic pain G89.29 ; Acute upper respiratory infection, unspecified J06.9 ; Other viral agents as the cause of diseases classified elsewhere B97.89 ; Acute pain of left shoulder M25.512 and Sinusitis chronic, ethmoidal J32.2 [facility] [address] [place] [address] 83681- 9595 May, Acute intractable tension-type headache G44.201 ; Chronic pain G89.29 ; Essential hypertension I10 ; Atrial fibrillation I48.91 ; Neuropathy G62.9 ; Posttraumatic stress disorder F43.10 ; Episodic mood disorder F39 ; Type 2 diabetes mellitus with hyperglycemia E11.65 ; Other allergic rhinitis J30.89 and Irritable bowel syndrome with both constipation and diarrhea K58.2 [facility] [id number] [place] [address] 58110- 6896 Apr, Episodic mood disorder F39 and Posttraumatic stress disorder F43.10 [facility] [id number] [place] [address] 98931- 7785 Mar, [facility] [id number] [place] [address] 87173- 3205 Mar, [facility] [id number] [place] [address] 58055- 9426 Mar, Chronic hepatitis C without hepatic coma B18.2 [facility] [id number] [place] [address] 09572- 9183 Mar, [facility] [id number] [place] [address] 88666- 6660 Mar, Episodic mood disorder F39 ; Type 2 diabetes mellitus with hyperglycemia E11.65 ; Posttraumatic stress disorder F43.10 and Essential hypertension I10 [facility] [id number] [place] [address] 29597- 4335 Mar, [facility] [id number] [place] [address] 04826- 2316 Mar, [facility] [id number] [place] [address] 33109- 7030 Mar, Type 2 diabetes mellitus with hyperglycemia E11.65 ; Chronic hepatitis C without hepatic coma B18.2 ; Posttraumatic stress disorder F43.10 ; Episodic mood disorder F39 ; Atrial fibrillation I48.91 ; Irritable bowel syndrome with both constipation and diarrhea K58.2 ; Secondary hypertension I15.9 and Neuropathy G62.9 [facility] [id number] [place] [address] 92691- 4514 Feb, Episodic mood disorder F39 and Posttraumatic stress disorder F43.10 [facility] [id number] [place] [address] 16184- 2282 Jan, Episodic mood disorder F39 and Posttraumatic stress disorder F43.10 [facility] [id number] [place] [address] 02971- 1286 Nov, Type 2 diabetes mellitus with hyperglycemia E11.65 ; Atrial fibrillation I48.91 ; Other allergic rhinitis J30.89 ; Episodic mood disorder F39 and Essential hypertension I10 [facility] [id number] [place] [address] 59724- 4135 Nov, [facility] [id number] [place] [address] 47125- 2778 Oct, [facility] [id number] [place] [address] 49625- 5001 Oct, [facility] [id number] [place] [address] 18084- 9931 September, Type 2 diabetes mellitus with hyperglycemia E11.65 ; Atrial fibrillation I48.91 and Chronic pain G89.29 [facility] [id number] [place] [address] 11682- 3134 September, Episodic mood disorder F39 and Posttraumatic stress disorder F43.10 [facility] [id number] [place] [address] 95194- 8024 September, [facility] [id number] [place] [address] 68682- 3896 September, [facility] [id number] [place] [address] 54093 -2010 September, [facility] [id number] [place] [address] 52911- 8522 September, [facility] [id number] [place] [address] 10436- 5173 September, [facility] [address] 55895- 7297 Aug, Type 2 diabetes mellitus with hyperglycemia E11.65 and Essential hypertension I10 [facility] [address] 61124- 3395 Aug, [facility] [address] 58518- 4984 Aug, [facility] [address] 65940- 2419 Aug, Allergic rhinitis J30.9 ; Atrial fibrillation I48.91 ; Shortness of breath R06.02 and Essential hypertension I10 [place] [address] 91247- 6863 Jul, [facility] [address] [id number] [place] [address] 40626- 9147 Jun, Episodic mood disorder F39 and Posttraumatic stress disorder F43.10 [place] [address] [id number] [place] [address] 45596- 4204 Jun, [facility] [id number] [place] [address] 80510- 6448 May, Chronic pain G89.29 ; History of drug abuse Z87.898 and Marijuana use F12.10 [facility] [id number] [place] [address] 34160- 4614 May, Episodic mood disorder F39 and Posttraumatic stress disorder F43.10 [facility] [address] [id number] [place] [address] 81288- 4433 May, [facility] [id number] [place] [address] 07892- 0988 14 Apr, 2015 Chronic pain G89.29 [place] [address] [place] [address]- 2773 Apr, Episodic mood disorder F39 and Posttraumatic stress disorder F43.10 [facility] [address] [place] [address] 787781- 9276 Apr, COPD (chronic obstructive pulmonary disease) with acute bronchitis J44.0 [facility] [address] [place] [address] 21204- 5466 Feb, Episodic mood disorder F39 and Posttraumatic stress disorder F43.10 [facility] [address] [id number] [place] [address] 14409- 6729 Feb, [place] [address] [id number] [place] [address] 467522- 4863 Feb, Episodic mood disorder F39 and Posttraumatic stress disorder F43.10 [place] [address] 9726 Jan, Routine adult health maintenance V70.0 [facility] [id number] [place] [address] 99002- 1413 Jan, Unspecified episodic mood disorder 296.90 and Posttraumatic stress disorder 309.81 [facility] [address] [place] [address] 35885- 6580 Dec, Unspecified episodic mood disorder 296.90 and Posttraumatic stress disorder 309.81 [place] [address] [place] [address] 42704- 7739 Dec, Unspecified episodic mood disorder 296.90 and Posttraumatic stress disorder 309.81 [facility] [address] [place] [address] 61229231- 9896 Oct, Unspecified episodic mood disorder 296.90 and Posttraumatic stress disorder 309.81 [facility] [address] 5885 September, Unspecified episodic mood disorder 296.90 ; Posttraumatic stress disorder 309.81 ; No condition on [place] II V71.09 ; Diabetes 250.00 ; Hypertension 401.9 ; Hepatitis C 070.70 and Degenerative disc disease 722.6 [facility] [address] [id number] [place] [address]- 2456 14 Aug, 2014 [facility] [address] [id number] [place] [address]- 8572 13 Aug, 2014 [facility] [address] [facility] [id number] [place] [address]- 8429 Jul, [facility] [address] [id number] [address]- 9902 Jul, 2014 [facility] [address] [id number] [place] [address]- 4927 16 Jan, 2014 [facility] [address] [id number] [place] [address]- 0371 16 Jan, 2014 [facility] [address] [facility] [id number] [place] [address]- 3035 Jan, [facility] [address] [id number] [address]- 1398 27 Oct, 2012 [facility] [address] [id number], [place] [address]- 0383 25 Oct, 2012 [facility] [address] [facility] [id number], [place] [address]- 7462 21 Oct, 2012 [facility] [address] [id number], [place] [address]- 5049 19 Oct, 2012 [facility] [place] [facility] [address] [id number], [place] [address]- 4717 18 Oct, 2012 [facility] [place] [facility] [address] [id number] [address]- 8703 14 Oct, 2012 [facility] [place] [facility] [address] [facility] [id number], [place] [address]- 6208 13 Oct, 2012 [facility] [place] [facility] [address] [facility] [id number] [address]- 8102 13 Oct, 2012 [facility] [place] [facility] [address] [address]- 4517 Oct, [facility] [address] [address]- 0196 Oct, [facility] [address] [address]- 4890 Oct, [facility] [address] [address]- 7475 Oct, [facility] [address] [address]- 8227 Oct, [facility] [address] [place] [address] 49725- 5707 Oct, [facility] [address] [address]- 8869 Oct, [facility] [address] [address]- 3108 Oct, [facility] [address], [place] [address]- 4056 September, [facility] [address], [place] [address]- 7838 Aug, [facility] [address] [address]- 2028 Aug, [facility] [id number] [address]- 7452 Aug, IMMUNIZATIONS No Known Immunizations SOCIAL HISTORY Never Assessed REASON FOR VISIT denial of pro-air PLAN OF CARE VITAL SIGNS MEDICATIONS Medication Instructions Dosage Frequency Start Date End Date Duration Status Ventolin HFA 108 (90 Base) MCG/ACT Inhalation every 6 hrs 2 puffs as needed 6h Jul, 30 days Active RESULTS No Results PROCEDURES [...]
--- OUTSIDE RECORDS SUMMARY | 2018-06-09 13:41 | XMS REPORT ---
Author Author RHEA Mensah Organization [facility] Address [address] [place] [address] Care Team Providers Care Layboy Tender Name Role Phone RHEA Mensah Unavailable PROBLEMS Type Condition ICD9-CM Code [id number] Code Onset Dates Condition Status SNOMED Code Problem Neuropathy G62.9 Active 304956308 Problem Tobacco abuse counseling Z71.6 Active 62463208 Problem Sinusitis chronic, ethmoidal J32.2 Active 34654939 Problem Other ascites R18.8 Active 280976276 Problem Chronic obstructive pulmonary disease with acute exacerbation J44.1 Active 176264077 Problem halfway (current) use of insulin Z79.4 Active 319211579 Problem Mixed hyperlipidemia E78.2 Active 930964358 Problem Paroxysmal atrial fibrillation I48.0 Active 496486090 Problem Type 2 diabetes mellitus without complications E11.9 Active 490512533 Problem Episodic mood disorder F39 Active 10656864 Problem Chronic pain G89.29 Active 05971291 Problem Abnormal CBC R79.89 Active 787097563 Problem Posttraumatic stress disorder F43.10 Active 48436497 Problem Marijuana use F12.10 Active 30427532 Problem Type 2 diabetes mellitus with hyperglycemia E11.65 Active 309808234 Problem Essential hypertension I10 Active 35555322 Problem Atrial fibrillation I48.91 Active 66710739 Problem Chronic hepatitis C without hepatic coma B18.2 Active 878931401 Problem Other allergic rhinitis J30.89 Active 35482052 ALLERGIES Substance Reaction Event Type Date Status Diclofenac Unknown Drug Allergy Aug, Active MetFORMIN HCl ER diarrhea Drug Allergy Aug, Active Sulfamethoxazole-Trimethoprim Unknown Drug Allergy Aug, Active statins- patient declines to take Unknown Non Drug Allergy Aug, Active ENCOUNTERS Encounter Location Date Diagnosis [facility] [address] [facility] [id number] [place] [address] Dec, [facility] [address] [place] [id number] [place] [address] 6[address]32- 3670 Nov, Abnormal CBC R79.89 [place] [address] [address] Nov, Type 2 diabetes mellitus with hyperglycemia E11.65 and Chronic hepatitis C without hepatic coma B18.2 [place] [address] [address]- 4059 Oct, Type 2 diabetes mellitus with hyperglycemia E11.65 [place] [address] [address]- [address] Oct, Type 2 diabetes mellitus with hyperglycemia E11.65 ; Decreased breath sounds at right lung base R09.89 ; Essential hypertension I10 ; Atrial fibrillation I48.91 ; Chronic hepatitis C without hepatic coma B18.2 ; Peripheral edema R60.9 ; Other ascites R18.8 and Chronic obstructive pulmonary disease with acute exacerbation J44.1 [place] [address] [place] [id number] [place] [address] 17594- 4098 Oct, [place] [address] [place] [id number] [place] [address] 63433- 1330 Oct, [place] [address] [place] [id number] [place] [address] 17282- 2664 September, [place] [address] [place] [id number] [place] [address] 38681- 2372 Aug, Type 2 diabetes mellitus without complications E11.9 [place] [address] [place] [id number] [place] [address] 69968- 8634 Aug, Type 2 diabetes mellitus with hyperglycemia E11.65 [place] [address] [place] [id number] [place] [address] 27214- 8852 Aug, Pneumonia of right middle lobe due to infectious organism J18.1 ; Peripheral edema R60.9 ; Right upper quadrant abdominal pain R10.11 ; Type 2 diabetes mellitus without complications E11.9 and BMI 40.0-44.9, adult Z68.41 [place] [address] [place] [id number] [place] [address] 87435- 5560 Aug, [facility] [address] [address] Aug, [facility] [address] [address]- [address] Aug, [facility] [address] [address]- 9639 Aug, Type 2 diabetes mellitus without complications E11.9 ; Type 2 diabetes mellitus with hyperglycemia E11.65 ; Peripheral edema R60.9 ; Shortness of breath R06.02 ; Paroxysmal atrial fibrillation I48.0 and Pneumonia of right middle lobe due to infectious organism J18.1 [place] [address] [address]- 6031 Aug, [facility] [address] [address] Jul, Wheezing R06.2 and Acute non-recurrent pansinusitis J01.40 [place] [address] [address]- [address] Jul, [place] [address] 6[address]- 5917 Jul, [place] [address] [place] [id number] [place] [address] 45109- 4896 May, Type 2 diabetes mellitus with hyperglycemia E11.65 ; Type 2 diabetes mellitus without complications E11.9 ; halfway (current) use of insulin Z79.4 ; Essential hypertension I10 ; Atrial fibrillation I48.91 ; Chronic hepatitis C without hepatic coma B18.2 ; Mixed hyperlipidemia E78.2 ; Episodic mood disorder F39 ; Neuropathy G62.9 ; Acute non-recurrent maxillary sinusitis J01.00 ; Chronic pain G89.29 and Marijuana use F12.10 [place] [address] [place] [id number] [place] [address] 52437- 4187 Apr, Atrial fibrillation I48.91 [facility] [address] [place] [address]- 2[address] Mar, [place] [address] [place] [id number] [place] [address] 41540- 6942 Feb, Type 2 diabetes mellitus with hyperglycemia E11.65 ; Essential hypertension I10 ; Mixed hyperlipidemia E78.2 ; Atrial fibrillation I48.91 ; Neuropathy G62.9 ; Other allergic rhinitis J30.89 and Non compliance with medical treatment Z91.19 [place] [address] [place] [id number] [place] [address] 45101- 9077 07 Jan, 2017 Episodic mood disorder F39 and Posttraumatic stress disorder F43.10 [place] [id number] [place] [address] 09904- 2366 Jan, [place] [address] [place] [id number] [place] [address] 96758- 5877 Oct, [place] [id number] [place] [address] 59203- 9418 Oct, [place] [address] [place] [id number] [place] [address] 15821- 9790 Oct, Type 2 diabetes mellitus with hyperglycemia E11.65 ; Essential hypertension I10 ; Atrial fibrillation I48.91 ; Episodic mood disorder F39 ; Chronic pain G89.29 ; Neuropathy G62.9 ; Other allergic rhinitis J30.89 and Tobacco abuse counseling Z71.6 [facility] [address] [place] [id number] [place] [address] 69534 -0204 Aug, Acute non-recurrent pansinusitis J01.40 [place] [address] [place] [id number] [place] [address] 21583- 1768 Jul, [address] [address]- [address] Jun, [place] [address] [place] [id number] [place] [address] 06517- 8388 Jun, Type 2 diabetes mellitus with hyperglycemia E11.65 ; Episodic mood disorder F39 ; Posttraumatic stress disorder F43.10 ; Essential hypertension I10 ; Atrial fibrillation I48.91 ; Chronic pain G89.29 ; Acute upper respiratory infection, unspecified J06.9 ; Other viral agents as the cause of diseases classified elsewhere B97.89 ; Acute pain of left shoulder M25.512 and Sinusitis chronic, ethmoidal J32.2 [facility] [address] [place] [id number] [place] [address] 69364- 3278 May, Acute intractable tension-type headache G44.201 ; Chronic pain G89.29 ; Essential hypertension I10 ; Atrial fibrillation I48.91 ; Neuropathy G62.9 ; Posttraumatic stress disorder F43.10 ; Episodic mood disorder F39 ; Type 2 diabetes mellitus with hyperglycemia E11.65 ; Other allergic rhinitis J30.89 and Irritable bowel syndrome with both constipation and diarrhea K58.2 [facility] [address] [address]- 3353 Apr, Episodic mood disorder F39 and Posttraumatic stress disorder F43.10 [facility] [address] 7[address]- 2141 Mar, [facility] [address] 83225- 5645 Mar, [facility] [address] 06286- 1699 Mar, Chronic hepatitis C without hepatic coma B18.2 [facility] [address] [place] [id number] [place] [address] 32282- 9169 Mar, [facility] [address] 83827- 9425 Mar, Episodic mood disorder F39 ; Posttraumatic stress disorder F43.10 ; Essential hypertension I10 and Type 2 diabetes mellitus with hyperglycemia E11.65 [facility] [address] 55535- 9689 Mar, [facility] [address] 50132- 9094 Mar, [facility] [address] 18926- 5762 Mar, Type 2 diabetes mellitus with hyperglycemia E11.65 ; Chronic hepatitis C without hepatic coma B18.2 ; Posttraumatic stress disorder F43.10 ; Episodic mood disorder F39 ; Atrial fibrillation I48.91 ; Irritable bowel syndrome with both constipation and diarrhea K58.2 ; Secondary hypertension I15.9 and Neuropathy G62.9 [facility] [address] [place] [id number] [place] [address] 00645- 7438 Feb, Episodic mood disorder F39 and Posttraumatic stress disorder F43.10 [facility] [address] [place] [id number] [place] [address] 34743- 9156 Jan, Episodic mood disorder F39 and Posttraumatic stress disorder F43.10 [place] [address] [place] [id number] [place] [address] 08330- 8405 Nov, Type 2 diabetes mellitus with hyperglycemia E11.65 ; Atrial fibrillation I48.91 ; Other allergic rhinitis J30.89 ; Episodic mood disorder F39 and Essential hypertension I10 [facility] [address] [place] [id number] [place] [address] 57725- 2344 Nov, [facility] [address] [place] [id number] [place] [address] 66262- 3279 Oct, [facility] [address] [place] [id number] [place] [address] 66444- 6399 Oct, [facility] [address] [place] [id number] [place] [address] 04579- 2729 September, Type 2 diabetes mellitus with hyperglycemia E11.65 ; Atrial fibrillation I48.91 and Chronic pain G89.29 [facility] [address] [place] [id number] [place] [address] 73856- 0089 September, Episodic mood disorder F39 and Posttraumatic stress disorder F43.10 [facility] [address] [place] [id number] [place] [address] 58430- 4971 September, [facility] [address] [place] [id number] [place] [address] 29750- 6726 September, [facility] [address] [address] September, [facility] [address] [place] [id number] [place] [address] 50600- 2416 September, [facility] [id number] [place] [address] 93523- 4508 September, [facility] [address] 61726- 2243 Aug, Type 2 diabetes mellitus with hyperglycemia E11.65 and Essential hypertension I10 [facility] [address] [place] [id number] [place] [address] 56004- 8448 Aug, [facility] [address] [place] [id number] [place] [address] 96229- 0182 Aug, [facility] [address] [place] [id number] [place] [address] 59211- 9973 Aug, Allergic rhinitis J30.9 ; Atrial fibrillation I48.91 ; Shortness of breath R06.02 and Essential hypertension I10 [facility] [address] [place] [id number] [place] [address] 74668- 9285 Jul, [facility] [address] [place] [id number] [place] [address] 65566- 9233 Jun, Episodic mood disorder F39 and Posttraumatic stress disorder F43.10 [facility] [address] [place] [id number] [place] [address] 29113- 7025 Jun, [facility] [address] [place] [id number] [place] [address] 16953- 2381 May, Chronic pain G89.29 ; History of drug abuse Z87.898 and Marijuana use F12.10 [facility] [address] [place] [id number] [place] [address] 98963- 8861 May, Episodic mood disorder F39 and Posttraumatic stress disorder F43.10 [facility] [address] [place] [id number] [place] [address] 40927- 1271 May, [facility] [address] [place] [id number] [address]- 6465 Apr, Chronic pain G89.29 [facility] [address] [address] Apr, Episodic mood disorder F39 and Posttraumatic stress disorder F43.10 [facility] [address] [address]- 8393 Apr, COPD (chronic obstructive pulmonary disease) with acute bronchitis J44.0 [facility] [address] [address] Feb, Episodic mood disorder F39 and Posttraumatic stress disorder F43.10 [facility] [address] [place] [address] 72808- 7802 Feb, [facility] [address] [place] [id number] [place] [address] 31266- 0674 Feb, Episodic mood disorder F39 and Posttraumatic stress disorder F43.10 [facility] [address], [place] [address]- 0995 Jan, Routine adult health maintenance V70.0 [facility] [address], [place] [address]- 5756 Jan, Unspecified episodic mood disorder 296.90 and Posttraumatic stress disorder 309.81 [facility] [address], [place] [address]- 6125 Dec, Unspecified episodic mood disorder 296.90 and Posttraumatic stress disorder 309.81 [facility] [address], [place] [address]- 0431 Dec, Unspecified episodic mood disorder 296.90 and Posttraumatic stress disorder 309.81 [facility] [address], [place] [address]- 6768 Oct, Unspecified episodic mood disorder 296.90 and Posttraumatic stress disorder 309.81 [facility] [address] [id number] [address]- 5614 September, Unspecified episodic mood disorder 296.90 ; Posttraumatic stress disorder 309.81 ; No condition on [place] II V71.09 ; Diabetes 250.00 ; Hypertension 401.9 ; Hepatitis C 070.70 and Degenerative disc disease 722.6 [facility] [address], [place] [address]- 7630 14 Aug, 2014 [facility] [address] [place] [id number] [place] [address] 00104- 3175 Aug, [facility] [address] [place] [id number] [place] [address] 845130- 3229 Jul, [facility] [address] [place] [id number] [place] [address] 84159- 2523 Jul, [facility] [address] [id number] [address]- 7627 16 Jan, 2014 [facility] [address] [place] [id number] [place] [address] 78844- 2373 16 Jan, 2014 [facility] [address], [place] [address]- 4453 Jan, [facility] [address], [place] [address]- 3455 Oct, [facility] [address], [place] [address]- 5214 Oct, [facility] [address], [place] [address]- 0080 Oct, [facility] [address], [place] [address]- 1162 Oct, [facility] [id number] [address]- 1564 18 Oct, 2012 [facility] [address], [place] [address]- 3654 14 Oct, 2012 [facility] [id number] [address]- 7822 Oct, [facility] [address], [place] [address]- [address] Oct, [facility] [address], [place] [address]- 3817 Oct, [facility] [address], [place] [address]- 9066 Oct, [facility] [address], [place] [address]- 6567 Oct, [facility] [address], [place] [address]- 4100 Oct, [facility] [address], [place] [address]- 3507 Oct, [facility] [address], [place] [address]- 1882 Oct, [facility] [address], [place] [address]- 3455 Oct, [facility] [address], [place] [address]- 7081 Oct, [facility] [address] [place] [id number], [place] [address]- 3958 September, [facility] [address], [place] [address]- 0615 Aug, [facility] [address] [place] [id number] [address]- 2306 Aug, [facility] [address] [place] [address] [id number], [place] [address]- 0425 Aug, IMMUNIZATIONS No Known Immunizations SOCIAL HISTORY Never Assessed REASON FOR VISIT bronchitis, pneumonia f/u [facility] PLAN OF CARE Activity Details Follow Up 3 Weeks with PCP Reason:edema/DM/pneumonia VITAL SIGNS Height 63 in 2017-09-08 Weight 240 lbs 2017-09-08 Temperature 98.1 degrees Fahrenheit 2017-09-08 Heart Rate 106 bpm 2017-09-08 Respiratory Rate 22 2017-09-08 Oximetry on room air:96 % 2017-09-08 BMI 42.51 kg/m2 2017-09-08 Blood pressure systolic 114 mmHg 2017-09-08 Blood pressure diastolic 76 mmHg 2017-09-08 MEDICATIONS Medication Instructions Dosage Frequency Start Date End Date Duration Status Enalapril Maleate 10 mg Orally Once a day TAKE ONE TABLET BY MOUTH ONCE DAILY 24h 30 days Active Aspirin 325 MG TAKE ONE TABLET BY MOUTH ONCE DAILY 30 Active Invokana 100 mg Orally Once a day 1 tablet 24h Aug, September, 30 day(s) Active Test strips Test Strips shayne track as directed Aug, Active Flonase 50 mcg/actuation Nasally 2 times a day 1 sprays by Nasal route 2 times per day in each nostril 12h Jul, 12 months Active Zetia 10 mg Orally Once a day 1 tablet 24h Mar, 30 day(s) Not- Taking Ventolin HFA 108 (90 Base) MCG/ACT Inhalation every 6 hrs 2 puffs as needed 6h Jul, 30 days Active Gas Relief 80 mg PRN Oct, Active Cymbalta 60 MG TAKE ONE CAPSULE BY MOUTH ONCE DAILY 30 Active Lidocaine 5 % Externally Once a day APPLY ONCE PATCH ONCE DAILY DIRECTED 24h 30 Active Verapamil HCl ER 240 MG TAKE ONE TABLET BY MOUTH ONCE DAILY 30 Active Furosemide 40 mg Orally Once a day 1 tablet 24h 30 days Active Potassium Chloride ER 10 MEQ Orally Twice a day 1 tablet with food 12h Aug, September, 30 days Active Levemir Flexpen 100 UNIT/ML Subcutaneous 2 times a day 20 units bid 12h Aug, 12 months Active RESULTS No Results PROCEDURES Procedure Date Ordered Result Body Site LAB [facility] September 08, 2017 VENIPUNCT, ROUTINE* September 08, 2017 [facility] VISIT ESTABLISHED PATIENT September 08, 2017 INSTRUCTIONS MEDICATIONS ADMINISTERED No Known Medications [...]
--- OUTSIDE RECORDS SUMMARY | 2018-06-09 13:41 | XMS REPORT ---
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 Name Role Phone JEFF WATKINS Unavailable PROBLEMS Type Condition ICD9-CM Code RUS75-WI Code Onset Dates Condition Status SNOMED Code Problem Neuropathy G62.9 Active 541435004 Problem Tobacco abuse counseling Z71.6 Active 55337215 Problem Sinusitis chronic, ethmoidal J32.2 Active 47911961 Problem Other ascites R18.8 Active 994070760 Problem Chronic obstructive pulmonary disease with acute exacerbation J44.1 Active 715828707 Problem FCI (current) use of insulin Z79.4 Active 270745035 Problem Mixed hyperlipidemia E78.2 Active 330366733 Problem Paroxysmal atrial fibrillation I48.0 Active 470078565 Problem Type 2 diabetes mellitus without complications E11.9 Active 550755242 Problem Episodic mood disorder F39 Active 76080555 Problem Chronic pain G89.29 Active 61666045 Problem Abnormal CBC R79.89 Active 845938608 Problem Posttraumatic stress disorder F43.10 Active 86916114 Problem Marijuana use F12.10 Active 79392606 Problem Type 2 diabetes mellitus with hyperglycemia E11.65 Active 766491174 Problem Essential hypertension I10 Active 41828997 Problem Atrial fibrillation I48.91 Active 45097122 Problem Chronic hepatitis C without hepatic coma B18.2 Active 560911669 Problem Other allergic rhinitis J30.89 Active 08213324 ALLERGIES No Information ENCOUNTERS Encounter Location Date Diagnosis [facility] [address] [facility] [id number] [address] Dec, [facility] [id number] [address] Nov, Abnormal CBC R79.89 [facility] [address] [id number] [address]98 Nov, Type 2 diabetes mellitus with hyperglycemia E11.65 and Chronic hepatitis C without hepatic coma B18.2 [facility] [id number] [place] [address] 67974- 6412 27 Oct, 2017 Type 2 diabetes mellitus with hyperglycemia E11.65 [facility] [id number] [place] [address] 35655- 6983 15 Oct, 2017 Type 2 diabetes mellitus with hyperglycemia E11.65 ; Decreased breath sounds at right lung base R09.89 ; Essential hypertension I10 ; Atrial fibrillation I48.91 ; Chronic hepatitis C without hepatic coma B18.2 ; Peripheral edema R60.9 ; Other ascites R18.8 and Chronic obstructive pulmonary disease with acute exacerbation J44.1 [place] [address] 8[address]99- 6157 Oct, [place] [id number] [place] [address] 32904- 5121 Oct, [place] [address] 32446- 7709 September, [place] [id number] [place] [address] 39056- 6904 Aug, Type 2 diabetes mellitus without complications E11.9 [place] [id number] [place] [address] 02063- 5713 Aug, Type 2 diabetes mellitus with hyperglycemia E11.65 [place] [id number] [place] [address] 36024- 1739 16 Aug, 2017 Pneumonia of right middle lobe due to infectious organism J18.1 ; Peripheral edema R60.9 ; Right upper quadrant abdominal pain R10.11 ; Type 2 diabetes mellitus without complications E11.9 and BMI 40.0-44.9, adult Z68.41 [place] [id number] [place] [address] 15530- 1589 Aug, [place] [id number] [place] [address] 83961- 2933 Aug, [place] [address] [place] [address]- 9464 Aug, [facility] [id number] [place] [address] 47404- 9908 Aug, Type 2 diabetes mellitus without complications E11.9 ; Type 2 diabetes mellitus with hyperglycemia E11.65 ; Peripheral edema R60.9 ; Shortness of breath R06.02 ; Paroxysmal atrial fibrillation I48.0 and Pneumonia of right middle lobe due to infectious organism J18.1 [place] [id number] [place] [address] 85451- 9921 Aug, [facility] [address] [address] -2183 Jul, Wheezing R06.2 and Acute non-recurrent pansinusitis J01.40 [place] [address] 50454- 8921 Jul, [place] [address] 22972- 2131 Jul, [place] [id number] [place] [address] 30723- 0770 May, Type 2 diabetes mellitus with hyperglycemia E11.65 ; Type 2 diabetes mellitus without complications E11.9 ; 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 Z79.4 ; Essential hypertension I10 ; Atrial fibrillation I48.91 ; Chronic hepatitis C without hepatic coma B18.2 ; Mixed hyperlipidemia E78.2 ; Episodic mood disorder F39 ; Neuropathy G62.9 ; Acute non-recurrent maxillary sinusitis J01.00 ; Chronic pain G89.29 and Marijuana use F12.10 [place] [id number] [place] [address] 21079- 1471 Apr, Atrial fibrillation I48.91 [place] [address] 08636- 1626 Mar, [place] [id number] [place] [address] 41074- 4345 Feb, Type 2 diabetes mellitus with hyperglycemia E11.65 ; Essential hypertension I10 ; Mixed hyperlipidemia E78.2 ; Atrial fibrillation I48.91 ; Neuropathy G62.9 ; Other allergic rhinitis J30.89 and Non compliance with medical treatment Z91.19 [place] [id number] [place] [address] 21379- 1419 Jan, Episodic mood disorder F39 and Posttraumatic stress disorder F43.10 [place] [id number] [place] [address] 11751- 1959 Jan, [place] [id number] [place] [address] 81319- 3366 Oct, [address] 39812- 2673 Oct, [place] [id number] [place] [address] 44390- 6424 Oct, Type 2 diabetes mellitus with hyperglycemia E11.65 ; Essential hypertension I10 ; Atrial fibrillation I48.91 ; Episodic mood disorder F39 ; Chronic pain G89.29 ; Neuropathy G62.9 ; Other allergic rhinitis J30.89 and Tobacco abuse counseling Z71.6 [facility] [id number] [place] [address] 38754 -4986 Aug, Acute non-recurrent pansinusitis J01.40 [place] [id number] [place] [address] 25783- 6997 Jul, [place] [id number] [place] [address] 20893- 1583 Jun, [place] [id number] [place] [address] 59026- 8573 Jun, Type 2 diabetes mellitus with hyperglycemia E11.65 ; Episodic mood disorder F39 ; Posttraumatic stress disorder F43.10 ; Essential hypertension I10 ; Atrial fibrillation I48.91 ; Chronic pain G89.29 ; Acute upper respiratory infection, unspecified J06.9 ; Other viral agents as the cause of diseases classified elsewhere B97.89 ; Acute pain of left shoulder M25.512 and Sinusitis chronic, ethmoidal J32.2 [facility] [address] [place] [address] 82090- 7462 May, Acute intractable tension-type headache G44.201 ; Chronic pain G89.29 ; Essential hypertension I10 ; Atrial fibrillation I48.91 ; Neuropathy G62.9 ; Posttraumatic stress disorder F43.10 ; Episodic mood disorder F39 ; Type 2 diabetes mellitus with hyperglycemia E11.65 ; Other allergic rhinitis J30.89 and Irritable bowel syndrome with both constipation and diarrhea K58.2 [facility] [id number] [place] [address] 87009- 4583 Apr, Episodic mood disorder F39 and Posttraumatic stress disorder F43.10 [facility] [id number] [place] [address] 30133- 1993 Mar, [facility] [id number] [place] [address] 45184- 1315 Mar, [facility] [id number] [place] [address] 82464- 7985 Mar, Chronic hepatitis C without hepatic coma B18.2 [facility] [id number] [place] [address] 73767- 3174 Mar, [facility] [id number] [place] [address] 62214- 9085 Mar, Episodic mood disorder F39 ; Posttraumatic stress disorder F43.10 ; Essential hypertension I10 and Type 2 diabetes mellitus with hyperglycemia E11.65 [facility] [address] [place] [address] 39673- 5031 Mar, [facility] [id number] [place] [address] 34195- 1696 Mar, [facility] [id number] [place] [address] 93161- 2821 Mar, Type 2 diabetes mellitus with hyperglycemia E11.65 ; Chronic hepatitis C without hepatic coma B18.2 ; Posttraumatic stress disorder F43.10 ; Episodic mood disorder F39 ; Atrial fibrillation I48.91 ; Irritable bowel syndrome with both constipation and diarrhea K58.2 ; Secondary hypertension I15.9 and Neuropathy G62.9 [facility] [id number] [place] [address] 84861- 4714 Feb, Episodic mood disorder F39 and Posttraumatic stress disorder F43.10 [facility] [id number] [place] [address] 32561- 3173 Jan, Episodic mood disorder F39 and Posttraumatic stress disorder F43.10 [facility] [id number] [place] [address] 64237- 9252 Nov, Type 2 diabetes mellitus with hyperglycemia E11.65 ; Atrial fibrillation I48.91 ; Other allergic rhinitis J30.89 ; Episodic mood disorder F39 and Essential hypertension I10 [facility] [id number] [place] [address] 28330- 4384 Nov, [facility] [id number] [place] [address] 96163- 9518 Oct, [facility] [id number] [place] [address] 90808- 7325 Oct, [facility] [id number] [place] [address] 58646- 6763 September, Type 2 diabetes mellitus with hyperglycemia E11.65 ; Atrial fibrillation I48.91 and Chronic pain G89.29 [facility] [id number] [place] [address] 30476- 8280 September, Episodic mood disorder F39 and Posttraumatic stress disorder F43.10 [facility] [id number] [place] [address] 85240- 3462 September, [facility] [id number] [place] [address] 41244- 0250 September, [facility] [id number] [place] [address] 75567 -2199 September, [facility] [id number] [place] [address] 89366- 5572 September, [facility] [id number] [place] [address] 96355- 2018 September, [facility] [address] 05917- 7099 Aug, Type 2 diabetes mellitus with hyperglycemia E11.65 and Essential hypertension I10 [facility] [address] 89780- 4921 Aug, [facility] [address] 79061- 3730 Aug, [facility] [address] 65798- 8576 Aug, Allergic rhinitis J30.9 ; Atrial fibrillation I48.91 ; Shortness of breath R06.02 and Essential hypertension I10 [place] [address] 21383- 7771 Jul, [facility] [id number] [place] [address] 77893- 7842 Jun, Episodic mood disorder F39 and Posttraumatic stress disorder F43.10 [place] [id number] [place] [address] 43843- 7712 Jun, [facility] [id number] [place] [address] 79184- 2752 May, Chronic pain G89.29 ; History of drug abuse Z87.898 and Marijuana use F12.10 [facility] [id number] [place] [address] 92777- 0943 May, Episodic mood disorder F39 and Posttraumatic stress disorder F43.10 [facility] [id number] [place] [address] 02348- 4309 May, [facility] [id number] [place] [address] 93141- 8492 14 Apr, 2015 Chronic pain G89.29 [place] [address] [place] [address]- 7122 Apr, Episodic mood disorder F39 and Posttraumatic stress disorder F43.10 [facility] [address] [place] [address] 175654- 9606 Apr, COPD (chronic obstructive pulmonary disease) with acute bronchitis J44.0 [facility] [address] [place] [address] 91603- 6106 Feb, Episodic mood disorder F39 and Posttraumatic stress disorder F43.10 [facility] [id number] [place] [address] 38088- 0348 Feb, [place] [id number] [place] [address] 193410- 7572 Feb, Episodic mood disorder F39 and Posttraumatic stress disorder F43.10 [place] [address] [address]6 Jan, Routine adult health maintenance V70.0 [facility] [id number] [place] [address] 88430- 2430 Jan, Unspecified episodic mood disorder 296.90 and Posttraumatic stress disorder 309.81 [facility] [address] [place] [address] 73888- 0556 Dec, Unspecified episodic mood disorder 296.90 and Posttraumatic stress disorder 309.81 [place] [address] [place] [address] 39284- 8105 Dec, Unspecified episodic mood disorder 296.90 and Posttraumatic stress disorder 309.81 [facility] [address] [place] [address] 19399518- 0167 Oct, Unspecified episodic mood disorder 296.90 and Posttraumatic stress disorder 309.81 [facility] [address] 7764 September, Unspecified episodic mood disorder 296.90 ; Posttraumatic stress disorder 309.81 ; No condition on Mcdonald II V71.09 ; Diabetes 250.00 ; Hypertension 401.9 ; Hepatitis C 070.70 and Degenerative disc disease 722.6 [facility] [address] [id number] [place] [address]- 2667 14 Aug, 2014 [facility] [address] [id number] [place] [address]- 6884 13 Aug, 2014 [facility] [address] [facility] [id number] [place] [address]- 1574 Jul, [facility] [address] [id number] [address]- 6511 Jul, 2014 [facility] [address] [id number] [place] [address]- 5435 16 Jan, 2014 [facility] [address] [id number] [place] [address]- 8060 16 Jan, 2014 [facility] [address] [facility] [id number] [place] [address]- 8028 Jan, [facility] [address] [id number] [address]- 2319 27 Oct, 2012 [facility] [address] [id number], [place] [address]- 7981 25 Oct, 2012 [facility] [address] [facility] [id number] [address]- 7573 21 Oct, 2012 [facility] [address] [id number] [address]- 1627 19 Oct, 2012 [facility] [place] [facility] [address] [id number] [address]- 6908 18 Oct, 2012 [facility] [place] [facility] [address] [id number] [address]- 4434 14 Oct, 2012 [facility] [place] [facility] [address] [facility] [id number] [address]- 4596 13 Oct, 2012 [facility] [place] [facility] [address] [facility] [id number] [address]- 6641 13 Oct, 2012 [facility] [place] [facility] [address] [id number] [address]- 6849 12 Oct, 2012 [facility] [address] [address]- 7728 Oct, [facility] [address] [address]- 8831 Oct, [facility] [address] [address]- 9749 Oct, [facility] [address] [address]- 2707 Oct, [facility] [address] [address]- 0391 Oct, [facility] [address] [address]- 1663 Oct, [facility] [address] [address]- 4570 Oct, [facility] [address] [address]- 3994 September, [facility] [address] [address]- 3666 Aug, [facility] [address] [id number] [address]- 4041 Aug, [facility] [id number] [address]- 0266 Aug, IMMUNIZATIONS No Known Immunizations SOCIAL HISTORY [...]
--- OUTSIDE RECORDS SUMMARY | 2018-06-09 13:41 | XMS REPORT ---
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 Name Role Phone JEFF WATKINS Unavailable PROBLEMS Type Condition ICD9-CM Code NUH17-RI Code Onset Dates Condition Status SNOMED Code Problem Neuropathy G62.9 Active 565070518 Problem Tobacco abuse counseling Z71.6 Active 10851601 Problem Sinusitis chronic, ethmoidal J32.2 Active 05488505 Problem Other ascites R18.8 Active 083741266 Problem Chronic obstructive pulmonary disease with acute exacerbation J44.1 Active 549456493 Problem half-way (current) use of insulin Z79.4 Active 921094349 Problem Mixed hyperlipidemia E78.2 Active 313869078 Problem Paroxysmal atrial fibrillation I48.0 Active 571814417 Problem Type 2 diabetes mellitus without complications E11.9 Active 398971338 Problem Episodic mood disorder F39 Active 29518916 Problem Chronic pain G89.29 Active 72250177 Problem Abnormal CBC R79.89 Active 706868713 Problem Posttraumatic stress disorder F43.10 Active 41446416 Problem Marijuana use F12.10 Active 36847993 Problem Type 2 diabetes mellitus with hyperglycemia E11.65 Active 137631199 Problem Essential hypertension I10 Active 82296201 Problem Atrial fibrillation I48.91 Active 22868223 Problem Chronic hepatitis C without hepatic coma B18.2 Active 704322939 Problem Other allergic rhinitis J30.89 Active 64743852 ALLERGIES No Information ENCOUNTERS Encounter Location Date Diagnosis [facility] [address] [facility] [id number] [address] Dec, [facility] [address] [id number] [address] Nov, Abnormal CBC R79.89 [facility] [address] [id number] [address] Nov, Type 2 diabetes mellitus with hyperglycemia E11.65 and Chronic hepatitis C without hepatic coma B18.2 [facility] [id number] [place] [address] 09952- 0057 27 Oct, 2017 Type 2 diabetes mellitus with hyperglycemia E11.65 [facility] [id number] [place] [address] 28166- 0597 15 Oct, 2017 Type 2 diabetes mellitus with hyperglycemia E11.65 ; Decreased breath sounds at right lung base R09.89 ; Essential hypertension I10 ; Atrial fibrillation I48.91 ; Chronic hepatitis C without hepatic coma B18.2 ; Peripheral edema R60.9 ; Other ascites R18.8 and Chronic obstructive pulmonary disease with acute exacerbation J44.1 [place] [address] 27778- 4819 Oct, [place] [id number] [place] [address] 34318- 8552 Oct, [place] [address] 47651- 4231 September, [place] [id number] [place] [address] 56804- 5432 Aug, Type 2 diabetes mellitus without complications E11.9 [place] [id number] [place] [address] 37241- 2666 Aug, Type 2 diabetes mellitus with hyperglycemia E11.65 [place] [id number] [place] [address] 30919- 4202 16 Aug, 2017 Pneumonia of right middle lobe due to infectious organism J18.1 ; Peripheral edema R60.9 ; Right upper quadrant abdominal pain R10.11 ; Type 2 diabetes mellitus without complications E11.9 and BMI 40.0-44.9, adult Z68.41 [place] [id number] [place] [address] 95576- 2864 Aug, [place] [id number] [place] [address] 59944- 6947 Aug, [place] [address] [place] [address] 85[address] Aug, [facility] [id number] [place] [address] 19846- 6356 Aug, Type 2 diabetes mellitus without complications E11.9 ; Type 2 diabetes mellitus with hyperglycemia E11.65 ; Peripheral edema R60.9 ; Shortness of breath R06.02 ; Paroxysmal atrial fibrillation I48.0 and Pneumonia of right middle lobe due to infectious organism J18.1 [place] [id number] [place] [address] 98905- 4786 Aug, [facility] [address] 15676 -9149 Jul, Wheezing R06.2 and Acute non-recurrent pansinusitis J01.40 [place] [address] 20902- 4855 Jul, [place] [address] 36542- 1528 Jul, [place] [id number] [place] [address] 59079- 1743 May, Type 2 diabetes mellitus with hyperglycemia E11.65 ; Type 2 diabetes mellitus without complications E11.9 ; 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.4 ; Essential hypertension I10 ; Atrial fibrillation I48.91 ; Chronic hepatitis C without hepatic coma B18.2 ; Mixed hyperlipidemia E78.2 ; Episodic mood disorder F39 ; Neuropathy G62.9 ; Acute non-recurrent maxillary sinusitis J01.00 ; Chronic pain G89.29 and Marijuana use F12.10 [place] [id number] [place] [address] 54951- 1145 Apr, Atrial fibrillation I48.91 [place] [address] 43273- 4239 Mar, [place] [id number] [place] [address] 89744- 7965 Feb, Type 2 diabetes mellitus with hyperglycemia E11.65 ; Essential hypertension I10 ; Mixed hyperlipidemia E78.2 ; Atrial fibrillation I48.91 ; Neuropathy G62.9 ; Other allergic rhinitis J30.89 and Non compliance with medical treatment Z91.19 [place] [id number] [place] [address] 05192- 4278 Jan, Episodic mood disorder F39 and Posttraumatic stress disorder F43.10 [place] [id number] [place] [address] 66392- 4509 Jan, [place] [id number] [place] [address] 68942- 4103 Oct, [address] 45782- 0227 Oct, [place] [id number] [place] [address] 78595- 7225 Oct, Type 2 diabetes mellitus with hyperglycemia E11.65 ; Essential hypertension I10 ; Atrial fibrillation I48.91 ; Episodic mood disorder F39 ; Chronic pain G89.29 ; Neuropathy G62.9 ; Other allergic rhinitis J30.89 and Tobacco abuse counseling Z71.6 [facility] [id number] [place] [address] 14528 -1636 Aug, Acute non-recurrent pansinusitis J01.40 [place] [id number] [place] [address] 63166- 0925 Jul, [place] [id number] [place] [address] 48374- 4674 Jun, [place] [id number] [place] [address] 24266- 0019 Jun, Type 2 diabetes mellitus with hyperglycemia E11.65 ; Episodic mood disorder F39 ; Posttraumatic stress disorder F43.10 ; Essential hypertension I10 ; Atrial fibrillation I48.91 ; Chronic pain G89.29 ; Acute upper respiratory infection, unspecified J06.9 ; Other viral agents as the cause of diseases classified elsewhere B97.89 ; Acute pain of left shoulder M25.512 and Sinusitis chronic, ethmoidal J32.2 [facility] [address] [place] [address] 04066- 8011 May, Acute intractable tension-type headache G44.201 ; Chronic pain G89.29 ; Essential hypertension I10 ; Atrial fibrillation I48.91 ; Neuropathy G62.9 ; Posttraumatic stress disorder F43.10 ; Episodic mood disorder F39 ; Type 2 diabetes mellitus with hyperglycemia E11.65 ; Other allergic rhinitis J30.89 and Irritable bowel syndrome with both constipation and diarrhea K58.2 [facility] [id number] [place] [address] 85531- 4144 Apr, Episodic mood disorder F39 and Posttraumatic stress disorder F43.10 [facility] [id number] [place] [address] 49975- 3084 Mar, [facility] [id number] [place] [address] 16921- 3015 Mar, [facility] [id number] [place] [address] 35612- 1751 Mar, Chronic hepatitis C without hepatic coma B18.2 [facility] [id number] [place] [address] 23863- 3616 Mar, [facility] [id number] [place] [address] 52339- 5665 Mar, Episodic mood disorder F39 ; Type 2 diabetes mellitus with hyperglycemia E11.65 ; Posttraumatic stress disorder F43.10 and Essential hypertension I10 [facility] [address] [place] [address] 58506- 2454 Mar, [facility] [id number] [place] [address] 63168- 7540 Mar, [facility] [id number] [place] [address] 82440- 9264 Mar, Type 2 diabetes mellitus with hyperglycemia E11.65 ; Chronic hepatitis C without hepatic coma B18.2 ; Posttraumatic stress disorder F43.10 ; Episodic mood disorder F39 ; Atrial fibrillation I48.91 ; Irritable bowel syndrome with both constipation and diarrhea K58.2 ; Secondary hypertension I15.9 and Neuropathy G62.9 [facility] [id number] [place] [address] 10110- 2808 Feb, Episodic mood disorder F39 and Posttraumatic stress disorder F43.10 [facility] [id number] [place] [address] 43742- 5635 Jan, Episodic mood disorder F39 and Posttraumatic stress disorder F43.10 [facility] [id number] [place] [address] 85336- 1741 Nov, Type 2 diabetes mellitus with hyperglycemia E11.65 ; Atrial fibrillation I48.91 ; Other allergic rhinitis J30.89 ; Episodic mood disorder F39 and Essential hypertension I10 [facility] [id number] [place] [address] 02902- 5261 Nov, [facility] [id number] [place] [address] 32595- 5589 Oct, [facility] [id number] [place] [address] 92359- 9802 Oct, [facility] [id number] [place] [address] 22720- 2271 September, Type 2 diabetes mellitus with hyperglycemia E11.65 ; Atrial fibrillation I48.91 and Chronic pain G89.29 [facility] [id number] [place] [address] 79283- 1401 September, Episodic mood disorder F39 and Posttraumatic stress disorder F43.10 [facility] [id number] [place] [address] 45559- 4287 September, [facility] [id number] [place] [address] 25920- 5579 September, [facility] [address] [place] [address] 45452 -3674 September, [facility] [id number] [place] [address] 00296- 3206 September, [facility] [id number] [place] [address] 07234- 9024 September, [facility] [address] 86229- 5462 Aug, Type 2 diabetes mellitus with hyperglycemia E11.65 and Essential hypertension I10 [facility] [address] 35542- 8257 Aug, [facility] [address] 97139- 8211 Aug, [facility] [address] 32286- 1894 Aug, Allergic rhinitis J30.9 ; Atrial fibrillation I48.91 ; Shortness of breath R06.02 and Essential hypertension I10 [place] [address] 19807- 1480 Jul, [facility] [id number] [place] [address] 40801- 1857 Jun, Episodic mood disorder F39 and Posttraumatic stress disorder F43.10 [place] [id number] [place] [address] 49865- 3091 Jun, [facility] [id number] [place] [address] 50230- 9042 May, Chronic pain G89.29 ; History of drug abuse Z87.898 and Marijuana use F12.10 [facility] [id number] [place] [address] 76938- 9484 May, Episodic mood disorder F39 and Posttraumatic stress disorder F43.10 [facility] [id number] [place] [address] 48198- 1851 May, [facility] [id number] [place] [address] 77641- 2673 14 Apr, 2015 Chronic pain G89.29 [place] [address] [place] [address]- 5240 Apr, Episodic mood disorder F39 and Posttraumatic stress disorder F43.10 [facility] [address] [place] [address] 916315- 3016 Apr, COPD (chronic obstructive pulmonary disease) with acute bronchitis J44.0 [facility] [address] [place] [address] 39470- 2846 Feb, Episodic mood disorder F39 and Posttraumatic stress disorder F43.10 [facility] [id number] [place] [address] 85316- 3772 Feb, [place] [id number] [place] [address] 381817- 0017 Feb, Episodic mood disorder F39 and Posttraumatic stress disorder F43.10 [place] [address] 7466 Jan, Routine adult health maintenance V70.0 [facility] [id number] [place] [address] 69165- 1414 Jan, Unspecified episodic mood disorder 296.90 and Posttraumatic stress disorder 309.81 [facility] [address] [place] [address] 39099- 2000 Dec, Unspecified episodic mood disorder 296.90 and Posttraumatic stress disorder 309.81 [place] [address] [place] [address] 18809- 5920 Dec, Unspecified episodic mood disorder 296.90 and Posttraumatic stress disorder 309.81 [facility] [address] [place] [address] [id number]- 0078 Oct, Unspecified episodic mood disorder 296.90 and Posttraumatic stress disorder 309.81 [facility] [address] 3852 September, Unspecified episodic mood disorder 296.90 ; Posttraumatic stress disorder 309.81 ; No condition on [place] II V71.09 ; Diabetes 250.00 ; Hypertension 401.9 ; Hepatitis C 070.70 and Degenerative disc disease 722.6 [facility] [address] [id number] [place] [address]- 3950 14 Aug, 2014 [facility] [address] [id number] [place] [address]- 9250 13 Aug, 2014 [facility] [address] [facility] [id number] [place] [address]- 3125 Jul, [facility] [address] [id number] [address]- 7602 Jul, 2014 [facility] [address] [id number] [place] [address]- 8557 16 Jan, 2014 [facility] [address] [id number] [place] [address]- 1498 16 Jan, 2014 [facility] [address] [facility] [id number] [place] [address]- 8939 Jan, [facility] [address] [id number] [address]- 8049 27 Oct, 2012 [facility] [address] [id number], [place] [address]- 2003 25 Oct, 2012 [facility] [address] [facility] [id number] [address]- 3820 21 Oct, 2012 [facility] [address] [id number] [address]- 6441 19 Oct, 2012 [facility] [place] [facility] [address] [id number] [address]- 4241 18 Oct, 2012 [facility] [place] [facility] [address] [id number], [place] [address]- 0995 14 Oct, 2012 [facility] [place] [facility] [address] [facility] [id number], [place] [address]- 4771 13 Oct, 2012 [facility] [place] [facility] [address] [facility] [id number], [place] [address]- 8862 13 Oct, 2012 [facility] [place] [facility] [id number] [address]- 7285 Oct, [facility] [address] [address]- 3655 Oct, [facility] [address] [address]- 1692 Oct, [facility] [address] [address]- 9383 Oct, [facility] [address] [address]- 5136 Oct, [facility] [address] [address]- 6958 Oct, [facility] [address] [address]- 1541 Oct, [facility] [address] [address]- 3883 Oct, [facility] [address], [place] [address]- 3764 September, [facility] [address], [place] [address]- 4476 Aug, [facility] [address] [address]- 2027 Aug, [facility] [id number] [address]- 0893 Aug, IMMUNIZATIONS No Known Immunizations SOCIAL HISTORY Never Assessed REASON FOR VISIT Requests return call PLAN OF CARE VITAL SIGNS MEDICATIONS Medication Instructions Dosage Frequency Start Date End Date Duration Status Trulicity 0.75 MG/0.5ML Subcutaneous once weekly INJECT 0.5 MLS SUBCUTANEOUSLY ONCE WEEKLY Nov, 30 days Active Januvia 100 mg Orally Once a day 1 tablet 24h Aug, 30 day(s) Active RESULTS No Results PROCEDURES [...]
--- OUTSIDE RECORDS SUMMARY | 2018-06-09 13:42 | XMS REPORT ---
Author Author JEFF WATKINS Organization [facility] Address [address] [place] [address] Care Team Providers Care Over [employer] Driver Name Role Phone JEFF WATKINS Unavailable PROBLEMS Type Condition ICD9-CM Code [id number] Code Onset Dates Condition Status SNOMED Code Problem Neuropathy G62.9 Active 789377699 Problem Tobacco abuse counseling Z71.6 Active 91663606 Problem Sinusitis chronic, ethmoidal J32.2 Active 75506582 Problem Other ascites R18.8 Active 938367193 Problem Chronic obstructive pulmonary disease with acute exacerbation J44.1 Active 613683754 Problem correction (current) use of insulin Z79.4 Active 625882405 Problem Mixed hyperlipidemia E78.2 Active 595987707 Problem Paroxysmal atrial fibrillation I48.0 Active 938804056 Problem Type 2 diabetes mellitus without complications E11.9 Active 157600027 Problem Episodic mood disorder F39 Active 87121913 Problem Chronic pain G89.29 Active 79580890 Problem Abnormal CBC R79.89 Active 794070369 Problem Posttraumatic stress disorder F43.10 Active 23921064 Problem Marijuana use F12.10 Active 44839338 Problem Type 2 diabetes mellitus with hyperglycemia E11.65 Active 927989381 Problem Essential hypertension I10 Active 51494773 Problem Atrial fibrillation I48.91 Active 78713271 Problem Chronic hepatitis C without hepatic coma B18.2 Active 435019493 Problem Other allergic rhinitis J30.89 Active 73605610 ALLERGIES No Information ENCOUNTERS Encounter Location Date Diagnosis [facility] [address] [facility] [id number] [address] Dec, [facility] [address] [id number] [address] Nov, Abnormal CBC R79.89 [facility] [address] [id number] [address] Nov, Type 2 diabetes mellitus with hyperglycemia E11.65 and Chronic hepatitis C without hepatic coma B18.2 [facility] [id number] [place] [address] 78542- 9869 27 Oct, 2017 Type 2 diabetes mellitus with hyperglycemia E11.65 [facility] [id number] [place] [address] 22811- 5231 15 Oct, 2017 Type 2 diabetes mellitus with hyperglycemia E11.65 ; Decreased breath sounds at right lung base R09.89 ; Essential hypertension I10 ; Atrial fibrillation I48.91 ; Chronic hepatitis C without hepatic coma B18.2 ; Peripheral edema R60.9 ; Other ascites R18.8 and Chronic obstructive pulmonary disease with acute exacerbation J44.1 [place] [address] [address]- [address] Oct, [place] [id number] [place] [address] 75920- 3178 Oct, [place] [address] 35851- 3752 September, [place] [id number] [place] [address] 04086- 8741 Aug, Type 2 diabetes mellitus without complications E11.9 [place] [id number] [place] [address] 15012- 6075 Aug, Type 2 diabetes mellitus with hyperglycemia E11.65 [place] [id number] [place] [address] 64764- 1174 16 Aug, 2017 Pneumonia of right middle lobe due to infectious organism J18.1 ; Peripheral edema R60.9 ; Right upper quadrant abdominal pain R10.11 ; Type 2 diabetes mellitus without complications E11.9 and BMI 40.0-44.9, adult Z68.41 [place] [id number] [place] [address] 70536- 8433 Aug, [place] [id number] [place] [address] 17513- 6821 Aug, [place] [address] [place] [address] 3393 Aug, [facility] [id number] [place] [address] 80975- 0201 Aug, Type 2 diabetes mellitus without complications E11.9 ; Type 2 diabetes mellitus with hyperglycemia E11.65 ; Peripheral edema R60.9 ; Shortness of breath R06.02 ; Paroxysmal atrial fibrillation I48.0 and Pneumonia of right middle lobe due to infectious organism J18.1 [place] [id number] [place] [address] 77622- 9303 Aug, [facility] [address] [address] -[address] Jul, Wheezing R06.2 and Acute non-recurrent pansinusitis J01.40 [place] [address] 92654- 8182 Jul, [place] [address] 72208- 2200 Jul, [place] [id number] [place] [address] 72412- 2718 May, Type 2 diabetes mellitus with hyperglycemia E11.65 ; Type 2 diabetes mellitus without complications E11.9 ; 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 ; Essential hypertension I10 ; Atrial fibrillation I48.91 ; Chronic hepatitis C without hepatic coma B18.2 ; Mixed hyperlipidemia E78.2 ; Episodic mood disorder F39 ; Neuropathy G62.9 ; Acute non-recurrent maxillary sinusitis J01.00 ; Chronic pain G89.29 and Marijuana use F12.10 [place] [id number] [place] [address] 55419- 8569 Apr, Atrial fibrillation I48.91 [place] [address] 49820- 3531 Mar, [place] [id number] [place] [address] 58165- 1434 Feb, Type 2 diabetes mellitus with hyperglycemia E11.65 ; Essential hypertension I10 ; Mixed hyperlipidemia E78.2 ; Atrial fibrillation I48.91 ; Neuropathy G62.9 ; Other allergic rhinitis J30.89 and Non compliance with medical treatment Z91.19 [place] [id number] [place] [address] 57933- 4233 Jan, Episodic mood disorder F39 and Posttraumatic stress disorder F43.10 [place] [id number] [place] [address] 89916- 7425 Jan, [place] [id number] [place] [address] 50638- 9686 Oct, [address] [address]- 0[address] Oct, [place] [id number] [place] [address] 07086- 3590 Oct, Type 2 diabetes mellitus with hyperglycemia E11.65 ; Essential hypertension I10 ; Atrial fibrillation I48.91 ; Episodic mood disorder F39 ; Chronic pain G89.29 ; Neuropathy G62.9 ; Other allergic rhinitis J30.89 and Tobacco abuse counseling Z71.6 [facility] [id number] [place] [address] 68531 -5987 Aug, Acute non-recurrent pansinusitis J01.40 [place] [id number] [place] [address] 74298- 0643 Jul, [place] [id number] [place] [address] 27772- 1981 Jun, [place] [id number] [place] [address] 04208- 6303 Jun, Type 2 diabetes mellitus with hyperglycemia E11.65 ; Episodic mood disorder F39 ; Posttraumatic stress disorder F43.10 ; Essential hypertension I10 ; Atrial fibrillation I48.91 ; Chronic pain G89.29 ; Acute upper respiratory infection, unspecified J06.9 ; Other viral agents as the cause of diseases classified elsewhere B97.89 ; Acute pain of left shoulder M25.512 and Sinusitis chronic, ethmoidal J32.2 [facility] [id number] [place] [address] 74514- 4278 May, Acute intractable tension-type headache G44.201 ; Chronic pain G89.29 ; Essential hypertension I10 ; Atrial fibrillation I48.91 ; Neuropathy G62.9 ; Posttraumatic stress disorder F43.10 ; Episodic mood disorder F39 ; Type 2 diabetes mellitus with hyperglycemia E11.65 ; Other allergic rhinitis J30.89 and Irritable bowel syndrome with both constipation and diarrhea K58.2 [facility] [id number] [place] [address] 90843- 5484 Apr, Episodic mood disorder F39 and Posttraumatic stress disorder F43.10 [facility] [id number] [place] [address] 39870- 2622 Mar, [facility] [id number] [place] [address] 08587- 8391 Mar, [facility] [id number] [place] [address] 30079- 7004 Mar, Chronic hepatitis C without hepatic coma B18.2 [facility] [id number] [place] [address] 65719- 2102 Mar, [facility] [id number] [place] [address] 76727- 4483 Mar, Episodic mood disorder F39 ; Posttraumatic stress disorder F43.10 ; Essential hypertension I10 and Type 2 diabetes mellitus with hyperglycemia E11.65 [facility] [id number] [place] [address] 88012- 8901 Mar, [facility] [id number] [place] [address] 96559- 0973 Mar, [facility] [id number] [place] [address] 87511- 8093 Mar, Type 2 diabetes mellitus with hyperglycemia E11.65 ; Chronic hepatitis C without hepatic coma B18.2 ; Posttraumatic stress disorder F43.10 ; Episodic mood disorder F39 ; Atrial fibrillation I48.91 ; Irritable bowel syndrome with both constipation and diarrhea K58.2 ; Secondary hypertension I15.9 and Neuropathy G62.9 [facility] [id number] [place] [address] 32480- 4813 Feb, Episodic mood disorder F39 and Posttraumatic stress disorder F43.10 [facility] [id number] [place] [address] 61222- 3216 Jan, Episodic mood disorder F39 and Posttraumatic stress disorder F43.10 [facility] [id number] [place] [address] 00456- 9252 Nov, Type 2 diabetes mellitus with hyperglycemia E11.65 ; Atrial fibrillation I48.91 ; Other allergic rhinitis J30.89 ; Episodic mood disorder F39 and Essential hypertension I10 [facility] [id number] [place] [address] 54498- 6706 Nov, [facility] [id number] [place] [address] 51702- 3468 Oct, [facility] [id number] [place] [address] 66820- 3217 Oct, [facility] [id number] [place] [address] 26979- 3278 September, Type 2 diabetes mellitus with hyperglycemia E11.65 ; Atrial fibrillation I48.91 and Chronic pain G89.29 [facility] [id number] [place] [address] 66779- 9457 September, Episodic mood disorder F39 and Posttraumatic stress disorder F43.10 [facility] [id number] [place] [address] 98948- 4655 September, [facility] [id number] [place] [address] 58860- 4967 September, [facility] [id number] [place] [address] 44627 -9538 September, [facility] [id number] [place] [address] 42428- 6476 September, [facility] [id number] [place] [address] 23420- 9973 September, [facility] [address] 61138- 5984 Aug, Type 2 diabetes mellitus with hyperglycemia E11.65 and Essential hypertension I10 [facility] [address] 83858- 8080 Aug, [facility] [address] 23261- 1694 Aug, [facility] [address] 33742- 4017 Aug, Allergic rhinitis J30.9 ; Atrial fibrillation I48.91 ; Shortness of breath R06.02 and Essential hypertension I10 [place] [address] 77480- 6660 Jul, [facility] [id number] [place] [address] 19099- 4335 Jun, Episodic mood disorder F39 and Posttraumatic stress disorder F43.10 [place] [id number] [place] [address] 55705- 9064 Jun, [facility] [id number] [place] [address] 41699- 5149 May, Chronic pain G89.29 ; History of drug abuse Z87.898 and Marijuana use F12.10 [facility] [id number] [place] [address] 57693- 6985 May, Episodic mood disorder F39 and Posttraumatic stress disorder F43.10 [facility] [id number] [place] [address] 22442- 5771 May, [facility] [id number] [place] [address] 83388- 0427 14 Apr, 2015 Chronic pain G89.29 [place] [address] [place] [address]- 3328 Apr, Episodic mood disorder F39 and Posttraumatic stress disorder F43.10 [facility] [id number] [place] [address] 917514- 2676 Apr, COPD (chronic obstructive pulmonary disease) with acute bronchitis J44.0 [facility] [address] [place] [address] 05535- 8816 Feb, Episodic mood disorder F39 and Posttraumatic stress disorder F43.10 [facility] [id number] [place] [address] 86444- 5417 Feb, [place] [id number] [place] [address] 436113- 4056 Feb, Episodic mood disorder F39 and Posttraumatic stress disorder F43.10 [place] [address] 4886 Jan, Routine adult health maintenance V70.0 [facility] [id number] [place] [address] 96618- 1486 Jan, Unspecified episodic mood disorder 296.90 and Posttraumatic stress disorder 309.81 [facility] [address] [place] [address] 91055- 7260 Dec, Unspecified episodic mood disorder 296.90 and Posttraumatic stress disorder 309.81 [place] [address] [place] [address] 98556- 8627 Dec, Unspecified episodic mood disorder 296.90 and Posttraumatic stress disorder 309.81 [facility] [address] [place] [address] 93143767- 9876 Oct, Unspecified episodic mood disorder 296.90 and Posttraumatic stress disorder 309.81 [facility] [address] 8670 September, Unspecified episodic mood disorder 296.90 ; Posttraumatic stress disorder 309.81 ; No condition on [place] II V71.09 ; Diabetes 250.00 ; Hypertension 401.9 ; Hepatitis C 070.70 and Degenerative disc disease 722.6 [facility] [address] [id number] [place] [address]- 6140 14 Aug, 2014 [facility] [address] [id number] [place] [address]- 2213 13 Aug, 2014 [facility] [address] [facility] [id number] [place] [address]- 0084 Jul, [facility] [address] [id number] [address]- 9934 Jul, 2014 [facility] [address] [id number] [place] [address]- 4106 16 Jan, 2014 [facility] [address] [id number] [place] [address]- 1929 16 Jan, 2014 [facility] [address] [facility] [id number] [place] [address]- 4562 Jan, [facility] [address] [id number] [address]- 2472 27 Oct, 2012 [facility] [address] [id number] [address]- 0357 25 Oct, 2012 [facility] [address] [facility] [id number] [address]- 3380 21 Oct, 2012 [facility] [address] [id number], [place] [address]- 6640 19 Oct, 2012 [facility] [place] [facility] [address] [id number], [place] [address]- 6919 18 Oct, 2012 [facility] [place] [facility] [address] [id number] [address]- 5726 14 Oct, 2012 [facility] [place] [facility] [address] [facility] [id number], [place] [address]- 6345 13 Oct, 2012 [facility] [place] [facility] [address] [facility] [id number] [address]- 7771 13 Oct, 2012 [facility] [place] [facility] [address], [place] [address]- 9267 Oct, [facility] [address], [place] [address]- 0565 Oct, [facility] [address], [place] [address]- 5685 Oct, [facility] [address], [place] [address]- 0381 Oct, [facility] [address], [place] [address]- 1890 Oct, [facility] [address], [place] [address]- 1339 Oct, [facility] [address], [place] [address]- 7117 Oct, [facility] [address], [place] [address]- 7958 Oct, [facility] [address], [place] [address]- 2539 September, [facility] [address], [place] [address]- 3364 Aug, [facility] [address], [place] [address]- 8503 Aug, [facility] [id number], [place] [address]- 0716 Aug, IMMUNIZATIONS No Known Immunizations SOCIAL HISTORY Never Assessed REASON FOR VISIT pneumonia f/u PLAN OF CARE VITAL SIGNS MEDICATIONS Medication Instructions Dosage Frequency Start Date End Date Duration Status Glucocard Expression Test - In Vitro 2 times a day as directed 12h 19 Aug, 2017 50 days Active RESULTS No Results PROCEDURES No [...]
--- OUTSIDE RECORDS SUMMARY | 2018-06-09 13:43 | XMS REPORT ---
Author Author JEFF WATKINS Organization [facility] [place] Address [address] [place] [address] Care Team Providers Care Balance Wheel Motion Inspector Name Role Phone JEFF WATKINS Unavailable PROBLEMS Type Condition ICD9-CM Code TUE62-GM Code Onset Dates Condition Status SNOMED Code Problem Neuropathy G62.9 Active 953790906 Problem Tobacco abuse counseling Z71.6 Active 80811565 Problem Sinusitis chronic, ethmoidal J32.2 Active 76831674 Problem Other ascites R18.8 Active 263392198 Problem Chronic obstructive pulmonary disease with acute exacerbation J44.1 Active 632020359 Problem halfway (current) use of insulin Z79.4 Active 581274411 Problem Mixed hyperlipidemia E78.2 Active 302725962 Problem Paroxysmal atrial fibrillation I48.0 Active 058298579 Problem Type 2 diabetes mellitus without complications E11.9 Active 107867868 Problem Episodic mood disorder F39 Active 69922209 Problem Chronic pain G89.29 Active 18977318 Problem Abnormal CBC R79.89 Active 830262674 Problem Posttraumatic stress disorder F43.10 Active 01921525 Problem Marijuana use F12.10 Active 50393909 Problem Type 2 diabetes mellitus with hyperglycemia E11.65 Active 093202704 Problem Essential hypertension I10 Active 42966152 Problem Atrial fibrillation I48.91 Active 57269614 Problem Chronic hepatitis C without hepatic coma B18.2 Active 957181153 Problem Other allergic rhinitis J30.89 Active 13393165 ALLERGIES No Information ENCOUNTERS Encounter Location Date Diagnosis [facility] [place] [id number] [address] Nov, Abnormal CBC R79.89 [facility] [place] [address] [address] Nov, Type 2 diabetes mellitus with hyperglycemia E11.65 and Chronic hepatitis C without hepatic coma B18.2 [facility] [place] [id number] [place] [address] 56937- 4914 27 Oct, 2017 Type 2 diabetes mellitus with hyperglycemia E11.65 [id number] [place] [address] 15495- 3487 15 Oct, 2017 Type 2 diabetes mellitus with hyperglycemia E11.65 ; Decreased breath sounds at right lung base R09.89 ; Essential hypertension I10 ; Atrial fibrillation I48.91 ; Chronic hepatitis C without hepatic coma B18.2 ; Peripheral edema R60.9 ; Other ascites R18.8 and Chronic obstructive pulmonary disease with acute exacerbation J44.1 [address] [place] [id number] [place] [address] 64264- 9325 Oct, [address] [place] [id number] [place] [address] 36124- 4776 Oct, [address] [place] [id number] [place] [address] 50060- 7760 September, [place] [id number] [place] [address] 09549- 8621 Aug, Type 2 diabetes mellitus without complications E11.9 [address] [place] [id number] [place] [address] 07085- 9246 Aug, Type 2 diabetes mellitus with hyperglycemia E11.65 [place] [id number] [place] [address] 10412- 9429 16 Aug, 2017 Pneumonia of right middle lobe due to infectious organism J18.1 ; Peripheral edema R60.9 ; Right upper quadrant abdominal pain R10.11 ; Type 2 diabetes mellitus without complications E11.9 and BMI 40.0-44.9, adult Z68.41 [id number] [address] Aug, [place] [id number] [place] [address] 87032- 3535 Aug, [place] [place] [id number] [place] [address] 02441- 6618 Aug, [address] [place] [id number] [place] [address] 46787- 9209 Aug, Type 2 diabetes mellitus without complications E11.9 ; Type 2 diabetes mellitus with hyperglycemia E11.65 ; Peripheral edema R60.9 ; Shortness of breath R06.02 ; Paroxysmal atrial fibrillation I48.0 and Pneumonia of right middle lobe due to infectious organism J18.1 [facility] [place] [id number] [place] [address] 40372- 0873 Aug, [facility] [address] [address] Jul, Wheezing R06.2 and Acute non-recurrent pansinusitis J01.40 [address] [address]- 2206 Jul, [facility] [place] [address] [address]- 0677 Jul, [facility] [place] [id number] [place] [address] 19013- 8463 May, Type 2 diabetes mellitus with hyperglycemia [...] Chronic pain G89.29 and Marijuana use F12.10 [address] [place] [id number] [place] [address] 66542- 0343 Apr, Atrial fibrillation I48.91 [address] [place] [id number] [place] [address] 67286- 3828 Mar, [address] [address]- 9249 Feb, Type 2 diabetes mellitus with hyperglycemia E11.65 ; Essential hypertension I10 ; Mixed hyperlipidemia E78.2 ; Atrial fibrillation I48.91 ; Neuropathy G62.9 ; Other allergic rhinitis J30.89 and Non compliance with medical treatment Z91.[id number] [place] [address] 29416- 5493 Jan, Episodic mood disorder F39 and Posttraumatic stress disorder F43.10 [id number] [place] [address] 65232- 4293 Jan, [address] 86541- 7528 Oct, [id number] [place] [address] 59252- 6716 Oct, [address] 24779- 8714 Oct, Type 2 diabetes mellitus with hyperglycemia E11.65 ; Essential hypertension I10 ; Atrial fibrillation I48.91 ; Episodic mood disorder F39 ; Chronic pain G89.29 ; Neuropathy G62.9 ; Other allergic rhinitis J30.89 and Tobacco abuse counseling Z71.6 [facility] [address] [place] [id number] [place] [address] 93211 -6926 Aug, Acute non-recurrent pansinusitis J01.40 [id number] [place] [address] 11873- 8430 Jul, [id number] [place] [address] 48611- 1348 Jun, [id number] [place] [address] 82934- 2535 Jun, Type 2 diabetes mellitus with hyperglycemia E11.65 ; Episodic mood disorder F39 ; Posttraumatic stress disorder F43.10 ; Essential hypertension I10 ; Atrial fibrillation I48.91 ; Chronic pain G89.29 ; Acute upper respiratory infection, unspecified J06.9 ; Other viral agents as the cause of diseases classified elsewhere B97.89 ; Acute pain of left shoulder M25.512 and Sinusitis chronic, ethmoidal J32.2 [id number] [place] [address] 46195- 2694 May, Acute intractable tension-type headache G44.201 ; Chronic pain G89.29 ; Essential hypertension I10 ; Atrial fibrillation I48.91 ; Neuropathy G62.9 ; Posttraumatic stress disorder F43.10 ; Episodic mood disorder F39 ; Type 2 diabetes mellitus with hyperglycemia E11.65 ; Other allergic rhinitis J30.89 and Irritable bowel syndrome with both constipation and diarrhea K58.2 [facility] [place] [id number] [place] [address] 68308- 9136 Apr, Episodic mood disorder F39 and Posttraumatic stress disorder F43.10 [facility] [place] [id number] [place] [address] 27418- 8458 Mar, [facility] [place] [id number] [place] [address] 47134- 9176 Mar, [facility] [place] [id number] [place] [address] 15927- 0911 Mar, Chronic hepatitis C without hepatic coma B18.2 [facility] [place] [id number] [place] [address] 39985- 9548 Mar, [facility] [place] [id number] [place] [address] 99283- 0930 Mar, Episodic mood disorder F39 ; Posttraumatic stress disorder F43.10 ; Essential hypertension I10 and Type 2 diabetes mellitus with hyperglycemia E11.65 [facility] [place] [id number] [place] [address] 57913- 8897 Mar, [facility] [place] [id number] [place] [address] 54694- 6067 Mar, [facility] [place] [id number] [place] [address] 96257- 7724 Mar, Type 2 diabetes mellitus with hyperglycemia E11.65 ; Chronic hepatitis C without hepatic coma B18.2 ; Posttraumatic stress disorder F43.10 ; Episodic mood disorder F39 ; Atrial fibrillation I48.91 ; Irritable bowel syndrome with both constipation and diarrhea K58.2 ; Secondary hypertension I15.9 and Neuropathy G62.9 [facility] [place] [address] [address]99 Feb, Episodic mood disorder F39 and Posttraumatic stress disorder F43.10 [facility] [place] [id number] [place] [address] 47236- 0335 Jan, Episodic mood disorder F39 and Posttraumatic stress disorder F43.10 [facility] [place] [id number] [place] [address] 96104- 9341 Nov, Type 2 diabetes mellitus with hyperglycemia E11.65 ; Atrial fibrillation I48.91 ; Other allergic rhinitis J30.89 ; Episodic mood disorder F39 and Essential hypertension I10 [facility] [place] [id number] [place] [address] 48284- 3239 Nov, [facility] [place] [id number] [place] [address] 99665- 7499 Oct, [facility] [place] [id number] [place] [address] 48327- 1825 Oct, [facility] [place] [id number] [place] [address] 21597- 3787 September, Type 2 diabetes mellitus with hyperglycemia E11.65 ; Atrial fibrillation I48.91 and Chronic pain G89.29 [facility] [place] [id number] [place] [address] 57572- 5793 September, Episodic mood disorder F39 and Posttraumatic stress disorder F43.10 [facility] [place] [id number] [place] [address] 73506- 0987 September, [facility] [place] [id number] [place] [address] 17975- 0261 September, [facility] [id number] [place] [address] 03161 -6312 September, [facility] [place] [id number] [place] [address] 95068- 5180 September, [facility] [place] [id number] [place] [address] 23390- 0049 September, [facility] [place] [address] [place] [address] 36499- 5837 Aug, Type 2 diabetes mellitus with hyperglycemia E11.65 and Essential hypertension I10 [facility] [place] [id number] [place] [address] 08242- 4146 Aug, [facility] [place] [id number] [place] [address] 56865- 7881 Aug, [facility] [place] [id number] [place] [address] 21462- 0310 Aug, Allergic rhinitis J30.9 ; Atrial fibrillation I48.91 ; Shortness of breath R06.02 and Essential hypertension I10 [id number] [place] [address] 10797- 5705 Jul, [address] [place] [id number] [place] [address] 22282- 8672 Jun, Episodic mood disorder F39 and Posttraumatic stress disorder F43.10 [facility] [place] [id number] [place] [address] 47400- 8855 Jun, [facility] [place] [id number] [place] [address] 09168- 2148 May, Chronic pain G89.29 ; History of drug abuse Z87.898 and Marijuana use F12.10 [facility] [place] [id number] [place] [address] 66716- 2286 May, Episodic mood disorder F39 and Posttraumatic stress disorder F43.10 [facility] [place] [id number] [place] [address] 60970- 6449 May, [facility] [place] [id number] [place] [address] 20245- 2114 Apr, Chronic pain G89.29 [facility] [place] [id number] [place] [address] 71464- 3455 Apr, Episodic mood disorder F39 and Posttraumatic stress disorder F43.10 [address] [address]99 Apr, COPD (chronic obstructive pulmonary disease) with acute bronchitis J44.0 [facility] [place] [address] [place] [address] 243848- 8076 Feb, Episodic mood disorder F39 and Posttraumatic stress disorder F43.10 [facility] [place] [id number] [place] [address] 71096- 4126 Feb, [facility] [place] [id number] [place] [address] 37437- 4429 Feb, Episodic mood disorder F39 and Posttraumatic stress disorder F43.10 [id number] [place] [address] 878294- 0711 Jan, Routine adult health maintenance V70.0 [address] [id number] [place] [address] 71563- 7864 Jan, Unspecified episodic mood disorder 296.90 and Posttraumatic stress disorder 309.81 [address] [place] [id number] [place] [address] 72328- 2940 Dec, Unspecified episodic mood disorder 296.90 and Posttraumatic stress disorder 309.81 [facility] [place] [address] [place] [address] 33548- 9229 Dec, Unspecified episodic mood disorder 296.90 and Posttraumatic stress disorder 309.81 [facility] [place] [address] [address]- 4526 Oct, Unspecified episodic mood disorder 296.90 and Posttraumatic stress disorder 309.81 [facility] [place] [address] [place] [address] 61490- 4903 September, Unspecified episodic mood disorder 296.90 ; Posttraumatic stress disorder 309.81 ; No condition on [place] V71.09 ; Diabetes 250.00 ; Hypertension 401.9 ; Hepatitis C 070.70 and Degenerative disc disease 722.6 [facility] [place] [id number] [place] [address] 31474- 6426 14 Aug, 2014 [facility] [place] [facility] [address] [id number] [place] [address]- 0323 13 Aug, 2014 [facility] [place] [facility] [address] [id number] [place] [address]- 4926 Jul, [facility] [place] [facility] [address] [id number] [place] [address]- 3084 Jul, [facility] [place] [facility] [address] [id number] [place] [address]- 1605 16 Jan, 2014 [facility] [place] [facility] [address] [id number] [place] [address]- 7591 16 Jan, 2014 [facility] [place] [facility] [address] [id number] [place] [address]- 3822 03 Jan, 2013 [facility] [place] [facility] [address] [id number] [place] [address]- 5200 27 Oct, 2012 [facility] [place] [facility] [address] [id number] [place] [address]- 8798 25 Oct, 2012 [facility] [place] [facility] [address] [id number] [place] [address]- 8466 21 Oct, 2012 [facility] [place] [facility] [address] [id number] [place] [address]- 0558 19 Oct, 2012 [facility] [place] [facility] [address] [id number] [address]- 3050 18 Oct, 2012 [facility] [place] [facility] [address] [id number] [address]- 3656 14 Oct, 2012 [facility] [place] [facility] [address] [id number] [place] [address]- 8495 13 Oct, 2012 [facility] [place] [facility] [address] [id number] [address]- 4884 13 Oct, 2012 [facility] [place] [facility] [address] [id number] [address]- 7848 12 Oct, 2012 [facility] [place] [facility] [id number] [address]- 3255 12 Oct, 2012 [facility] [place] [address] [address]- 1763 Oct, [facility] [place] [id number] [address]- 2562 Oct, [facility] [place] [address] [address]- 7350 Oct, [facility] [place] [address] [address]- 4970 Oct, [facility] [place] [address] [address]- 0460 Oct, [facility] [place] [address] [address]- 3513 Oct, [facility] [place] [address] [address]- 8973 September, [facility] [place] [id number] [address]- 8318 Aug, [facility] [place] [id number] [address]- 7304 Aug, [facility] [place] [id number] [address]- 0802 Aug, IMMUNIZATIONS No Known Immunizations SOCIAL HISTORY Never Assessed REASON FOR VISIT pharmacy verification PLAN OF CARE VITAL SIGNS MEDICATIONS Unknown [...]
--- OUTSIDE RECORDS SUMMARY | 2018-06-09 13:43 | XMS REPORT ---
Author Author JEFF WATKINS Organization [facility] Address [address] [place] [address] Care Team Providers Care Piercer Name Role Phone JEFF WATKINS Unavailable PROBLEMS Type Condition ICD9-CM Code [id number] Code Onset Dates Condition Status SNOMED Code Problem Neuropathy G62.9 Active 651827233 Problem Tobacco abuse counseling Z71.6 Active 50963926 Problem Sinusitis chronic, ethmoidal J32.2 Active 56788618 Problem Other ascites R18.8 Active 342334524 Problem Chronic obstructive pulmonary disease with acute exacerbation J44.1 Active 956729196 Problem custodial (current) use of insulin Z79.4 Active 501433357 Problem Mixed hyperlipidemia E78.2 Active 610288462 Problem Paroxysmal atrial fibrillation I48.0 Active 390258032 Problem Type 2 diabetes mellitus without complications E11.9 Active 349034444 Problem Episodic mood disorder F39 Active 99655914 Problem Chronic pain G89.29 Active 35170566 Problem Abnormal CBC R79.89 Active 667638253 Problem Posttraumatic stress disorder F43.10 Active 63468703 Problem Marijuana use F12.10 Active 99067680 Problem Type 2 diabetes mellitus with hyperglycemia E11.65 Active 563930483 Problem Essential hypertension I10 Active 12930183 Problem Atrial fibrillation I48.91 Active 29012599 Problem Chronic hepatitis C without hepatic coma B18.2 Active 355397108 Problem Other allergic rhinitis J30.89 Active 55604713 ALLERGIES Substance Reaction Event Type Date Status Diclofenac Unknown Drug Allergy Aug, Active MetFORMIN HCl ER diarrhea Drug Allergy Aug, Active Sulfamethoxazole-Trimethoprim Unknown Drug Allergy Aug, Active statins- patient declines to take Unknown Non Drug Allergy Aug, Active ENCOUNTERS Encounter Location Date Diagnosis [facility] [address] [facility] [id number] [address] Nov, Abnormal CBC R79.89 [facility] [address] [facility] [id number] [place] [address] 49402- 7938 Nov, Type 2 diabetes mellitus with hyperglycemia E11.65 and Chronic hepatitis C without hepatic coma B18.2 [facility] [facility] [address] [place] [id number] [place] [address] 30368- 6183 Oct, Type 2 diabetes mellitus with hyperglycemia E11.65 [facility] [address] [place] [id number] [place] [address] 21886- 3576 15 Oct, 2017 Type 2 diabetes mellitus with hyperglycemia E11.65 ; Decreased breath sounds at right lung base R09.89 ; Essential hypertension I10 ; Atrial fibrillation I48.91 ; Chronic hepatitis C without hepatic coma B18.2 ; Peripheral edema R60.9 ; Other ascites R18.8 and Chronic obstructive pulmonary disease with acute exacerbation J44.1 [place] [id number] [place] [address] 99921- 7633 Oct, [facility] [address] [place] [id number] [place] [address] 90290- 1406 Oct, [facility] [address] [id number] [place] [address] 12521- 5485 September, [facility] [facility] [address] [id number] [place] [address] 72521- 0277 Aug, Type 2 diabetes mellitus without complications E11.9 [facility] [address] [address] 28[address] Aug, Type 2 diabetes mellitus with hyperglycemia E11.65 [facility] [address] [place] [id number] [place] [address] 49111- 3264 Aug, Pneumonia of right middle lobe due to infectious organism J18.1 ; Peripheral edema R60.9 ; Right upper quadrant abdominal pain R10.11 ; Type 2 diabetes mellitus without complications E11.9 and BMI 40.0-44.9, adult Z68.41 [place] [address] [address] 3[address] Aug, [facility] [address] [place] [id number] [place] [address] 31570- 7385 Aug, [facility] [id number] [place] [address] 41441- 6670 Aug, [facility] [id number] [place] [address] 24527- 0780 Aug, Type 2 diabetes mellitus without complications E11.9 ; Type 2 diabetes mellitus with hyperglycemia E11.65 ; Peripheral edema R60.9 ; Shortness of breath R06.02 ; Paroxysmal atrial fibrillation I48.0 and Pneumonia of right middle lobe due to infectious organism J18.1 [facility] [address] [id number] [place] [address] 40477- 9767 Aug, [facility] [id number] [place] [address] 38104 -5062 Jul, Wheezing R06.2 and Acute non-recurrent pansinusitis J01.[address] 63241- 5944 Jul, [facility] [address] [id number] [place] [address] 25141- 8180 Jul, [facility] [id number] [place] [address] 62731- 0879 May, Type 2 diabetes mellitus with hyperglycemia E11.65 ; Type 2 diabetes mellitus without complications E11.9 ; 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.4 ; Essential hypertension I10 ; Atrial fibrillation I48.91 ; Chronic hepatitis C without hepatic coma B18.2 ; Mixed hyperlipidemia E78.2 ; Episodic mood disorder F39 ; Neuropathy G62.9 ; Acute non-recurrent maxillary sinusitis J01.00 ; Chronic pain G89.29 and Marijuana use F12.10 [place] [address] [id number] [place] [address] 30724- 2931 Apr, Atrial fibrillation I48.91 [place] [address] [place] [id number] [place] [address] 87958- 4999 Mar, [facility] [id number] [place] [address] 43437- 1873 Feb, Type 2 diabetes mellitus with hyperglycemia E11.65 ; Essential hypertension I10 ; Mixed hyperlipidemia E78.2 ; Atrial fibrillation I48.91 ; Neuropathy G62.9 ; Other allergic rhinitis J30.89 and Non compliance with medical treatment Z91.19 [facility] [id number] [place] [address] 90858- 6269 Jan, Episodic mood disorder F39 and Posttraumatic stress disorder F43.10 [place] [id number] [place] [address] 48588- 5213 Jan, [facility] [facility] [address] [id number] [place] [address] 45375- 0076 Oct, [place] [id number] [place] [address] 14935- 7213 Oct, [place] [id number] [place] [address] 04891- 9469 Oct, Type 2 diabetes mellitus with hyperglycemia E11.65 ; Essential hypertension I10 ; Atrial fibrillation I48.91 ; Episodic mood disorder F39 ; Chronic pain G89.29 ; Neuropathy G62.9 ; Other allergic rhinitis J30.89 and Tobacco abuse counseling Z71.6 [facility] [address] [place] [id number] [place] [address] 06759 -0154 Aug, Acute non-recurrent pansinusitis J01.40 [address] [place] [address] 11637- 7196 Jul, [place] [address] [place] [id number] [place] [address] 05719- 8241 Jun, [place] [id number] [place] [address] 17787- 5108 Jun, Type 2 diabetes mellitus with hyperglycemia E11.65 ; Episodic mood disorder F39 ; Posttraumatic stress disorder F43.10 ; Essential hypertension I10 ; Atrial fibrillation I48.91 ; Chronic pain G89.29 ; Acute upper respiratory infection, unspecified J06.9 ; Other viral agents as the cause of diseases classified elsewhere B97.89 ; Acute pain of left shoulder M25.512 and Sinusitis chronic, ethmoidal J32.2 [facility] [id number] [place] [address] 99603- 6289 May, Acute intractable tension-type headache G44.201 ; Chronic pain G89.29 ; Essential hypertension I10 ; Atrial fibrillation I48.91 ; Neuropathy G62.9 ; Posttraumatic stress disorder F43.10 ; Episodic mood disorder F39 ; Type 2 diabetes mellitus with hyperglycemia E11.65 ; Other allergic rhinitis J30.89 and Irritable bowel syndrome with both constipation and diarrhea K58.2 [facility] [id number] [place] [address] 28528- 6011 Apr, Episodic mood disorder F39 and Posttraumatic stress disorder F43.10 [facility] [id number] [place] [address] 43962- 1116 Mar, [facility] [id number] [place] [address] 95486- 5148 Mar, [facility] [id number] [place] [address] 20671- 2442 Mar, Chronic hepatitis C without hepatic coma B18.2 [facility] [id number] [place] [address] 38507- 3443 Mar, [facility] [id number] [place] [address] 92336- 1881 Mar, Episodic mood disorder F39 ; Posttraumatic stress disorder F43.10 ; Essential hypertension I10 and Type 2 diabetes mellitus with hyperglycemia E11.65 [facility] [id number] [place] [address] 86580- 4038 Mar, [facility] [id number] [place] [address] 63951- 8256 Mar, [facility] [id number] [place] [address] [id number]- 9196 Mar, Type 2 diabetes mellitus with hyperglycemia E11.65 ; Chronic hepatitis C without hepatic coma B18.2 ; Posttraumatic stress disorder F43.10 ; Episodic mood disorder F39 ; Atrial fibrillation I48.91 ; Irritable bowel syndrome with both constipation and diarrhea K58.2 ; Secondary hypertension I15.9 and Neuropathy G62.9 [facility] [id number] [place] [address] 39877- 4342 Feb, Episodic mood disorder F39 and Posttraumatic stress disorder F43.10 [facility] [id number] [place] [address] 57463- 0693 Jan, Episodic mood disorder F39 and Posttraumatic stress disorder F43.10 [facility] [id number] [place] [address] 31606- 5014 Nov, Type 2 diabetes mellitus with hyperglycemia E11.65 ; Atrial fibrillation I48.91 ; Other allergic rhinitis J30.89 ; Episodic mood disorder F39 and Essential hypertension I10 [facility] [address] [id number] [place] [address] 66875- 0743 Nov, [facility] [id number] [place] [address] 79221- 5110 Oct, [facility] [id number] [place] [address] 10644- 9649 Oct, [facility] [id number] [place] [address] 68501- 5299 September, Type 2 diabetes mellitus with hyperglycemia E11.65 ; Atrial fibrillation I48.91 and Chronic pain G89.29 [facility] [id number] [place] [address] 82198- 3333 September, Episodic mood disorder F39 and Posttraumatic stress disorder F43.10 [facility] [address] [address]- 7050 September, [facility] [id number] [place] [address] 99582- 4210 September, [facility] [address], [place] [address]3 September, [facility] [address], [place] [address]- 9646 September, [facility] [id number] [place] [address] 89252- 5784 September, [facility] [id number] [place] [address] 90367- 5960 Aug, Type 2 diabetes mellitus with hyperglycemia E11.65 and Essential hypertension I10 [facility] [address] 26404- 5195 Aug, [facility] [address] [id number] [place] [address] 51503- 0583 Aug, [place] [id number] [place] [address] 24157- 1553 Aug, Allergic rhinitis J30.9 ; Atrial fibrillation I48.91 ; Shortness of breath R06.02 and Essential hypertension I10 [place] [address] [place] [id number] [place] [address] 10620- 7176 Jul, [facility] [id number] [place] [address] 92142- 0840 Jun, Episodic mood disorder F39 and Posttraumatic stress disorder F43.10 [place] [address] [id number] [place] [address] 47855- 5825 Jun, [place] [address] [place] [id number] [place] [address] 23311- 5129 May, Chronic pain G89.29 ; History of drug abuse Z87.898 and Marijuana use F12.10 [facility] [id number] [place] [address] 37714- 2559 May, Episodic mood disorder F39 and Posttraumatic stress disorder F43.10 [facility] [id number] [place] [address] 35851- 5119 May, [facility] [id number] [place] [address] 21956- 7657 Apr, Chronic pain G89.29 [facility] [address], [place] [address]- 2716 Apr, Episodic mood disorder F39 and Posttraumatic stress disorder F43.10 [facility] [address] [address]- 9149 Apr, COPD (chronic obstructive pulmonary disease) with acute bronchitis J44.0 [facility] [id number] [place] [address] 15974- 8627 Feb, Episodic mood disorder F39 and Posttraumatic stress disorder F43.10 [facility] [id number] [place] [address] 38666- 2586 Feb, [facility] [address] [id number] [place] [address] 53978- 2413 Feb, Episodic mood disorder F39 and Posttraumatic stress disorder F43.10 [facility] [id number] [place] [address] 50966- 4401 Jan, Routine adult health maintenance V70.0 [facility] [id number] [place] [address] 79162- 0742 Jan, Unspecified episodic mood disorder 296.90 and Posttraumatic stress disorder 309.81 [facility] [address], [place] [address]- 3982 Dec, Unspecified episodic mood disorder 296.90 and Posttraumatic stress disorder 309.81 [facility] [address] [place] [address] 72826- 5450 Dec, Unspecified episodic mood disorder 296.90 and Posttraumatic stress disorder 309.81 [facility] [id number] [place] [address] 22655- 4224 Oct, Unspecified episodic mood disorder 296.90 and Posttraumatic stress disorder 309.81 [facility] [address], [place] [address]- 9641 September, Unspecified episodic mood disorder 296.90 ; Posttraumatic stress disorder 309.81 ; No condition on Baring II V71.09 ; Diabetes 250.00 ; Hypertension 401.9 ; Hepatitis C 070.70 and Degenerative disc disease 722.6 [facility] [address], [place] [address]- 6267 14 Aug, 2014 [facility] [address] [facility] [id number] [address]- 0712 Aug, [facility] [address], [place] [address]- 3870 Jul, [facility] [address] [facility] [id number] [address]- 5878 Jul, [facility] [id number] [place] [address]- 4913 16 Jan, 2014 [facility] [address], [place] [address]- 4378 16 Jan, 2014 [facility] [address], [place] [address]- 3123 Jan, [facility] [address], [place] [address]- 0960 Oct, [facility] [address], [place] [address]- 0852 Oct, [facility] [address], [place] [address]- 8447 Oct, [facility] [address], [place] [address]- 6128 Oct, [facility] [address] [id number] [address]- 9981 18 Oct, 2012 [facility] [address], [place] [address]- 0748 14 Oct, 2012 [facility] [id number], [place] [address]- 6041 13 Oct, 2012 [facility] [address], [place] [address]- 3723 Oct, [facility] [id number], [place] [address]- 6596 Oct, [facility] [address], [place] [address]- 5089 Oct, [facility] [id number], [place] [address]- 4459 Oct, [facility] [address], [place] [address]- 3627 Oct, [facility] [id number], [place] [address]- 7612 Oct, [facility] [address], [place] [address]- 4330 Oct, [facility] [address], [place] [address]- 1491 Oct, [facility] [address], [place] [address]- 0889 Oct, [facility] [address], [place] [address]- 6484 September, [facility] [address], [place] [address]- 9846 Aug, [facility] [id number], [place] [address]- 5426 Aug, [facility] [id number], [place] [address]- 5439 Aug, IMMUNIZATIONS No Known Immunizations SOCIAL HISTORY Never Assessed REASON FOR VISIT Diabetes follow up, too soon for [id number], Reports she is retaining fluid all over, called Cardio today and they told her to follow up with us today , Pt had sinus infection 2 weeks ago PLAN OF CARE Activity Details Follow Up 2 - 3 Days Reason:Friday VITAL SIGNS Height 63 in 2017-09-01 Weight 245 lbs 2017-09-01 Temperature 97.9 degrees Fahrenheit 2017-09-01 Heart Rate 102 bpm 2017-09-01 Respiratory Rate 22 2017-09-01 Oximetry 99 % 2017-09-01 BMI 43.40 kg/m2 2017-09-01 Blood pressure systolic 110 mmHg 2017-09-01 Blood pressure diastolic 68 mmHg 2017-09-01 MEDICATIONS Medication Instructions Dosage Frequency Start Date End Date Duration Status Furosemide 40 mg Orally Once a day 1 tablet 24h Aug, 05 days Active Lidocaine 5 % Externally Once a day APPLY ONCE PATCH ONCE DAILY DIRECTED 24h 30 Active Levemir Flexpen 100 UNIT/ML Subcutaneous 2 times a day 20 units bid 12h Aug, 12 months Active Potassium Chloride ER 10 MEQ Orally Twice a day 1 tablet with food 12h Aug, Aug, 05 days Active Invokana 100 mg Orally Once a day 1 tablet 24h Aug, September, 30 day(s) Active Verapamil HCl ER 240 MG TAKE ONE TABLET BY MOUTH ONCE DAILY 30 Active Ventolin HFA 108 (90 Base) MCG/ACT Inhalation every 6 hrs 2 puffs as needed 6h Jul, 30 days Active Test strips Test Strips shayne track as directed Aug, Active Flonase 50 mcg/actuation Nasally 2 times a day 1 sprays by Nasal route 2 times per day in each nostril 12h Jul, 12 months Active Gas Relief 80 mg PRN Oct, Active Cymbalta 60 MG TAKE ONE CAPSULE BY MOUTH ONCE DAILY 30 Active Enalapril Maleate 10 mg Orally Once a day TAKE ONE TABLET BY MOUTH ONCE DAILY 24h 30 days Active Azithromycin 250 MG Orally Once a day 2 tablets on the first day, then 1 tablet daily for 4 days 24h Aug, Aug, 5 day(s) Active Aspirin 325 MG TAKE ONE TABLET BY MOUTH ONCE DAILY 30 Active Zetia 10 mg Orally Once a day 1 tablet 24h Mar, 30 day(s) Not- Taking RESULTS Name Result Date Reference Range Xray : Chest 2 View (IN HOUSE) 2017-09-01 PROCEDURES Procedure Date Ordered Result Body Site EKG, TRACING (IN-HOUSE) 2017-09-01 N/A X-RAY EXAM CHEST 2 VIEWS September 01, 2017 [facility] VISIT ESTABLISHED PATIENT September 01, 2017 ELECTROCARDIOGRAM, TRACING September 01, 2017 INSTRUCTIONS MEDICATIONS ADMINISTERED No Known Medications [...]
--- OUTSIDE RECORDS SUMMARY | 2018-06-09 13:43 | XMS REPORT ---
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 Name Role Phone JEFF WATKINS Unavailable PROBLEMS Type Condition ICD9-CM Code AGE97-MN Code Onset Dates Condition Status SNOMED Code Problem Neuropathy G62.9 Active 204880271 Problem Tobacco abuse counseling Z71.6 Active 31556475 Problem Sinusitis chronic, ethmoidal J32.2 Active 12347423 Problem Other ascites R18.8 Active 128273849 Problem Chronic obstructive pulmonary disease with acute exacerbation J44.1 Active 933905003 Problem MCC (current) use of insulin Z79.4 Active 082204063 Problem Mixed hyperlipidemia E78.2 Active 298664480 Problem Paroxysmal atrial fibrillation I48.0 Active 850388492 Problem Type 2 diabetes mellitus without complications E11.9 Active 680836080 Problem Episodic mood disorder F39 Active 73456315 Problem Chronic pain G89.29 Active 62905824 Problem Abnormal CBC R79.89 Active 330353666 Problem Posttraumatic stress disorder F43.10 Active 99401465 Problem Marijuana use F12.10 Active 53700174 Problem Type 2 diabetes mellitus with hyperglycemia E11.65 Active 743244783 Problem Essential hypertension I10 Active 73478585 Problem Atrial fibrillation I48.91 Active 98171052 Problem Chronic hepatitis C without hepatic coma B18.2 Active 025692016 Problem Other allergic rhinitis J30.89 Active 93250725 ALLERGIES No Information ENCOUNTERS Encounter Location Date Diagnosis [facility] [id number] [address] Nov, Abnormal CBC R79.89 [facility] [address], [place] [address] Nov, Type 2 diabetes mellitus with hyperglycemia E11.65 and Chronic hepatitis C without hepatic coma B18.2 [facility] [id number] [place] [address] 43309- 8476 27 Oct, 2017 Type 2 diabetes mellitus with hyperglycemia E11.65 [place] [id number] [place] [address] 31836- 4918 15 Oct, 2017 Type 2 diabetes mellitus with hyperglycemia E11.65 ; Decreased breath sounds at right lung base R09.89 ; Essential hypertension I10 ; Atrial fibrillation I48.91 ; Chronic hepatitis C without hepatic coma B18.2 ; Peripheral edema R60.9 ; Other ascites R18.8 and Chronic obstructive pulmonary disease with acute exacerbation J44.1 [place] [id number] [place] [address] 66766- 2432 Oct, [place] [id number] [place] [address] 85845- 5852 Oct, [place] [id number] [place] [address] 04998- 9333 September, [place] [id number] [place] [address] 44134- 2259 Aug, Type 2 diabetes mellitus without complications E11.9 [place] [facility] [id number] [place] [address] 91963- 0242 Aug, Type 2 diabetes mellitus with hyperglycemia E11.65 [place] [facility] [id number] [place] [address] 08409- 0678 16 Aug, 2017 Pneumonia of right middle lobe due to infectious organism J18.1 ; Peripheral edema R60.9 ; Right upper quadrant abdominal pain R10.11 ; Type 2 diabetes mellitus without complications E11.9 and BMI 40.0-44.9, adult Z68.41 [place] [id number] [address] Aug, [place] [id number] [place] [address] 96670- 8709 Aug, [place] [id number] [place] [address] 21570- 4311 Aug, [place] [id number] [place] [address] 52608- 3017 Aug, Type 2 diabetes mellitus without complications E11.9 ; Type 2 diabetes mellitus with hyperglycemia E11.65 ; Peripheral edema R60.9 ; Shortness of breath R06.02 ; Paroxysmal atrial fibrillation I48.0 and Pneumonia of right middle lobe due to infectious organism J18.1 [facility] [id number] [place] [address] 66314- 8435 Aug, [facility] [address] [address] Jul, Wheezing R06.2 and Acute non-recurrent pansinusitis J01.40 [place] [address] [address]- 6568 Jul, [facility] [address] [address]- 2032 Jul, [facility] [id number] [place] [address] 90207- 2021 May, Type 2 diabetes mellitus with hyperglycemia E11.65 ; Type 2 diabetes mellitus without complications E11.9 ; MCC (current) use of insulin Z79.4 ; Essential hypertension I10 ; Atrial fibrillation I48.91 ; Chronic hepatitis C without hepatic coma B18.2 ; Mixed hyperlipidemia E78.2 ; Episodic mood disorder F39 ; Neuropathy G62.9 ; Acute non-recurrent maxillary sinusitis J01.00 ; Chronic pain G89.29 and Marijuana use F12.10 [place] [id number] [place] [address] 24628- 2170 Apr, Atrial fibrillation I48.91 [place] [facility] [id number] [place] [address] 19674- 3237 Mar, [address] [address] 0[address] Feb, Type 2 diabetes mellitus with hyperglycemia E11.65 ; Essential hypertension I10 ; Mixed hyperlipidemia E78.2 ; Atrial fibrillation I48.91 ; Neuropathy G62.9 ; Other allergic rhinitis J30.89 and Non compliance with medical treatment Z91.19 [address] [place] [address] 94637- 3570 Jan, Episodic mood disorder F39 and Posttraumatic stress disorder F43.10 [id number] [place] [address] 45746- 8104 Jan, [address] 81905- 3967 Oct, [id number] [place] [address] 86879- 3732 Oct, [address] 09769- 5257 Oct, Type 2 diabetes mellitus with hyperglycemia E11.65 ; Essential hypertension I10 ; Atrial fibrillation I48.91 ; Episodic mood disorder F39 ; Chronic pain G89.29 ; Neuropathy G62.9 ; Other allergic rhinitis J30.89 and Tobacco abuse counseling Z71.6 [facility] [address] [place] [id number] [place] [address] 24013 -4460 Aug, Acute non-recurrent pansinusitis J01.40 [id number] [place] [address] 06033- 1106 Jul, [place] [id number] [place] [address] 48861- 0154 Jun, [place] [id number] [place] [address] 42798- 4331 Jun, Type 2 diabetes mellitus with hyperglycemia E11.65 ; Episodic mood disorder F39 ; Posttraumatic stress disorder F43.10 ; Essential hypertension I10 ; Atrial fibrillation I48.91 ; Chronic pain G89.29 ; Acute upper respiratory infection, unspecified J06.9 ; Other viral agents as the cause of diseases classified elsewhere B97.89 ; Acute pain of left shoulder M25.512 and Sinusitis chronic, ethmoidal J32.2 [place] [id number] [place] [address] 86477- 7679 May, Acute intractable tension-type headache G44.201 ; Chronic pain G89.29 ; Essential hypertension I10 ; Atrial fibrillation I48.91 ; Neuropathy G62.9 ; Posttraumatic stress disorder F43.10 ; Episodic mood disorder F39 ; Type 2 diabetes mellitus with hyperglycemia E11.65 ; Other allergic rhinitis J30.89 and Irritable bowel syndrome with both constipation and diarrhea K58.2 [facility] [id number] [place] [address] 46494- 6526 Apr, Episodic mood disorder F39 and Posttraumatic stress disorder F43.10 [facility] [id number] [place] [address] 83903- 1594 Mar, [facility] [id number] [place] [address] 85239- 7059 Mar, [facility] [id number] [place] [address] 49449- 4063 Mar, Chronic hepatitis C without hepatic coma B18.2 [facility] [id number] [place] [address] 18061- 6750 Mar, [facility] [id number] [place] [address] 47651- 8112 Mar, Episodic mood disorder F39 ; Posttraumatic stress disorder F43.10 ; Essential hypertension I10 and Type 2 diabetes mellitus with hyperglycemia E11.65 [facility] [address] [place] [address] 64958- 5209 Mar, [facility] [id number] [place] [address] 45382- 9428 Mar, [facility] [id number] [place] [address] 49601- 9305 Mar, Type 2 diabetes mellitus with hyperglycemia E11.65 ; Chronic hepatitis C without hepatic coma B18.2 ; Posttraumatic stress disorder F43.10 ; Episodic mood disorder F39 ; Atrial fibrillation I48.91 ; Irritable bowel syndrome with both constipation and diarrhea K58.2 ; Secondary hypertension I15.9 and Neuropathy G62.9 [facility] [address] [address] 3[address] Feb, Episodic mood disorder F39 and Posttraumatic stress disorder F43.10 [facility] [id number] [place] [address] 92342- 0096 Jan, Episodic mood disorder F39 and Posttraumatic stress disorder F43.10 [facility] [id number] [place] [address] 04762- 2911 Nov, Type 2 diabetes mellitus with hyperglycemia E11.65 ; Atrial fibrillation I48.91 ; Other allergic rhinitis J30.89 ; Episodic mood disorder F39 and Essential hypertension I10 [facility] [id number] [place] [address] 66116- 6983 Nov, [facility] [id number] [place] [address] 23776- 4327 Oct, [facility] [id number] [place] [address] 72371- 2898 Oct, [facility] [id number] [place] [address] 33302- 6427 September, Type 2 diabetes mellitus with hyperglycemia E11.65 ; Atrial fibrillation I48.91 and Chronic pain G89.29 [facility] [id number] [place] [address] 10541- 8842 September, Episodic mood disorder F39 and Posttraumatic stress disorder F43.10 [facility] [address] [place] [address] 22423- 5758 September, [facility] [address] [place] [address] 07413- 0913 September, [facility] [id number] [place] [address] 13116 -7590 September, [facility] [id number] [place] [address] 67529- 9306 September, [facility] [id number] [place] [address] 92965- 2822 September, [facility] [address] [place] [address] 76368- 2780 Aug, Type 2 diabetes mellitus with hyperglycemia E11.65 and Essential hypertension I10 [facility] [id number] [place] [address] 62867- 3781 Aug, [facility] [id number] [place] [address] 26327- 0844 Aug, [facility] [id number] [place] [address] 58834- 0084 Aug, Allergic rhinitis J30.9 ; Atrial fibrillation I48.91 ; Shortness of breath R06.02 and Essential hypertension I10 [place] [id number] [place] [address] 02340- 2528 Jul, [place] [id number] [place] [address] 97438- 1678 Jun, Episodic mood disorder F39 and Posttraumatic stress disorder F43.10 [facility] [id number] [place] [address] 58925- 2930 Jun, [facility] [id number] [place] [address] 77700- 5099 May, Chronic pain G89.29 ; History of drug abuse Z87.898 and Marijuana use F12.10 [facility] [id number] [place] [address] 93635- 6749 May, Episodic mood disorder F39 and Posttraumatic stress disorder F43.10 [facility] [id number] [place] [address] 28442- 8149 May, [facility] [id number] [place] [address] 89395- 2183 Apr, Chronic pain G89.29 [facility] [id number] [place] [address] 34236- 8994 Apr, Episodic mood disorder F39 and Posttraumatic stress disorder F43.10 [place] [id number] [address]61 Apr, COPD (chronic obstructive pulmonary disease) with acute bronchitis J44.0 [facility] [address] [place] [address] 142253- 0286 Feb, Episodic mood disorder F39 and Posttraumatic stress disorder F43.10 [facility] [id number] [place] [address] 63491- 1422 Feb, [facility] [id number] [place] [address] 50601- 3480 Feb, Episodic mood disorder F39 and Posttraumatic stress disorder F43.10 [place] [id number] [place] [address] 146636- 3747 Jan, Routine adult health maintenance V70.0 [place] [id number] [place] [address] 91036- 7517 Jan, Unspecified episodic mood disorder 296.90 and Posttraumatic stress disorder 309.81 [place] [id number] [place] [address] 17608- 7249 Dec, Unspecified episodic mood disorder 296.90 and Posttraumatic stress disorder 309.81 [facility] [address] [place] [address] 09373- 3855 Dec, Unspecified episodic mood disorder 296.90 and Posttraumatic stress disorder 309.81 [facility] [address], [place] [address]- 1869 Oct, Unspecified episodic mood disorder 296.90 and Posttraumatic stress disorder 309.81 [facility] [address] [place] [address] 50427- 4264 September, Unspecified episodic mood disorder 296.90 ; Posttraumatic stress disorder 309.81 ; No condition on Spoff[place] II V71.09 ; Diabetes 250.00 ; Hypertension 401.9 ; Hepatitis C 070.70 and Degenerative disc disease 722.6 [facility] [id number] [place] [address] 81018- 4300 14 Aug, 2014 [facility] [place] [facility] [address] [id number] [place] [address]- 9468 13 Aug, 2014 [facility] [place] [facility] [address] [id number] [place] [address]- 9605 Jul, [facility] [place] [facility] [address] [id number] [place] [address]- 3910 Jul, [facility] [place] [facility] [address] [id number] [place] [address]- 8738 16 Jan, 2014 [facility] [place] [facility] [address] [id number] [place] [address]- 1783 16 Jan, 2014 [facility] [place] [facility] [address] [id number] [place] [address]- 6445 03 Jan, 2013 [facility] [place] [facility] [address] [id number] [place] [address]- 5071 27 Oct, 2012 [facility] [place] [facility] [address] [id number] [place] [address]- 2594 25 Oct, 2012 [facility] [place] [facility] [address] [id number] [place] [address]- 2154 21 Oct, 2012 [facility] [place] [facility] [address] [id number] [place] [address]- 4530 19 Oct, 2012 [facility] [place] [facility] [address] [id number] [address]- 4073 18 Oct, 2012 [facility] [place] [facility] [address] [id number], [place] [address]- 2177 14 Oct, 2012 [facility] [place] [facility] [address] [id number] [place] [address]- 5251 13 Oct, 2012 [facility] [place] [facility] [address] [id number], [place] [address]- 3285 13 Oct, 2012 [facility] [place] [facility] [address] [id number], [place] [address]- 2021 12 Oct, 2012 [facility] [place] [facility] [id number] [address]- 8130 12 Oct, 2012 [facility] [address], [place] [address]- 9645 Oct, [facility] [address] [facility] [id number] [address]- 9269 Oct, [facility] [address], [place] [address]- 1489 Oct, [facility] [address], [place] [address]- 9118 Oct, [facility] [address] [address]- 3619 Oct, [facility] [address], [place] [address]- 1299 Oct, [facility] [address], [place] [address]- 6330 September, [facility] [id number] [address]- 0144 Aug, [facility] [id number], [place] [address]- 5226 Aug, [facility] [id number], [place] [address]- 8786 Aug, IMMUNIZATIONS No Known Immunizations SOCIAL HISTORY Never Assessed REASON FOR VISIT Refill request PLAN OF CARE VITAL SIGNS MEDICATIONS Unknown [...]
--- OUTSIDE RECORDS SUMMARY | 2018-06-09 13:44 | XMS REPORT ---
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 Name Role Phone LAUREN DEJESUS Unavailable PROBLEMS Type Condition ICD9-CM Code TBX20-NN Code Onset Dates Condition Status SNOMED Code Problem Neuropathy G62.9 Active 943422910 Problem Tobacco abuse counseling Z71.6 Active 09480432 Problem Sinusitis chronic, ethmoidal J32.2 Active 06093166 Problem Other ascites R18.8 Active 588735587 Problem Chronic obstructive pulmonary disease with acute exacerbation J44.1 Active 551716911 Problem 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 Active 378132648 Problem Mixed hyperlipidemia E78.2 Active 392796172 Problem Paroxysmal atrial fibrillation I48.0 Active 384879535 Problem Type 2 diabetes mellitus without complications E11.9 Active 676611674 Problem Episodic mood disorder F39 Active 64149578 Problem Chronic pain G89.29 Active 59458190 Problem Abnormal CBC R79.89 Active 269557532 Problem Posttraumatic stress disorder F43.10 Active 96935360 Problem Marijuana use F12.10 Active 92939724 Problem Type 2 diabetes mellitus with hyperglycemia E11.65 Active 660142556 Problem Essential hypertension I10 Active 47137641 Problem Atrial fibrillation I48.91 Active 41180104 Problem Chronic hepatitis C without hepatic coma B18.2 Active 638437301 Problem Other allergic rhinitis J30.89 Active 29673873 ALLERGIES Substance Reaction Event Type Date Status Diclofenac Unknown Drug Allergy Jul, Active Sulfamethoxazole Unknown Drug Allergy Jul, Active ENCOUNTERS Encounter Location Date Diagnosis [facility] [address] [facility] [id number] [address] Nov, Type 2 diabetes mellitus with hyperglycemia E11.65 and Chronic hepatitis C without hepatic coma B18.2 [facility] [address] [id number], [place] [address] Oct, Type 2 diabetes mellitus with hyperglycemia E11.65 [facility] [id number] [place] [address] 19628- 6601 15 Oct, 2017 Type 2 diabetes mellitus with hyperglycemia E11.65 ; Decreased breath sounds at right lung base R09.89 ; Essential hypertension I10 ; Atrial fibrillation I48.91 ; Chronic hepatitis C without hepatic coma B18.2 ; Peripheral edema R60.9 ; Other ascites R18.8 and Chronic obstructive pulmonary disease with acute exacerbation J44.1 [facility] [id number] [place] [address] 01694- 4942 Oct, [place] [id number] [place] [address] 75064- 3293 Oct, [place] [id number] [place] [address] 14790- 8004 September, [place] [id number] [place] [address] 96021- 3068 Aug, Type 2 diabetes mellitus without complications E11.9 [facility] [id number] [place] [address] 91687- 4888 Aug, Type 2 diabetes mellitus with hyperglycemia E11.65 [place] [id number] [place] [address] 58066- 3498 Aug, Pneumonia of right middle lobe due to infectious organism J18.1 ; Peripheral edema R60.9 ; Right upper quadrant abdominal pain R10.11 ; Type 2 diabetes mellitus without complications E11.9 and BMI 40.0-44.9, adult Z68.41 [place] [id number] [place] [address] 83144- 6579 Aug, [place] [id number] [place] [address] 75858- 1561 Aug, [place] [id number] [place] [address] 50742- 2867 Aug, [place] [id number] [place] [address] 49104- 4795 Aug, Type 2 diabetes mellitus without complications E11.9 ; Type 2 diabetes mellitus with hyperglycemia E11.65 ; Peripheral edema R60.9 ; Shortness of breath R06.02 ; Paroxysmal atrial fibrillation I48.0 and Pneumonia of right middle lobe due to infectious organism J18.1 [facility] [id number] [place] [address] 26183- 9011 Aug, [facility] IN [facility] [id number] [place] [address] 27301 -5270 Jul, Wheezing R06.2 and Acute non-recurrent pansinusitis J01.40 [id number] [place] [address] 83540- 7669 Jul, [facility] [id number] [place] [address] 76745- 9959 Jul, [place] [id number] [place] [address] 65601- 0536 May, Type 2 diabetes mellitus with hyperglycemia [...] Chronic pain G89.29 and Marijuana use F12.10 [id number] [place] [address] 14268- 1214 Apr, Atrial fibrillation I48.91 [place] [id number] [place] [address] 31661- 7242 Mar, [id number] [place] [address] 49116- 8743 Feb, Type 2 diabetes mellitus with hyperglycemia E11.65 ; Essential hypertension I10 ; Mixed hyperlipidemia E78.2 ; Atrial fibrillation I48.91 ; Neuropathy G62.9 ; Other allergic rhinitis J30.89 and Non compliance with medical treatment Z91.[id number] [place] [address] 07807- 8049 Jan, Episodic mood disorder F39 and Posttraumatic stress disorder F43.10 [place] [id number] [place] [address] 00986- 4427 Jan, [place] [id number] [place] [address] 45809- 6657 Oct, [address] 96541- 0290 Oct, [id number] [place] [address] 33201- 8504 Oct, Type 2 diabetes mellitus with hyperglycemia E11.65 ; Essential hypertension I10 ; Atrial fibrillation I48.91 ; Episodic mood disorder F39 ; Chronic pain G89.29 ; Neuropathy G62.9 ; Other allergic rhinitis J30.89 and Tobacco abuse counseling Z71.6 [facility] IN [facility] [address] [place] [id number] [place] [address] 73276 -0075 Aug, Acute non-recurrent pansinusitis J01.40 [id number] [place] [address] 14242- 6217 Jul, [id number] [place] [address] 62765- 1141 Jun, [address] [place] [address] 90381- 4363 Jun, Type 2 diabetes mellitus with hyperglycemia E11.65 ; Episodic mood disorder F39 ; Posttraumatic stress disorder F43.10 ; Essential hypertension I10 ; Atrial fibrillation I48.91 ; Chronic pain G89.29 ; Acute upper respiratory infection, unspecified J06.9 ; Other viral agents as the cause of diseases classified elsewhere B97.89 ; Acute pain of left shoulder M25.512 and Sinusitis chronic, ethmoidal J32.2 [facility] [address] [place] [id number] [place] [address] 84767- 7406 May, Acute intractable tension-type headache G44.201 ; Chronic pain G89.29 ; Essential hypertension I10 ; Atrial fibrillation I48.91 ; Neuropathy G62.9 ; Posttraumatic stress disorder F43.10 ; Episodic mood disorder F39 ; Type 2 diabetes mellitus with hyperglycemia E11.65 ; Other allergic rhinitis J30.89 and Irritable bowel syndrome with both constipation and diarrhea K58.2 [facility] [id number] [place] [address] 95254- 0025 Apr, Episodic mood disorder F39 and Posttraumatic stress disorder F43.10 [facility] [id number] [place] [address] 03279- 5963 Mar, [facility] [id number] [place] [address] 79833- 7672 Mar, [facility] [id number] [place] [address] 00251- 9139 Mar, Chronic hepatitis C without hepatic coma B18.2 [facility] [id number] [place] [address] 72479- 9870 Mar, [facility] [id number] [place] [address] 13240- 8375 Mar, Episodic mood disorder F39 ; Type 2 diabetes mellitus with hyperglycemia E11.65 ; Posttraumatic stress disorder F43.10 and Essential hypertension I10 [facility] [id number] [place] [address] 37114- 8640 Mar, [facility] [id number] [place] [address] 54578- 2835 Mar, [facility] [id number] [place] [address] 07291- 7741 Mar, Type 2 diabetes mellitus with hyperglycemia E11.65 ; Chronic hepatitis C without hepatic coma B18.2 ; Posttraumatic stress disorder F43.10 ; Episodic mood disorder F39 ; Atrial fibrillation I48.91 ; Irritable bowel syndrome with both constipation and diarrhea K58.2 ; Secondary hypertension I15.9 and Neuropathy G62.9 [facility] [id number] [place] [address] 81934- 1840 Feb, Episodic mood disorder F39 and Posttraumatic stress disorder F43.10 [facility] [address] [place] [address] 18987- 9813 Jan, Episodic mood disorder F39 and Posttraumatic stress disorder F43.10 [facility] [address], [place] [address] Nov, Type 2 diabetes mellitus with hyperglycemia E11.65 ; Atrial fibrillation I48.91 ; Other allergic rhinitis J30.89 ; Episodic mood disorder F39 and Essential hypertension I10 [facility] [id number] [place] [address] 64071- 5425 Nov, [facility] [id number] [place] [address] 87250- 7518 Oct, [facility] [id number] [place] [address] 80275- 2070 Oct, [facility] [id number] [place] [address] 41004- 7054 September, Type 2 diabetes mellitus with hyperglycemia E11.65 ; Atrial fibrillation I48.91 and Chronic pain G89.29 [facility] [id number] [place] [address] 00743- 1973 September, Episodic mood disorder F39 and Posttraumatic stress disorder F43.10 [facility] [address], [place] [address] 35[address] September, [facility] [id number] [place] [address] 81396- 1692 September, [facility] [address], [place] [address] September, [facility] [id number] [place] [address] 94393- 3723 September, [facility] [address], [place] [address] 8049 September, [facility] [id number] [place] [address] 83299- 0302 Aug, Type 2 diabetes mellitus with hyperglycemia E11.65 and Essential hypertension I10 [facility] [id number] [place] [address] 62869- 2098 Aug, [facility] [id number] [place] [address] 92614- 6134 Aug, [place] [address] 83227- 2000 Aug, Allergic rhinitis J30.9 ; Atrial fibrillation I48.91 ; Shortness of breath R06.02 and Essential hypertension I10 [place] [id number] [place] [address] 89419- 2581 Jul, [place] [id number] [place] [address] 46260- 7741 Jun, Episodic mood disorder F39 and Posttraumatic stress disorder F43.10 [place] [id number] [place] [address] 56835- 0076 Jun, [place] [id number] [place] [address] 69675- 6186 May, Chronic pain G89.29 ; History of drug abuse Z87.898 and Marijuana use F12.10 [place] [id number] [place] [address] 40326- 6586 May, Episodic mood disorder F39 and Posttraumatic stress disorder F43.10 [place] [id number] [place] [address] 83916- 1285 May, [place] [id number] [place] [address] 85177- 8494 Apr, Chronic pain G89.29 [place] [id number] [place] [address] 38556- 4850 Apr, Episodic mood disorder F39 and Posttraumatic stress disorder F43.10 [place] [address] [place] [address]- 8468 Apr, COPD (chronic obstructive pulmonary disease) with acute bronchitis J44.0 [facility] [id number] [place] [address] 86632- 8057 Feb, Episodic mood disorder F39 and Posttraumatic stress disorder F43.10 [facility] [id number] [place] [address] 26409- 5946 Feb, [facility] [id number] [place] [address] 91251- 8256 Feb, Episodic mood disorder F39 and Posttraumatic stress disorder F43.10 [place] [id number] [place] [address] 758212- 0496 Jan, Routine adult health maintenance V70.0 [place] [id number] [place] [address] 76576- 6532 Jan, Unspecified episodic mood disorder 296.90 and Posttraumatic stress disorder 309.81 [facility] [id number] [place] [address] 98600- 9256 Dec, Unspecified episodic mood disorder 296.90 and Posttraumatic stress disorder 309.81 [place] [id number] [place] [address] 85361- 8591 Dec, Unspecified episodic mood disorder 296.90 and Posttraumatic stress disorder 309.81 [place] [address] [place] [address] 42462- 7294 Oct, Unspecified episodic mood disorder 296.90 and Posttraumatic stress disorder 309.81 [facility] [id number] [place] [address] 58157- 9479 September, Unspecified episodic mood disorder 296.90 ; Posttraumatic stress disorder 309.81 ; No condition on [place] II V71.09 ; Diabetes 250.00 ; Hypertension 401.9 ; Hepatitis C 070.70 and Degenerative disc disease 722.6 [facility] [id number] [place] [address] 40061- 0228 Aug, [facility] [place] [facility] [address] [id number] [place] [address]- 6665 13 Aug, 2014 [facility] [place] [facility] [address] [id number] [place] [address]- 7070 06 Jul, 2014 [facility] [place] [facility] [address] [id number] [place] [address]- 5549 06 Jul, 2014 [facility] [place] [facility] [address] [id number] [place] [address]- 0771 16 Jan, 2013 [facility] [place] [facility] [address] [id number] [place] [address]- 6820 16 Jan, 2013 [facility] [place] [facility] [address] [id number] [place] [address]- 4647 03 Jan, 2013 [facility] [place] [facility] [address] [id number] [place] [address]- 8519 27 Oct, 2012 [facility] [place] [facility] [address] [id number] [place] [address]- 7772 25 Oct, 2012 [facility] [place] [facility] [address] [id number] [place] [address]- 7821 Oct, [facility] [place] [facility] [address] [id number] [place] [address]- 2913 Oct, [facility] [place] [facility] [address] [id number] [place] [address]- 7281 18 Oct, 2012 [facility] [place] [facility] [address] [id number] [place] [address]- 7167 14 Oct, 2012 [facility] [place] [facility] [address] [id number] [place] [address]- 6675 13 Oct, 2012 [facility] [place] [facility] [address] [id number] [place] [address]- 3150 13 Oct, 2012 [facility] [place] [facility] [address] [id number] [place] [address]- 7946 12 Oct, 2012 [facility] [place] [facility] [address] [id number] [place] [address]- 1328 Oct, [facility] [address] [id number], [place] [address]- 8465 Oct, [facility] [address] [place] [address] 83879- 3238 Oct, [facility] [address] [place] [address] 63565- 4469 Oct, [facility] [id number] [place] [address] 94407- 7028 Oct, [facility] [id number] [place] [address] 62653- 4342 Oct, [facility] [id number] [place] [address] 80473- 6673 Oct, [facility] [id number] [place] [address] 75427- 4507 September, [facility] [id number] [place] [address] 16079- 5520 Aug, [facility] [id number] [place] [address] 77618- 2573 Aug, [facility] [address] [place] [address] 32114- 0086 Aug, IMMUNIZATIONS Vaccine Route Administration Date Status DEXAMETHASONE 4MG/ML (PER 1 MG) IM Intramuscular August 18, 2017 Administered DEPO MEDROL 40 MG/ML IM Intramuscular August 18, 2017 Administered SOCIAL HISTORY Never Assessed REASON FOR VISIT Shortness of breath Pt c/o cough, congestion and shortness of breath for 3 weeks, states the shortness of breath has gotten worse, to the point of short of breath even with turning over FARA Gayle PLAN OF CARE Activity Details Follow Up prn Reason: VITAL SIGNS Height 63 in 2017-08-18 Heart Rate 128 bpm 2017-08-18 Respiratory Rate 24 2017-08-18 Oximetry 97 % 2017-08-18 Blood pressure systolic 108 mmHg 2017-08-18 Blood pressure diastolic 68 mmHg 2017-08-18 MEDICATIONS Medication Instructions Dosage Frequency Start Date End Date Duration Status Trulicity 0.75 MG/0.5ML Subcutaneous once weekly INJECT 0.5 MLS SUBCUTANEOUSLY ONCE WEEKLY 12 months Active Gas Relief 80 mg PRN Oct, Active Test strips Test Strips shayne track as directed Aug, Active Actos 30 MG Orally Once a day TAKE ONE TABLET BY MOUTH ONCE DAILY 24h 30 days Active Lidoderm 5 % Externally Once a day 1 patch to skin remove after 12 hours 24h Jun, 30 days Active Ventolin HFA 108 (90 Base) MCG/ACT Inhalation every 6 hrs 2 puffs as needed 6h Jul, 30 days Active Cymbalta 60 MG TAKE ONE CAPSULE BY MOUTH ONCE DAILY 30 Active Doxycycline Hyclate 100 MG Orally every 12 hrs 1 capsule 12h Jul, Aug, 10 days Active Lidocaine 5 % Externally Once a day APPLY ONCE PATCH ONCE DAILY DIRECTED 24h 30 Active Zetia 10 mg Orally Once a day 1 tablet 24h Mar, 30 day(s) Active Verapamil HCl ER 240 MG Orally Once a day TAKE ONE TABLET BY MOUTH ONCE DAILY 24h 30 days Active Enalapril Maleate 10 mg Orally Once a day TAKE ONE TABLET BY MOUTH ONCE DAILY 24h 30 days Active Flonase 50 mcg/actuation Nasally 2 times a day 1 sprays by Nasal route 2 times per day in each nostril 12h Jul, 12 months Active Aspirin 325 MG TAKE ONE TABLET BY MOUTH ONCE DAILY 30 Active RESULTS Name Result Date Reference Range Xray : Chest 2 View (IN HOUSE) 2017-08-18 PROCEDURES Procedure Date Ordered Result Body Site X-RAY EXAM CHEST 2 VIEWS August 18, 2017 DEXAMETHASONE 4MG/ML (PER 1 MG) August 18, 2017 DEPO MEDROL 40 MG/ML August 18, 2017 THER/PROPH/DIAG INJ, SC/IM August 18, 2017 [facility] VISIT ESTABLISHED PATIENT August 18, 2017 INSTRUCTIONS MEDICATIONS ADMINISTERED No Known Medications [...]
--- OUTSIDE RECORDS SUMMARY | 2018-06-09 13:44 | XMS REPORT ---
Author Author JEFF WATKINS Organization [facility] Address [address] [place] [address] Care Team Providers Care Plant Utility Person Name Role Phone JEFF WATKINS Unavailable PROBLEMS Type Condition ICD9-CM Code ADS15-AX Code Onset Dates Condition Status SNOMED Code Problem Neuropathy G62.9 Active 029856880 Problem Tobacco abuse counseling Z71.6 Active 35705910 Problem Sinusitis chronic, ethmoidal J32.2 Active 98631196 Problem Other ascites R18.8 Active 009632640 Problem Chronic obstructive pulmonary disease with acute exacerbation J44.1 Active 621785368 Problem half-way (current) use of insulin Z79.4 Active 666876340 Problem Mixed hyperlipidemia E78.2 Active 118751342 Problem Paroxysmal atrial fibrillation I48.0 Active 790755237 Problem Type 2 diabetes mellitus without complications E11.9 Active 834455381 Problem Episodic mood disorder F39 Active 23014841 Problem Chronic pain G89.29 Active 07291035 Problem Abnormal CBC R79.89 Active 408255784 Problem Posttraumatic stress disorder F43.10 Active 96110017 Problem Marijuana use F12.10 Active 27258456 Problem Type 2 diabetes mellitus with hyperglycemia E11.65 Active 502681222 Problem Essential hypertension I10 Active 27755077 Problem Atrial fibrillation I48.91 Active 93584992 Problem Chronic hepatitis C without hepatic coma B18.2 Active 934072023 Problem Other allergic rhinitis J30.89 Active 87668126 ALLERGIES No Information ENCOUNTERS Encounter Location Date Diagnosis [facility] [id number] [address] Nov, Abnormal CBC R79.89 [facility] [address] [address] Nov, Type 2 diabetes mellitus with hyperglycemia E11.65 and Chronic hepatitis C without hepatic coma B18.2 [facility] [id number] [place] [address] 16454- 7797 27 Oct, 2017 Type 2 diabetes mellitus with hyperglycemia E11.65 [id number] [place] [address] 46747- 3731 15 Oct, 2017 Type 2 diabetes mellitus with hyperglycemia E11.65 ; Decreased breath sounds at right lung base R09.89 ; Essential hypertension I10 ; Atrial fibrillation I48.91 ; Chronic hepatitis C without hepatic coma B18.2 ; Peripheral edema R60.9 ; Other ascites R18.8 and Chronic obstructive pulmonary disease with acute exacerbation J44.1 [place] [id number] [place] [address] 80850- 4228 Oct, [place] [id number] [place] [address] 77905- 1181 Oct, [place] [id number] [place] [address] 28624- 2370 September, [place] [id number] [place] [address] 06239- 8934 Aug, Type 2 diabetes mellitus without complications E11.9 [place] [id number] [place] [address] 04820- 0879 Aug, Type 2 diabetes mellitus with hyperglycemia E11.65 [place] [id number] [place] [address] 61357- 5655 16 Aug, 2017 Pneumonia of right middle lobe due to infectious organism J18.1 ; Peripheral edema R60.9 ; Right upper quadrant abdominal pain R10.11 ; Type 2 diabetes mellitus without complications E11.9 and BMI 40.0-44.9, adult Z68.41 [place] [id number] [address] Aug, [place] [id number] [place] [address] 09831- 7029 Aug, [place] [id number] [place] [address] 53379- 2081 Aug, [place] [id number] [place] [address] 75903- 6597 Aug, Type 2 diabetes mellitus without complications E11.9 ; Type 2 diabetes mellitus with hyperglycemia E11.65 ; Peripheral edema R60.9 ; Shortness of breath R06.02 ; Paroxysmal atrial fibrillation I48.0 and Pneumonia of right middle lobe due to infectious organism J18.1 [facility] [id number] [place] [address] 81034- 1693 Aug, [facility] [address] [address] Jul, Wheezing R06.2 and Acute non-recurrent pansinusitis J01.40 [address] [address] 58351- 0888 Jul, [facility] [address] 96852- 9921 Jul, [facility] [id number] [place] [address] 24428- 1479 May, Type 2 diabetes mellitus with hyperglycemia E11.65 ; Type 2 diabetes mellitus without complications E11.9 ; half-way (current) use of insulin Z79.4 ; Essential hypertension I10 ; Atrial fibrillation I48.91 ; Chronic hepatitis C without hepatic coma B18.2 ; Mixed hyperlipidemia E78.2 ; Episodic mood disorder F39 ; Neuropathy G62.9 ; Acute non-recurrent maxillary sinusitis J01.00 ; Chronic pain G89.29 and Marijuana use F12.10 [address] [place] [id number] [place] [address] 93855- 7263 Apr, Atrial fibrillation I48.91 [address] [place] [id number] [place] [address] 36851- 6624 Mar, [address] [address] Feb, Type 2 diabetes mellitus with hyperglycemia E11.65 ; Essential hypertension I10 ; Mixed hyperlipidemia E78.2 ; Atrial fibrillation I48.91 ; Neuropathy G62.9 ; Other allergic rhinitis J30.89 and Non compliance with medical treatment Z91.19 [id number] [place] [address] 20214- 4847 Jan, Episodic mood disorder F39 and Posttraumatic stress disorder F43.10 [id number] [place] [address] 82846- 5245 Jan, [address] 22107- 6797 Oct, [id number] [place] [address] 63563- 5508 Oct, [address] 36999- 2374 Oct, Type 2 diabetes mellitus with hyperglycemia E11.65 ; Essential hypertension I10 ; Atrial fibrillation I48.91 ; Episodic mood disorder F39 ; Chronic pain G89.29 ; Neuropathy G62.9 ; Other allergic rhinitis J30.89 and Tobacco abuse counseling Z71.6 [facility] [address] [place] [id number] [place] [address] 80008 -6217 Aug, Acute non-recurrent pansinusitis J01.40 [id number] [place] [address] 35912- 8649 Jul, [id number] [place] [address] 58708- 5431 Jun, [id number] [place] [address] 56878- 3060 Jun, Type 2 diabetes mellitus with hyperglycemia E11.65 ; Episodic mood disorder F39 ; Posttraumatic stress disorder F43.10 ; Essential hypertension I10 ; Atrial fibrillation I48.91 ; Chronic pain G89.29 ; Acute upper respiratory infection, unspecified J06.9 ; Other viral agents as the cause of diseases classified elsewhere B97.89 ; Acute pain of left shoulder M25.512 and Sinusitis chronic, ethmoidal J32.2 [id number] [place] [address] 42952- 4493 May, Acute intractable tension-type headache G44.201 ; Chronic pain G89.29 ; Essential hypertension I10 ; Atrial fibrillation I48.91 ; Neuropathy G62.9 ; Posttraumatic stress disorder F43.10 ; Episodic mood disorder F39 ; Type 2 diabetes mellitus with hyperglycemia E11.65 ; Other allergic rhinitis J30.89 and Irritable bowel syndrome with both constipation and diarrhea K58.2 [facility] [id number] [place] [address] 61598- 6706 Apr, Episodic mood disorder F39 and Posttraumatic stress disorder F43.10 [facility] [id number] [place] [address] 25561- 9282 Mar, [facility] [id number] [place] [address] 20227- 2078 Mar, [facility] [id number] [place] [address] 06192- 0753 Mar, Chronic hepatitis C without hepatic coma B18.2 [facility] [id number] [place] [address] 52846- 4782 Mar, [facility] [id number] [place] [address] 00249- 9880 Mar, Episodic mood disorder F39 ; Posttraumatic stress disorder F43.10 ; Essential hypertension I10 and Type 2 diabetes mellitus with hyperglycemia E11.65 [facility] [id number] [place] [address] 41505- 3522 Mar, [facility] [id number] [place] [address] 81882- 9724 Mar, [facility] [id number] [place] [address] 68233- 3080 Mar, Type 2 diabetes mellitus with hyperglycemia E11.65 ; Chronic hepatitis C without hepatic coma B18.2 ; Posttraumatic stress disorder F43.10 ; Episodic mood disorder F39 ; Atrial fibrillation I48.91 ; Irritable bowel syndrome with both constipation and diarrhea K58.2 ; Secondary hypertension I15.9 and Neuropathy G62.9 [facility] [id number] [address] 0692 Feb, Episodic mood disorder F39 and Posttraumatic stress disorder F43.10 [facility] [id number] [place] [address] 44698- 5017 Jan, Episodic mood disorder F39 and Posttraumatic stress disorder F43.10 [facility] [id number] [place] [address] 77173- 7482 Nov, Type 2 diabetes mellitus with hyperglycemia E11.65 ; Atrial fibrillation I48.91 ; Other allergic rhinitis J30.89 ; Episodic mood disorder F39 and Essential hypertension I10 [facility] [id number] [place] [address] 60290- 2763 Nov, [facility] [id number] [place] [address] 29599- 7872 Oct, [facility] [id number] [place] [address] 10404- 6157 Oct, [facility] [id number] [place] [address] 68532- 4631 September, Type 2 diabetes mellitus with hyperglycemia E11.65 ; Atrial fibrillation I48.91 and Chronic pain G89.29 [facility] [id number] [place] [address] 21641- 4255 September, Episodic mood disorder F39 and Posttraumatic stress disorder F43.10 [facility] [id number] [place] [address] 59054- 2641 September, [facility] [id number] [place] [address] 07790- 1245 September, [facility] [id number] [place] [address] 27289 -0700 September, [facility] [id number] [place] [address] 53772- 7405 September, [facility] [id number] [place] [address] 30953- 1840 September, [facility] [id number] [place] [address] 83057- 6195 Aug, Type 2 diabetes mellitus with hyperglycemia E11.65 and Essential hypertension I10 [facility] [id number] [place] [address] 89121- 3013 Aug, [facility] [id number] [place] [address] 16384- 1466 Aug, [facility] [id number] [place] [address] 35012- 2640 Aug, Allergic rhinitis J30.9 ; Atrial fibrillation I48.91 ; Shortness of breath R06.02 and Essential hypertension I10 [address] [place] [id number] [place] [address] 66557- 2384 Jul, [place] [id number] [place] [address] 52644- 4874 Jun, Episodic mood disorder F39 and Posttraumatic stress disorder F43.10 [facility] [id number] [place] [address] 10013- 6623 Jun, [facility] [id number] [place] [address] 06625- 8618 May, Chronic pain G89.29 ; History of drug abuse Z87.898 and Marijuana use F12.10 [facility] [id number] [place] [address] 44892- 7747 May, Episodic mood disorder F39 and Posttraumatic stress disorder F43.10 [facility] [id number] [place] [address] 10409- 9972 May, [facility] [id number] [place] [address] 98154- 9580 Apr, Chronic pain G89.29 [facility] [id number] [place] [address] 96910- 0894 Apr, Episodic mood disorder F39 and Posttraumatic stress disorder F43.10 [address] [address]805 Apr, COPD (chronic obstructive pulmonary disease) with acute bronchitis J44.0 [facility] [id number] [place] [address] 389506- 8636 Feb, Episodic mood disorder F39 and Posttraumatic stress disorder F43.10 [facility] [id number] [place] [address] 13270- 0759 Feb, [facility] [id number] [place] [address] 24514- 8679 Feb, Episodic mood disorder F39 and Posttraumatic stress disorder F43.10 [id number] [place] [address] 774799- 1689 Jan, Routine adult health maintenance V70.0 [place] [id number] [place] [address] 18554- 2642 Jan, Unspecified episodic mood disorder 296.90 and Posttraumatic stress disorder 309.81 [place] [place] [id number] [place] [address] 40885- 7284 Dec, Unspecified episodic mood disorder 296.90 and Posttraumatic stress disorder 309.81 [facility] [id number] [place] [address] 79420- 5550 Dec, Unspecified episodic mood disorder 296.90 and Posttraumatic stress disorder 309.81 [facility] [address], [place] [address]- 4287 Oct, Unspecified episodic mood disorder 296.90 and Posttraumatic stress disorder 309.81 [facility] [id number] [place] [address] 49168- 1897 September, Unspecified episodic mood disorder 296.90 ; Posttraumatic stress disorder 309.81 ; No condition on Timblin II V71.09 ; Diabetes 250.00 ; Hypertension 401.9 ; Hepatitis C 070.70 and Degenerative disc disease 722.6 [facility] [id number] [place] [address] 90055- 5471 14 Aug, 2014 [facility] [place] [facility] [address] [id number] [place] [address]- 4358 13 Aug, 2014 [facility] [place] [facility] [address] [id number] [place] [address]- 6399 Jul, [facility] [place] [facility] [address] [id number] [place] [address]- 5663 Jul, [facility] [place] [facility] [address] [id number] [place] [address]- 6592 16 Jan, 2014 [facility] [place] [facility] [address] [id number] [place] [address]- 2580 16 Jan, 2014 [facility] [place] [facility] [address] [id number] [place] [address]- 2545 03 Jan, 2013 [facility] [place] [facility] [address] [id number] [place] [address]- 4241 27 Oct, 2012 [facility] [place] [facility] [address] [id number] [place] [address]- 0239 25 Oct, 2012 [facility] [place] [facility] [address] [id number] [place] [address]- 1845 21 Oct, 2012 [facility] [place] [facility] [address] [id number] [place] [address]- 6075 19 Oct, 2012 [facility] [place] [facility] [address] [id number], [place] [address]- 6938 18 Oct, 2012 [facility] [place] [facility] [address] [id number], [place] [address]- 2950 14 Oct, 2012 [facility] [place] [facility] [address] [id number] [place] [address]- 2773 13 Oct, 2012 [facility] [place] [facility] [address] [id number], [place] [address]- 1610 13 Oct, 2012 [facility] [place] [facility] [address] [id number], [place] [address]- 3444 12 Oct, 2012 [facility] [place] [facility] [id number] [address]- 6211 12 Oct, 2012 [facility] [address] [address]- 9302 Oct, [facility] [address] [facility] [id number] [address]- 1074 Oct, [facility] [address] [address]- 1387 Oct, [facility] [address] [facility] [id number], [place] [address]- 4346 Oct, [facility] [address] [address]- 2481 Oct, [facility] [address] [address]- 6449 Oct, [facility] [address] [address]- 4926 September, [facility] [id number] [address]- 3657 Aug, [facility] [id number] [address]- 7896 Aug, [facility] [id number] [address]- 3787 Aug, IMMUNIZATIONS No Known Immunizations SOCIAL HISTORY Never Assessed REASON FOR VISIT Requests return call PLAN OF CARE VITAL SIGNS MEDICATIONS Unknown [...]
--- NOTE | 2018-06-09 13:45 | NUR ---
CALL FROM [facility], STATES THEY WILL BE HERE APPROXIMATELY 45 MINUTES.
[2018-06-09] MEDS ORDERED: PIOG30TA71 PO (13:51)
--- OUTSIDE RECORDS SUMMARY | 2018-06-09 13:52 | XMS REPORT ---
Author Author CARLTON Ocampo Organization [facility] Address [address] [place] [address] Care Team Providers Care Speech Therapist Name Role Phone CARLTON Ocampo Unavailable PROBLEMS Type Condition ICD9-CM Code [id number] Code Onset Dates Condition Status SNOMED Code Problem Atrial fibrillation I48.91 Active 93317880 Problem Neuropathy G62.9 Active 734741119 Problem Other allergic rhinitis J30.89 Active 01037588 Problem Paroxysmal atrial fibrillation I48.0 Active 377980735 Problem Type 2 diabetes mellitus without complications E11.9 Active 143913964 Problem Tobacco abuse counseling Z71.6 Active 25705325 Problem Sinusitis chronic, ethmoidal J32.2 Active 46068892 Problem 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 Active 437855673 Problem Mixed hyperlipidemia E78.2 Active 896966914 Problem Posttraumatic stress disorder F43.10 Active 15162144 Problem Type 2 diabetes mellitus with hyperglycemia E11.65 Active 443094740 Problem Chronic hepatitis C without hepatic coma B18.2 Active 569626565 Problem Episodic mood disorder F39 Active 66316977 Problem Marijuana use F12.10 Active 87634757 Problem Chronic pain G89.29 Active 48350586 Problem Essential hypertension I10 Active 51437905 ALLERGIES No Information ENCOUNTERS Encounter Location Date Diagnosis [facility] [id number] [address] Oct, [facility] [address] [place] [address] September, [facility] [id number] [place] [address] 67998- 9341 Aug, Type 2 diabetes mellitus without complications E11.9 [facility] [id number], [place] [address] Aug, Type 2 diabetes mellitus with hyperglycemia E11.65 [facility] [id number] [place] [address] 65386- 3911 Aug, Pneumonia of right middle lobe due to infectious organism J18.1 ; Peripheral edema R60.9 ; Right upper quadrant abdominal pain R10.11 ; Type 2 diabetes mellitus without complications E11.9 and BMI 40.0-44.9, adult Z68.41 [address] [place] [address] [address]- [address] Aug, [place] [id number] [place] [address] 99203- 1151 Aug, [place] [id number] [place] [address] 47033- 4929 Aug, [place] [id number] [place] [address] 13879- 7574 Aug, Type 2 diabetes mellitus without complications E11.9 ; Type 2 diabetes mellitus with hyperglycemia E11.65 ; Peripheral edema R60.9 ; Shortness of breath R06.02 ; Paroxysmal atrial fibrillation I48.0 and Pneumonia of right middle lobe due to infectious organism J18.1 [place] [id number] [place] [address] 75974- 2286 Aug, [facility] [id number] [place] [address] 30154 -4398 Jul, Wheezing R06.2 and Acute non-recurrent pansinusitis J01.40 [facility] [id number] [place] [address] 43788- 3616 Jul, [facility] [id number] [place] [address] 75857- 3399 Jul, [place] [id number] [place] [address] 66186- 8976 May, Type 2 diabetes mellitus with hyperglycemia E11.65 ; Type 2 diabetes mellitus without complications E11.9 ; 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 ; Essential hypertension I10 ; Atrial fibrillation I48.91 ; Chronic hepatitis C without hepatic coma B18.2 ; Mixed hyperlipidemia E78.2 ; Episodic mood disorder F39 ; Neuropathy G62.9 ; Acute non-recurrent maxillary sinusitis J01.00 ; Chronic pain G89.29 and Marijuana use F12.10 [facility] [id number] [place] [address] 20095- 0618 Apr, Atrial fibrillation I48.91 [place] [address] [address]- 6709 Mar, [address] [address]- [address] 13 Feb, 2017 Type 2 diabetes mellitus with hyperglycemia E11.65 ; Essential hypertension I10 ; Mixed hyperlipidemia E78.2 ; Atrial fibrillation I48.91 ; Neuropathy G62.9 ; Other allergic rhinitis J30.89 and Non compliance with medical treatment Z91.[address] [address]- [address] 07 Jan, 2017 Episodic mood disorder F39 and Posttraumatic stress disorder F43.10 [place] [address] 36379- 3603 05 Jan, [address] 02580- 8897 12 Oct, 2016 [place] [address] 10505- 8847 Oct, [address] 27704- 3491 08 Oct, 2016 Type 2 diabetes mellitus with hyperglycemia E11.65 ; Essential hypertension I10 ; Atrial fibrillation I48.91 ; Episodic mood disorder F39 ; Chronic pain G89.29 ; Neuropathy G62.9 ; Other allergic rhinitis J30.89 and Tobacco abuse counseling Z71.6 [facility] [id number] [place] [address] 85827 -5744 14 Aug, 2016 Acute non-recurrent pansinusitis J01.[address] [place] [address]- [address] Jul, [facility] [id number] [place] [address] 48201- 6638 Jun, [place] [id number] [place] [address] 80555- 0548 Jun, Type 2 diabetes mellitus with hyperglycemia E11.65 ; Episodic mood disorder F39 ; Posttraumatic stress disorder F43.10 ; Essential hypertension I10 ; Atrial fibrillation I48.91 ; Chronic pain G89.29 ; Acute upper respiratory infection, unspecified J06.9 ; Other viral agents as the cause of diseases classified elsewhere B97.89 ; Acute pain of left shoulder M25.512 and Sinusitis chronic, ethmoidal J32.2 [place] [id number] [place] [address] 56314- 5407 May, Acute intractable tension-type headache G44.201 ; Chronic pain G89.29 ; Essential hypertension I10 ; Atrial fibrillation I48.91 ; Neuropathy G62.9 ; Posttraumatic stress disorder F43.10 ; Episodic mood disorder F39 ; Type 2 diabetes mellitus with hyperglycemia E11.65 ; Other allergic rhinitis J30.89 and Irritable bowel syndrome with both constipation and diarrhea K58.2 [place] [id number] [place] [address] 37579- 3440 Apr, Episodic mood disorder F39 and Posttraumatic stress disorder F43.10 [place] [id number] [place] [address] 27299- 0569 Mar, [place] [address] 54783- 5485 Mar, [place] [id number] [place] [address] 86595- 4462 Mar, Chronic hepatitis C without hepatic coma B18.2 [place] [id number] [place] [address] 13032- 2968 Mar, [place] [address] 43941- 4159 Mar, Episodic mood disorder F39 ; Posttraumatic stress disorder F43.10 ; Essential hypertension I10 and Type 2 diabetes mellitus with hyperglycemia E11.65 [facility] [id number] [place] [address] 52025- 1445 Mar, [facility] [id number] [place] [address] 79022- 2098 Mar, [facility] [id number] [place] [address] 68951- 9218 Mar, Type 2 diabetes mellitus with hyperglycemia E11.65 ; Chronic hepatitis C without hepatic coma B18.2 ; Posttraumatic stress disorder F43.10 ; Episodic mood disorder F39 ; Atrial fibrillation I48.91 ; Irritable bowel syndrome with both constipation and diarrhea K58.2 ; Secondary hypertension I15.9 and Neuropathy G62.9 [place] [id number] [place] [address] 91325- 5204 Feb, Episodic mood disorder F39 and Posttraumatic stress disorder F43.10 [facility] [id number] [place] [address] 89488- 6349 Jan, Episodic mood disorder F39 and Posttraumatic stress disorder F43.10 [facility] [id number] [place] [address] 22003- 6944 Nov, Type 2 diabetes mellitus with hyperglycemia E11.65 ; Atrial fibrillation I48.91 ; Other allergic rhinitis J30.89 ; Episodic mood disorder F39 and Essential hypertension I10 [facility] [address] [place] [address] 38236- 9696 Nov, [facility] [id number] [place] [address] 24921- 2333 Oct, [facility] [id number] [place] [address] 52668- 3484 Oct, [facility] [id number] [place] [address] 42588- 3192 September, Type 2 diabetes mellitus with hyperglycemia E11.65 ; Atrial fibrillation I48.91 and Chronic pain G89.29 [facility] [address], [place] [address] 9960 September, Episodic mood disorder F39 and Posttraumatic stress disorder F43.10 [facility] [id number] [place] [address] 44693- 5186 September, [facility] [id number] [place] [address] 02104- 8325 September, [facility] [id number] [place] [address] 48546 -3523 September, [facility] [id number] [place] [address] 38093- 5554 September, [facility] [id number] [place] [address] 69051- 8772 September, [facility] [id number] [place] [address] 51223- 3888 Aug, Type 2 diabetes mellitus with hyperglycemia E11.65 and Essential hypertension I10 [facility] [id number] [place] [address] 47675- 3027 Aug, [facility] [id number] [place] [address] 07028- 3614 Aug, [facility] [id number] [place] [address] 93078- 4924 Aug, Allergic rhinitis J30.9 ; Atrial fibrillation I48.91 ; Shortness of breath R06.02 and Essential hypertension I10 [facility] [address], [place] [address]- 3[address] Jul, [facility] [id number] [place] [address] 76260- 3275 Jun, Episodic mood disorder F39 and Posttraumatic stress disorder F43.10 [facility] [address], [place] [address]- [address] Jun, [facility] [address] [place] [address]- 3[address] 14 May, 2015 Chronic pain G89.29 ; History of drug abuse Z87.898 and Marijuana use F12.10 [place] [id number] [place] [address] 87347- 7164 May, Episodic mood disorder F39 and Posttraumatic stress disorder F43.10 [place] [id number] [place] [address] 27991- 0998 May, [facility] [id number] [place] [address] 61834- 7654 Apr, Chronic pain G89.29 [place] [id number] [place] [address] 98996- 2863 Apr, Episodic mood disorder F39 and Posttraumatic stress disorder F43.10 [place] [id number] [place] [address] 73234- 8104 Apr, COPD (chronic obstructive pulmonary disease) with acute bronchitis J44.0 [place] [id number] [place] [address] 29149- 1757 Feb, Episodic mood disorder F39 and Posttraumatic stress disorder F43.10 [place] [address] [place] [address] 16059- 2024 Feb, [place] [address] [place] [address] 63704- 6810 Feb, Episodic mood disorder F39 and Posttraumatic stress disorder F43.10 [place] [address] [place] [address] 26861- 8951 Jan, Routine adult health maintenance V70.0 [place] [id number] [place] [address] 81686- 9578 Jan, Unspecified episodic mood disorder 296.90 and Posttraumatic stress disorder 309.81 [place] [address] [place] [address] 00696- 1939 Dec, Unspecified episodic mood disorder 296.90 and Posttraumatic stress disorder 309.81 [facility] [address] [address] Dec, Unspecified episodic mood disorder 296.90 and Posttraumatic stress disorder 309.81 [facility] [address] [address] Oct, Unspecified episodic mood disorder 296.90 and Posttraumatic stress disorder 309.81 [facility] [id number] [place] [address] 680097- 7314 September, Unspecified episodic mood disorder 296.90 ; Posttraumatic stress disorder 309.81 ; No condition on [place] V71.09 ; Diabetes 250.00 ; Hypertension 401.9 ; Hepatitis C 070.70 and Degenerative disc disease 722.6 [facility] [address], [place] [address]- 4209 Aug, [facility] [id number] [place] [address] 26407- 3502 Aug, [facility] [address], [place] [address]- 4071 Jul, [facility] [id number] [place] [address] 62530- 5845 Jul, [facility] [address], [place] [address]- 2498 Jan, [facility] [address], [place] [address]- 9512 Jan, [facility] [address] 5145 Jan, [facility] [address] 8198 Oct, [facility] [address] [address]99 Oct, [facility] [address] [address] Oct, [facility] [place] [facility] [address] [id number] [place] [address]- 2808 19 Oct, 2012 [facility] [place] [facility] [address] [id number] [place] [address]- 7458 18 Oct, 2012 [facility] [place] [facility] [address] [id number] [place] [address]- 9202 14 Oct, 2012 [facility] [place] [facility] [address] [id number] [place] [address]- 0228 13 Oct, 2012 [facility] [place] [facility] [address] [id number] [place] [address]- 5990 13 Oct, 2012 [facility] [place] [facility] [address] [id number] [place] [address]- 3534 Oct, [facility] [place] [facility] [address] [id number] [place] [address]- 9417 Oct, [facility] [place] [facility] [address] [id number] [place] [address]- 9038 Oct, [facility] [place] [facility] [address] [id number] [place] [address]- 1476 Oct, [facility] [place] [facility] [address] [id number] [place] [address]- 4284 Oct, [facility] [place] [facility] [address] [id number] [place] [address]- 4464 Oct, [facility] [place] [facility] [address] [id number] [place] [address]- 6293 Oct, [facility] [place] [facility] [address] [id number] [place] [address]- 8592 Oct, [facility] [place] [facility] [address] [id number] [place] [address]- 5288 September, [facility] [place] [facility] [address] [id number] [place] [address]- 7335 Aug, [facility] [place] [facility] [address] [id number] [place] [address]- 3125 Aug, [facility] [address] [facility] [id number] [place] [address]- 6831 Aug, IMMUNIZATIONS No Known Immunizations SOCIAL HISTORY Never Assessed REASON FOR VISIT PA for Lidocaine Patch PLAN OF CARE VITAL SIGNS MEDICATIONS Unknown [...]
--- OUTSIDE RECORDS SUMMARY | 2018-06-09 13:52 | XMS REPORT ---
Author Author WATKINSJEFF Barrios [facility] Address [address] [place] [address] Care Team Providers Care Trim Machine Adjuster Name Role Phone JEFF WATKINS Unavailable PROBLEMS Type Condition ICD9-CM Code IHY36-VS Code Onset Dates Condition Status SNOMED Code Problem Atrial fibrillation I48.91 Active 82105900 Problem Neuropathy G62.9 Active 901125478 Problem Other allergic rhinitis J30.89 Active 75156856 Problem Paroxysmal atrial fibrillation I48.0 Active 232370322 Problem Type 2 diabetes mellitus without complications E11.9 Active 912862977 Problem Tobacco abuse counseling Z71.6 Active 02468238 Problem Sinusitis chronic, ethmoidal J32.2 Active 67895105 Problem half-way (current) use of insulin Z79.4 Active 603840636 Problem Mixed hyperlipidemia E78.2 Active 211622881 Problem Posttraumatic stress disorder F43.10 Active 32600513 Problem Type 2 diabetes mellitus with hyperglycemia E11.65 Active 428937339 Problem Chronic hepatitis C without hepatic coma B18.2 Active 769391758 Problem Episodic mood disorder F39 Active 27919066 Problem Marijuana use F12.10 Active 69730473 Problem Chronic pain G89.29 Active 82222240 Problem Essential hypertension I10 Active 61036852 ALLERGIES No Information ENCOUNTERS Encounter Location Date Diagnosis [facility] [id number] [address] Oct, [facility] [address] [address] September, [facility] [address] [address] Aug, Type 2 diabetes mellitus without complications E11.9 [facility] [id number] [address] Aug, Type 2 diabetes mellitus with hyperglycemia E11.65 [facility] [id number] [place] [address]24- 9248 Aug, Pneumonia of right middle lobe due to infectious organism J18.1 ; Peripheral edema R60.9 ; Right upper quadrant abdominal pain R10.11 ; Type 2 diabetes mellitus without complications E11.9 and BMI 40.0-44.9, adult Z68.41 [facility] [id number] [place] [address] 50137- 8025 Aug, [facility] [id number] [place] [address] 37658- 0271 Aug, [facility] [id number] [place] [address] 20244- 2784 Aug, [facility] [id number] [place] [address] 47902- 1450 Aug, Type 2 diabetes mellitus without complications E11.9 ; Type 2 diabetes mellitus with hyperglycemia E11.65 ; Peripheral edema R60.9 ; Shortness of breath R06.02 ; Paroxysmal atrial fibrillation I48.0 and Pneumonia of right middle lobe due to infectious organism J18.1 [facility] [id number] [place] [address] 74168- 8197 Aug, [facility] [address] [place] [address] -[address]776 Jul, Wheezing R06.2 and Acute non-recurrent pansinusitis J01.40 [facility] [id number] [place] [address] 50616- 5373 Jul, [facility] [id number] [place] [address] 36190- 0579 Jul, [facility] [id number] [place] [address] 41455- 7759 May, Type 2 diabetes mellitus with hyperglycemia [...] Chronic pain G89.29 and Marijuana use F12.10 [facility] [id number] [place] [address] 57087- 4972 Apr, Atrial fibrillation I48.91 [facility] [address] [address]- [address]11 Mar, [facility] [address] [address]- 6467 13 Feb, 2017 Type 2 diabetes mellitus with hyperglycemia E11.65 ; Essential hypertension I10 ; Mixed hyperlipidemia E78.2 ; Atrial fibrillation I48.91 ; Neuropathy G62.9 ; Other allergic rhinitis J30.89 and Non compliance with medical treatment Z91.[address] [address]- [address] 07 Jan, 2017 Episodic mood disorder F39 and Posttraumatic stress disorder F43.10 [facility] [address] [address]- 3973 05 Jan, 2017 [facility] [address] [address]657- 3293 12 Oct, 2016 [facility] [address] 75509- 7898 08 Oct, 2016 [facility] [address] [address]- [address]366 08 Oct, 2016 Type 2 diabetes mellitus with hyperglycemia E11.65 ; Essential hypertension I10 ; Atrial fibrillation I48.91 ; Episodic mood disorder F39 ; Chronic pain G89.29 ; Neuropathy G62.9 ; Other allergic rhinitis J30.89 and Tobacco abuse counseling Z71.6 [facility] [address] [address] 14 Aug, 2016 Acute non-recurrent pansinusitis J01.40 [facility] [address] 19315- 4759 Jul, [facility] [address] [address] Jun, [facility] [id number] [place] [address] 27983- 1068 Jun, Type 2 diabetes mellitus with hyperglycemia E11.65 ; Episodic mood disorder F39 ; Posttraumatic stress disorder F43.10 ; Essential hypertension I10 ; Atrial fibrillation I48.91 ; Chronic pain G89.29 ; Acute upper respiratory infection, unspecified J06.9 ; Other viral agents as the cause of diseases classified elsewhere B97.89 ; Acute pain of left shoulder M25.512 and Sinusitis chronic, ethmoidal J32.2 [id number] [place] [address] 71822- 3441 May, Acute intractable tension-type headache G44.201 ; Chronic pain G89.29 ; Essential hypertension I10 ; Atrial fibrillation I48.91 ; Neuropathy G62.9 ; Posttraumatic stress disorder F43.10 ; Episodic mood disorder F39 ; Type 2 diabetes mellitus with hyperglycemia E11.65 ; Other allergic rhinitis J30.89 and Irritable bowel syndrome with both constipation and diarrhea K58.2 [facility] [id number] [place] [address] 18664- 2400 Apr, Episodic mood disorder F39 and Posttraumatic stress disorder F43.10 [id number] [place] [address] 80605- 1152 Mar, [facility] [id number] [place] [address] 16479- 7719 Mar, [facility] [id number] [place] [address] 62756- 9456 Mar, Chronic hepatitis C without hepatic coma B18.2 [facility] [id number] [place] [address] 10288- 4400 Mar, [address] [address] [id number] [place] [address] 99776- 0687 Mar, Episodic mood disorder F39 ; Posttraumatic stress disorder F43.10 ; Essential hypertension I10 and Type 2 diabetes mellitus with hyperglycemia E11.65 [facility] [address] [address]- 2884 Mar, [facility] [address], [place] [address] 2389 Mar, [facility] [id number] [place] [address] 42863- 6331 Mar, Type 2 diabetes mellitus with hyperglycemia E11.65 ; Chronic hepatitis C without hepatic coma B18.2 ; Posttraumatic stress disorder F43.10 ; Episodic mood disorder F39 ; Atrial fibrillation I48.91 ; Irritable bowel syndrome with both constipation and diarrhea K58.2 ; Secondary hypertension I15.9 and Neuropathy G62.9 [facility] [address] [place] [address] 78849- 5275 Feb, Episodic mood disorder F39 and Posttraumatic stress disorder F43.10 [facility] [id number] [place] [address] 48897- 1473 Jan, Episodic mood disorder F39 and Posttraumatic stress disorder F43.10 [facility] [id number] [place] [address] 92996- 7853 Nov, Type 2 diabetes mellitus with hyperglycemia E11.65 ; Atrial fibrillation I48.91 ; Other allergic rhinitis J30.89 ; Episodic mood disorder F39 and Essential hypertension I10 [facility] [address] [address] 99[address] Nov, [facility] [address] [place] [address] 06202- 2269 Oct, [facility] [id number] [place] [address] 32543- 1591 Oct, [facility] [id number] [place] [address] 85324- 0677 September, Type 2 diabetes mellitus with hyperglycemia E11.65 ; Atrial fibrillation I48.91 and Chronic pain G89.29 [facility] [address] [address]- 2504 September, Episodic mood disorder F39 and Posttraumatic stress disorder F43.10 [facility] [id number] [address] 4[address] September, [facility] [address] [address]- 0573 September, [facility] [id number] [place] [address] 11261 -9489 September, [facility] [id number] [place] [address] 97430- 7768 September, [facility] [id number] [place] [address] 01821- 6513 September, [facility] [id number] [place] [address] 43944- 3380 Aug, Type 2 diabetes mellitus with hyperglycemia E11.65 and Essential hypertension I10 [facility] [address] [place] [address] 49116- 3104 Aug, [facility] [id number] [place] [address] 26721- 2841 Aug, [facility] [address] [place] [address] 67039- 9947 Aug, Allergic rhinitis J30.9 ; Atrial fibrillation I48.91 ; Shortness of breath R06.02 and Essential hypertension I10 [facility] [address] [address] Jul, [facility] [id number] [place] [address] 21604- 3042 Jun, Episodic mood disorder F39 and Posttraumatic stress disorder F43.10 [facility] [address] [address]- 6915 Jun, [facility] [id number] [place] [address] 09412- 5523 May, Chronic pain G89.29 ; History of drug abuse Z87.898 and Marijuana use F12.10 [facility] [id number] [place] [address] 05864- 4189 May, Episodic mood disorder F39 and Posttraumatic stress disorder F43.10 [facility] [id number] [place] [address] 02694- 2926 May, [facility] [id number] [place] [address] 95836- 2925 Apr, Chronic pain G89.29 [facility] [address] 59124- 8412 Apr, Episodic mood disorder F39 and Posttraumatic stress disorder F43.10 [facility] [id number] [place] [address] 21786- 8616 Apr, COPD (chronic obstructive pulmonary disease) with acute bronchitis J44.0 [facility] [id number] [place] [address] 48458- 0314 Feb, Episodic mood disorder F39 and Posttraumatic stress disorder F43.10 [facility] [id number] [place] [address] 13416- 7721 Feb, [facility] [id number] [place] [address] 00695- 9650 Feb, Episodic mood disorder F39 and Posttraumatic stress disorder F43.10 [facility] [id number] [place] [address] 63289- 8066 Jan, Routine adult health maintenance V70.0 [facility] [id number] [place] [address] 51843- 4360 Jan, Unspecified episodic mood disorder 296.90 and Posttraumatic stress disorder 309.81 [facility] [id number] [place] [address] 65457- 0044 Dec, Unspecified episodic mood disorder 296.90 and Posttraumatic stress disorder 309.81 [facility] [address] 1348 Dec, Unspecified episodic mood disorder 296.90 and Posttraumatic stress disorder 309.81 [facility] [address], [place] [address]- 3147 Oct, Unspecified episodic mood disorder 296.90 and Posttraumatic stress disorder 309.81 [facility] [address] [place] [address] 903216- 9039 September, Unspecified episodic mood disorder 296.90 ; Posttraumatic stress disorder 309.81 ; No condition on [place] II V71.09 ; Diabetes 250.00 ; Hypertension 401.9 ; Hepatitis C 070.70 and Degenerative disc disease 722.6 [facility] [address] [address] Aug, [facility] [address] [address]- 3564 Aug, [facility] [address], [place] [address]- 9972 Jul, [facility] [address] [address]- 8314 Jul, [facility] [address], [place] [address]- 2326 Jan, [facility] [address] [address]- 2514 Jan, [facility] [address] 7867 Jan, [facility] [address] 3979 Oct, [facility] [address] 5139 Oct, [facility] [address] 2796 Oct, [facility] [id number] [address]- 6052 19 Oct, 2012 [facility] [address] [id number] [place] [address]- 0985 18 Oct, 2012 [facility] [place] [facility] [address] [id number] [place] [address]- 3888 14 Oct, 2012 [facility] [address] [id number] [place] [address]- 4231 13 Oct, 2012 [facility] [place] [facility] [address] [id number] [place] [address]- 6814 13 Oct, 2012 [facility] [address] [id number] [place] [address]- 7226 12 Oct, 2012 [facility] [address] [id number] [place] [address]- 7103 Oct, [facility] [place] [facility] [address] [id number] [place] [address]- 6582 Oct, [facility] [address] [id number] [place] [address]- 9458 11 Oct, 2012 [facility] [place] [facility] [address] [id number] [place] [address]- 4625 Oct, [facility] [address] [id number] [place] [address]- 2093 11 Oct, 2012 [facility] [place] [facility] [address] [id number] [place] [address]- 6874 2012 [facility] [place] [facility] [address] [id number] [place] [address]- 1441 06 Oct, 2012 [facility] [place] [facility] [address] [id number] [place] [address]- 0425 September, [facility] [place] [facility] [address] [id number] [place] [address]- 6213 Aug, [facility] [place] [facility] [address] [id number] [place] [address]- 1265 Aug, [facility] [address] [facility] [id number] [place]- 9069 Aug, IMMUNIZATIONS No Known Immunizations SOCIAL HISTORY Never Assessed REASON FOR VISIT Medication refill request PLAN OF CARE VITAL SIGNS MEDICATIONS Medication Instructions Dosage Frequency Start Date End Date Duration Status Verapamil HCl ER 240 MG Orally Once a day TAKE ONE TABLET BY MOUTH ONCE DAILY 24h 30 days Active RESULTS No Results [...]
--- OUTSIDE RECORDS SUMMARY | 2018-06-09 13:53 | XMS REPORT ---
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 Name Role Phone JEFF WATKINS Unavailable PROBLEMS Type Condition ICD9-CM Code IJX03-NI Code Onset Dates Condition Status SNOMED Code Problem Neuropathy G62.9 Active 391562184 Problem Tobacco abuse counseling Z71.6 Active 39145732 Problem Sinusitis chronic, ethmoidal J32.2 Active 22043827 Problem Other ascites R18.8 Active 343981512 Problem Chronic obstructive pulmonary disease with acute exacerbation J44.1 Active 371772558 Problem detention (current) use of insulin Z79.4 Active 301724507 Problem Mixed hyperlipidemia E78.2 Active 255597429 Problem Paroxysmal atrial fibrillation I48.0 Active 104967198 Problem Type 2 diabetes mellitus without complications E11.9 Active 037840399 Problem Episodic mood disorder F39 Active 79837927 Problem Chronic pain G89.29 Active 07336244 Problem Posttraumatic stress disorder F43.10 Active 68674797 Problem Marijuana use F12.10 Active 84369741 Problem Type 2 diabetes mellitus with hyperglycemia E11.65 Active 914890181 Problem Essential hypertension I10 Active 84443650 Problem Atrial fibrillation I48.91 Active 19009921 Problem Chronic hepatitis C without hepatic coma B18.2 Active 303680663 Problem Other allergic rhinitis J30.89 Active 79048273 ALLERGIES Substance Reaction Event Type Date Status Diclofenac Unknown Drug Allergy May, Active Sulfamethoxazole Unknown Drug Allergy May, Active ENCOUNTERS Encounter Location Date Diagnosis [facility] [address] [facility] [id number] [address] Oct, Type 2 diabetes mellitus with hyperglycemia E11.65 ; Decreased breath sounds at right lung base R09.89 ; Essential hypertension I10 ; Atrial fibrillation I48.91 ; Chronic hepatitis C without hepatic coma B18.2 ; Peripheral edema R60.9 ; Other ascites R18.8 and Chronic obstructive pulmonary disease with acute exacerbation J44.1 [facility] [address] [address] Oct, [facility] [address] [address] Oct, [facility] [address] [address] September, [facility] [address] [address] Aug, Type 2 diabetes mellitus without complications E11.9 [facility] [address], [place] [address] Aug, Type 2 diabetes mellitus with hyperglycemia E11.65 [facility] [address] [address] 16 Aug, 2017 Pneumonia of right middle lobe due to infectious organism J18.1 ; Peripheral edema R60.9 ; Right upper quadrant abdominal pain R10.11 ; Type 2 diabetes mellitus without complications E11.9 and BMI 40.0-44.9, adult Z68.41 [facility] [address], [place] [address] Aug, [facility] [id number], [place] [address] Aug, [facility] [address], [place] [address] Aug, [facility] [id number] [address] Aug, Type 2 diabetes mellitus without complications E11.9 ; Type 2 diabetes mellitus with hyperglycemia E11.65 ; Peripheral edema R60.9 ; Shortness of breath R06.02 ; Paroxysmal atrial fibrillation I48.0 and Pneumonia of right middle lobe due to infectious organism J18.1 [facility] [id number], [place] [address] Aug, [facility] [id number] [place] [address] Jul, Wheezing R06.2 and Acute non-recurrent pansinusitis J01.40 [facility] [id number] [place] [address] 84568- 6348 Jul, [facility] [id number] [place] [address] 08490- 7774 Jul, [facility] [id number] [place] [address] 90237- 9704 May, Type 2 diabetes mellitus with hyperglycemia E11.65 ; Type 2 diabetes mellitus without complications E11.9 ; 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.4 ; Essential hypertension I10 ; Atrial fibrillation I48.91 ; Chronic hepatitis C without hepatic coma B18.2 ; Mixed hyperlipidemia E78.2 ; Episodic mood disorder F39 ; Neuropathy G62.9 ; Acute non-recurrent maxillary sinusitis J01.00 ; Chronic pain G89.29 and Marijuana use F12.10 [facility] [id number] [place] [address] 80678- 3272 Apr, Atrial fibrillation I48.91 [place] [id number] [place] [address] 74806- 6083 Mar, [facility] [id number] [place] [address] 76611- 7958 13 Feb, 2017 Type 2 diabetes mellitus with hyperglycemia E11.65 ; Essential hypertension I10 ; Mixed hyperlipidemia E78.2 ; Atrial fibrillation I48.91 ; Neuropathy G62.9 ; Other allergic rhinitis J30.89 and Non compliance with medical treatment Z91.19 [facility] [id number] [place] [address] 26870- 3976 07 Jan, 2017 Episodic mood disorder F39 and Posttraumatic stress disorder F43.10 [facility] [id number] [place] [address] 40569- 5583 05 Jan, 2017 [place] [id number] [place] [address] 00566- 1037 Oct, [id number] [place] [address] 88669- 2052 Oct, [place] [id number] [place] [address] 17050- 2506 Oct, Type 2 diabetes mellitus with hyperglycemia E11.65 ; Essential hypertension I10 ; Atrial fibrillation I48.91 ; Episodic mood disorder F39 ; Chronic pain G89.29 ; Neuropathy G62.9 ; Other allergic rhinitis J30.89 and Tobacco abuse counseling Z71.6 [facility] [id number] [place] [address] 18092 -1490 Aug, Acute non-recurrent pansinusitis J01.40 [address] [id number] [place] [address] 35081- 4584 Jul, [place] [id number] [place] [address] 62875- 4381 Jun, [place] [id number] [place] [address] 13518- 8482 Jun, Type 2 diabetes mellitus with hyperglycemia E11.65 ; Episodic mood disorder F39 ; Posttraumatic stress disorder F43.10 ; Essential hypertension I10 ; Atrial fibrillation I48.91 ; Chronic pain G89.29 ; Acute upper respiratory infection, unspecified J06.9 ; Other viral agents as the cause of diseases classified elsewhere B97.89 ; Acute pain of left shoulder M25.512 and Sinusitis chronic, ethmoidal J32.[address] [place] [address] 52371- 6006 May, Acute intractable tension-type headache G44.201 ; Chronic pain G89.29 ; Essential hypertension I10 ; Atrial fibrillation I48.91 ; Neuropathy G62.9 ; Posttraumatic stress disorder F43.10 ; Episodic mood disorder F39 ; Type 2 diabetes mellitus with hyperglycemia E11.65 ; Other allergic rhinitis J30.89 and Irritable bowel syndrome with both constipation and diarrhea K58.2 [address] [place] [address] 95616- 6169 Apr, Episodic mood disorder F39 and Posttraumatic stress disorder F43.10 [facility] [address] [address] Mar, [facility] [id number] [place] [address] 43507- 6239 Mar, [facility] [id number] [place] [address] 34860- 2582 Mar, Chronic hepatitis C without hepatic coma B18.2 [facility] [id number] [place] [address] 38107- 2742 Mar, [facility] [id number] [place] [address] 72625- 0040 Mar, Episodic mood disorder F39 ; Posttraumatic stress disorder F43.10 ; Essential hypertension I10 and Type 2 diabetes mellitus with hyperglycemia E11.65 [place] [id number] [place] [address] 57687- 8045 Mar, [facility] [id number] [place] [address] 39591- 6090 Mar, [facility] [id number] [place] [address] 45452- 6072 Mar, Type 2 diabetes mellitus with hyperglycemia E11.65 ; Chronic hepatitis C without hepatic coma B18.2 ; Posttraumatic stress disorder F43.10 ; Episodic mood disorder F39 ; Atrial fibrillation I48.91 ; Irritable bowel syndrome with both constipation and diarrhea K58.2 ; Secondary hypertension I15.9 and Neuropathy G62.9 [facility] [id number] [place] [address] 05177- 4190 Feb, Episodic mood disorder F39 and Posttraumatic stress disorder F43.10 [facility] [id number] [place] [address] 11566- 5186 Jan, Episodic mood disorder F39 and Posttraumatic stress disorder F43.10 [facility] [id number] [place] [address] 26204- 0675 Nov, Type 2 diabetes mellitus with hyperglycemia E11.65 ; Atrial fibrillation I48.91 ; Other allergic rhinitis J30.89 ; Episodic mood disorder F39 and Essential hypertension I10 [facility] [id number] [place] [address] 22212- 6797 Nov, [facility] [id number] [place] [address] 27007- 9997 Oct, [facility] [id number] [place] [address] 24284- 3678 Oct, [facility] [id number] [place] [address] 43712- 3679 September, Type 2 diabetes mellitus with hyperglycemia E11.65 ; Atrial fibrillation I48.91 and Chronic pain G89.29 [facility] [id number] [place] [address] 97350- 1890 September, Episodic mood disorder F39 and Posttraumatic stress disorder F43.10 [facility] [id number] [place] [address] 56153- 2208 September, [facility] [id number] [place] [address] 63574- 5137 September, [facility] [id number] [place] [address] 42323 -3013 September, [facility] [address], [place] [address] 1391 September, [facility] [id number] [place] [address] 72854- 6762 September, [facility] [address], [place] [address]- 2153 Aug, Type 2 diabetes mellitus with hyperglycemia E11.65 and Essential hypertension I10 [facility] [address], [place] [address]- 4881 Aug, [facility] [address], [place] [address]- 7479 Aug, [place] [id number] [place] [address] 60514- 6929 Aug, Allergic rhinitis J30.9 ; Atrial fibrillation I48.91 ; Shortness of breath R06.02 and Essential hypertension I10 [place] [id number] [place] [address] 53559- 3071 Jul, [place] [address] 6[address]- 2955 Jun, Episodic mood disorder F39 and Posttraumatic stress disorder F43.10 [place] [address] 72240- 8973 Jun, [address] [address]43- 0758 May, Chronic pain G89.29 ; History of drug abuse Z87.898 and Marijuana use F12.[address] 99794- 4121 May, Episodic mood disorder F39 and Posttraumatic stress disorder F43.10 [place] [id number] [place] [address] 30552- 1120 May, [id number] [place] [address] 79013- 8040 Apr, Chronic pain G89.29 [id number] [place] [address] 44502- 9597 08 Apr, 2015 Episodic mood disorder F39 and Posttraumatic stress disorder F43.10 [place] [id number] [place] [address] 82657- 4732 07 Apr, 2015 COPD (chronic obstructive pulmonary disease) with acute bronchitis J44.0 [place] [id number] [place] [address] 49129- 7514 Feb, Episodic mood disorder F39 and Posttraumatic stress disorder F43.10 [place] [id number] [place] [address] 44203- 3012 Feb, [facility] [id number] [address]- 5253 Feb, Episodic mood disorder F39 and Posttraumatic stress disorder F43.10 [facility] [address] [place] [address] 11984- 5494 Jan, Routine adult health maintenance V70.0 [facility] [id number] [place] [address] 37603- 1044 Jan, Unspecified episodic mood disorder 296.90 and Posttraumatic stress disorder 309.81 [facility] [address] [place] [address] 386566- 7969 Dec, Unspecified episodic mood disorder 296.90 and Posttraumatic stress disorder 309.81 [facility] [id number] [place] [address] 98985- 6041 Dec, Unspecified episodic mood disorder 296.90 and Posttraumatic stress disorder 309.81 [facility] [id number] [place] [address] 36356- 2798 Oct, Unspecified episodic mood disorder 296.90 and Posttraumatic stress disorder 309.81 [facility] [id number] [place] [address] 79407- 3517 September, Unspecified episodic mood disorder 296.90 ; Posttraumatic stress disorder 309.81 ; No condition on [place] V71.09 ; Diabetes 250.00 ; Hypertension 401.9 ; Hepatitis C 070.70 and Degenerative disc disease 722.6 [facility] [address], [place] [address]- 3677 Aug, [facility] [address] [place] [address] 66764- 3761 Aug, [facility] [id number] [place] [address] 095536- 1874 Jul, [facility] [address] [place] [address] [id number]- 4642 Jul, [facility] [id number] [place] [address], [place] [address]- 7869 16 Jan, 2014 [facility] [place] [facility] [address] [id number] [place] [address]- 1133 16 Jan, 2014 [facility] [place] [facility] [address] [id number] [place] [address]- 6010 03 Jan, 2013 [facility] [place] [facility] [address] [id number] [place] [address]- 9351 27 Oct, 2012 [facility] [place] [facility] [address] [id number] [place] [address]- 8153 25 Oct, 2012 [facility] [place] [facility] [address] [id number] [place] [address]- 5813 21 Oct, 2012 [facility] [place] [facility] [address] [id number] [place] [address]- 0157 19 Oct, 2012 [facility] [place] [facility] [address] [id number] [place] [address]- 0481 18 Oct, 2012 [facility] [place] [facility] [address] [id number] [place] [address]- 2421 14 Oct, 2012 [facility] [place] [facility] [address] [id number] [place] [address]- 9353 13 Oct, 2012 [facility] [place] [facility] [address] [id number] [place] [address]- 7160 13 Oct, 2012 [facility] [place] [facility] [address] [id number] [place] [address]- 0673 12 Oct, 2012 [facility] [place] [facility] [address] [id number] [place] [address]- 1440 12 Oct, 2012 [facility] [place] [facility] [address] [id number] [place] [address]- 5501 11 Oct, 2012 [facility] [place] [facility] [address] [id number] [place] [address]- 7070 11 Oct, 2012 [facility] [place] [facility] [address] [id number] [place] [address]- 7693 11 Oct, 2012 [facility] [place] [facility] [address] [facility] [id number] [address]- 8534 Oct, [facility] [address], [place] [address]- 8369 Oct, [facility] [address], [place] [address]- 8953 Oct, [facility] [address], [place] [address]- 3472 September, [facility] [id number], [place] [address]- 6179 Aug, [facility] [address], [place] [address]- 3071 Aug, [facility] [address], [place] [address]- 2605 Aug, IMMUNIZATIONS No Known Immunizations SOCIAL HISTORY Never Assessed REASON FOR VISIT Diabetes--tjanssenMA, -feeling sick the last few weeks, head/chest cold. PLAN OF CARE Activity Details Follow Up 3 Months, prn Reason:CHM/DM VITAL SIGNS Height 63 in 2017-06-20 Weight 225 lbs 2017-06-20 Temperature 97.6 degrees Fahrenheit 2017-06-20 Heart Rate 96 bpm 2017-06-20 Respiratory Rate 22 2017-06-20 BMI 39.85 kg/m2 2017-06-20 Blood pressure systolic 126 mmHg 2017-06-20 Blood pressure diastolic 82 mmHg 2017-06-20 MEDICATIONS Medication Instructions Dosage Frequency Start Date End Date Duration Status Zetia 10 mg Orally Once a day 1 tablet 24h Mar, 30 day(s) Active Enalapril Maleate 10 mg Orally Once a day TAKE ONE TABLET BY MOUTH ONCE DAILY 24h 30 days Active ProAir HFA 108 (90 Base) MCG/ACT Inhalation every 6 hrs 2 puffs as needed 6h May, 30 days Active Gas Relief 80 mg PRN Oct, Active Aspirin 325 MG Orally Once a day TAKE ONE TABLET BY MOUTH ONCE DAILY 24h 30 days Active Cymbalta 60 mg Orally Once a day 1 capsule 24h Aug, 90 days Active Verapamil HCl ER 240 MG Orally Once a day TAKE ONE TABLET BY MOUTH ONCE DAILY 24h 30 days Active Test strips Test Strips shayne track as directed Aug, Active Lidocaine 5 % Externally Once a day APPLY ONCE PATCH ONCE DAILY DIRECTED 24h 30 Active Lidoderm 5 % Externally Once a day 1 patch to skin remove after 12 hours 24h Jun, 30 days Active Tessalon Perles 100 mg Orally Three times a day 1 capsule as needed 8h May, Jun, 14 days Active Trulicity 0.75 MG/0.5ML Subcutaneous once weekly INJECT 0.5 MLS SUBCUTANEOUSLY ONCE WEEKLY 12 months Active Actos 30 MG Orally Once a day TAKE ONE TABLET BY MOUTH ONCE DAILY 24h 30 days Active Flonase 50 mcg/actuation Nasally 2 times a day 1 sprays by Nasal route 2 times per day in each nostril 12h Jul, 12 months Active Azithromycin 250 MG Orally Once a day 2 tablets on the first day, then 1 tablet daily for 4 days 24h May, May, 5 day(s) Active RESULTS Name Result Date Reference Range A1C (IN HOUSE) 2017-06-20 A1C IN HOUSE 6.5 4.3 - 5.6 % Previous A1c 6.1 Lot [id number] Exp date 03/13 MICROALBUMIN, URINE (IN HOUSE) 2017-06-20 MICROALBUMIN abnormal Lot # [id number] Exp date 03/2018 Clarity clear Color dark yellow ALB 150 mg/L CRE 300 mg/dL A:C (IN HOUSE) 30-300 mg/g Control Control Lot # Exp PROCEDURES Procedure Date Ordered Result Body Site GLYCATED HEMOGLOBIN TEST Jun 20, 2017 MICROALBUMIN, SEMIQUANT Jun 20, 2017 [facility] VISIT ESTABLISHED PATIENT Jun 20, 2017 INSTRUCTIONS MEDICATIONS ADMINISTERED No Known Medications [...]
[2018-06-09] MEDS ORDERED: DULA0.75 SQ (13:54)
--- OUTSIDE RECORDS SUMMARY | 2018-06-09 14:04 | XMS REPORT | Continuity of Care Document ---
Author Author [facility] Address Unknown Phone Unavailable Allergies Active Description Code Type Severity Reaction Onset Reported/Identified Relationship to Patient Clinical Status Yes Diclofenac Drug Allergy N/A N/A 10/14/2012 Yes Sulfa (Sulfonamide Antibiotics) Drug Allergy N/A N/A 10/29/2012 Yes Sulfa (Sulfonamide Antibiotics) [id number] Drug Allergy Unknown N/A 2014 Medications There is no data. Problems Date Dx Coded Attending Type Code Diagnosis Diagnosed By 10/29/2012 070.54 HEPATITIS, C VIRUS - CHRONIC 10/29/2012 300.00 ANXIETY UNSPEC 10/29/2012 338.29 CHRONIC PAIN 10/29/2012 401.9 ESSENTIAL HYPERTENSION 10/29/2012 070.54 HEPATITIS, C VIRUS - CHRONIC 10/29/2012 300.00 ANXIETY UNSPEC 10/29/2012 338.29 CHRONIC PAIN 10/29/2012 401.9 ESSENTIAL HYPERTENSION 10/29/2012 BRANDY WORRELL APRN R 070.54 HEPATITIS, C VIRUS - CHRONIC 10/29/2012 BRANDY WORRELL APRN R 300.00 ANXIETY UNSPEC 10/29/2012 BRANDY WORRELL APRN R 338.29 CHRONIC PAIN 10/29/2012 BRANDY WORRELL APRN R 401.9 ESSENTIAL HYPERTENSION 02/08/2014 BRANDY WORRELL APRN R 477.0 ALLERGIC RHINITIS DUE TO POLLEN 04/07/2015 LAUREN MCKNIGHT APRN Ot M54.9 04/07/2015 LAUREN MCKNIGHT APRN Ot M54.9 04/26/2015 LAUREN MCKNIGHT APRN Ot M54.9 05/01/2015 LAUREN MCKNIGHT APRN Ot M54.9 05/12/2015 LAUREN MCKNIGHT APRN Ot M54.9 05/13/2015 STEPH HOUSTON MD Ot B19.20 UNSPECIFIED VIRAL HEPATITIS C WITHOUT HE 05/13/2015 ROSEMARIE MELÉNDEZ, STEPH Carvajal Ot E11.69 TYPE 2 DIABETES MELLITUS WITH OTHER SPEC 05/13/2015 STEPH HOUSTON MD Ot E86.0 DEHYDRATION 05/13/2015 STEPH HOUSTON MD Ot F11.23 OPIOID DEPENDENCE WITH WITHDRAWAL 05/13/2015 STEPH HOUSTON MD Ot F15.10 OTHER STIMULANT ABUSE, UNCOMPLICATED 05/13/2015 STEPH HOUSTON MD Ot F17.210 NICOTINE DEPENDENCE, CIGARETTES, UNCOMPL 05/13/2015 STEPH HOUSTON MD Ot G89.4 CHRONIC PAIN SYNDROME 05/13/2015 STEPH HOUSTON MD Ot I11.9 HYPERTENSIVE HEART DISEASE WITHOUT HEART 05/13/2015 STEPH HOUSTON MD Ot I48.91 UNSPECIFIED ATRIAL FIBRILLATION 05/13/2015 STEPH HOUSTON MD Ot N39.0 URINARY TRACT INFECTION, SITE NOT SPECIF 05/13/2015 STEPH HOUSTON MD Ot B19.20 05/13/2015 STEPH HOUSTON MD Ot E11.69 05/13/2015 STEPH HOUSTON MD Ot E86.0 05/13/2015 STEPH HOUSTON MD Ot F11.23 05/13/2015 STEPH HOUSTON MD Ot F15.10 05/13/2015 STEPH HOUSTON MD Ot F17.210 05/13/2015 STEPH HOUSTON MD Ot G89.4 05/13/2015 STEPH HOUSTON MD Ot I11.9 05/13/2015 STEPH HOUSTON MD Ot I48.91 05/13/2015 STEPH HOUSTON MD Ot N39.0 05/24/2015 LAUREN MCKNIGHT SALES AND MARKETING ADMINISTRATOR Ot M54.9 05/24/2015 LAUREN MCKNIGHT SALES AND MARKETING ADMINISTRATOR Ot M54.9 09/16/2017 LAUREN MCKNIGHT SALES AND MARKETING ADMINISTRATOR Ot M54.9 DORSALGIA, UNSPECIFIED 10/20/2017 LAUREN MCKNIGHT SALES AND MARKETING ADMINISTRATOR Ot M54.9 DORSALGIA, UNSPECIFIED 10/20/2017 MARS MELÉNDEZ, LUIS Palma Ot A59.9 TRICHOMONIASIS, UNSPECIFIED 10/20/2017 MARS MELÉNDEZ, LUIS Palma Ot B19.20 UNSPECIFIED VIRAL HEPATITIS C WITHOUT HE 10/20/2017 MARS MELÉNDEZ, LUIS Palma Ot E11.9 TYPE 2 DIABETES MELLITUS WITHOUT COMPLIC 10/20/2017 MARSLUIS COLLINS MD Ot F17.210 NICOTINE DEPENDENCE, CIGARETTES, UNCOMPL 10/20/2017 LUIS CREWS MD Ot F41.9 ANXIETY DISORDER, UNSPECIFIED 10/20/2017 LUIS CREWS MD Ot F43.10 POST-TRAUMATIC STRESS DISORDER, UNSPECIF 10/20/2017 LUIS CREWS MD Ot I10 ESSENTIAL (PRIMARY) HYPERTENSION 10/20/2017 LUIS CREWS MD Ot N39.0 URINARY TRACT INFECTION, SITE NOT SPECIF 10/20/2017 LUIS CREWS MD Ot R06.02 SHORTNESS OF BREATH 10/20/2017 LUIS CREWS MD Ot R60.0 LOCALIZED EDEMA 10/20/2017 LUIS CREWS MD Ot Z79.01 MULE DRIVER (CURRENT) USE OF ANTICOAGULANT 10/20/2017 LUIS CREWS MD Ot Z79.51 JAIL (CURRENT) USE OF INHALED STERO 10/20/2017 LUIS CREWS MD Ot Z79.82 MULE DRIVER (CURRENT) USE OF ASPIRIN 10/20/2017 LUIS CREWS MD Ot Z85.41 PERSONAL HISTORY OF MALIGNANT NEOPLASM O 10/20/2017 LUIS CREWS MD Ot Z85.42 PERSONAL HISTORY OF MALIGNANT NEOPLASM O 10/20/2017 LUIS CREWS MD Ot Z87.01 PERSONAL HISTORY OF PNEUMONIA (RECURRENT 10/20/2017 LUIS CREWS MD Ot Z88.2 ALLERGY STATUS TO SULFONAMIDES STATUS 10/20/2017 LUIS CREWS MD Ot Z90.710 ACQUIRED ABSENCE OF BOTH CERVIX AND UTER 10/20/2017 LAUREN MCKNIGHT APRN Ot M54.9 DORSALGIA, UNSPECIFIED 10/22/2017 LUIS CREWS MD Ot A59.9 TRICHOMONIASIS, UNSPECIFIED 10/22/2017 LUIS CREWS MD Ot B19.20 UNSPECIFIED VIRAL HEPATITIS C WITHOUT HE 10/22/2017 LUIS CREWS MD Ot E11.9 TYPE 2 DIABETES MELLITUS WITHOUT COMPLIC 10/22/2017 LUIS CREWS MD Ot F17.210 NICOTINE DEPENDENCE, CIGARETTES, UNCOMPL 10/22/2017 LUIS CREWS MD Ot F41.9 ANXIETY DISORDER, UNSPECIFIED 10/22/2017 LUIS CREWS MD Ot F43.10 POST-TRAUMATIC STRESS DISORDER, UNSPECIF 10/22/2017 LUIS CREWS MD Ot I10 ESSENTIAL (PRIMARY) HYPERTENSION 10/22/2017 LUIS CREWS MD Ot N39.0 URINARY TRACT INFECTION, SITE NOT SPECIF 10/22/2017 LUIS CREWS MD Ot R06.02 SHORTNESS OF BREATH 10/22/2017 LUIS CREWS MD Ot R60.0 LOCALIZED EDEMA 10/22/2017 LUIS CREWS MD Ot Z79.01 JAIL (CURRENT) USE OF ANTICOAGULANT 10/22/2017 LUIS CREWS MD Ot Z79.51 JAIL (CURRENT) USE OF INHALED STERO 10/22/2017 LUIS CREWS MD Ot Z79.82 JAIL (CURRENT) USE OF ASPIRIN 10/22/2017 LUIS CREWS MD, Ot Z85.41 PERSONAL HISTORY OF MALIGNANT NEOPLASM O 10/22/2017 LUIS CREWS MD Ot Z85.42 PERSONAL HISTORY OF MALIGNANT NEOPLASM O 10/22/2017 LUIS CREWS MD Ot Z87.01 PERSONAL HISTORY OF PNEUMONIA (RECURRENT 10/22/2017 LUIS CREWS MD Ot Z88.2 ALLERGY STATUS TO SULFONAMIDES STATUS 10/22/2017 LUIS CREWS MD Ot Z90.710 ACQUIRED ABSENCE OF BOTH CERVIX AND UTER 11/03/2017 GI MARTINEZ APRN Ot B19.20 UNSPECIFIED VIRAL HEPATITIS C WITHOUT HE 11/03/2017 GI MARTINEZ APRN Ot E11.9 TYPE 2 DIABETES MELLITUS WITHOUT COMPLIC 11/03/2017 GI MARTINEZ APRN Ot F17.210 NICOTINE DEPENDENCE, CIGARETTES, UNCOMPL 11/03/2017 GI MARTINEZ APRN Ot F41.9 ANXIETY DISORDER, UNSPECIFIED 11/03/2017 GI MARTINEZ APRN Ot F43.10 POST-TRAUMATIC STRESS DISORDER, UNSPECIF 11/03/2017 GI MARTINEZ APRN Ot I10 ESSENTIAL (PRIMARY) HYPERTENSION 11/03/2017 GI MARTINEZ APRN Ot J90 PLEURAL EFFUSION, NOT ELSEWHERE CLASSIFI 11/03/2017 GI MARTINEZ APRN Ot R10.11 RIGHT UPPER QUADRANT PAIN 11/03/2017 GI MARTINEZ APRN Ot R60.0 LOCALIZED EDEMA 11/03/2017 GI MARTINEZ APRN Ot Z79.51 MULE DRIVER (CURRENT) USE OF INHALED STERO 11/03/2017 GI MARTINEZ APRN Ot Z79.82 JAIL (CURRENT) USE OF ASPIRIN 11/03/2017 GI MARTINEZ APRN Ot Z85.41 PERSONAL HISTORY OF MALIGNANT NEOPLASM O 11/03/2017 GI MARTINEZ APRN Ot Z85.42 PERSONAL HISTORY OF MALIGNANT NEOPLASM O 11/03/2017 GI MARTINEZ APRN Ot Z88.2 ALLERGY STATUS TO SULFONAMIDES STATUS 11/03/2017 GI MARTINEZ APRN Ot Z90.710 ACQUIRED ABSENCE OF BOTH CERVIX AND UTER 11/05/2017 GI MARTINEZ APRN Ot B19.20 UNSPECIFIED VIRAL HEPATITIS C WITHOUT HE 11/05/2017 GI MARTINEZ APRN Ot E11.9 TYPE 2 DIABETES MELLITUS WITHOUT COMPLIC 11/05/2017 GI MARTINEZ APRN Ot F17.210 NICOTINE DEPENDENCE, CIGARETTES, UNCOMPL 11/05/2017 GI MARTINEZ APRN Ot F41.9 ANXIETY DISORDER, UNSPECIFIED 11/05/2017 GI MARTINEZ APRN Ot F43.10 POST-TRAUMATIC STRESS DISORDER, UNSPECIF 11/05/2017 GI MARTINEZ APRN Ot I10 ESSENTIAL (PRIMARY) HYPERTENSION 11/05/2017 GI MARTINEZ APRN Ot J90 PLEURAL EFFUSION, NOT ELSEWHERE CLASSIFI 11/05/2017 GI MARTINEZ APRN Ot R10.11 RIGHT UPPER QUADRANT PAIN 11/05/2017 GI MARTINEZ APRN Ot R60.0 LOCALIZED EDEMA 11/05/2017 GI MARTINEZ APRN Ot Z79.51 JAIL (CURRENT) USE OF INHALED STERO 11/05/2017 GI MARTINEZ APRN Ot Z79.82 MULE DRIVER (CURRENT) USE OF ASPIRIN 11/05/2017 GI MARTINEZ APRN Ot Z85.41 PERSONAL HISTORY OF MALIGNANT NEOPLASM O 11/05/2017 GI MARTINEZ APRN Ot Z85.42 PERSONAL HISTORY OF MALIGNANT NEOPLASM O 11/05/2017 GI MARTINEZ APRN Ot Z88.2 ALLERGY STATUS TO SULFONAMIDES STATUS 11/05/2017 GI MARTINEZ APRN Ot Z90.710 ACQUIRED ABSENCE OF BOTH CERVIX AND UTER 11/19/2017 ALVIN LAI Ot I08.1 RHEUMATIC DISORDERS OF BOTH MITRAL AND T 11/19/2017 ALVIN LAI Ot I10 ESSENTIAL (PRIMARY) HYPERTENSION 11/19/2017 ALVIN LAI Ot I48.0 PAROXYSMAL ATRIAL FIBRILLATION 11/19/2017 ALVIN LAI Ot Z72.0 TOBACCO USE 12/17/2017 ALVIN LAI Ot I08.1 RHEUMATIC DISORDERS OF BOTH MITRAL AND T 12/17/2017 ALVIN LAI Ot I10 ESSENTIAL (PRIMARY) HYPERTENSION 12/17/2017 ALVIN LAI Ot I48.0 PAROXYSMAL ATRIAL FIBRILLATION 12/17/2017 ALVIN LAI Ot Z72.0 TOBACCO USE 06/09/2018 LAUREN MCKNIGHT APRN Ot M54.9 DORSALGIA, UNSPECIFIED 06/09/2018 ALVIN LAI Ot I08.1 RHEUMATIC DISORDERS OF BOTH MITRAL AND T 06/09/2018 ALVIN LAI Ot I10 ESSENTIAL (PRIMARY) HYPERTENSION 06/09/2018 ALVIN LAI Ot I48.0 PAROXYSMAL ATRIAL FIBRILLATION 06/09/2018 ALVIN LAI Ot Z72.0 TOBACCO USE Procedures Code Description [place] [address] ROUTINE VENIPUNCTURE 11/03/2012 97323 URINE DRUG SCREEN (IN-HOUSE ) 11/03/2012 27800 INR (IN HOUSE) 11/03/2012 23688 A1C (IN-HOUSE) 11/03/2012 39572 CBC 11/03/2012 68133 CMP 11/03/2012 0354810 GFR CALC (RESULT ONLY) 11/03/2012 78763 TSH 11/03/2012 77882 HEPATITIS PROFILE 11/03/2012 3743803 HCV INDEX (RESULT ONLY) 11/03/2012 00162 HIV ANTIBODIES (RML) 11/04/2012 05104 HEP C PCR QUANT W/ED 11/10/2012 01555 GENOTYPE DNA HEPATITIS C 11/11/2012 Results Test Result Range CBC With Differential/Platelet - 04/11/16 15:47 WBC 11.4 x10E3/uL 3.4-10.8 RBC 5.46 x10E6/uL 3.77-5.28 Hemoglobin 14.9 g/dL 11.1-15.9 Hematocrit 45.7 % 34.0-46.6 MCV 84 fL 79-97 MCH 27.3 pg 26.6-33.0 MCHC 32.6 g/dL 31.5-35.7 RDW 13.9 % 12.3-15.4 Platelets 338 x10E3/uL 150-379 Neutrophils 60 % Lymphs 32 % Monocytes 7 % Eos 1 % Basos 0 % Neutrophils (Absolute) 6.8 x10E3/uL 1.4-7.0 Lymphs (Absolute) 3.6 x10E3/uL 0.7-3.1 Monocytes(Absolute) 0.8 x10E3/uL 0.1-0.9 Eos (Absolute) 0.2 x10E3/uL 0.0-0.4 Baso (Absolute) 0.0 x10E3/uL 0.0-0.2 Immature Granulocytes 0 % Immature Grans (Abs) 0.0 x10E3/uL 0.0-0.1 Comp. Metabolic Panel (14) - 04/11/16 15:47 Glucose, Serum 291 mg/dL 65-99 BUN 13 mg/dL 6-24 Creatinine, Serum 0.78 mg/dL 0.57-1.00 eGFR If NonAfricn Am 85 mL/min/1.73 >59 eGFR If Africn Am 98 mL/min/1.73 >59 BUN/Creatinine Ratio 17 9-23 Sodium, Serum 134 mmol/L 136-144 Potassium, Serum 3.9 mmol/L 3.5-5.2 Chloride, Serum 96 mmol/L 97-106 Carbon Dioxide, Total 20 mmol/L 18-29 Calcium, Serum 9.1 mg/dL 8.7-10.2 Protein, Total, Serum 7.1 g/dL 6.0-8.5 Albumin, Serum 3.7 g/dL 3.5-5.5 Globulin, Total 3.4 g/dL 1.5-4.5 A/G Ratio 1.1 1.1-2.5 Bilirubin, Total 0.3 mg/dL 0.0-1.2 Alkaline Phosphatase, S 122 IU/L 39-117 AST (SGOT) 28 IU/L 0-40 ALT (SGPT) 43 IU/L 0-32 Lipid Panel - 04/11/16 15:47 Cholesterol, Total 223 mg/dL 100-199 Triglycerides 255 mg/dL 0-149 HDL Cholesterol 40 mg/dL >39 VLDL Cholesterol Mauricio 51 mg/dL 5-40 LDL Cholesterol Calc 132 mg/dL 0-99 Complete blood count (CBC) with automated white blood cell (WBC) differential - 10/20/17 14:39 Blood leukocytes automated count (number/volume) 8.7 10*3/uL 4.3-11.0 Blood erythrocytes automated count (number/volume) 4.44 10*6/uL 4.35-5.85 Venous blood hemoglobin measurement (mass/volume) 10.9 g/dL 11.5-16.0 Blood hematocrit (volume fraction) 34 % 35-52 Automated erythrocyte mean corpuscular volume 76 [foz_us] 80-99 Automated erythrocyte mean corpuscular hemoglobin (mass per erythrocyte) 25 pg 25-34 Automated erythrocyte mean corpuscular hemoglobin concentration measurement ( mass/volume) 32 g/dL 32-36 Automated erythrocyte distribution width ratio 16.1 % 10.0-14.5 Automated blood platelet count (count/volume) 242 10*3/uL 130-400 Automated blood platelet mean volume measurement 10.7 [foz_us] 7.4-10.4 Automated blood neutrophils/100 leukocytes 71 % 42-75 Automated blood lymphocytes/100 leukocytes 17 % 12-44 Blood monocytes/100 leukocytes 9 % 0-12 Automated blood eosinophils/100 leukocytes 2 % 0-10 Automated blood basophils/100 leukocytes 1 % 0-10 Blood neutrophils automated count (number/volume) 6.2 10*3 1.8-7.8 Blood lymphocytes automated count (number/volume) 1.5 10*3 1.0-4.0 Blood monocytes automated count (number/volume) 0.8 10*3 0.0-1.0 Automated eosinophil count 0.2 10*3/uL 0.0-0.3 Automated blood basophil count (count/volume) 0.1 10*3/uL 0.0-0.1 Comprehensive metabolic panel - 10/20/17 14:39 Serum or plasma sodium measurement (moles/volume) 135 mmol/L 135-145 Serum or plasma potassium measurement (moles/volume) 4.7 mmol/L 3.6-5.0 Serum or plasma chloride measurement (moles/volume) 104 mmol/L 98-107 Carbon dioxide 18 mmol/L 21-32 Serum or plasma anion gap determination (moles/volume) 13 mmol/L 5-14 Serum or plasma urea nitrogen measurement (mass/volume) 17 mg/dL 7-18 Serum or plasma creatinine measurement (mass/volume) 0.80 mg/dL 0.60-1.30 Serum or plasma urea nitrogen/creatinine mass ratio 21 NRG Serum or plasma creatinine measurement with calculation of estimated glomerular filtration rate > NRG Serum or plasma glucose measurement (mass/volume) 200 mg/dL 70-105 Serum or plasma calcium measurement (mass/volume) 8.5 mg/dL 8.5-10.1 Serum or plasma total bilirubin measurement (mass/volume) 0.8 mg/dL 0.1-1.0 Serum or plasma alkaline phosphatase measurement (enzymatic activity/volume) 141 U/L 40-136 Serum or plasma aspartate aminotransferase measurement (enzymatic activity/ volume) 40 U/L 5-34 Serum or plasma alanine aminotransferase measurement (enzymatic activity/volume ) 27 U/L 0-55 Serum or plasma protein measurement (mass/volume) 7.6 g/dL 6.4-8.2 Serum or plasma albumin measurement (mass/volume) 3.5 g/dL 3.2-4.5 Magnesium - 10/20/17 14:39 Magnesium 2.3 mg/dL 1.8-2.4 Serum or plasma troponin i.cardiac measurement (mass/volume) - 10/20/17 14:39 Serum or plasma troponin i.cardiac measurement (mass/volume) < ng/ mL <0.30 Lipase - 10/20/17 14:39 Lipase 11 U/L 8-78 Serum or plasma C reactive protein measurement (mass/volume) - 10/20/17 14:39 Serum or plasma C reactive protein measurement (mass/volume) 0.14 mg /dL 0.00-0.50 Serum or plasma lithium measurement (moles/volume) - 10/20/17 14:39 BNP level 441.1 pg/mL <100.0 Capillary blood glucose measurement by glucometer (mass/volume) - 10/20/17 14: 47 Capillary blood glucose measurement by glucometer (mass/volume) 200 mg/dL 70-110 Complete urinalysis with reflex to culture - 10/20/17 15:44 Urine color determination YELLOW NRG Urine clarity determination SLIGHTLY CLOUDY NRG Urine pH measurement by test strip 5 5-9 Specific gravity of urine by test strip 1.020 1.016- 1.022 Urine protein assay by test strip, semi-quantitative 2+ NEGATIVE Urine glucose detection by automated test strip NEGATIVE NEGATIVE Erythrocytes detection in urine sediment by light microscopy 2+ NEGATIVE Urine ketones detection by automated test strip NEGATIVE NEGATIVE Urine nitrite detection by test strip NEGATIVE NEGATIVE Urine total bilirubin detection by test strip NEGATIVE NEGATIVE Urine urobilinogen measurement by automated test strip (mass/volume) NORMAL NORMAL Urine leukocyte esterase detection by dipstick 3+ NEGATIVE Automated urine sediment erythrocyte count by microscopy (number/high power field) [HPF] NRG Automated urine sediment leukocyte count by microscopy (number/high power field ) [HPF] NRG Bacteria detection in urine sediment by light microscopy NEGATIVE NRG Squamous epithelial cells detection in urine sediment by light microscopy 2-5 NRG Crystals detection in urine sediment by light microscopy NONE NRG Casts detection in urine sediment by light microscopy NONE NRG Mucus detection in urine sediment by light microscopy NEGATIVE NRG Complete urinalysis with reflex to culture YES NRG Urine Trichomonas species detection by light microscopy FEW NRG Bacterial urine culture - 10/20/17 15:44 Bacterial urine culture SEE COMMEN NRG COLONY COUNT . NRG Fibrin D-dimer FEU measurement in platelet poor plasma (mass/volume) - 16:13 Fibrin D-dimer FEU measurement in platelet poor plasma (mass/volume) 1.95 ug/mL 0.00-0.49 Complete blood count (CBC) with automated white blood cell (WBC) differential - 11/03/17 12:50 Blood leukocytes automated count (number/volume) 8.2 10*3/uL 4.3-11.0 Blood erythrocytes automated count (number/volume) 4.94 10*6/uL 4.35-5.85 Venous blood hemoglobin measurement (mass/volume) 11.7 g/dL 11.5-16.0 Blood hematocrit (volume fraction) 37 % 35-52 Automated erythrocyte mean corpuscular volume 74 [foz_us] 80-99 Automated erythrocyte mean corpuscular hemoglobin (mass per erythrocyte) 24 pg 25-34 Automated erythrocyte mean corpuscular hemoglobin concentration measurement ( mass/volume) 32 g/dL 32-36 Automated erythrocyte distribution width ratio 16.1 % 10.0-14.5 Automated blood platelet count (count/volume) 292 10*3/uL 130-400 Automated blood platelet mean volume measurement 10.7 [foz_us] 7.4-10.4 Automated blood neutrophils/100 leukocytes 59 % 42-75 Automated blood lymphocytes/100 leukocytes 22 % 12-44 Blood monocytes/100 leukocytes 14 % 0-12 Automated blood eosinophils/100 leukocytes 3 % 0-10 Automated blood basophils/100 leukocytes 2 % 0-10 Blood neutrophils automated count (number/volume) 4.9 10*3 1.8-7.8 Blood lymphocytes automated count (number/volume) 1.8 10*3 1.0-4.0 Blood monocytes automated count (number/volume) 1.2 10*3 0.0-1.0 Automated eosinophil count 0.2 10*3/uL 0.0-0.3 Automated blood basophil count (count/volume) 0.1 10*3/uL 0.0-0.1 Complete urinalysis with reflex to culture - 11/03/17 12:50 Urine color determination YELLOW NRG Urine clarity determination CLEAR NRG Urine pH measurement by test strip 6.5 5-9 Specific gravity of urine by test strip 1.010 1.016- 1.022 Urine protein assay by test strip, semi-quantitative NEGATIVE NEGATIVE Urine glucose detection by automated test strip NEGATIVE NEGATIVE Erythrocytes detection in urine sediment by light microscopy NEGATIVE NEGATIVE Urine ketones detection by automated test strip NEGATIVE NEGATIVE Urine nitrite detection by test strip NEGATIVE NEGATIVE Urine total bilirubin detection by test strip NEGATIVE NEGATIVE Urine urobilinogen measurement by automated test strip (mass/volume) NORMAL NORMAL Urine leukocyte esterase detection by dipstick NEGATIVE NEGATIVE Automated urine sediment erythrocyte count by microscopy (number/high power field) NONE NRG Automated urine sediment leukocyte count by microscopy (number/high power field ) NONE NRG Bacteria detection in urine sediment by light microscopy NEGATIVE NRG Squamous epithelial cells detection in urine sediment by light microscopy RARE NRG Crystals detection in urine sediment by light microscopy NONE NRG Casts detection in urine sediment by light microscopy NONE NRG Mucus detection in urine sediment by light microscopy NEGATIVE NRG Complete urinalysis with reflex to culture NO NRG Comprehensive metabolic panel - 11/03/17 12:50 Serum or plasma sodium measurement (moles/volume) 133 mmol/L 135-145 Serum or plasma potassium measurement (moles/volume) 4.6 mmol/L 3.6-5.0 Serum or plasma chloride measurement (moles/volume) 103 mmol/L 98-107 Carbon dioxide 20 mmol/L 21-32 Serum or plasma anion gap determination (moles/volume) 10 mmol/L 5-14 Serum or plasma urea nitrogen measurement (mass/volume) 24 mg/dL 7-18 Serum or plasma creatinine measurement (mass/volume) 0.78 mg/dL 0.60-1.30 Serum or plasma urea nitrogen/creatinine mass ratio 31 NRG Serum or plasma creatinine measurement with calculation of estimated glomerular filtration rate > NRG Serum or plasma glucose measurement (mass/volume) 172 mg/dL 70-105 Serum or plasma calcium measurement (mass/volume) 8.6 mg/dL 8.5-10.1 Serum or plasma total bilirubin measurement (mass/volume) 0.5 mg/dL 0.1-1.0 Serum or plasma alkaline phosphatase measurement (enzymatic activity/volume) 167 U/L 40-136 Serum or plasma aspartate aminotransferase measurement (enzymatic activity/ volume) 33 U/L 5-34 Serum or plasma alanine aminotransferase measurement (enzymatic activity/volume ) 23 U/L 0-55 Serum or plasma protein measurement (mass/volume) 7.4 g/dL 6.4-8.2 Serum or plasma albumin measurement (mass/volume) 3.4 g/dL 3.2-4.5 PT panel in platelet poor plasma by coagulation assay - 11/03/17 12:50 Prothrombin time (PT) in platelet poor plasma by coagulation assay 13.6 s 12.2-14.7 INR in platelet poor plasma or blood by coagulation assay 1.0 0.8-1.4 Activated partial thromboplastin time (aPTT) in platelet poor plasma bycoagulation assay - 11/03/17 12:50 Activated partial thromboplastin time (aPTT) in platelet poor plasma bycoagulation assay 30 s 24-35 CBC - 12/11/17 15:00 WHITE BLOOD CELL COUNT 8.0 Thousand/uL 3.8-10.8 RED BLOOD CELL COUNT 5.44 Million/uL 3.80-5.10 HEMOGLOBIN 13.0 g/dL 11.7-15.5 HEMATOCRIT 40.7 % 35.0-45.0 MCV 74.8 fL 80.0-100.0 MCH 23.9 pg 27.0-33.0 MCHC 31.9 g/dL 32.0-36.0 RDW 18.8 % 11.0-15.0 PLATELET COUNT 247 Thousand/uL 140-400 MPV 10.9 fL 7.5-12.5 ABSOLUTE NEUTROPHILS 5984 cells/uL [id number] ABSOLUTE LYMPHOCYTES 1232 cells/uL 850-3900 ABSOLUTE MONOCYTES 584 cells/uL 200-950 ABSOLUTE EOSINOPHILS 120 cells/uL 15-500 ABSOLUTE BASOPHILS 80 cells/uL 0-200 NEUTROPHILS 74.8 % NRG LYMPHOCYTES 15.4 % NRG MONOCYTES 7.3 % NRG EOSINOPHILS 1.5 % NRG BASOPHILS 1.0 % NRG BNP - 12/11/17 15:00 B TYPE NATRIURETIC PEPTIDE (BNP) 482 pg/mL <100 Capillary blood glucose measurement by glucometer (mass/volume) - 06/09/18 12: 29 Capillary blood glucose measurement by glucometer (mass/volume) 233 mg/dL 70-110 Complete blood count (CBC) with automated white blood cell (WBC) differential - 06/09/18 12:32 Blood leukocytes automated count (number/volume) 13.0 10*3/uL 4.3-11.0 Blood erythrocytes automated count (number/volume) 6.09 10*6/uL 4.35-5.85 Venous blood hemoglobin measurement (mass/volume) 15.0 g/dL 11.5-16.0 Blood hematocrit (volume fraction) 47 % 35-52 Automated erythrocyte mean corpuscular volume 76 [foz_us] 80-99 Automated erythrocyte mean corpuscular hemoglobin (mass per erythrocyte) 25 pg 25-34 Automated erythrocyte mean corpuscular hemoglobin concentration measurement ( mass/volume) 32 g/dL 32-36 Automated erythrocyte distribution width ratio 17.4 % 10.0-14.5 Automated blood platelet count (count/volume) 303 10*3/uL 130-400 Automated blood platelet mean volume measurement 10.8 [foz_us] 7.4-10.4 Automated blood neutrophils/100 leukocytes 77 % 42-75 Automated blood lymphocytes/100 leukocytes 13 % 12-44 Blood monocytes/100 leukocytes 7 % 0-12 Automated blood eosinophils/100 leukocytes 2 % 0-10 Automated blood basophils/100 leukocytes 1 % 0-10 Blood neutrophils automated count (number/volume) 9.9 10*3 1.8-7.8 Blood lymphocytes automated count (number/volume) 1.7 10*3 1.0-4.0 Blood monocytes automated count (number/volume) 0.9 10*3 0.0-1.0 Automated eosinophil count 0.3 10*3/uL 0.0-0.3 Automated blood basophil count (count/volume) 0.1 10*3/uL 0.0-0.1 Comprehensive metabolic panel - 06/09/18 12:32 Serum or plasma sodium measurement (moles/volume) 135 mmol/L 135-145 Serum or plasma potassium measurement (moles/volume) 4.9 mmol/L 3.6-5.0 Serum or plasma chloride measurement (moles/volume) 101 mmol/L 98-107 Carbon dioxide 22 mmol/L 21-32 Serum or plasma anion gap determination (moles/volume) 12 mmol/L 5-14 Serum or plasma urea nitrogen measurement (mass/volume) 28 mg/dL 7-18 Serum or plasma creatinine measurement (mass/volume) 1.10 mg/dL 0.60-1.30 Serum or plasma urea nitrogen/creatinine mass ratio 25 NRG Serum or plasma creatinine measurement with calculation of estimated glomerular filtration rate 51 NRG Serum or plasma glucose measurement (mass/volume) 226 mg/dL 70-105 Serum or plasma calcium measurement (mass/volume) 9.8 mg/dL 8.5-10.1 Serum or plasma total bilirubin measurement (mass/volume) 0.5 mg/dL 0.1-1.0 Serum or plasma alkaline phosphatase measurement (enzymatic activity/volume) 149 U/L 40-136 Serum or plasma aspartate aminotransferase measurement (enzymatic activity/ volume) 39 U/L 5-34 Serum or plasma alanine aminotransferase measurement (enzymatic activity/volume ) 39 U/L 0-55 Serum or plasma protein measurement (mass/volume) 8.4 g/dL 6.4-8.2 Serum or plasma albumin measurement (mass/volume) 3.7 g/dL 3.2-4.5 CALCIUM CORRECTED 10.0 mg/dL 8.5-10.1 PT panel in platelet poor plasma by coagulation assay - 06/09/18 12:32 Prothrombin time (PT) in platelet poor plasma by coagulation assay 12.9 s 12.2-14.7 INR in platelet poor plasma or blood by coagulation assay 1.0 0.8-1.4 Activated partial thromboplastin time (aPTT) in platelet poor plasma bycoagulation assay - 06/09/18 12:32 Activated partial thromboplastin time (aPTT) in platelet poor plasma bycoagulation assay 28 s 24-35 Fibrin D-dimer FEU measurement in platelet poor plasma (mass/volume) - 12:32 Fibrin D-dimer FEU measurement in platelet poor plasma (mass/volume) 0.61 ug/mL 0.00-0.49 Serum or plasma troponin i.cardiac measurement (mass/volume) - 06/09/18 12:32 Serum or plasma troponin i.cardiac measurement (mass/volume) < ng/ mL <0.028 Complete urinalysis with reflex to culture - 06/09/18 13:10 Urine color determination YELLOW NRG Urine clarity determination CLEAR NRG Urine pH measurement by test strip 5 5-9 Specific gravity of urine by test strip 1.030 1.016- 1.022 Urine protein assay by test strip, semi-quantitative 2+ NEGATIVE Urine glucose detection by automated test strip 1+ NEGATIVE Erythrocytes detection in urine sediment by light microscopy NEGATIVE NEGATIVE Urine ketones detection by automated test strip 1+ NEGATIVE Urine nitrite detection by test strip NEGATIVE NEGATIVE Urine total bilirubin detection by test strip NEGATIVE NEGATIVE Urine urobilinogen measurement by automated test strip (mass/volume) 1 mg/dL NORMAL Urine leukocyte esterase detection by dipstick 1+ NEGATIVE Automated urine sediment erythrocyte count by microscopy (number/high power field) RARE NRG Automated urine sediment leukocyte count by microscopy (number/high power field ) [HPF] NRG Bacteria detection in urine sediment by light microscopy TRACE NRG Squamous epithelial cells detection in urine sediment by light microscopy 2-5 NRG Crystals detection in urine sediment by light microscopy PRESENT NRG Casts detection in urine sediment by light microscopy PRESENT NRG Mucus detection in urine sediment by light microscopy SMALL NRG Complete urinalysis with reflex to culture YES NRG Amorphous sediment detection in urine sediment by light microscopy RARE MARGO URATES NRG Hyaline casts detection in urine sediment by light microscopy 5-10 NRG Encounters ACCT No. Visit Date/Time Discharge Status Pt. Type Provider Facility Loc./Unit Complaint [id number] 02/08/2014 10:49:00 02/08/2014 23:59:59 CLS Outpatient BRANDY WORRELL APRN [id number] 11/03/2012 11:35:00 Document Registration [id number] 10/29/2012 08:43:00 Document Registration [id number] 04/12/2016 08:46:00 Document Registration [id number] 11/18/2017 08:33:00 11/18/2017 23:59:59 CLS Outpatient ALVIN LAI [facility] CARD I48.0 AFIB [id number] 11/03/2017 12:10:00 11/03/2017 15:37:00 DIS Emergency GI MARTINEZ [employer]IST[employer]ATOR [facility] ER ABD SWELLING,PAIN [id number] 10/20/2017 14:08:00 10/20/2017 17:49:00 DIS Emergency LUIS CREWS MD [facility] ER SOB [id number] 05/12/2015 17:55:00 05/13/2015 13:30:00 DIS Inpatient ROSEMARIE MELÉNDEZ, STEPH Carvajal [facility] ICU NEW ONSET AFIB WITH RVR, NARCOTIC WITHDRAWL [id number] 04/06/2015 16:10:00 04/06/2015 23:59:59 CLS Outpatient LAUREN MCKNIGHT APRN [facility] RAD DORSALGIA [id number] 06/09/2018 12:17:00 ACT Emergency LUIS CREWS MD [facility] ER POSS STROKE [id number] 05/10/2018 13:15:00 05/10/2018 23:59:59 CLS Outpatient [facility] [id number] 12/11/2017 15:00:00 Document Registration
[2018-06-09 15:08] VITALS: BP 110/70
== END 2018-06-09 15:08 | disposition short-term general hospital (02) ==
LOC: EDUNIT# 12:16 → ER 12:17
DX: I63.50 Cerebral infarction due to unspecified occlusion or stenosis of unspecified cerebral artery (principal); E11.9 Type 2 diabetes mellitus without complications; I48.91 Unspecified atrial fibrillation; I10 Essential (primary) hypertension; B19.20 Unspecified viral hepatitis C without hepatic coma; F43.10 Post-traumatic stress disorder, unspecified; F41.9 Anxiety disorder, unspecified; F17.210 Nicotine dependence, cigarettes, uncomplicated; Z79.82 Long term (current) use of aspirin; Z88.2 Allergy status to sulfonamides; Z90.710 Acquired absence of both cervix and uterus; Z79.51 Long term (current) use of inhaled steroids
CPT/HCPCS: 36415; 51702; 70450; 71045; 80053; 81000; 82962; 84484; 85025; 85379; 85610; 85730; 87088; 93005; 93041

== ENCOUNTER 2018-08-11 13:36 | Outpatient (RCR) | payer MEDICARE, MEDICAID ==
[~2018-08-11 13:36] MED LIST changes: +DULA0.75 SQ; +PIOG30TA71 PO
== END 2018-09-02 14:57 | disposition home or self-care (01) ==
PROVIDERS: ATTEND Nurse Practitioner
DX: I69.322 Dysarthria following cerebral infarction (principal)

== ENCOUNTER 2020-11-03 14:55 | Inpatient (IN) | payer MEDICARE, MEDICAID ==
[~2020-11-03] VITALS: Ht 160 cm; Wt 97.7 kg
[~2020-11-03 14:55] MED LIST changes: -DULO60CA58 PO; +DULO60CA59 PO; -ENAL10TA PO; +ENAL10TA16 PO; -METO-387; -MORP-34 PO; +MORP-69 PO; +MTP25TSR; +VERA120T15 PO; -VERA120T6 PO
[2020-11-03] MEDS ORDERED: RT-ALBUTEROL SULF 2.5 MG/3 ML PRE-MIX VIAL INH STA (15:10)
[2020-11-03] MEDS ORDERED: methylPREDNISolone 125 MG (Solu-MEDROL) VIAL IV STA (15:10)
[2020-11-03] MEDS ORDERED: CEFEPIME INJECTION 1,000 MG in WATER (STERILE) FOR INJECTION 10 ML IV ONE (15:15)
[2020-11-03] MEDS ORDERED: VANCOMYCIN INJECTION 1,750 MG in NS IV 500 ML 500 ML IV ONE (15:15)
[2020-11-03] MEDS ORDERED: NS IV 1000 ML 1,000 ML IV SCH ×2 (15:15→18:15)
[2020-11-03] MEDS ORDERED: RT-ALBUTEROL/IPRATROPIUM 3 ML (DUONEB) VIAL INH ONE ×2 (15:15→19:45)
[2020-11-03] MEDS ORDERED: RT-ALBUTEROL SULF 2.5 MG/3 ML PRE-MIX VIAL ONE ×2 (15:19→21:15)
[2020-11-03] MEDS ORDERED: RT-ALBUTEROL/IPRATROPIUM 3 ML (DUONEB) VIAL ONE (15:19)
--- NOTE | 2020-11-03 15:19 | ED Respiratory ---
General Stated Complaint: SOB Source: patient Exam Limitations: no limitations History of Present Illness Date Seen by Provider: Nov 03, 2020 Time Seen by Provider: 15:01 Initial Comments The Patient presents ER by EMS from home with chief complaint of shortness of air yesterday. No fevers chills nausea vomiting or sick contacts. No chest pain or abdominal pain. She thinks she has a history of COPD and has inhalers which she took at home and said they helped a little bit. She received a DuoNeb en route by EMS because she was wheezy. She had an IV established by EMS. She is known to Giuliana Jacome. Allergies and Home Medications Allergies Coded Allergies: Sulfa (Sulfonamide Antibiotics) (Verified Allergy, Unknown, 05/12/15) Home Medications Alprazolam 0.5 Mg Tablet, 0.5 MG PO TID PRN for ANXIETY, (Reported) Aspirin 325 Mg Tablet, 325 MG PO DAILY Prescribed by: TIN GUADARRAMA on 05/13/15 1301 Cephalexin 500 Mg Tablet, 500 MG PO BID Prescribed by: LUIS CREWS on 10/20/17 170 Cephalexin 500 Mg Capsule, 500 MG PO TID . Prescribed by: GI MARTINEZ on 11/03/17 151 Digoxin 125 Mcg Tablet, 0.125 MG PO DAILY Prescribed by: TIN GUADARRAMA on 05/13/15 1301 Duloxetine HCl 60 Mg Capsule.dr, 60 MG PO DAILY, (Reported) Duloxetine HCl 60 Mg Capsule.dr, 60 MG PO DAILY, (Reported) Enalapril Maleate 10 Mg Tablet, 10 MG PO DAILY, (Reported) Famotidine 20 Mg Tablet, 20 MG PO DAILY Prescribed by: TIN GUADARRAMA on 05/13/15 1301 Fluticasone Propionate 9.9 Ml Challis.susp, 9.9 ML NS DAILY, (Reported) Furosemide 40 Mg Tablet, 40 MG PO DAILY Prescribed by: LUIS CREWS on 10/20/17 1701 Ibuprofen 800 Mg Tablet, 800 MG PO Q6H PRN for PAIN, (Reported) Promethazine HCl 50 Mg Tablet, 25 MG PO Q6H, (Reported) patient states she takes this medication PRN Spironolactone 25 Mg Tablet, 25 MG PO DAILY . Prescribed by: GI MARTINEZ on 11/03/17 151 Verapamil HCl 240 Mg Cap24h.pel, 240 MG PO DAILY Prescribed by: TIN GUADARRAMA on 05/13/15 1301 Patient Home Medication List Home Medication List Reviewed: Yes Review of Systems Review of Systems Constitutional: No chills, No diaphoresis EENTM: No ear discharge, No ear pain Respiratory: cough, phlegm, short of breath, wheezing Cardiovascular: No chest pain, No Hx of Intervention, No palpitations Gastrointestinal: No abdominal pain, No nausea, No vomiting Genitourinary: No discharge, No dysuria Musculoskeletal: No back pain, No joint pain Psychiatric/Neurological: Denies Anxiety, Denies Depressed All Other Systems Reviewed Negative Unless Noted: Yes Past Tywpgdu-Otczog-Santsc Hx Patient Social History Alcohol Use: Denies Use Drug of Choice: Denies Smoking Status: Current Everyday Smoker Type Used: Cigarettes (1 ppd) Recent Hopitalizations: No Immunizations Up To Date Tetanus Booster (TDap): Less than 5yrs Past Medical History Surgeries: Yes Hysterectomy, Oophorectomy Respiratory: No Cardiac: Yes Atrial Fibrillation, Hypertension Neurological: No Reproductive Disorders: No 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 8.0oz. 90.736111wm; BMI Method:Stated General Appearance: WD/WN, moderate distress Eyes: Bilateral Eye Normal Inspection, Bilateral Eye PERRL, Bilateral Eye EOMI HEENT: PERRL/EOMI, normal ENT inspection, TMs normal, pharynx normal (Mucosa is mildly dry) Neck: full range of motion, normal inspection Respiratory: respiratory distress (On 2 L she is maintaining oxygen saturation of 96%, tachypneic and tripoding.), decreased breath sounds, accessory muscle use (Mild), wheezing Cardiovascular: normal peripheral pulses, regular rate, rhythm, no edema, ta chycardia Gastrointestinal: normal bowel sounds, non tender, soft Extremities: non-tender, normal inspection, normal capillary refill Neurologic/Psychiatric: alert, oriented x 3 Skin: normal color, warm/dry Focused Exam Sepsis Stage: Septic Shock Possible Source: Pulmonary Lactate Level 11/03/20 15:15: Lactic Acid Level 3.76*H Time of Focused Exam: 18:11 Respiratory: Lungs Clear, Accessory Muscle Use (mild), Respiratory Distress Cardiovascular: Regular Rate, Rhythm, No Edema, Normal Peripheral Pulses Capillary Refill: Less Than 3 Seconds Peripheral Pulses: 2+ Radial Pulses (R), 2+ Radial Pulses (L) Skin: normal color, warm/dry Lactic Acid Level Laboratory Tests Test 11/03/20 15:15 Lactic Acid Level 3.76 MMOL/L (0.50-2.00) *H Within 3hrs of presentation: Admin fluids, Admin ABX, Blood cultures prior to ABX's, Focus exam, Lactate level Procedures/Interventions Lumen: triple Central Line Procedure: betadine prep, sterile drapes applied, sterile dressing applied Position: internal jugular (R) Anesthesia: Lidocaine Volume Anesthetic (ccs): 3 Complications: none Post Position: sutured, good blood return, position confirmed w/ CXR Risks, benefits and alternatives were discussed with the patient and the patient consented to the procedure. The patient was positioned in the usual format and using the usual sterile garments and drapes the patient was dressed out. The sk in was thoroughly cleaned with the supplied chlorhexidine prep. After the prep had dried a sterile drape was placed. The 20 cm 7 Divehi triple-lumen catheter was flushed with sterile saline. We used ultrasound guidance to pass the introducer needle into the right internal jugular without difficulty. A guidewire was placed easily without difficulty. No ectopy was seen on the monitor. The supplied 11 blade scalpel was used to make a 2 mm incision at the inferior portion of the introducer needle. The introducer needle was replaced with the dilator. The dilator was taken out and the patient had the central lumen of the triple lumen catheter threaded over the guidewire and placed at 14 cm. The guidewire was removed and the triple-lumen catheter was stitched in pl rowdy using the supplied braided stitch at 2 different points. The catheter withdrew blood and flushed easily. A sterile dressing was placed over the catheter. The patient tolerated the procedure well. A chest x-ray was obtained that demonstrated no pneumothorax and a new interval central catheter over the shadow of the right internal jugular down the superior vena cava and terminating just proximal to the right atria. Progress/Results/Core Measures Suspected Sepsis SIRS Temperature: Pulse: Respiratory Rate: Laboratory Tests 11/03/20 15:15: White Blood Count 26.0H Blood Pressure / Mean: 11/03/20 15:15: Lactic Acid Level 3.76*H Laboratory Tests 11/03/20 15:15: Creatinine 2.76H, Platelet Count 342, Total Bilirubin 1.0 Results/Orders Lab Results Laboratory Tests Test 11/03/20 15:15 11/03/20 15:25 11/03/20 15:33 Range/Units White Blood Count 26.0 H 4.3-11.0 10^3/uL Red Blood Count 3.41 L 3.80-5.11 10^6/uL Hemoglobin 8.2 L 11.5-16.0 g/dL Hematocrit 26 L 35-52 % Mean Corpuscular Volume 77 L 80-99 fL Mean Corpuscular Hemoglobin 24 L 25-34 pg Mean Corpuscular Hemoglobin Concent 31 L 32-36 g/dL Red Cell Distribution Width 15.5 H 10.0-14.5 % Platelet Count 342 130-400 10^3/uL Mean Platelet Volume 10.8 9.0-12.2 fL Immature Granulocyte % (Auto) 3 % Neutrophils (%) (Auto) 85 H 42-75 % Lymphocytes (%) (Auto) 3 L 12-44 % Monocytes (%) (Auto) 8 0-12 % Eosinophils (%) (Auto) 0 0-10 % Basophils (%) (Auto) 0 0-10 % Neutrophils # (Auto) 22.1 H 1.8-7.8 10^3/uL Lymphocytes # (Auto) 0.8 L 1.0-4.0 10^3/uL Monocytes # (Auto) 2.2 H 0.0-1.0 10^3/uL Eosinophils # (Auto) 0.1 0.0-0.3 10^3/uL Basophils # (Auto) 0.1 0.0-0.1 10^3/uL Immature Granulocyte # (Auto) 0.8 H 0.0-0.1 10^3/uL Neutrophils % (Manual) 86 % Lymphocytes % (Manual) 2 % Monocytes % (Manual) 6 % Basophils % (Manual) 1 % Band Neutrophils 5 % Hypochromasia SLIGHT Sodium Level 135 135-145 MMOL/L Potassium Level 3.6 3.6-5.0 MMOL/L Chloride Level 100 98-107 MMOL/L Carbon Dioxide Level 15 L 21-32 MMOL/L Anion Gap 20 H 5-14 MMOL/L Blood Urea Nitrogen 36 H 7-18 MG/DL Creatinine 2.76 H 0.60-1.30 MG/DL Estimat Glomerular Filtration Rate 17 BUN/Creatinine Ratio 13 Glucose Level 148 H 70-105 MG/DL Lactic Acid Level 3.76 *H 0.50-2.00 MMOL/L Calcium Level 9.7 8.5-10.1 MG/DL Corrected Calcium 9.9 8.5-10.1 MG/DL Total Bilirubin 1.0 0.1-1.0 MG/DL Aspartate Amino Transf (AST/SGOT) 86 H 5-34 U/L Alanine Aminotransferase (ALT/SGPT) 49 0-55 U/L Alkaline Phosphatase 110 40-136 U/L Total Protein 7.5 6.4-8.2 GM/DL Albumin 3.7 3.2-4.5 GM/DL Influenza Type A (RT-PCR) Not Detected Not Detecte Influenza Type B (RT-PCR) Not Detected Not Detecte SARS-CoV-2 RNA (RT-PCR) Not Detected Not Detecte Blood Gas Puncture Site LR Blood Gas Patient Temperature 96.6 Arterial Blood pH 7.35 L 7.37-7.43 Arterial Blood Partial Pressure CO2 33 L 35-45 MMHG Arterial Blood Partial Pressure O2 117 H 79-93 MMHG Arterial Blood HCO3 18 L 23-27 MMOL/L Arterial Blood Total CO2 18.6 L 21.0-31.0 MMOL/L Arterial Blood Oxygen Saturation 99 94-100 % Arterial Blood Base Excess -7.2 L -2.5-2.5 MMOL/L Demetri Test YES-POS Blood Gas Ventilator Setting NO Blood Gas Inspired Oxygen 2L My Orders Orders - LUIS CREWS Albuterol Pre-Mix Nebs (Rt) (Proventil (11/03/20 15:10) Albuterol/Ipra Inhalation Soln (Duoneb I (11/03/20 15:15) Methylprednisolone Sod Succ (Solu-Medrol (11/03/20 15:10) Svn Small Volume Nebulizer (11/03/20 15:10) Covid 19 Inhouse Test (11/03/20 15:10) Influenza A And B By Pcr (11/03/20 15:10) Cbc With Automated Diff (11/03/20 15:10) Comprehensive Metabolic Panel (11/03/20 15:10) Blood Culture (11/03/20 15:10) Sputum Culture (11/03/20 15:10) Urinalysis (11/03/20 15:10) Urine Culture (11/03/20 15:10) Chest 1 View, Ap/Pa Only (11/03/20 15:10) Ed Iv/Invasive Line Start (11/03/20 15:10) Ed Iv/Invasive Line Start (11/03/20 15:10) Vital Signs Adult Sepsis Patie Q15M (11/03/20 15:10) O2 (11/03/20 15:10) Remove Rings In Anticipation O (11/03/20 15:10) Lactic Acid Analyzer (11/03/20 15:10) Ns Iv 1000 Ml (Sodium Chloride 0.9%) (11/03/20 15:15) Cefepime Injection (Maxipime Injection) (11/03/20 15:15) Vancomycin Injection (Vancomycin Injecti (11/03/20 15:15) Drug Screen Stat (Urine) (11/03/20 15:19) Arterial Blood Gas (11/03/20 15:35) Manual Differential (11/03/20 15:15) Medications Given in ED Current Medications Medications Dose Ordered Sig/Gordon Route Start Time Stop Time Status Last Admin Dose Admin Albuterol/ Ipratropium 3 ml ONCE ONCE INH 11/03/20 15:15 11/03/20 15:17 DC 11/03/20 15:27 3 ML Vancomycin HCl 1750 mg/Sodium Chloride 500 ml @ 258 mls/hr ONCE ONCE IV 11/03/20 15:15 11/03/20 17:11 DC 11/03/20 17:48 258 MLS/HR Vital Signs/I&O 11/03/20 15:27 Pulse Ox 88 O2 Delivery Nasal Cannula O2 Flow Rate 2.00 Capillary Refill : Progress Note #1: Time: 15:37 Progress Note Patient does appear to be in some mild to moderate respiratory distress likely from COPD based on the wheezing still audible after 2 DuoNeb's. An hour-long breathing treatment was ordered. Solu-Medrol was ordered. Covid and influenza swabs as well as a septic work-up was initiated. Cefepime and vancomycin. Progress Note #2: Time: 18:11 Progress Note The patient's hypoxemic and delirium she dislodged her IV and only received about 200 cc of IV fluids. Her lactate on the reflex came back over 5 making her septic shock. A central line will be discussed. Diagnostic Imaging Diagonstic Imaging: Xray Plain Films/CT/US/NM/MRI: chest Comments NAME: REYNALDO PRAKASH [facility] REC#: [id number] PT STATUS: REG ER : 1960 PHYSICIAN: LUIS CREWS MD ADMIT DATE: 11/03/20/ER Draft Date of Exam:11/03/20 CHEST 1 VIEW, AP/PA ONLY HISTORY: Sepsis COMPARISON: 06/09/2018 TECHNIQUE: Frontal view of the chest FINDINGS: There is dense consolidation in the left midlung with a small left pleural effusion. The cardiac silhouette is obscured. There is no pneumothorax. The right lung is clear. IMPRESSION: 1. Dense consolidation in the left lung with a small effusion. This is consistent with pneumonia in a patient with sepsis, however recommend radiograph or CT follow-up to ensure improvement and exclude underlying neoplasm. Dictated on workstation # [id number] Dict: 11/03/20 1550 Trans: 11/03/20 1557 [facility] [id number] Interpreted by: KAMALA GRIGGS MD Electronically signed by: Reviewed: Reviewed by Me Departure Communication (Admissions) Time/Spoke to Admitting Phy: 18:00 Discussed the case with Dr. Cordova and he agrees to admit the patient to cardiac stepdown on oxygen, cefepime and vancomycin. Impression Primary Impression: Pneumonia Qualified Codes: J18.9 - Pneumonia, unspecified organism Additional Impressions: COPD (chronic obstructive pulmonary disease) Qualified Codes: J44.0 - Chronic obstructive pulmonary disease with (acute) lower respiratory infection Acute hypoxemic respiratory failure Septic shock Disposition: ADMITTED INPATIENT Condition: Stable Admissions Decision to Admit Reason: Admit from ER (General) Decision to Admit/Date: Nov 03, 2020 Time/Decision to Admit Time: 17:00 Departure-Patient Inst. Referrals: GATO JACOME (PCP) Primary Care Physician [facility] (Family) Primary Care Physician LUIS CREWS Nov 03, 2020 15:18
[2020-11-03 15:31] LABS: BASOPHILS # (AUTO) 0.1 10^3/uL (0.0-0.1); BASOPHILS % (AUTO) 0 % (0-10); EOSINOPHILS # (AUTO) 0.1 10^3/uL (0.0-0.3); EOSINOPHILS % (AUTO) 0 % (0-10); HEMATOCRIT 26 % (35-52); HEMOGLOBIN 8.2 g/dL (11.5-16.0); LYMPHOCYTES # (AUTO) 0.8 10^3/uL (1.0-4.0); LYMPHOCYTES % (AUTO) 3 % (12-44); MEAN CORPUSCULAR HEMOGLOBIN 24 pg (25-34); MEAN CORPUSCULAR HGB CONC 31 g/dL (32-36); MEAN CORPUSCULAR VOLUME 77 fL (80-99); MEAN PLATELET VOLUME 10.8 fL (9.0-12.2); MONOCYTES # (AUTO) 2.2 10^3/uL (0.0-1.0); MONOCYTES % (AUTO) 8 % (0-12); NEUTROPHILS # (AUTO) 22.1 10^3/uL (1.8-7.8); NEUTROPHILS % (AUTO) 85 % (42-75); PLATELET COUNT 342 10^3/uL (130-400)
[2020-11-03 15:36] LABS: ALBUMIN 3.7 GM/DL (3.2-4.5); POTASSIUM 3.6 MMOL/L (3.6-5.0)
[2020-11-03 15:37] LABS: CALCIUM 9.7 MG/DL (8.5-10.1)
[2020-11-03 15:38] LABS: TOTAL PROTEIN 7.5 GM/DL (6.4-8.2)
[2020-11-03 15:42] LABS: CREATININE SERUM 2.76 MG/DL (0.60-1.30)
[2020-11-03 15:42] LABS: ABG BASE EXCESS -7.2 MMOL/L (-2.5-2.5); ABG OXYGEN SATURATION 99 % (94-100); ABG PCO2 33 MMHG (35-45); ABG PH 7.35 (7.37-7.43); ABG PO2 117 MMHG (79-93); ABG TCO2 18.6 MMOL/L (21.0-31.0)
[2020-11-03 15:43] LABS: ALLENS TEST YES-POS; INSPIRED O2 2L; PATIENT TEMP 96.6; VENTILATOR NO
--- NOTE | 2020-11-03 15:58 | Diagnostic Imaging Report ---
HISTORY: Sepsis COMPARISON: 06/09/2018 TECHNIQUE: Frontal view of the chest FINDINGS: There is dense consolidation in the left midlung with a small left pleural effusion. The cardiac silhouette is obscured. There is no pneumothorax. The right lung is clear. IMPRESSION: 1. Dense consolidation in the left lung with a small effusion. This is consistent with pneumonia in a patient with sepsis, however recommend radiograph or CT follow-up to ensure improvement and exclude underlying neoplasm. Dictated by: Dictated on workstation # [id number]
[2020-11-03 16:33] LABS: BAND NEUTROPHILS 5 %; LYMPHOCYTES % (MANUAL) 2 %; MONOCYTES % (MANUAL) 6 %; NEUTROPHILS % (MANUAL) 86 %
[2020-11-03 16:34] LABS: BASOPHILS % (MANUAL) 1 %; HYPOCHROMASIA SLIGHT
[2020-11-03] MEDS ORDERED: meTOprolol 5 MG/5 ML (LOPRESSOR) VIAL IV ONE (17:30)
[2020-11-03] MEDS ORDERED: methylPREDNISolone 125 MG (Solu-MEDROL) VIAL ONE (18:11)
[2020-11-03] MEDS ORDERED: CEFEPIME 1 GM/10 ML (MAXIPIME) VIAL ONE (18:11)
[2020-11-03] MEDS ORDERED: WATER (STERILE) FOR INJECTION 10 ML ONE (18:12)
--- NOTE | 2020-11-03 19:45 | Diagnostic Imaging Report ---
EXAMINATION: Chest 1 view. HISTORY: central line placement. COMPARISON: Chest radiograph 11/03/2020. FINDINGS: The left heart border is obscured. Prominent pulmonary vasculature. Left mid and lower lung opacification. No pneumothorax. Interval placement of a right IJ central line with the tip projecting over the SVC. IMPRESSION: 1. Right IJ central line with the tip projecting over the SVC. No pneumothorax. 2. Stable left mid and lower lung opacification. Dictated by: Dictated on workstation # [id number]
[2020-11-03 20:33] VITALS: BP 103/83
[2020-11-03] MEDS ORDERED: LORazepam 0.5 MG (ATIVAN) TABLET PO PRN (21:00)
[2020-11-03] MEDS ORDERED: LORazepam 0.5 MG (ATIVAN) TABLET ONE (21:12)
[2020-11-03] MEDS ORDERED: RT-ALBUTEROL SULF 2.5 MG/3 ML PRE-MIX VIAL INH PRN (21:15)
[2020-11-03] MEDS ORDERED: LORazepam INJ 2 MG/ML (ATIVAN) VIAL ONE (21:41)
[2020-11-03] MEDS ORDERED: ONDANSETRON 4 MG/2 ML (SDV) Z0FRAN IV PRN (21:45)
[2020-11-03] MEDS ORDERED: ACETAMINOPHEN 325 MG TABLET PO PRN (21:45)
[2020-11-03] MEDS ORDERED: LORazepam INJ 2 MG/ML (ATIVAN) VIAL IVP PRN (22:00)
[2020-11-03] MEDS ORDERED: NS IV 1000 ML 1,000 ML ONE (23:02)
[2020-11-03] MEDS: LACTATED RINGERS 1,000 ML IV SCH (23:06)
[2020-11-04] VITALS (8 sets, daily range): BP systolic 85–158; BP diastolic 22–72
[2020-11-04] MEDS: NS IV 500 ML 500 ML IV SCH ×2 (00:06→15:26)
[2020-11-04] MEDS ORDERED: DexMEDEtomidine 250 ML DRIP 250 ML IV ONE (01:36)
[2020-11-04] MEDS ORDERED: LORazepam INJ 2 MG/ML (ATIVAN) VIAL ONE (02:12)
[2020-11-04] MEDS: RT-ALBUTEROL/IPRATROPIUM 3 ML (DUONEB) VIAL INH SCH ×4 (02:15→21:25)
[2020-11-04] MEDS ORDERED: LORazepam INJ 2 MG/ML (ATIVAN) VIAL IVP ONE (02:15)
[2020-11-04 03:18] LABS: BASOPHILS # (AUTO) 0.2 10^3/uL (0.0-0.1); BASOPHILS % (AUTO) 0 % (0-10); EOSINOPHILS # (AUTO) 0.1 10^3/uL (0.0-0.3); EOSINOPHILS % (AUTO) 0 % (0-10); HEMATOCRIT 27 % (35-52); HEMOGLOBIN 8.1 g/dL (11.5-16.0); LYMPHOCYTES # (AUTO) 1.9 10^3/uL (1.0-4.0); LYMPHOCYTES % (AUTO) 5 % (12-44); MEAN CORPUSCULAR HEMOGLOBIN 25 pg (25-34); MEAN CORPUSCULAR HGB CONC 30 g/dL (32-36); MEAN CORPUSCULAR VOLUME 82 fL (80-99); MEAN PLATELET VOLUME 11.3 fL (9.0-12.2); MONOCYTES # (AUTO) 2.7 10^3/uL (0.0-1.0); MONOCYTES % (AUTO) 6 % (0-12); NEUTROPHILS % (AUTO) 82 % (42-75); PLATELET COUNT 415 10^3/uL (130-400)
[2020-11-04 03:19] LABS: WHITE BLOOD COUNT 42.7 10^3/uL (4.3-11.0)
[2020-11-04 03:32] LABS: POTASSIUM 4.6 MMOL/L (3.6-5.0)
[2020-11-04 03:33] LABS: CALCIUM 8.8 MG/DL (8.5-10.1)
[2020-11-04 03:38] LABS: CREATININE SERUM 2.94 MG/DL (0.60-1.30)
[2020-11-04 03:40] LABS: MAGNESIUM 1.8 MG/DL (1.6-2.4)
[2020-11-04 04:21] LABS: ABG BASE EXCESS -20.4 MMOL/L (-2.5-2.5); ABG OXYGEN SATURATION 91 % (94-100); ABG PCO2 24 MMHG (35-45); ABG PO2 77 MMHG (79-93); ABG TCO2 8.2 MMOL/L (21.0-31.0)
[2020-11-04 04:22] LABS: ABG PH 7.11 (7.37-7.43); ALLENS TEST YES-POS; INSPIRED O2 2L; VENTILATOR NO
[2020-11-04] MEDS ORDERED: SODIUM BICARB 8.4% 50 MEQ/50 ML (ABBOTT) SYR ONE (04:58)
[2020-11-04] MEDS ORDERED: SODIUM BICARB 8.4% 50 MEQ/50 ML VIAL IV ONE (05:00)
[2020-11-04] MEDS ORDERED: NOREPINEPHRINE 8 MG/250 ML 250 ML IV ONE (05:03)
[2020-11-04] MEDS: LACTATED RINGERS 1,000 ML IV SCH (05:17)
[2020-11-04] MEDS: DexMEDEtomidine 250 ML DRIP 250 ML IV SCH ×3 (05:19→22:21)
[2020-11-04] MEDS ORDERED: NOREPINEPHRINE 8 MG/250 ML 250 ML IV SCH (05:45)
[2020-11-04] MEDS ORDERED: VASOPRESSIN INJECTION 20 UNIT in NS (IVPB) 100 ML IV SCH (05:45)
[2020-11-04] MEDS ORDERED: EPINEPHrine 1 MG INJECTION 4 MG in NS (IVPB) 248 ML IV SCH (05:45)
[2020-11-04 07:10] LABS: ABG BASE EXCESS -16.5 MMOL/L (-2.5-2.5); ABG OXYGEN SATURATION 95 % (94-100); ABG PCO2 26 MMHG (35-45); ABG PO2 85 MMHG (79-93); ABG TCO2 10.9 MMOL/L (21.0-31.0)
[2020-11-04 07:12] LABS: ABG PH 7.21 (7.37-7.43); ALLENS TEST YES-POS; INSPIRED O2 30%; PATIENT TEMP 36.2; VENTILATOR NO
--- NOTE | 2020-11-04 08:07 | Pulmonary Progress Note ---
Subjective Date Seen by a Provider: Nov 04, 2020 Time Seen by a Provider: 08:00 Subjective/Events-last exam EICU progress note 60 yo female admitted yesterday with acute sob. Patient has a history of copd for which she took nebs that helped, but continued to wheeze in er. Was found to be septic from pneumonia and started on approperiate abx. WBC 26 at admission and LA elevated Sepsis protocol started. COVID negative. CXR 1. Dense consolidation in the left lung with a small effusion. This is consistent with pneumonia in a patient with sepsis, however recommend radiograph or CT follow-up to ensure improvement and exclude underlying neoplasm. Current vitals HR 107 , rr 25, bp 134/77 On bipap ventilation. Sleeping in room. Video assessement done. DW nurse bedside. exam deffered to PCP labs see emar LA - 12.4 1. Acute Sepsis Shock 2/ 2 2 sepsis protocol levophed titrate to maintain map > 65 central line inserted LEFT IJ, care per nurse IVF LA checks q6 until less then 2 add on PCT cultures drawn abx continue worsening LA, rule out intraabd. event add on flagyl abx covg CT ABD/PELVIS ordered with previously ordered CT chest -add on cmp -serial abd exams no contrast 2/2 to renal failure take patient pending stability strict i/os 2. Acute Left sided CAP r/o PLE/empyema CT chest ordered overnight pending stability abx covg continue 3. Lactic Acidosis 2/2 1 sepsis protocol 4. Acute resp failure on bipap therapy currently on bipap 7. on 30 percent bipap precedex nebs steroids 5. acute renal failure consult nephro IVF see orders am labs maintain NPO for now ivf correct electrolytes cct 20m (EICU video, notes) Sepsis Event Evaluation Height, Weight, BMI Height: 5'3.00" Weight: 200lbs. 8.0oz. 90.817662rv; 38.16 BMI Method:Stated Focused Exam Lactate Level 11/04/20 03:06: Lactic Acid Level 10.42*H 11/04/20 05:11: Lactic Acid Level 12.39*H 11/04/20 07:47: Time of Focused Exam: 18:11 Lactic Acid Level Laboratory Tests Test 11/04/20 05:11 11/04/20 07:47 Lactic Acid Level 12.39 MMOL/L (0.50-2.00) *H Exam Exam Patient acknowledged, consented, and participated in this virtual visit which was conducted using real time audio/video Vital Signs Date Time Temp Pulse Resp B/P (MAP) Pulse Ox O2 Delivery O2 Flow Rate FiO2 11/04/20 08:00 105 14 131/83 (105) 90 Nasal Cannula 4.00 11/04/20 07:11 103 24 98 30.00 11/04/20 07:00 88 11/04/20 07:00 96 23 125/67 (92) 99 Nasal Cannula 4.00 11/04/20 06:42 101 25 98 30.00 11/04/20 06:00 82 23 136/79 (98) 97 Nasal Cannula 4.00 11/04/20 05:49 75 88/57 11/04/20 05:25 73 25 97 11/04/20 05:19 93 11/04/20 05:00 95 25 89/61 (70) 95 Nasal Cannula 4.00 11/04/20 04:00 88 24 91/64 (73) 94 Nasal Cannula 4.00 11/04/20 04:00 93 Nasal Cannula 4.00 11/04/20 03:00 89 28 93/54 (67) 93 Nasal Cannula 4.00 11/04/20 02:15 96 Nasal Cannula 3.00 11/04/20 02:00 112 27 91/71 (78) 88 Nasal Cannula 4.00 11/04/20 01:00 100 11/04/20 01:00 100 28 103/65 (78) 99 Nasal Cannula 4.00 11/04/20 00:00 104 26 95/52 (66) 99 Nasal Cannula 4.00 11/03/20 23:59 93 Nasal Cannula 4.00 11/03/20 23:33 121 24 105/85 93 OxyMask 12.00 11/03/20 23:00 110 28 94/52 (66) 100 Nasal Cannula 4.00 11/03/20 22:15 99 28 114/59 (77) 97 Nasal Cannula 4.00 11/03/20 22:11 115 11/03/20 21:45 96 Simple Mask 15.00 11/03/20 21:45 112 27 112/72 (85) 92 Nasal Cannula 4.00 11/03/20 21:37 105 88 11/03/20 21:15 112 34 85/70 (75) 92 Nasal Cannula 4.00 11/03/20 21:00 116 24 89/70 (76) 86 Nasal Cannula 4.00 11/03/20 20:45 113 29 101/73 (82) 86 Nasal Cannula 4.00 11/03/20 20:33 OxyMask 15.00 11/03/20 20:33 36.3 116 23 103/83 (90) 98 OxyMask 15.00 11/03/20 20:30 113 29 103/83 (90) 86 Nasal Cannula 4.00 11/03/20 19:47 96 Simple Mask 15.00 11/03/20 15:27 88 Nasal Cannula 2.00 11/03/20 14:55 36.5 108 23 109/75 (86) 96 Nasal Cannula 2.00 I & O 11/04/20 07:00 Intake Total 50 ml Output Total 0 ml Balance 50 ml Height & Weight Height: 5'3.00" Weight: 200lbs. 8.0oz. 90.043441wb; 38.16 BMI Method:Stated General Appearance: Other Respiratory: Lungs Clear, Accessory Muscle Use (mild), Respiratory Distress Cardiovascular: Regular Rate, Rhythm, No Edema, Normal Peripheral Pulses Capillary Refill: Less Than 3 Seconds Peripheral Pulses: 2+ Radial Pulses (R), 2+ Radial Pulses (L) Gastrointestinal: normal bowel sounds, non tender, soft Results Lab Laboratory Tests 11/03/20 15:15 11/04/20 03:06 Assessment/Plan Assessment/Plan see above Critical Care: Critically Ill Patient ANAT QUILES DO Nov 04, 2020 08:07
--- NOTE | 2020-11-04 08:23 | Diagnostic Imaging Report ---
EXAMINATION: Chest 1 view HISTORY: COPD exacerbation. Acute respiratory failure. COMPARISON: 11/03/2020. FINDINGS: Stable right internal jugular central line. Stable opacification of the mid and lower left lung. The right lung is well aerated. The cardiac silhouette is stable. No acute osseous abnormalities. No large pneumothorax. IMPRESSION: 1. Stable opacities involving the mid and lower left lung, which may represent pleural effusion, atelectasis, and/or infection. 2. Stable configuration of the right internal jugular central line. Dictated by: Dictated on workstation # [id number]
[2020-11-04] MEDS ORDERED: APIXABAN 2.5 MG (ELIQUIS) TABLET PO SCH (09:00)
[2020-11-04] MEDS ORDERED: CEFEPIME INJECTION 1,000 MG in WATER (STERILE) FOR INJECTION 10 ML IV SCH (09:00)
[2020-11-04] MEDS ORDERED: NS IV 1000 ML 1,000 ML ONE ×2 (09:20→12:58)
[2020-11-04] MEDS: VASOPRESSIN INJECTION 20 UNIT in NS (IVPB) 100 ML IV SCH ×3 (09:23→15:26)
[2020-11-04] MEDS: NS IV 1000 ML 1,000 ML IV SCH ×3 (09:24→22:20)
[2020-11-04] MEDS: metroNIDAZOLE 500MG/100ML IVPB 100 ML IV SCH ×2 (09:31→20:21)
[2020-11-04 09:50] LABS: BILIRUBIN,URINE NEGATIVE (NEGATIVE); CLARITY,URINE CLOUDY; COLOR,URINE YELLOW; GLUCOSE, URINE (UA) NEGATIVE (NEGATIVE); KETONES,URINE TRACE (NEGATIVE); LEUKOCYTE ESTERASE ,URINE TRACE (NEGATIVE); NITRITE,URINE NEGATIVE (NEGATIVE); PH,URINE 5.5 (5-9); PROTEIN,URINE 3+ (NEGATIVE)
[2020-11-04 10:00] LABS: BACTERIA,URINE LARGE /HPF
[2020-11-04 10:01] LABS: AMORPHOUS SEDIMENT,UR MOD AMOR URATES /LPF
[2020-11-04 10:06] LABS: AMPHETAMINE SCREEN, URINE POSITIVE (NEGATIVE); BARBITURATE SCREEN URINE NEGATIVE (NEGATIVE); BENZODIAZEPINES SCREEN URINE NEGATIVE (NEGATIVE); CANNABINOID SCREEN, URINE NEGATIVE (NEGATIVE); COCAINE SCREEN URINE NEGATIVE (NEGATIVE); METHADONE STAT NEGATIVE (NEGATIVE); METHAMPHETAMINE SCREEN URINE S POSITIVE (NEGATIVE); OPIATE SCREEN URINE POSITIVE (NEGATIVE); OXYCODONE STAT NEGATIVE (NEGATIVE); PROPOXYPHENE STAT NEGATIVE (NEGATIVE); TRICYCLIC ANTIDEPRESSANTS SCRE NEGATIVE (NEGATIVE)
--- NOTE | 2020-11-04 10:33 | Diagnostic Imaging Report ---
PROCEDURE: CT chest and abdomen without contrast. TECHNIQUE: Axial images were obtained from the thoracic inlet through the iliac crest without the administration of intravenous contrast. Auto Exposure Controls were utilized during the CT exam to meet ALARA standards for radiation dose reduction. INDICATION: Evaluate for empyema. Altered mental status. COMPARISON: 11/03/2017. FINDINGS: The heart size is mildly prominent. Small amount of pericardial effusion is seen. Mildly prominent mediastinal and hilar lymph nodes are present. There is calcified aortic and coronary atherosclerotic plaque without aneurysm. A right central line is seen with the tip in the low SVC. A small layering left pleural effusion is seen. Consolidative opacities are seen throughout the mid and lower left lung. A small amount of patchy peripheral opacities are seen in the mid and lower right lung. No central endobronchial obstructing lesions. No evidence of pulmonary mass. No evidence of pneumothorax. The included osseous structures of the chest demonstrate no acute abnormalities. The liver, spleen, pancreas, adrenal glands, and kidneys demonstrate no acute abnormalities on this noncontrast study. The gallbladder is mildly prominent. No pathologically enlarged lymphadenopathy is seen in the abdomen. The included bowel loops are nondistended. No free fluid or free air seen in the abdomen and pelvis. No acute osseous abnormalities are seen in the abdomen. IMPRESSION: 1. Layering left pleural effusion. No evidence of loculation to suggest empyema. 2. Consolidative opacities in the mid and lower left lung with patchy opacities in the right lung base. Findings likely represent multifocal pneumonia. Components of atelectasis may also be present. 3. Reactive mediastinal and hilar lymph nodes. 4. Cardiomegaly. 5. No acute abnormalities are seen in the abdomen. Dictated by: Dictated on workstation # [id number]
--- NOTE | 2020-11-04 12:49 | History & Physical-Hospitalist ---
History of Present Illness HPI/Chief Complaint Arely Sevilla is a 60 year old female with PMH COPD, HTN, T2DM, obesity, who presented with shortness of breath. She is on BiPAP and unresponsive at the time of my exam. She is unable to provide any history. Her family has been unable to be reached. She denied abdominal pain and chest pain on arrival. She was admitted to the ICU on BiPAP for septic shock due to pneumonia. She had a worsening lactic acidosis overnight. She also has an increasing leukocytosis. She underwent a CT scan which showed no intraabdominal pathology, but did reveal a left sided pneumonia with layering left pleural effusion. The decision was made to intubate the patient due to her respiratory failure. An arterial line was placed for hemodynamic monitoring. A bronchoscopy was performed at the bedside. These were performed on an emergent basis, her family was unable to be reached for consent. She also has renal failure with low urine output and she will need to be monitored closely and transferred for nephrology services if necessary. Source: RN/MD Exam Limitations: clinical condition Date Seen 11/04/20 Time Seen by a Provider: 08:35 Attending Physician Chilo Stephenson MD PCP Ariella Abdi Referring Physician Date of Admission Nov 03, 2020 at 15:40 Home Medications & Allergies Home Medications Reviewed patient Home Medication Reconciliation performed by pharmacy medication reconciliations biotechnician and/or nursing. Patients Allergies have been reviewed. 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 Hypertension 2. Type II diabetes mellitus, patient states has been diet controlled after losing 100 pounds 3. Chronic hepatitis C 4. Chronic low back pain 5. History of substance abuse Past surgical history 1. Hysterectomy Family Medical History No Pertinent Family Hx, Other Conditions/Hx Review of Systems Constitutional: see HPI Physical Exam Physical Exam Vital Signs Vital Signs - First Documented 11/03/20 11/04/20 14:55 08:00 Temp 36.5 Pulse 108 Resp 23 B/P (MAP) 109/75 (86) Pulse Ox 96 O2 Delivery Nasal Cannula O2 Flow Rate 2.00 FiO2 30 Capillary Refill : Less Than 3 Seconds Height, Weight, BMI Height: 5'3.00" Weight: 200lbs. 8.0oz. [id number]; 38.16 BMI Method:Stated General Appearance: No Apparent Distress, Obese HEENT: PERRL/EOMI, Pharynx Normal Neck: Normal Inspection, Supple, Other (right sided IJ in place) Respiratory: No Respiratory Distress, Crackles, Decreased Breath Sounds, Other (wearing BiPAP) Cardiovascular: Regular Rate, Rhythm, No Murmur Gastrointestinal: Normal Bowel Sounds, Soft Extremity: Normal Inspection, No Pedal Edema Neurologic/Psychiatric: Other (obtunded, unresponsive) Skin: Normal Color, Warm/Dry Results Results/Procedures Labs Laboratory Tests 11/03/20 15:15 11/04/20 03:06 11/04/20 12:17 Patient resulted labs reviewed. Imaging: Reviewed Imaging Report Assessment/Plan Admission Diagnosis Septic shock Admission Status: Inpatient Order (span 2 midnights) Reason for Inpatient Admission: Shock requiring pressors Assessment and Plan Septic shock Pneumonia Gram positive cocci bacteremia Pleural effusion Anuric acute kidney injury due to acute tubular necrosis Lactic acidosis Methamphetamine abuse Chest xray showed dense left consolidation Lactic acid elevated Urine drug screen positive for amphetamines/methamphetamines Blood cultures obtained, now growing gram positive cocci Started on Vanc and Cefepime, transition to Rocephin Renal function worsening despite fluids, minimal urine output IV fluids Started on pressors, Levophed WBC and lactic acid trending up this morning CT Chest/Abdomen showed left consolidation with layering effusion, no acute intraabdominal pathology Intubated due to respiratory failure Surgery consulted, attempted thoracentesis, performed bronchoscopy Added bicarb containing fluids Attempting transfer for nephrology due to anuria DVT prophylaxis: Lovenox Critical Care Critically Ill Patient Diagnosis/Problems Diagnosis/Problems (1) Septic shock Status: Acute (2) Pneumonia Status: Acute Qualifiers: Pneumonia type: due to unspecified organism Laterality: left Lung location: lower lobe of lung Qualified Codes: J18.9 - Pneumonia, unspecified organism (3) Acute hypoxemic respiratory failure Status: Acute (4) Lactic acidosis Status: Acute (5) JACIEL (acute kidney injury) Status: Acute (6) ATN (acute tubular necrosis) Status: Acute (7) Anuria Status: Acute (8) Pleural effusion Status: Acute (9) Metabolic acidosis Status: Acute (10) Hyperphosphatemia Status: Acute (11) Methamphetamine abuse Status: Acute (12) Gram-positive bacteremia Status: Acute CHILO STEPHENSON MD Nov 04, 2020 12:49
[2020-11-04 12:50] LABS: CALCIUM 8.3 MG/DL (8.5-10.1); CREATININE SERUM 2.85 MG/DL (0.60-1.30); POTASSIUM 4.4 MMOL/L (3.6-5.0)
[2020-11-04] MEDS ORDERED: SUCCINYLCHOLINE INJ 100 MG/5 ML SYR/VIAL INJ ONE (13:40)
[2020-11-04] MEDS ORDERED: ETOMIDATE IV SOLN 20 MG/10 ML VIAL IV ONE (13:40)
[2020-11-04] MEDS ORDERED: PROPOFOL DRIP (ICU) 100 ML IV ONE (14:08)
[2020-11-04] MEDS: PROPOFOL DRIP (ICU) 100 ML IV SCH ×2 (14:28→22:20)
--- NOTE | 2020-11-04 15:05 | Diagnostic Imaging Report ---
TECHNIQUE: Focused ultrasound of the left lung was performed. REASON FOR EXAM: Pleural effusion. COMPARISON: CT chest performed earlier the same date. FINDINGS: Images of the left lung base demonstrate a small pleural effusion. The pocket of fluid was not big enough for thoracentesis. IMPRESSION: Small left pleural effusion which is not amenable to ultrasound-guided thoracentesis. Dictated by: Dictated on workstation # [id number]
--- NOTE | 2020-11-04 15:30 | Diagnostic Imaging Report ---
INDICATION: Tube placement. COMPARISON: Prior examination from 11/04/2020. FINDINGS: There is an extensive left base consolidation and left pleural fusion. There is cardiomegaly. There is some venous congestion. Right lung is clear. There is no pneumothorax. The endotracheal tube appears to be within the right mainstem bronchus and should be withdrawn approximately 4 to 5 cm. IMPRESSION: 1. Endotracheal tube appears to have its tip in the right mainstem bronchus and should be withdrawn 4 to 5 cm. 2. Extensive left basilar infiltrate and left pleural effusion. 3. Cardiomegaly with mild venous congestion. Dr. Brock Simmons was paged at 3:28 p.m., by yuliana. Dictated by: Dictated on workstation # [id number]
--- NOTE | 2020-11-04 16:11 | Consultation - Surgery ---
History of Present Illness History of Present Illness Patient Consulted On(nelda/time) 11/04/20 13:04 Date Seen by Provider: Nov 04, 2020 Time Seen by Provider: 13:04 History of Present Illness Consult requested by Dr. Cordova for possible thoracentesis. Patient is a 60-year-old female admitted for pneumonia with history of COPD. Patient on BiPAP currently and going to be intubated. Patient unable to provide any history. Her white count has increased to 42,000. She has a lactic acidosis with her lactic acid going up to 12.39 but has trended down now. Patient has been hypotensive needing some pressors. She is needing an art line as well. No family has been able to be contacted despite attempts by nursing. Dr. Cordova at bedside as well who patient is admitted to. Patient needing intubated, arterial line placed, possible thoracentesis, bronchoscopy to further evaluate. Allergies and Home Medications Allergies Coded Allergies: Sulfa (Sulfonamide Antibiotics) (Verified Allergy, Unknown, 05/12/15) Home Medications Alprazolam 0.5 Mg Tablet, 0.5 MG PO TID PRN for ANXIETY, (Reported) Aspirin 325 Mg Tablet, 325 MG PO DAILY Prescribed by: TIN GUADARRAMA on 05/13/15 1301 Cephalexin 500 Mg Tablet, 500 MG PO BID Prescribed by: LUIS CREWS on 10/20/17 170 Cephalexin 500 Mg Capsule, 500 MG PO TID . Prescribed by: GI MARTINEZ on 11/03/17 1516 Digoxin 125 Mcg Tablet, 0.125 MG PO DAILY Prescribed by: TIN GUADARRAMA on 05/13/15 1301 Duloxetine HCl 60 Mg Capsule.dr, 60 MG PO DAILY, (Reported) Duloxetine HCl 60 Mg Capsule.dr, 60 MG PO DAILY, (Reported) Enalapril Maleate 10 Mg Tablet, 10 MG PO DAILY, (Reported) Famotidine 20 Mg Tablet, 20 MG PO DAILY Prescribed by: TIN GUADARRAMA on 05/13/15 1301 Fluticasone Propionate 9.9 Ml Whitman.susp, 9.9 ML NS DAILY, (Reported) Furosemide 40 Mg Tablet, 40 MG PO DAILY Prescribed by: LUIS CREWS on 10/20/17 1701 Ibuprofen 800 Mg Tablet, 800 MG PO Q6H PRN for PAIN, (Reported) Promethazine HCl 50 Mg Tablet, 25 MG PO Q6H, (Reported) patient states she takes this medication PRN Spironolactone 25 Mg Tablet, 25 MG PO DAILY . Prescribed by: GI MARTINEZ on 11/03/17 1516 Verapamil HCl 240 Mg Cap24h.pel, 240 MG PO DAILY Prescribed by: TIN GUADARRAMA on 05/13/15 1301 Patient Home Medication List Home Medication List Reviewed: Yes Past Rhqlcsd-Yalijz-Mvtewz Hx Patient Social History Drug of Choice: Denies Smoking Status: Current Everyday Smoker Type Used: Cigarettes 2nd Hand Smoke Exposure: Yes Recent Hopitalizations: No Alcohol Use?: No Immunizations Up To Date Tetanus Booster (TDap): Less than 5yrs Seasonal Allergies Seasonal Allergies: No Surgeries History of Surgeries: Yes Surgeries: Hysterectomy, Oophorectomy Respiratory History of Respiratory Disorde: No Cardiovascular History of Cardiac Disorders: Yes Cardiac Disorders: Atrial Fibrillation, Hypertension Neurological History of Neurological Disord: No Reproductive System Hx Reproductive Disorders: No Sexually Transmitted Disease: No HIV/AIDS: No 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 Genitourinary History of Genitourinary Disor: No Genitourinary Disorders: UTI-Chronic Gastrointestinal History of Gastrointestinal Di: Yes (HEPATITIS C) Gastrointestinal Disorders: Gall Bladder Disease Musculoskeletal History of Musculoskeletal Dis: Yes Musculoskeletal Disorders: Chronic Back Pain Endocrine History of Endocrine Disorders: Yes ("DIET CONTROLLED" ) Endocrine Disorders: Diabetes, Non-Insulin dep HEENT History of HEENT Disorders: Yes HEENT Disorders: Cataract Hearing Impairment: Denies Cancer History of Cancer: Yes Cancer: Cervical, Uterine Psychosocial History of Psychiatric Problem: Yes Behavioral Health Disorders: Anxiety, PTSD Integumentary History of Skin or Integumenta: No Blood Transfusions History of Blood Disorders: No Adverse Reaction to a Blood Tr: No Reviewed Nursing Assessment Reviewed/Agree w Nursing PMH: Yes Family Medical History Significant Family History: Other Conditions/Hx Review of Systems-General ROS-Unable to Obtain: Patient unable to provide, due to overall condition and on BiPAP Physical Exam-General Problems Physical Exam Vital Signs Vital Signs - First Documented 11/03/20 11/04/20 14:55 08:00 Temp 36.5 Pulse 108 Resp 23 B/P (MAP) 109/75 (86) Pulse Ox 96 O2 Delivery Nasal Cannula O2 Flow Rate 2.00 FiO2 30 Capillary Refill : Less Than 3 Seconds General Appearance: mild distress, obese HEENT: PERRL/EOMI, normal ENT inspection Neck: non-tender, supple Respiratory: crackles (On right. Left side significantly decreased.) Cardiovascular: regular rate, rhythm, no JVD Gastrointestinal: non tender, soft Rectal: deferred Back: normal inspection Extremities: normal inspection, no pedal edema Neurologic/Psychiatric: No alert, No oriented x 3; disoriented x 3 Skin: warm/dry, pallor Lymphatic: no adenopathy Data Review Labs Laboratory Tests 11/03/20 17:30: Lactic Acid Level 5.76*H 11/03/20 19:37: Lactic Acid Level 4.96*H 11/03/20 21:19: Lactic Acid Level 8.82*H 11/03/20 23:53: Lactic Acid Level 4.76*H 11/04/20 03:06: White Blood Count 42.7*H, Red Blood Count 3.30L, Hemoglobin 8.1L, Hematocrit 27L , Mean Corpuscular Volume 82, Mean Corpuscular Hemoglobin 25, Mean Corpuscular Hemoglobin Concent 30L, Red Cell Distribution Width 15.9H, Platelet Count 415H, Mean Platelet Volume 11.3, Immature Granulocyte % (Auto) 7, Neutrophils (%) (Auto) 82H, Lymphocytes (%) (Auto) 5L, Monocytes (%) (Auto) 6, Eosinophils (%) (Auto) 0, Basophils (%) (Auto) 0, Neutrophils # (Auto) 35.0H, Lymphocytes # (Auto) 1.9, Monocytes # (Auto) 2.7H, Eosinophils # (Auto) 0.1, Basophils # (Auto) 0.2H, Immature Granulocyte # (Auto) 2.8H, Sodium Level 135, Potassium Level 4.6, Chloride Level 104, Carbon Dioxide Level 7*L, Anion Gap 24H, Blood Urea Nitrogen 36H, Creatinine 2.94H, Estimat Glomerular Filtration Rate 16, BUN/Creatinine Ratio 12, Glucose Level 126H, Lactic Acid Level 10.42*H, Calcium Level 8.8, Phosphorus Level 5.0H, Magnesium Level 1.8, Triglycerides Level 102 11/04/20 04:17: Blood Gas Puncture Site NOT INDICATED, Blood Gas Patient Temperature 36.0, Arterial Blood pH 7.11*L, Arterial Blood Partial Pressure CO2 24L, Arterial Blood Partial Pressure O2 77L, Arterial Blood HCO3 7*L, Arterial Blood Total CO2 8.2L, Arterial Blood Oxygen Saturation 91L, Arterial Blood Base Excess -20.4L, Demetri Test YES-POS, Blood Gas Ventilator Setting NO, Blood Gas Inspired Oxygen 2L 11/04/20 05:11: Lactic Acid Level 12.39*H 11/04/20 06:55: Blood Gas Puncture Site LEFT RADIAL, Blood Gas Patient Temperature 36.2, Arterial Blood pH 7.21*L, Arterial Blood Partial Pressure CO2 26L, Arterial Blood Partial Pressure O2 85, Arterial Blood HCO3 10*L, Arterial Blood Total CO2 10.9L, Arterial Blood Oxygen Saturation 95, Arterial Blood Base Excess -16.5L, Demetri Test YES-POS, Blood Gas Ventilator Setting NO, Blood Gas Inspired Oxygen 30% 11/04/20 07:47: Lactic Acid Level 7.13*H 11/04/20 09:41: Urine Color YELLOW, Urine Clarity CLOUDY, Urine pH 5.5, Urine Specific [place] >=1.030, Urine Protein 3+H, Urine Glucose (UA) NEGATIVE, Urine Ketones TRACEH, U rine Nitrite NEGATIVE, Urine Bilirubin NEGATIVE, Urine Urobilinogen 1.0, Urine Leukocyte Esterase TRACEH, Urine RBC (Auto) 1+H, Urine RBC NONE, Urine WBC 5-10H , Urine Crystals PRESENTH, Urine Amorphous Sediment MOD MRAGO URATESH, Urine Bacteria LARGEH, Urine Casts NONE, Urine Mucus NEGATIVE, Urine Culture Indicated YES, Urine Opiates Screen POSITIVEH, Urine Oxycodone Screen NEGATIVE, Urine Methadone Screen NEGATIVE, Urine Propoxyphene Screen NEGATIVE, Urine Barbiturates Screen NEGATIVE, Ur Tricyclic Antidepressants Screen NEGATIVE, Urine Phencyclidine Screen NEGATIVE, Urine Amphetamines Screen POSITIVEH, Urine Methamphetamines Screen POSITIVEH, Urine Benzodiazepines Screen NEGATIVE, Urine Cocaine Screen NEGATIVE, Urine Cannabinoids Screen NEGATIVE 11/04/20 12:17: Lactic Acid Level 2.62*H, Sodium Level 134L, Potassium Level 4.4, Chloride Level 104, Carbon Dioxide Level 13L, Anion Gap 17H, Blood Urea Nitrogen 41H, Creatinine 2.85H, Estimat Glomerular Filtration Rate 17, BUN/Creatinine Ratio 14, Glucose Level 191H, Calcium Level 8.3L Microbiology 11/03/20 Blood Culture - Preliminary, Resulted Gram Positive Cocci Assessment/Plan Assessment/Plan Assessment/Plan Acute septic shock secondary to left pneumonia Acute respiratory failure Lactic acidosis Acute renal failure Patient is 60-year-old female admitted patient needing possible thoracentesis reviewed the CT scan that appears to have pneumonia of the left lung and also pleural effusion. I do not know if there is enough fluid currently to where we could place under ultrasound guidance also possibly due to the positioning. Patient after intubated had ultrasound used to try to isolate larger pocket to where we could try to drain this to help benefit her breathing however no pocket was able to be found using ultrasound. Patient also needs arterial line due to hypotension and continue monitoring. This was placed under ultrasound guidance. Patient also had bronchoscopy performed which had generalized thickened secretions and washings performed and sent. Chest x-ray pending. Sedation and pressors as needed. With kidneys may need nephrology, if no improvement consider transfer. Patient family unable to be contacted to discuss. Dr. Cordova and myself felt procedures below needed to be performed due to patient condition emergent. Ultrasound-guided right radial arterial line placement: Patient right arm was prepped and draped in a sterile fashion. Demetri test demonstrated good flow. Ultrasound was utilized to visualize the right radial artery. A 20-gauge arterial needle and catheter were inserted under ultrasound guidance until bright red blood returned the guidewire was inserted and the catheter was then advanced over the wire and the needle and wire were removed. The arterial line catheter was secured in the usual fashion. Endotracheal intubation: Patient requiring intubation due to acute respiratory failure. Patient was bagged for optimal oxygenation. 8 etomidate and 100 of succinylcholine was given to the patient. The glide scope was inserted in the mouth had good visualization of the cords a #8 endotracheal tube was inserted and visualized the tube passing through the cords and balloon cuff was inflated. Had breath sounds bilaterally and had CO2 capnography. The tube was at 21 cm at the lip. Bronchoscopy with washings: Patient had bronchoscopy inserted through the endotracheal tube the buffy was visualized and 6 mL of 1% lidocaine was flushed at the level of the buffy. The bronchoscope was then inserted into the right mainstem bronchus generalized secretions that are slightly thickened present. Washings were performed secondary bronchi visualized without any other abnormality. Scope was then retracted to the buffy then advanced into the left primary bronchus again noting generalized secretions that were slightly thicke anat. Also into the secondary bronchi which washings were performed as well. Scope was slowly into the trachea and then slowly withdrawn till completely removed. Patient tolerated procedure well with any complications. Chest x-ray pending. NA BAKER DO Nov 04, 2020 16:10
[2020-11-04 16:15] LABS: ABG BASE EXCESS -11.1 MMOL/L (-2.5-2.5); ABG OXYGEN SATURATION 97 % (94-100); ABG PCO2 30 MMHG (35-45); ABG PO2 97 MMHG (79-93); ABG TCO2 15.4 MMOL/L (21.0-31.0)
[2020-11-04 16:17] LABS: ABG PH 7.29 (7.37-7.43); ALLENS TEST YES-POS; INSPIRED O2 40%; PATIENT TEMP 95.4; VENTILATOR YES
[2020-11-04] MEDS ORDERED: cefTRIAXone 2,000 MG in WATER (STERILE) FOR INJECTION 20 ML IV SCH (17:00)
[2020-11-04 17:26] LABS: BASOPHILS # (AUTO) 0.1 10^3/uL (0.0-0.1); BASOPHILS % (AUTO) 0 % (0-10); EOSINOPHILS % (AUTO) 0 % (0-10); HEMATOCRIT 29 % (35-52); HEMOGLOBIN 9.1 g/dL (11.5-16.0); LYMPHOCYTES # (AUTO) 3.3 10^3/uL (1.0-4.0); LYMPHOCYTES % (AUTO) 5 % (12-44); MEAN CORPUSCULAR HEMOGLOBIN 24 pg (25-34); MEAN CORPUSCULAR HGB CONC 32 g/dL (32-36); MEAN CORPUSCULAR VOLUME 77 fL (80-99); MEAN PLATELET VOLUME 11.5 fL (9.0-12.2); MONOCYTES % (AUTO) 5 % (0-12); NEUTROPHILS # (AUTO) 50.5 10^3/uL (1.8-7.8); NEUTROPHILS % (AUTO) 84 % (42-75); PLATELET COUNT 494 10^3/uL (130-400)
[2020-11-04 17:29] LABS: WHITE BLOOD COUNT 59.8 10^3/uL (4.3-11.0)
[2020-11-04 17:42] LABS: CALCIUM 8.1 MG/DL (8.5-10.1); CREATININE SERUM 2.89 MG/DL (0.60-1.30); POTASSIUM 4.4 MMOL/L (3.6-5.0)
[2020-11-04] MEDS ORDERED: VANCOMYCIN 750 MG/NS 250 ML IVPB IV SCH ×2 (20:00)
[2020-11-05] MEDS ORDERED: LIDOCAINE PF 1% 2 ML AMP IJ ONE (00:31)
[2020-11-05] MEDS ORDERED: ETOMIDATE IV SOLN 20 MG/10 ML VIAL IV ONE (00:31)
[2020-11-05] MEDS ORDERED: SUCCINYLCHOLINE INJ 100 MG/5 ML SYR/VIAL INJ ONE (00:31)
[2020-11-05] MEDS ORDERED: PANTOPRAZOLE 40 MG (PROTONIX) VIAL IV SCH (09:00)
== END 2020-11-05 00:32 | disposition short-term general hospital (02) | DRG 871 ==
LOC: EDUNIT# 14:55 → ER 14:56 → ICU 15:40
PROVIDERS: ADMIT Internal Medicine; ATTEND Internal Medicine
PROC: 03HY32Z Insertion of Monitoring Device into Upper Artery, Percutaneous Approach (ICD-10-PCS; principal; 2020-11-04)
PROC: 0BH17EZ Insertion of Endotracheal Airway into Trachea, Via Natural or Artificial Opening (ICD-10-PCS; 2020-11-04)
PROC: 5A1935Z Respiratory Ventilation, Less than 24 Consecutive Hours (ICD-10-PCS; 2020-11-04)
PROC: 0B938ZZ Drainage of Right Main Bronchus, Via Natural or Artificial Opening Endoscopic (ICD-10-PCS; 2020-11-04)
PROC: 5A09357 Assistance with Respiratory Ventilation, Less than 24 Consecutive Hours, Continuous Positive Airway Pressure (ICD-10-PCS; 2020-11-04)
DX: A41.9 Sepsis, unspecified organism (principal); R65.21 Severe sepsis with septic shock; J18.9 Pneumonia, unspecified organism; J96.01 Acute respiratory failure with hypoxia; N17.0 Acute kidney failure with tubular necrosis; J44.0 Chronic obstructive pulmonary disease with (acute) lower respiratory infection; E87.2 Acidosis; Z20.822 Contact with and (suspected) exposure to COVID-19; Z79.82 Long term (current) use of aspirin; Z88.2 Allergy status to sulfonamides; I48.91 Unspecified atrial fibrillation; I10 Essential (primary) hypertension; G89.29 Other chronic pain; M54.9 Dorsalgia, unspecified; E11.9 Type 2 diabetes mellitus without complications; Z79.84 Long term (current) use of oral hypoglycemic drugs; F41.9 Anxiety disorder, unspecified; F43.10 Post-traumatic stress disorder, unspecified; E66.9 Obesity, unspecified; F17.210 Nicotine dependence, cigarettes, uncomplicated; B18.2 Chronic viral hepatitis C; F15.10 Other stimulant abuse, uncomplicated
CPT/HCPCS: 36415; 71045; 71250; 74150; 76942; 80048; 80053; 80306; 81000; 82805; 83605; 83735; 84100; 84145; 84478; 85007; 85025; 85027; 87015; 87040; 87070; 87077; 87081; 87088; 87101; 87116; 87205; 87206; 87636; 94002; 94640; 94660; 94799; 99291